=== PATIENT | female | born 1945 | race Caucasian/White ===

== ENCOUNTER 2017-05-26 09:17 | Observation (INO) | payer MEDICARE ==
[2017-05-26] MEDS ORDERED: Furosemide 40 MG/4 ML VIAL ONE (10:07)
[2017-05-26 10:31] LABS: #Eosinphils 0.5 thou/uL (0.0-0.7); #Lymphocytes 1.4 thou/uL (1.20-3.40); #Monocytes 0.7 thou/uL (0.11-0.59); #Neutrophils 5.6 thou/uL (1.40-6.50); %Basophils 0.5 % (0.0-1.0); %Eosinophils 5.6 % (0.0-10.0); %Monocytes 8.9 % (0.0-10.0); %Neutrophils 67.9 % (42.0-75.0); Hemoglobin 9.5 g/dL (12.0-16.0); Mean Corpuscular HGB CONC 33.2 g/dL (32.0-36.0); Mean Corpuscular Hemoglobin 31.3 pg (27.0-31.0); Mean Corpuscular Volume 94.4 fl (81.0-99.0); Mean Platelet Volume 7.6 fL (7.4-10.4); Platelet Count 259 thou/uL (130-400); RBC Distribution Width 14.4 % (11.5-14.5); Red Blood Cell (RBC) Count 3.02 mill/uL (4.20-5.40); White Blood Cell (WBC) Count 8.2 thou/uL (4.8-10.8)
[2017-05-26 10:52] LABS: ALT (SGPT) 17 U/L (8-55); AST (SGOT) 14 U/L (5-34); Albumin 3.8 g/dL (3.4-4.8); Alkaline Phosphatase 92 U/L (40-150); Anion Gap 13 mmol/L (10-20); BUN (Urea Nitrogen) 37 mg/dL (9.8-20.1); Bilirubin, Total 0.4 mg/dL (0.2-1.2); CK (CPK) 93 U/L (29-168); Calc. Creatinine Clearance 0 mL/min (70-130); Calcium 9.1 mg/dL (7.8-10.44); Carbon Dioxide 27 mmol/L (23-31); Chloride 105 mmol/L (98-107); Estimated GFR-MDRD 31; Globulin 3.3 g/dL (2.4-3.5); Glucose 62 mg/dL (80-115); Potassium 4.3 mmol/L (3.5-5.1); Protein, Total 7.1 g/dL (6.0-8.3); Sodium 141 mmol/L (136-145)
[2017-05-26 10:57] LABS: CKMB 1.3 ng/mL (0-6.6); Troponin I Less than 0.010 ng/mL (< 0.028)
--- NOTE | 2017-05-26 11:26 | RAD ---
ONE VIEW CHEST: HISTORY: A 30-pound weight loss. Dyspnea. FINDINGS: Sternotomy wires are identified. A left-side transvenous pacemaker is noted. Heart is enlarged. Th ere are pleural and parenchymal changes in the left hemithorax. There are diffuse interstitial opaci ties likely due to edema. No pneumothorax. IMPRESSION: Congestive heart failure. Continued surveillance. POS: TELMA
[2017-05-26 13:37] LABS: Troponin I 0.011 ng/mL (< 0.028)
[2017-05-26] MEDS ORDERED: Acetaminophen 325 MG TAB PO PRN (15:17)
[2017-05-26] MEDS ORDERED: Ondansetron HCl/PF 4 MG/2 ML Vial IVP PRN ×2 (15:17→19:28)
[2017-05-26] MEDS ORDERED: Ondansetron ODT 4 MG TAB SL PRN (15:17)
[2017-05-26] MEDS ORDERED: Furosemide 40 MG/4 ML VIAL SLOW IVP SCH ×2 (16:00→19:30)
[2017-05-26 16:08] LABS: Troponin I 0.011 ng/mL (< 0.028)
[2017-05-26] MEDS ORDERED: Dextrose 5% in Water 1,000 ML IV PRN (19:28)
[2017-05-26] MEDS ORDERED: cloNIDine 0.1 MG TAB PO PRN (19:28)
[2017-05-26] MEDS ORDERED: Acetaminophen 500 MG TAB PO PRN (19:28)
[2017-05-26] MEDS ORDERED: Dextrose 50% Abboject 50 ML SYRINGE SLOW IVP PRN (19:28)
[2017-05-26] MEDS ORDERED: hydrALAZINE 20 MG/ML VIAL SLOW IVP PRN (19:28)
[2017-05-26] MEDS ORDERED: HumaLOG 300 UNITS/3 ML VIAL SC PRN ×2 (19:28)
[2017-05-26] MEDS ORDERED: Ondansetron ODT 4 MG TAB PO PRN (19:28)
[2017-05-26 19:55] VITALS: BMI 43.0
[2017-05-26] MEDS: Atorvastatin Calcium 40 MG TAB PO SCH (21:49)
[2017-05-26] MEDS: Sotalol HCl 80 MG TAB PO SCH (21:50)
[2017-05-26] MEDS: Lisinopril 20 MG TAB PO SCH (21:50)
[2017-05-26] MEDS: Famotidine 20 MG TAB PO SCH (21:50)
[2017-05-26] MEDS: NPH, Human Insulin Isophane 300 UNIT/3 ML VIAL SC SCH (21:51)
--- NOTE | 2017-05-26 22:40 | HP ---
DATE OF ADMISSION: 05/26/2017 PRIMARY CARE PHYSICIAN: Dr. Mon, [facility]. CHIEF COMPLAINT: Weight gain and shortness of breath. HISTORY OF PRESENT ILLNESS: This is a 71-year-old female who presents to [facility] Emergency Department in transfer from [facility], where patient presented 05/26/2017 for a 20-30 pound weight gain over the last 3 weeks. Patient apparently suffer ed an upper respiratory infection within the last week and was seen by her primary care provider, at which point she was prescribed cefdinir and an inhaler. Patient states she accumulated fluid over ap proximately 3-week period of time, gaining of approximately a pound per day; however, continued to ta ke oral diuretics including torsemide 20-40 mg daily. Patient does admit to dietary indiscretion inc luding sodium and fluid intake up to 2 liters daily. Patient noted increasing swelling of her legs, above her knees as well as difficulty lying flat. Patient states she slept at seated position and soto d some increased shortness of breath with ambulation. The patient denies any home oxygen use, recent trauma injury, travel history, chest pain, or fever. Patient does admit to significant history of c oronary artery disease as well as valvular heart disease undergoing aortic valve replacement through transcutaneous approach as well as insertion of a pacemaker. Patient states she has been compliant w ith her chronic medication regimen and denied any other specific changes. In the emergency room, franco orona underwent chest imaging showing cephalization and pulmonary edema receiving IV Lasix 40 mg x1. Patient states she had increased urination after the dosing of Lasix with shortness of breath improvi ng. Patient was referred to the Hospitalist Service for further evaluation. PAST MEDICAL HISTORY: 1. Coronary artery disease, status post cardiac stent placement x4. 2. History of atrial fibrillation. 3. Dyslipidemia. 4. Morbid obesity. 5. Hypothyroidism. 6. Depression. 7. Gastroesophageal reflux disease. 8. Hypertension. 9. Diabetes mellitus type 2, insulin-requiring. 10. Chronic kidney disease, stage 3. 11. Moderate aortic stenosis. 12. Diastolic heart failure with preserved ejection fraction in the 60% range. PAST SURGICAL HISTORY: 1. Status post coronary artery bypass grafting in 2011. 2. Status post cardiac catheterization with stent placement x4. 3. Status post section x2. 4. Status post pacemaker placement. 5. Status post transcutaneous aortic valve replacement in 2016. CURRENT MEDICATIONS: 1. Amlodipine 10 mg 1 tab p.o. daily. 2. Vitamin C 500 mg p.o. daily. 3. Enteric-coated aspirin 81 mg p.o. daily. 4. Lipitor 80 mg p.o. at bedtime. 5. Cefzil 500 mg p.o. b.i.d. 6. Plavix 75 mg 1 tab p.o. daily. 7. Lasix 40 mg p.o. daily. 8. Novolin insulin 50 units subcutaneously q.a.m. and 30 units subcutaneously at bedtime. 9. Levothyroxine 125 mcg p.o. daily. 10. Lisinopril 40 mg p.o. at bedtime. 11. Metformin 500 mg p.o. b.i.d. 12. Multivitamin 1 tab p.o. daily. 13. Protonix 40 mg p.o. at bedtime. 14. Klor-Con 10, 20 mEq p.o. daily. 15. Ranexa 500 mg p.o. b.i.d. 16. Zoloft 50 mg p.o. daily. 17. Sotalol 80 mg p.o. b.i.d. 18. Torsemide 20 mg p.o. daily. 19. Coenzyme Q10 10 mg p.o. daily. ALLERGIES: No known drug allergies. FAMILY HISTORY: Positive for hypertension, diabetes, and coronary artery disease. SOCIAL HISTORY: Patient is , retired, and resides in [place], [place]. Patient has 2 daughters. No current alcohol, tobacco, or illicit drug use. REVIEW OF SYSTEMS: The following complete review of systems was otherwise negative, except as stated per HPI: Constitutional: Weight loss or gain, ability to conduct usual activities. Skin: Rash, i tching. Eyes: Double vision, pain. ENT/Mouth: Nose bleeding, neck stiffness, pain, tenderness. C ardiovascular: Palpitations, dyspnea on exertion, orthopnea. Respiratory: Shortness of breath, whe ezing, cough, hemoptysis, fever, or night sweats. Gastrointestinal: Poor appetite, abdominal pain, heartburn, nausea, vomiting, constipation, or diarrhea. Genitourinary: Urgency, frequency, dysuria, nocturia. Musculoskeletal: Pain, swelling. Neurologic/Psychiatric: Anxiety, depression. Allergy /Immunologic: Skin rash, bleeding tendency. PHYSICAL EXAMINATION: VITAL SIGNS: Currently blood pressure 144/65, pulse 91, respiratory rate 20, temperature 98.9 degree s Fahrenheit, O2 saturation 91% on room air. GENERAL APPEARANCE: This is a 71-year-old female, alert and oriented x3, pleasant, convers ant, in no acute distress. HEENT: Pupils are equal, round, and reactive to light and accommodation. Extraocular muscles are in tact. No scleral icterus, no conjunctival injection. Nares patent. OP is clear. Teeth in good rep air. NECK: Supple, no cervical adenopathy, no thyromegaly, no carotid bruits, no JVD appreciated. Cervic al spine with full active and passive range of motion. No meningeal signs appreciated. CHEST: Bibasilar crackles, mild. CARDIOVASCULAR: S1, S2 with soft 1-2/6 systolic ejection murmur in the left upper sternal border. H eart sounds distant. ABDOMEN: Obese, soft, nontender, nondistended. Bowel sounds are positive in all four quadrants. Th ere is no hepatosplenomegaly, no abdominal bruits. Landmarks are difficult to palpate due to patient 's body habitus. EXTREMITIES: Bilateral pitting edema to the mid-thigh. Pulses palpable distally at the dorsalis ped is, posterior tibial, and popliteal arteries bilaterally. Capillary refill less than 2 seconds. NEUROLOGIC: Cranial nerves II-XII are grossly intact. No focal or lateralizing signs appreciated. PERTINENT LABORATORY DATA AND X-RAY FINDINGS: Sodium 141, potassium 4.3, chloride 105, CO2 of 27, BU N 37, creatinine 1.66 with estimated GFR of 31, glucose 62, calcium 9.1. LFTs within normal limits. Troponin I negative x3. BNP 227 previously noted 178 on 09/19/2016, albumin 3.8. CBC showed a whit e blood cell count of 8.2, hemoglobin 9.5, hematocrit 28.5, platelet count 259 with normal differenti al. Portable chest x-ray dated 05/26/2017 showed cardiomegaly. Diffuse interstitial opacities likel y secondary to edema. EKG dated 05/26/2017 by my interpretation showed sinus mechanism with heart ra radha in the 60s. Attenuated R waves noted in the precordial leads. Right bundle branch block pattern noted. Left axis deviation. No acute ST-T wave changes appreciated. ASSESSMENT AND PLAN: 1. Acute on chronic diastolic heart failure exacerbation. Patient will be observed on the telemetry unit. We will continue Lasix 40 mg IV q.12 hours. Obtain most recent 2D-transthoracic echocardiogr am from outpatient Cardiology office. Last ejection fraction documented at approximately 60% by Catina scan, PET scan on 03/04/2017. Fluid restrict to 1.5 liters per 24 hours. Sodium restriction 2 grams daily. Daily weights and monitor I's and O's. 2. Chronic kidney disease, stage 3. Avoid nephrotoxic agents and limit contrast exposure. Serial c reatinine monitoring. 3. Coronary artery disease, chronic and stable. Resume aspirin 81 mg daily and Plavix 75 mg p.o. da shelbi. Continue Lipitor 80 mg p.o. at bedtime. 4. Diabetes mellitus type 2, insulin-requiring. Continue insulin sliding scale for reflexive covera ge. Resume home insulin regimen to include Novolin 50 units subcutaneously q.a.m. and 30 units subcu taneously at bedtime. Accu-Cheks a.c. and at bedtime. ADA diet. 5. Hypertension. Resume home antihypertensive regimen and monitor clinical response. 6. Chronic normocytic anemia, stable currently. No evidence to suggest acute blood loss. Repeat CB C in the a.m. and monitor hemoglobin trend. 7. Prophylaxis. Sequential compression devices while in bed. Pepcid 20 mg p.o. b.i.d. Heart failu re education. 8. Code status is FULL. Surrogate medical decision maker is patient's daughter.
[2017-05-27] MEDS: Levothyroxine Sodium 125 MCG TAB PO SCH (05:57)
[2017-05-27] MEDS: Furosemide 40 MG/4 ML VIAL SLOW IVP SCH ×2 (05:57→14:50)
[2017-05-27 06:14] LABS: Anion Gap 12 mmol/L (10-20); BUN (Urea Nitrogen) 33 mg/dL (9.8-20.1); Calc. Creatinine Clearance 67 mL/min (70-130); Calcium 9.4 mg/dL (7.8-10.44); Carbon Dioxide 27 mmol/L (23-31); Chloride 104 mmol/L (98-107); Estimated GFR-MDRD 34; Glucose 149 mg/dL (80-115); Potassium 4.2 mmol/L (3.5-5.1); Sodium 139 mmol/L (136-145)
[2017-05-27 06:36] LABS: Band 2 % (5-11); Eosinophils 6 % (0-10); Hemoglobin 9.2 g/dL (12.0-16.0); Lymphocytes 16 % (21-51); MDiff Complete? YES; Mean Corpuscular HGB CONC 33.4 g/dL (32.0-36.0); Mean Corpuscular Hemoglobin 31.2 pg (27.0-31.0); Mean Corpuscular Volume 93.5 fl (81.0-99.0); Mean Platelet Volume 7.9 fL (7.4-10.4); Metamyelocyte 1 % (0-0); Monocytes 8 % (0-10); Neutrophil 66 % (42-75); PLT Morphology Comment Appears Adequate; Platelet Count 258 thou/uL (130-400); RBC Distribution Width 14.6 % (11.5-14.5); Reactive Lymphocytes 1 % (0-10); Red Blood Cell (RBC) Count 2.93 mill/uL (4.20-5.40); White Blood Cell (WBC) Count 9.9 thou/uL (4.8-10.8)
[2017-05-27] MEDS: Amlodipine 10 MG TAB PO SCH (08:32)
[2017-05-27] MEDS: Aspirin 81 mg Enteric Coated Tablet PO SCH (08:33)
[2017-05-27] MEDS: Clopidogrel Bisulfate 75 MG TAB PO SCH (08:33)
[2017-05-27] MEDS: Potassium Chloride 10 MEQ TAB PO SCH (08:33)
[2017-05-27] MEDS: Famotidine 20 MG TAB PO SCH ×2 (08:33→21:21)
[2017-05-27] MEDS: Sotalol HCl 80 MG TAB PO SCH ×2 (08:34→21:21)
[2017-05-27] MEDS: NPH, Human Insulin Isophane 300 UNIT/3 ML VIAL SC SCH ×2 (08:35→21:22)
--- NOTE | 2017-05-27 16:32 | PDOC.PN ---
- Subjective Encounter Start Date: 05/27/17 Encounter Start Time: 09:30 -: old records requested/rev Pt seen and examined, chart reviewed in its entirety, this is my first visit with this patient. Pt seen at 0930, revisited when daughter present at 1530. Combined 45 minutes spent face to face with patient Pt admitted overnight from CHF clinic for failure of outpatient theapy. Up 10 more pounds over last month despite increasing torsemide doses. PT admits to eating lunch meats, Chex Mix, diet pepsi, all loaded with sodium. Since admit, has been on IV lasix with good diuresis, -2L overnight, and -3L by 1400 today. Echo ordered and pending, last was 04/2016. Awiaitng Dr bellamy visit as well. Pt looks good, not requiring O2, no PND, much improved orthopnea 10 point ROS performed and neg for all systems except as per HPI - Objective Resuscitation Status: Resuscitation Status FULL:Full Resuscitation MAR Reviewed: Yes Vital Signs & Weight: Vital Signs (12 hours) Temp Pulse Pulse Pulse Resp BP BP 05/27/17 15:32 97.7 F 61 16 05/27/17 15:20 61 65 124/61 128/60 05/27/17 11:11 98.7 F 60 20 05/27/17 08:34 66 05/27/17 08:32 66 05/27/17 08:00 98.8 F 66 18 05/27/17 07:56 98.8 F 66 20 BP Pulse Ox Pulse Ox Pulse Ox 05/27/17 15:32 141/63 H 92 L 05/27/17 15:20 93 L 92 L 05/27/17 11:11 114/53 L 95 05/27/17 08:34 05/27/17 08:32 05/27/17 08:00 05/27/17 07:56 129/64 92 L Weight Weight 262 lb 11.2 oz I&O: 05/26/17 05/27/17 05/28/17 06:59 06:59 06:59 Intake Total 480 480 Output Total 2450 1200 Balance -1970 -720 Result Diagrams: 05/27/17 05:21 05/27/17 05:21 Additional Labs: Accuchecks 05/27/17 05/27/17 05/26/17 11:15 05:58 21:54 POC Glucose 201 H 161 H 206 H Radiology Reviewed by me: Yes EKG Reviewed by me: Yes Phys Exam - Physical Examination Constitutional: NAD HEENT: PERRLA, moist MMs, sclera anicteric, oral pharynx no lesions Neck: no nodes, no JVD, supple, full ROM Respiratory: no wheezing, no rales, no rhonchi, clear to auscultation bilateral Cardiovascular: no significant murmur, no rub, irregular Gastrointestinal: soft, non-tender, no distention, positive bowel sounds Musculoskeletal: pulses present, edema present skin textures returning Neurological: non-focal, normal sensation, moves all 4 limbs Lymphatic: no nodes Psychiatric: normal affect, A&O x 3 Skin: no rash, normal turgor, cap refill <2 seconds Dx/Plan (1) DM2 (diabetes mellitus, type 2) Status: Chronic Qualifiers: Diabetes mellitus jail insulin use: without rat exterminator use Diabetes mellitus complication status: without complication Qualified Code(s): E11.9 - Type 2 diabetes mellitus without complications (2) CKD (chronic kidney disease) stage 3, GFR 30-59 ml/min Code(s): N18.3 - CHRONIC KIDNEY DISEASE, STAGE 3 (MODERATE) Status: Chronic Comment: Cr stable, watch (3) Current nonadherence to medical treatment Code(s): Z91.19 - PATIENT'S NONCOMPLIANCE W OTH MEDICAL TREATMENT AND REGIMEN Status: Acute Comment: pt counseled regarding adherence to low sodium diet (4) Dietary counseling Status: Acute (5) Acute on chronic diastolic congestive heart failure Code(s): I50.33 - ACUTE ON CHRONIC DIASTOLIC (CONGESTIVE) HEART FAILURE Status : Acute (6) Atrial fibrillation Code(s): I48.91 - UNSPECIFIED ATRIAL FIBRILLATION Status: Acute Qualifiers: Atrial fibrillation type: paroxysmal Qualified Code(s): I48.0 - Paroxysmal atrial fibrillation (7) Diabetes mellitus Code(s): E11.9 - TYPE 2 DIABETES MELLITUS WITHOUT COMPLICATIONS Status: Acute Qualifiers: Diabetes mellitus type: type 2 Diabetes mellitus jail insulin use: without rat exterminator use Diabetes mellitus complication status: without complication Qualified Code(s): E11.9 - Type 2 diabetes mellitus without complications (8) Sick sinus syndrome Code(s): I49.5 - SICK SINUS SYNDROME Status: Acute Comment: S/P Pacemaker placement - Plan cont current plan of care, plan discussed w/ family, out of bed/ambulate * .
[2017-05-27] MEDS: Atorvastatin Calcium 40 MG TAB PO SCH (21:20)
[2017-05-27] MEDS: Lisinopril 20 MG TAB PO SCH (21:21)
[2017-05-28] MEDS: Levothyroxine Sodium 125 MCG TAB PO SCH (05:50)
[2017-05-28] MEDS: Furosemide 40 MG/4 ML VIAL SLOW IVP SCH (05:50)
[2017-05-28 06:58] LABS: Anion Gap 14 mmol/L (10-20); BUN (Urea Nitrogen) 40 mg/dL (9.8-20.1); Calc. Creatinine Clearance 55 mL/min (70-130); Calcium 9.4 mg/dL (7.8-10.44); Carbon Dioxide 25 mmol/L (23-31); Chloride 104 mmol/L (98-107); Estimated GFR-MDRD 28; Glucose 104 mg/dL (80-115); Magnesium 2.3 mg/dL (1.6-2.6); Potassium 4.1 mmol/L (3.5-5.1); Sodium 139 mmol/L (136-145)
[2017-05-28] MEDS ORDERED: metFORMIN 500 MG TAB PO SCH (08:00)
[2017-05-28] MEDS: Aspirin 81 mg Enteric Coated Tablet PO SCH (08:31)
[2017-05-28] MEDS: Amlodipine 10 MG TAB PO SCH (08:33)
[2017-05-28] MEDS: Famotidine 20 MG TAB PO SCH (08:33)
[2017-05-28] MEDS: Clopidogrel Bisulfate 75 MG TAB PO SCH (08:33)
[2017-05-28] MEDS: Potassium Chloride 10 MEQ TAB PO SCH (08:35)
[2017-05-28] MEDS: Sotalol HCl 80 MG TAB PO SCH (08:36)
[2017-05-28] MEDS ORDERED: Non-Formulary Item 1 EACH (Metformin Hcl [Metformin Hcl] 500 MG) PO SCH (09:00)
[2017-05-28] MEDS ORDERED: Torsemide 20 MG TAB PO SCH (09:00)
[2017-05-28] MEDS: NPH, Human Insulin Isophane 300 UNIT/3 ML VIAL SC SCH (10:04)
[2017-05-28] MEDS ORDERED: Furosemide 40 MG/4 ML VIAL SLOW IVP SCH (12:00)
[2017-05-28] MEDS ORDERED: Metolazone 5 MG TAB PO SCH (12:00)
[2017-05-28 12:25] VITALS: BP 141/63; TEMP 98.2
--- NOTE | 2017-05-28 16:20 | CON ---
DATE OF CONSULTATION: 05/28/2017 DATE OF ADMISSION: 05/26/2017 INDICATION FOR CONSULTATION: A 71-year-old female with CHF exacerbation. HISTORY OF PRESENT ILLNESS: This is a very pleasant 71-year-old female I follow for several years. She has a history of coronary artery disease and she underwent bypass surgery in 2013. She then unde rwent an angioplasty and stent placement to a diagonal branch in 2014. She underwent a TAVR in 2015. She also had a pacemaker placed at that time. Her last interrogation was within normal limits. Evan worthy was seen in the office in 01/2017. Recently, she has been noted for the last 6 weeks or so th at she has had increasing shortness of breath. She has not been very compliant with her fluid intake and also probably with sodium. She has been followed by the Heart Failure Clinic. It was noted mike t she gained increased amounts of fluid over the last several weeks, 20-30 pounds, has significant lo wer extremity edema with shortness of breath, was unable to lie down and had dyspnea on exertion. Evan burns was then presented to the hospital. Her enzymes were negative for myocardial infarction. Her hemo globin was about 9.2. She is anemic. She does have chronic kidney disease also and her creatinine w as 1.82. She was given IV Lasix and she has diuresed a little over 3 liters. She is feeling somewha t better, but continues to have significant lower extremity edema. She did have an echocardiogram pe rformed today which shows a normal ejection fraction. She does have diastolic dysfunction also. She has probably moderate aortic valve stenosis associated with her TAVR, aortic valve area calculated 1 .2-1.7 cm2. She has left atrial dilatation. Ejection fraction was 60%-65%. She also has some mild mitral valve regurgitation as well as mild tricuspid valve regurgitation and the diastolic dysfunctio n. At this time, she denies any chest pain. She still does have some dyspnea on exertion or orthopn ea, but otherwise appears to be comfortable and stable. She denies any chest pain. Her cardiac enzy mes are unremarkable for myocardial infarction. Her BNP was 226, which is not significantly elevated . PAST MEDICAL HISTORY: Significant for the coronary disease as noted. The aortic valve replacement a s noted via percutaneous method. She has a history of pacemaker insertion due to sick sinus syndrome . She has a history of paroxysmal atrial fibrillation. She has a history of chronic anemia. She soto s a history of chronic kidney disease. She recently had a stress test in the office also on March of this year which was negative for ischemia. Ejection fraction at that time also showed ejection fr action of 60%. She has a history of hypertension, dyslipidemia, hypothyroidism, some history of depr ession. She has had a and appendectomy. She has had a left greater saphenous vein closure . She has diabetes. MEDICATIONS PRIOR TO ADMISSION: Included lisinopril 40 mg q.p.m., torsemide 20 mg 2 tablets a day, C oQ10, vitamins, Plavix 75 mg a day, calcium, atorvastatin 80 mg at bedtime. She was on insulin Novol in N 30 units in the evening and 50 units in the morning. She takes metformin 500 mg b.i.d., Ranexa 500 mg b.i.d., Protonix 40 mg a day, vitamin C, Zoloft 50 mg a day, Betapace 80 mg b.i.d., Synthroid 125 mcg daily, amlodipine 10 mg a day, aspirin 81 mg a day, potassium 20 mEq a day. FAMILY HISTORY: Noncontributory. REVIEW OF SYSTEMS: She mainly complains of the shortness of breath, lower extremity edema and weight gain. She denied any pulmonary complaints otherwise. She has no chest pain, no palpitations, no sy ncope. She had no GI or complaints. Neurologically, no history of dizziness or seizures. Dermat ology: She was negative for rash or skin sores. She has no joint pains or myalgias. ALLERGIES: She has no known drug allergies. PHYSICAL EXAMINATION: GENERAL: Reveals a middle-aged obese female. VITAL SIGNS: Her blood pressure is 140/61, heart rate is 64 and regular. She is afebrile, respirato ry rate 16. O2 saturations 93%. HEENT: Shows head to be normocephalic, atraumatic. I do hear carotid bruits which is probably radia tion from the aortic area, does not appear to be stenosis. No JVD was noted. The thyroid did not ap pear to be enlarged. CHEST: Has minimal left basilar rales which clear with coughing. Otherwise is clear to auscultation , palpation and percussion. CARDIOVASCULAR: Exam reveals a regular rate and rhythm. She has a normal S1, S2. I cannot hear an S3 nor an S4. There were no significant murmurs, heaves, thrills, bruits or rubs other than the syst olic murmur over the aortic area compatible with her previous aortic valve replacement. She does hav e by echocardiogram some mild to moderate aortic valve stenosis, but this is most likely associated w ith the size of the valve that does not appear to be limiting in any way. ABDOMEN: Soft, nontender, obese. EXTREMITIES: Show no clubbing or cyanosis. She does have 2-3+ lower extremity edema involving the f eet all the way up to the knees. NEUROLOGIC: She is fully awake and intact. She has normal strength and tone. SKIN: Warm and dry. IMAGING: Her EKG shows atrial pacing and ventricular sensing. LABORATORY DATA: Shows a BNP of 226, creatinine 1.82 with BUN of 40, potassium 4.1, WBC of 9.9, and hemoglobin 9.2. IMPRESSION: 1. Congestive heart failure exacerbation in a patient who has been somewhat noncompliant with her fl uid intake and sodium. She was again advised not to drink too much fluid, to try to keep it less mike n 2 liters a day of total fluids. Also to watch her salt very carefully and report to the Heart Fail ure Clinic for further IV diuretics if necessary. I would continue her diuretics at this time, but w ould add Zaroxolyn to be taken perhaps one hour prior to her dose of torsemide at least 2 days a week . We will need to monitor her BUN and creatinine very carefully and she already has renal insufficie ncy, would suggest that she follow up with Nephrology. 2. History of coronary disease. This appears to be stable at this time. Enzymes are negative. EKG does not show any evidence of ischemia. She has atrial pacing and ventricular sensing, but no ische noa changes were noted. 3. History of bypass surgery with stent placement and this appears to be stable. 4. History of aortic valve replacement. This also appears to be stable by echocardiogram. 5. Diastolic dysfunction. This is a grade I/III. We will continue her medications, but will be car eful not to over-diurese the patient. At this time, obviously she is fluid overloaded still. 7. Chronic kidney disease, which will need to be dealt with by the Nephrology. 8. Paroxysmal atrial fibrillation. She remains in sinus rhythm at this time. Otherwise, I would ag ree with present management and medications, but will add Zaroxolyn. She is to be seen in the Heart Failure Clinic again on Thursday and I will her back in the office in the next 2-4 weeks.
--- NOTE | 2017-05-29 07:34 | DIS ---
DATE OF ADMISSION: 05/26/2017 DATE OF DISCHARGE: 05/28/2017 PRIMARY CARE PHYSICIAN: Dr. Rasheed Mon. PRIMARY MEDIA PROFESSIONAL: Dr. Pino Pratt. DISCHARGE DIAGNOSES: 1. Acute on chronic diastolic congestive heart failure. 2. Medical non-adherence to heart failure diet. 3. Coronary artery disease without any acute exacerbation or angina. 4. History of coronary artery bypass surgery and stent placements in the past. 5. History of porcine aortic valve replacement. 6. Chronic kidney disease 3. 7. Paroxysmal atrial fibrillation. 8. Severe obesity. 9. Hypothyroidism. 10. Depression. 11. Gastroesophageal reflux disease. 12. Essential hypertension. 13. Insulin-dependent diabetes mellitus type 2. 14. Hyperlipidemia. CONSULTATIONS: Cardiology, Dr. Pino Pratt on 05/28/2017. PROCEDURES: Echocardiogram on 05/28/2017 that showed EF of 60%-65% with grade I/III diastolic dysfun ction, moderate aortic stenosis. HISTORY AND PHYSICAL: Ms. Saldana is a 71-year-old female followed by the CHF clinic for chronic diastolic congestive heart failure. She has had a several month history of increasing weight and is gained approximately 25 pounds during that time. During that time, she was transitioned from Lasix t o torsemide, given metolazone on a couple of occasions, and ultimately increased to torsemide 20 mg d aily. Despite that, she continued to have weight gain. There was 1 month prior to admission who gai adelina approximately 10 pounds of fluid. She was seen in the Heart Failure Clinic on the day of admission, and due to some dyspnea on exertion , PND, and orthopnea, her increasing weight gain, and lack of apparent response to torsemide, she was sent to the emergency department for evaluation. HOSPITAL COURSE: The patient was examined in the Emergency Department, we were called for admission. The patient was admitted by Dr. Jo and placed in observation. Echocardiogram was ordered, she was started on IV Lasix q.12 hours, and serial cardiac biomarkers wer e obtained. Overnight on 05/26/2017 to 05/27/2017, she had approximately 2 liters of negative fluid balance. She was down of less 4 pounds. She was breathing better. Orthopnea and PND had resolved, and she was responding well. Echocardiogram was not done during that day due to number of echos were ordered at that time and so s he was pushed down into the morning of 05/28/2017. She continued to get her IV Lasix, which she resp onded well to and by the morning of 05/28/2017, she was negative 3-1/2 liters of fluid. She was feel ing better, breathing was better. Echocardiogram was unchanged from prior and the patient was seen b liz Pratt, who cleared for discharge with outpatient followup. Through the course of the hospital [facility], the diet required for chronic congestive heart failure was discussed. The patient has been eatin g multiple foods including Chex Mix and lunch and meats that are high in sodium and dietary consult w as requested to go over the CHF appropriate diet. PHYSICAL EXAMINATION: The patient was seen and examined on the day of discharge. Discharge plan and disposition was discussed with the patient face to face at the bedside. DISCHARGE MEDICATIONS: 1. Torsemide 20 mg p.o. daily. 2. Amlodipine 10 mg daily. 3. Vitamin C 500 mg daily. 4. Aspirin 81 mg daily. 5. Atorvastatin 80 mg p.o. at bedtime. 6. Cefprozil 500 mg p.o. b.i.d., to end on 05/31/2017. 7. Plavix 75 mg p.o. q.a.m. 8. Novolin N NPH 50 units subcu q.a.m., 30 units subcu at bedtime. 9. Levothyroxine 125 mcg daily. 10. Lisinopril 40 mg p.o. at bedtime. 11. Metformin 500 mg p.o. b.i.d. 12. Multivitamin daily. 13. Protonix 40 mg p.o. at bedtime. 14. Potassium chloride 20 mEq daily. 15. Ranolazine 500 mg p.o. b.i.d. 16. Sertraline 50 mg p.o. daily. 17. Sotalol 80 mg p.o. b.i.d. 18. CoQ10 10 mg p.o. daily. NEW MEDICATIONS: Zaroxolyn recommended by Cardiology to be taken twice a week, about one hour before of her torsemide, so a prescription will be called in. FOLLOWUP APPOINTMENTS: 1. [facility] as scheduled. 2. Dr. Pratt in 2-3 weeks. 3. Primary care physician, Dr. Rasheed Mon in 1 week. DISCHARGE CONDITION: Stable. DISPOSITION: Being discharged home via private vehicle. DISCHARGE DIET: Heart healthy, 2 gram restriction, preferably 2 liter fluid restriction diet. DISCHARGE ACTIVITY: Per Cardiopulmonary limits.
== END 2017-05-28 13:35 | disposition home or self-care (01) ==
LOC: ERS 09:17 → 2SW 12:43
PROVIDERS: ADMIT Family Medicine; ATTEND Family Medicine
DX: E11.22 Type 2 diabetes mellitus with diabetic chronic kidney disease (principal); I13.0 Hypertensive heart and chronic kidney disease with heart failure and stage 1 through stage 4 chronic kidney disease, or unspecified chronic kidney disease; N18.3 Chronic kidney disease, stage 3 (moderate); I50.33 Acute on chronic diastolic (congestive) heart failure; I25.10 Atherosclerotic heart disease of native coronary artery without angina pectoris; I48.0 Paroxysmal atrial fibrillation; E03.9 Hypothyroidism, unspecified; F32.9 Major depressive disorder, single episode, unspecified; K21.9 Gastro-esophageal reflux disease without esophagitis; E78.5 Hyperlipidemia, unspecified; D63.1 Anemia in chronic kidney disease; I49.5 Sick sinus syndrome; E66.01 Morbid (severe) obesity due to excess calories; Z68.41 Body mass index [BMI] 40.0-44.9, adult; Z91.11 Patient's noncompliance with dietary regimen; Z79.01 Long term (current) use of anticoagulants; Z79.4 Long term (current) use of insulin; Z79.82 Long term (current) use of aspirin; Z79.899 Other long term (current) drug therapy; Z95.1 Presence of aortocoronary bypass graft; Z95.5 Presence of coronary angioplasty implant and graft; Z95.3 Presence of xenogenic heart valve; Z98.891 History of uterine scar from previous surgery; Z98.890 Other specified postprocedural states
CPT/HCPCS: 71045; 80048 ×2; 80053; 82550; 82553; 82962 ×3; 83735; 83880; 84484 ×2; 85007; 85025; 85027; 93005; 93306; 93798; 96374; 96376 ×3; 99285; G0378; 36415; 36416; A4216; J1815; J1940

== ENCOUNTER 2017-09-05 10:15 | Observation (INO) | payer MEDICARE ==
[2017-09-05] MEDS ORDERED: methylPREDNISolone Sod Succ/PF 125 MG/2 ML VIAL ONE (10:41)
[2017-09-05] MEDS ORDERED: diphenhydrAMINE 50 MG/ML VIAL ONE (10:41)
[2017-09-05 10:51] LABS: #Eosinphils 0.1 thou/uL (0.0-0.7); #Lymphocytes 1.1 thou/uL (1.20-3.40); #Monocytes 0.4 thou/uL (0.11-0.59); #Neutrophils 8.8 thou/uL (1.40-6.50); %Basophils 0.1 % (0.0-1.0); %Eosinophils 0.6 % (0.0-10.0); %Monocytes 3.7 % (0.0-10.0); %Neutrophils 84.7 % (42.0-75.0); Hemoglobin 11.4 g/dL (12.0-16.0); Mean Corpuscular HGB CONC 34.2 g/dL (32.0-36.0); Mean Corpuscular Hemoglobin 31.8 pg (27.0-31.0); Mean Platelet Volume 8.1 fL (7.4-10.4); Platelet Count 231 thou/uL (130-400); RBC Distribution Width 13.7 % (11.5-14.5); Red Blood Cell (RBC) Count 3.57 mill/uL (4.20-5.40); White Blood Cell (WBC) Count 10.4 thou/uL (4.8-10.8)
[2017-09-05] MEDS ORDERED: Famotidine/PF 20 mg/2ml Vial IVPB SCH (11:00)
[2017-09-05 11:08] LABS: ALT (SGPT) 18 U/L (8-55); AST (SGOT) 24 U/L (5-34); Albumin 4.1 g/dL (3.4-4.8); Alkaline Phosphatase 80 U/L (40-150); Anion Gap 18 mmol/L (10-20); BUN (Urea Nitrogen) 56 mg/dL (9.8-20.1); Bilirubin, Total 0.4 mg/dL (0.2-1.2); CK (CPK) 491 U/L (29-168); Calc. Creatinine Clearance 0 mL/min (70-130); Calcium 9.6 mg/dL (7.8-10.44); Carbon Dioxide 18 mmol/L (23-31); Chloride 107 mmol/L (98-107); Estimated GFR-MDRD 25; Globulin 3.2 g/dL (2.4-3.5); Glucose 157 mg/dL (80-115); Potassium 4.9 mmol/L (3.5-5.1); Protein, Total 7.3 g/dL (6.0-8.3); Sodium 138 mmol/L (136-145)
[2017-09-05 11:13] LABS: Troponin I Less than 0.010 ng/mL (< 0.028)
[2017-09-05 11:18] LABS: CKMB 15.7 ng/mL (0-6.6)
[2017-09-05] MEDS ORDERED: diphenhydrAMINE 50 MG/ML VIAL IVP PRN (12:55)
--- NOTE | 2017-09-05 13:24 | HP ---
PRIMARY CARE PROVIDER: Dr. Rasheed Mon. CHIEF COMPLAINT: Tongue swelling. HISTORY OF PRESENT ILLNESS: Ms. Saldana is a pleasant 72-year-old lady who was seen at [facility] on 09/05/2017. She reports that she had diarrhea for 1 day, couple of days a go. She saw her primary care provider yesterday and was started on diphenoxylate. She has been on l isinopril for several years. Last night, she reports that she had low blood sugars. She got up to the refrigerator to look for so me food. At that time, she noticed that her tongue was feeling different. However, she thought that maybe she had passed out from hypoglycemia and bit her tongue. This morning, she noticed that her t ongue continued to be swollen. She denies any itching of the tongue. She also reports that left arm and left lower extremity were both achy today. She denies any wheezing at home. She denies any fee ling of doom. She denies any throat swelling. She came to the emergency room because of ongoing ton toby swelling. REVIEW OF SYSTEMS: All other systems reviewed and found to be negative. PAST MEDICAL HISTORY: Coronary artery disease, status post PCI with stent, atrial fibrillation, dysl ipidemia, morbid obesity, hypothyroidism, depression, gastroesophageal reflux disease, hypertension, diabetes mellitus type 2, chronic kidney disease stage 3, moderate aortic stenosis and diastolic hear t failure. PAST SURGICAL HISTORY: Coronary artery bypass graft in 2012, PCI with stents x4, section x2 , pacemaker placement, transcutaneous aortic valve replacement in 2016. SOCIAL HISTORY: Patient denies tobacco use, alcohol use or recreational drug use. FAMILY HISTORY: Significant for hypertension, diabetes mellitus and coronary artery disease. ALLERGIES: No known drug allergies. CODE STATUS: I discussed her code status. She wishes to be FULL CODE. CURRENT MEDICATIONS: Diphenoxylate p.r.n., amlodipine 10 mg daily, torsemide 20-40 mg daily, potassi um chloride 20 mEq daily, aspirin 81 mg daily, Plavix 75 mg daily, lisinopril 40 mg daily, metformin 500 mg 2 times a day, Protonix 40 mg daily, Ranexa 500 mg 2 times a day, ascorbic acid 500 mg daily, sotalol 80 mg 2 times a day and Novolin N 50 units in the morning and 30 units at supper. PHYSICAL EXAMINATION: GENERAL: On examination, Ms. Saldana is awake and alert, not in acute distress. VITAL SIGNS: Blood pressure is 147/66, pulse 60, respiratory rate 20, and oxygen saturations 96% on room air. She is afebrile. She is obese. EYES: No scleral icterus. No conjunctival pallor. ENT: Moist mucosal membranes, no oropharyngeal erythema or exudates. Right half of the tongue is sw ollen, but there is no airway compromise. NECK: Supple, nontender, normal range of movement. Trachea is midline. RESPIRATORY: Accessory muscles of breathing are not active. Chest wall movements are symmetric bila terally. LUNGS: Clear to auscultation without any wheeze, rhonchi or crepitations. CARDIOVASCULAR: S1 and S2 are heard, regular. Peripheral pulses palpable. No carotid bruit, no per icardial rub. NEUROLOGIC: Cranial nerves II-XII intact. Deep tendon reflexes 2+. SKIN: Dry skin over the lower extremities, bilateral lower extremity edema. MUSCULOSKELETAL: Power is 5/5 in all 4 extremities. LYMPHATIC: No cervical lymphadenopathy. PSYCHIATRIC: Normal mood, normal affect, patient is oriented to person, place and time. IMAGING DATA AND LABORATORY DATA: She had an electrocardiogram, which shows atrial paced rhythm, no ST changes to suggest an acute coronary syndrome. She has a normal white count, normocytic anemia wi th hemoglobin 11.4, normal platelet count, normal sodium, normal potassium, elevated blood urea nitro gen of 56, elevated creatinine of 2, last known creatinine 1.59 on 06/09/2017, elevated creatinine ki nase of 491, unremarkable liver profile and normal troponin I. ASSESSMENT AND PLAN: Ms. Saldana is a pleasant 72-year-old lady who was seen at [facility] on 09/05/2017. Her problem list includes: 1. Tongue swelling: Most likely secondary to angioedema. She attributes it to diphenoxylate. It i s possible, although it is more likely secondary to lisinopril use. Lisinopril will be discontinued. She will be started on an ARB. 2. Angioedema: We will continue the patient on H1 and H2 blockers as well as steroids. we will mon itor her on telemetry. She is not hypoxic at this time. 3. Diabetes mellitus type 2: She is on insulin. We will continue home insulin and start her on Acc u-Cheks and insulin sliding scale. 4. Acute on chronic renal failure: We will hold nephrotoxic medications for now and recheck her cre atinine. 5. Coronary artery disease: Appears to be stable. 6. Gastroesophageal reflux disease: Continue PPI, appears to be stable. 7. Hypertension: Monitor vital signs, titrate antihypertensives as needed. 8. Dyslipidemia: Continue statin. Many thanks for allowing me to participate in your patient's care. Please feel free to contact me wi th any questions or concerns. LEVEL OF RISK: Moderate. LEVEL OF COMPLEXITY: Moderate.
[2017-09-05 13:36] VITALS: BMI 41.1
[2017-09-05 16:03] VITALS: BP 150/68; TEMP 98.3
[2017-09-05] MEDS ORDERED: Famotidine/PF 20 mg/2ml Vial SLOW IVP SCH (21:00)
--- NOTE | 2017-09-06 01:33 | DIS ---
DATE OF ADMISSION: 09/05/2017 DATE OF DISCHARGE: Patient left against medical advice on 09/05/2017. PRIMARY CARE PROVIDER: Rasheed Mon MD DISCHARGE DIAGNOSES: 1. Tongue swelling. 2. Angioedema. HOSPITAL COURSE: Ms. Saldana is a pleasant 72-year-old lady who was admitted to [facility] on 09/05/2017 on observation status for tongue swelling and angioedema. She was herb ated with steroids, H1 blockers and H2 blockers. Please refer to my history and physical note dated 09/05/2017 for further information. Shortly after admission, Ms. Saldana left the hospital against medical advice.
[2017-09-06] MEDS ORDERED: Famotidine/PF 20 mg/2ml Vial SLOW IVP SCH (09:00)
== END 2017-09-05 16:49 | disposition left against medical advice (07) ==
LOC: ERS 10:15 → 2SW 13:09
PROVIDERS: ADMIT Internal Medicine; ATTEND Internal Medicine
DX: R22.0 Localized swelling, mass and lump, head (principal); T78.3XXA Angioneurotic edema, initial encounter; I25.10 Atherosclerotic heart disease of native coronary artery without angina pectoris; I13.0 Hypertensive heart and chronic kidney disease with heart failure and stage 1 through stage 4 chronic kidney disease, or unspecified chronic kidney disease; E11.22 Type 2 diabetes mellitus with diabetic chronic kidney disease; E78.5 Hyperlipidemia, unspecified; E66.01 Morbid (severe) obesity due to excess calories; E03.9 Hypothyroidism, unspecified; K21.9 Gastro-esophageal reflux disease without esophagitis; I50.30 Unspecified diastolic (congestive) heart failure; N17.9 Acute kidney failure, unspecified; Z88.8 Allergy status to other drugs, medicaments and biological substances; Z79.82 Long term (current) use of aspirin; Z79.02 Long term (current) use of antithrombotics/antiplatelets; Z79.899 Other long term (current) drug therapy; Z79.4 Long term (current) use of insulin
CPT/HCPCS: 36415; 80053; 82553; 84484; 85025; 93005; 96374; 96375; J1200; J2930; S0028

== ENCOUNTER 2018-07-07 09:12 | Emergency (ER) | payer MEDICARE ==
[2018-07-07 10:15] LABS: #Eosinphils 0.4 thou/uL (0.0-0.7); #Monocytes 0.8 thou/uL (0.11-0.59); #Neutrophils 6.3 thou/uL (1.40-6.50); %Basophils 0.4 % (0.0-1.0); %Eosinophils 4.4 % (0.0-10.0); %Lymphocytes 11.6 % (21.0-51.0); %Monocytes 9.2 % (0.0-10.0); %Neutrophils 74.5 % (42.0-75.0); Hemoglobin 10.1 g/dL (12.0-16.0); Mean Corpuscular HGB CONC 33.1 g/dL (32.0-36.0); Mean Corpuscular Hemoglobin 30.6 pg (27.0-31.0); Mean Corpuscular Volume 92.3 fL (78.0-98.0); Mean Platelet Volume 8.6 fL (7.4-10.4); Platelet Count 236 thou/uL (130-400); RBC Distribution Width 15.2 % (11.5-14.5); Red Blood Cell (RBC) Count 3.32 mill/uL (4.20-5.40); White Blood Cell (WBC) Count 8.5 thou/uL (4.8-10.8)
[2018-07-07 10:37] LABS: ALT (SGPT) 12 U/L (8-55); AST (SGOT) 15 U/L (5-34); Albumin 3.9 g/dL (3.4-4.8); Alkaline Phosphatase 100 U/L (40-150); Anion Gap 15 mmol/L (10-20); BUN (Urea Nitrogen) 42 mg/dL (9.8-20.1); Bilirubin, Total 0.4 mg/dL (0.2-1.2); Calc. Creatinine Clearance 0 mL/min (70-130); Calcium 9.2 mg/dL (7.8-10.44); Carbon Dioxide 24 mmol/L (23-31); Chloride 106 mmol/L (98-107); Estimated GFR-MDRD 24; Globulin 3.1 g/dL (2.4-3.5); Glucose 84 mg/dL (83-110); Potassium 3.7 mmol/L (3.5-5.1); Sodium 141 mmol/L (136-145)
[2018-07-07 11:34] LABS: Bilirubin Negative (Negative); Blood, Urine Negative (Negative); Clarity CLOUDY (Clear); Glucose, Urine (Dipstick) Negative (Negative); Leukocyte Trace (Negative); Nitrite Negative (Negative); Protein, Urine (Dipstick) Negative (Neg-Trace); Urobilinogen 0.2 mg/dL (0.2-1.0); pH, Urine 5.5 (5.0-9.0)
[2018-07-07 11:38] LABS: Bacteria/HPF None Seen HPF (None Seen); RBC/HPF 0-3 HPF (0-3)
[2018-07-07 11:42] LABS: Pathc Cast-AUWi Flag 3.94 (0-2.49); Yeast-AUWi Flag 85.9 (0-25.0)
[2018-07-07 11:57] LABS: Hyaline Casts/LPF 0-3 HYALINE CAST LPF (0-3 Hyaline); Renal Epithelial None Seen HPF (0-3); Transitional Epithelial 0-3 HPF (0-3); Yeast-All Forms Rare HPF (None Seen)
== END 2018-07-07 12:22 | disposition home or self-care (01) ==
LOC: ERS 09:12
DX: E11.649 Type 2 diabetes mellitus with hypoglycemia without coma (principal); I13.0 Hypertensive heart and chronic kidney disease with heart failure and stage 1 through stage 4 chronic kidney disease, or unspecified chronic kidney disease; N18.9 Chronic kidney disease, unspecified; I50.9 Heart failure, unspecified; D64.9 Anemia, unspecified; E03.9 Hypothyroidism, unspecified; E78.5 Hyperlipidemia, unspecified; Z79.899 Other long term (current) drug therapy; Z79.82 Long term (current) use of aspirin; Z79.4 Long term (current) use of insulin
CPT/HCPCS: 36415; 36416; 80053; 81003; 81015; 85025; 99285

== ENCOUNTER 2018-12-08 07:45 | Outpatient (CLI) | payer MEDICARE ==
[2018-12-08] MEDS ORDERED: Sodium Chloride 0.9% 15 ML NEB ONE (16:05)
== END 2018-12-08 07:46 | disposition home or self-care (01) ==
LOC: WCC 07:45
PROVIDERS: ATTEND Family Medicine
DX: M79.89 Other specified soft tissue disorders (principal); L90.9 Atrophic disorder of skin, unspecified
CPT/HCPCS: 97139; G0463; 99211; A4218

== ENCOUNTER 2019-02-16 02:17 | Inpatient (IN) | payer MEDICARE ==
[2019-02-16] MEDS ORDERED: Aspirin Chewable 81 MG TAB ONE ×2 (02:27→07:24)
[2019-02-16] MEDS ORDERED: Furosemide 40 MG/4 ML VIAL ONE ×3 (03:23→14:46)
[2019-02-16 03:39] LABS: #Eosinphils 0.3 thou/uL (0.0-0.7); #Lymphocytes 0.8 thou/uL (1.20-3.40); #Monocytes 0.9 thou/uL (0.11-0.59); #Neutrophils 14.5 thou/uL (1.40-6.50); %Basophils 0.2 % (0.0-1.0); %Eosinophils 1.7 % (0.0-10.0); %Monocytes 5.2 % (0.0-10.0); %Neutrophils 87.9 % (42.0-75.0); Hemoglobin 9.1 g/dL (12.0-16.0); Mean Corpuscular HGB CONC 33.6 g/dL (32.0-36.0); Mean Corpuscular Hemoglobin 29.5 pg (27.0-31.0); Mean Corpuscular Volume 87.8 fL (78.0-98.0); Mean Platelet Volume 9.7 fL (7.4-10.4); Platelet Count 206 thou/uL (130-400); RBC Distribution Width 19.4 % (11.5-14.5); Red Blood Cell (RBC) Count 3.09 mill/uL (4.20-5.40); White Blood Cell (WBC) Count 16.5 thou/uL (4.8-10.8)
[2019-02-16 04:04] LABS: ALT (SGPT) 18 U/L (8-55); AST (SGOT) 20 U/L (5-34); Alkaline Phosphatase 110 U/L (40-110); Anion Gap 13 mmol/L (10-20); BUN (Urea Nitrogen) 37 mg/dL (9.8-20.1); Bilirubin, Total 0.6 mg/dL (0.2-1.2); Calc. Creatinine Clearance 0 mL/min (70-130); Calcium 9.3 mg/dL (7.8-10.44); Carbon Dioxide 27 mmol/L (23-31); Chloride 106 mmol/L (98-107); Estimated GFR-MDRD 24; Globulin 3.2 g/dL (2.4-3.5); Glucose 401 mg/dL (83-110); Potassium 4.7 mmol/L (3.5-5.1); Protein, Total 7.2 g/dL (6.0-8.3); Sodium 141 mmol/L (136-145)
[2019-02-16 04:27] LABS: CKMB 1.3 ng/mL (0-6.6)
[2019-02-16] MEDS ORDERED: Acetaminophen 325 MG TAB PO PRN (05:57)
[2019-02-16] MEDS ORDERED: Ondansetron PF 4 MG/2 ML Vial IVP PRN (05:57)
[2019-02-16] MEDS ORDERED: Dextrose 5% in Water 1,000 ML IV PRN (05:57)
[2019-02-16] MEDS ORDERED: Dextrose 50% Abboject 50 ML SYRINGE SLOW IVP PRN (05:57)
[2019-02-16 06:47] LABS: Iron 14 ug/dL (50-170); Iron Binding Capacity, Total 183 mcg/dL (265-497)
[2019-02-16] MEDS: Furosemide 40 MG/4 ML VIAL SLOW IVP SCH ×2 (06:49→18:08)
[2019-02-16] MEDS: Levothyroxine Sodium 125 MCG TAB PO SCH (06:49)
[2019-02-16] MEDS ORDERED: Amlodipine 5 MG TAB ONE (07:24)
[2019-02-16] MEDS ORDERED: Clopidogrel Bisulfate 75 MG TAB ONE (07:24)
[2019-02-16] MEDS ORDERED: Enoxaparin Sodium 30 MG/0.3 ML SYRINGE ONE (07:24)
[2019-02-16 07:50] LABS: Troponin I 0.071 ng/mL (< 0.028)
--- NOTE | 2019-02-16 07:51 | RAD ---
RADIOGRAPH CHEST 1 VIEW: DATE: 02/16/2019 TIME: 2:20 AM HISTORY: 73-year-old female with dyspnea COMPARISON: 03/07/2018 FINDINGS: Sternotomy wires and left subclavian permanent pacemaker again noted. Greater degree of interstitial changes throughout both lungs possibly representing pulmonary interstitial edema now compared to previous study. No pneumothorax. Left pleural thickening versus small loculated left pleural effusion again noted at left lateral base. IMPRESSION: Possible pulmonary interstitial edema.
--- NOTE | 2019-02-16 08:15 | HP ---
PRESENTING COMPLAINT: Worsening shortness of breath. HISTORY OF PRESENT ILLNESS: Ms. Les Whitmore, 73-year-old, female with past medical historyof hypertension, diabetes mellitus, diastolic CHF with last echo from 2018 showing grade 1/3 diastolic dysfunction, but normal EF of 65%. The patient on chronic diuretics with torsemide, presented today because of worsening shortness of breath since the last since the last 2 days. The patient also admits to worsening body swelling. She has noticed new redness of lower extremities. She denies any fever or chills. She denies any chest pain. She denies any sputum production, but admits to intermittent cough symptoms. In the ED, initially she was noted with wheezing and given DuoNeb's with minimal response, but she has been given Lasix, and she feels much better now. She denies any decreased urine volume. PAST MEDICAL HISTORY: Significant for, 1. Diastolic CHF. 2. Hypertension. 3. Diabetes mellitus. 4. Hyperlipidemia. 5. History of nonadherence to medication. 6. History of depression. 7. History of AICD placement. 8. History of chronic kidney disease with baseline creatinine of 2.0 to 2.3 range. ALLERGIES: ATROPINE, DIPHENOXYLATE, WELL LISINOPRIL. FAMILY HISTORY: No history of CAD or CVA. SOCIAL HISTORY: The patient denies any tobacco, alcohol, or illicit drug use. REVIEW OF SYSTEMS: All systems reviewed x14 negative, except as mentioned above. PHYSICAL EXAMINATION: CURRENT VITAL SIGNS: Blood pressure of 169/71, pulse of 73, respiratory rate of 18, temp afebrile, O2 saturation is 93% on 2 L nasal cannula. GENERAL: Obese elderly female, calm, on nasal cannula. HEENT: Head is atraumatic, normocephalic. Pupils equal and reactive to light. NECK: No JVD. No carotid bruit. RESPIRATORY: Coarse bibasilar crepitations. No wheeze. CARDIOVASCULAR: S1 and S2. Palpable pacemaker in-situ. GI: Abdomen is full, soft, nontender. Edematous wall noted. No suprapubic fullness. EXTREMITIES: 2 to 3+ pitting pedal edema, on baseline chronic lymph edema. skin changes with erythema over the lieberman extending to the ankle area. No overt ulceration. NEUROLOGIC: The patient is alert and oriented. Cranial nerves 2 through 12 are grossly intact. LABORATORY DATA: WBC 16.5, 87% neutrophils, hemoglobin 9.1. Potassium 4.7, creatinine 2.02, bicarb 27. AST and alkaline phosphatase normal. Troponin 0.033, BNP 303, iron sat of 8%. IMPRESSION: 1. Acute diastolic congestive heart failure exacerbation. 2. Hypertension. 3. Diabetes mellitus. 4. Bilateral lower extremity cellulitis due to chronic lymph edema. 5. Iron deficiency anemia. 6. Chronic kidney disease stage 4, stable. PLAN: We will admit the patient to inpatient status. We will start the patient on IV diuretics. We will monitor creatinine level as well as replace potassium as needed. Given anemia, we will obtain iron level with results showing low iron sat. We will follow ferritin level. If it is still low, the patient might benefit from IV iron. Given possible lower extremity cellulitis, we will obtain blood culture as well as start the patient on empirical Zosyn. We will do DVT prophylaxis with Lovenox. We will consult new Nephrology as well as Cardiology for further news assistant with management of volume status. Continue Lasix 40 mg IV b.i.d. for now. Follow daily weights and intake and output. Advance directive, the patient is full code. Total time spent in review of record, discussion with the patient, greater than 60 minutes. Job ID: [id number]
[2019-02-16 08:57] LABS: Troponin I 0.071 ng/mL (< 0.028)
[2019-02-16] MEDS: Amlodipine 10 MG TAB PO SCH (09:07)
[2019-02-16] MEDS: Enoxaparin Sodium 30 MG/0.3 ML SYRINGE SC SCH (09:08)
[2019-02-16] MEDS: Aspirin 81 mg Enteric Coated Tablet PO SCH (09:08)
[2019-02-16] MEDS: Clopidogrel Bisulfate 75 MG TAB PO SCH (09:08)
[2019-02-16] MEDS: Sotalol HCl 80 MG TAB PO SCH ×2 (09:08→20:47)
[2019-02-16] MEDS ORDERED: Piperacillin/Tazobactam 2.25 GM VIAL ONE (10:46)
[2019-02-16] MEDS: Piperacillin/Tazobactam 2.25 GM in Sodium Chloride 0.9% 100 ML IVPB SCH ×3 (10:55→23:41)
[2019-02-16] MEDS ORDERED: traMADol HCl 50 MG TAB PO SCH (15:15)
[2019-02-16 15:59] LABS: Actual Bicarbonate (HCO3a) 23.8 mEq/L (22-28); Analyzer IN Cardio ER; Base Excess (BEa) -0.6 mEq/L (-2.0 to +3.0); Calcium, Ionized 1.12 mmol/L (1.12-1.30); Carboxyhemoglobin (COHb) 0.7 gm% (0.0-3.0); Hemoglobin (Hb) 9.3 g/dL (12.0-16.0); O2 Tension (PaO2) 60.8 mmHg (> 70.0); Potassium - ABG Lab 5.14 mmol/L (3.70-5.30); pH, Arterial 7.42 (7.35-7.45)
[2019-02-16 16:00] LABS: Puncture Site LRA
[2019-02-16] MEDS ORDERED: Iron, Sodium Ferric Gluconate 250 MG in Sodium Chloride 0.9% 100 ML IVPB SCH (17:15)
[2019-02-16 17:58] VITALS: BMI 43.6
[2019-02-16] MEDS: HumaLOG 300 UNITS/3 ML VIAL SC PRN (18:16)
--- NOTE | 2019-02-16 18:19 | CON ---
DATE OF CONSULTATION: 02/16/2019 SERVICE: Nephrology. REASON FOR CONSULTATION: CKD 4 with possible reversible component. REQUESTING PHYSICIAN: Dr. Rogelio Dove. HISTORY OF PRESENT ILLNESS: A 73-year-old female with known history of chronic diastolic heart failure, diabetes mellitus, and CKD stage 4, who presents to the hospital with acute onset of worsening shortness of breath associated with wheezing and swelling. Symptoms reportedly started in the last 2 days. The patient has called EMS due to difficulty breathing. She reportedly was treated with DuoNeb for possible COPD exacerbation with no improvement; however, was treated with Lasix with improvement, and she was admitted for further evaluation and treatment. She was also found to have elevated creatinine of 2.02, hence Nephrology consult. Review of medical records showed that the patient had creatinine of 3.04 in June 2018 and 2.15 on January 06, 2019. However, review of medical records showed that the patient had creatinine of 1.29 in November 2017. The patient tells me that she knows she has chronic kidney disease and follows up with Dr. Escalante at [facility]. She denied nausea, vomiting, hematemesis, hematochezia, or change in bowel habit. She admitted to chronic leg swelling, which seemed to have worsened in the last few days. She denied fever or chest pain. She also denied dysuria, hematuria, or focal weakness. PAST MEDICAL HISTORY: 1. Chronic diastolic heart failure. 2. Hypertension. 3. Diabetes mellitus. 4. Hyperlipidemia. 5. Depression. 6. Chronic kidney disease, stage 4. 7. Valvular heart disease. 8. AICD. PAST SURGICAL HISTORY: 1. Coronary artery disease, status post CABG. 2. Transaortic valvular replacement. 3. . 4. Appendectomy. 5. Paroxysmal atrial fibrillation with sick-sinus syndrome, status post pacemaker placement. FAMILY HISTORY: Reviewed, but noncontributory. SOCIAL HISTORY: The patient lives with family. Denied alcohol, smoking, or illicit recreational drug use. ALLERGIES: 1. ATROPINE. 2. DIPHENOXYLATE. 3. LISINOPRIL. THE PATIENT HOWEVER IS CURRENTLY ON LISINOPRIL. MEDICATIONS: Home medications: Please see home medications. Presently, the patient is on amlodipine. Lisinopril, as well as levothyroxine, insulin, and torsemide. REVIEW OF SYSTEMS: A 12-point review of systems performed was negative other than pertinent positives and negatives included in the history of present illness. PHYSICAL EXAMINATION: VITAL SIGNS: Temperature , respiratory rate 18, SpO2 of 93% on 2 L nasal cannula, blood pressure is 153/56, heart rate of 73. GENERAL: Obese female, in mild respiratory distress. Afebrile. Anicteric. Acyanotic. HEENT: Normocephalic, atraumatic. Oral mucosa is moist. NECK: Supple with no JVD. CARDIOVASCULAR: Regular rhythm and rate. Systolic murmur noted. Pacemaker also noted. RESPIRATORY: Fair air entry bilateral with crackles bibasilarly posteriorly especially. No obvious rhonchi were appreciated. Work of breathing is mildly increased. GI: Obese, soft, nontender, nondistended with normal bowel sounds. EXTREMITIES: Uzjndwpt-tx-phcoud bilateral leg edema noted. Chronic venous stasis changing with few erythema and some tenderness noted. There is no overt ulceration appreciated. EQUINE PHARMACOLOGY TECHNICIAN: Conscious, alert, oriented x3 with appropriate mental status. Cranial nerves 2 through 12 are grossly intact. DIAGNOSTIC DATA: LABORATORY RESULTS: CBC showed WBC count of 16.5, hemoglobin of 9.1, MCV of 87.8, platelets of 206. CMP showed sodium 141, potassium 4.7, chloride 106, CO2 of 27, BUN 37, creatinine 2.02, glucose 401, calcium 9.3, total bilirubin 0.6, AST 20, ALT 18, alkaline phosphatase 110, total protein 7.2, albumin 4.0, globulin 3.2. Initial cardiac enzymes showed CK-MB of 1.3, troponin of 0.033, and BNP of 303. Subsequent troponin was elevated at 0.071. Chemistry showed serum iron of 14, TIBC 183, saturation of 8% with ferritin of 545. IMAGING STUDIES: Chest x-ray showed increased interstitial changes in both lungs consistent with pulmonary interstitial edema. ASSESSMENT: 1. Chronic kidney disease stage 4 with possible reversible component. 2. Anemia in chronic kidney disease. 3. Coexisting iron-deficiency anemia. 4. Uncontrolled diabetes mellitus. 5. Cgrcl-ou-xnogshu diastolic heart failure. 6. Volume overload. 7. Acute respiratory failure with hypoxia due to congestive heart failure exacerbation. PLAN: 1. Agree with diuretic therapy. 2. Start IV iron therapy. 3. We will consider adding erythrocyte stimulating agent. 4. We will monitor renal function. 5. Avoid nephrotoxic agents. 6. Monitor intake and output. 7. Further treatment to follow depending on hospital course. Many thanks for involving us in the care of this patient. We will follow along with you. The patient will need to follow up with regular teacher aide clerical on discharge from this hospital. Job ID: [id number]
[2019-02-16] MEDS: Atorvastatin Calcium 40 MG TAB PO SCH (20:47)
[2019-02-16] MEDS: Lisinopril 20 MG TAB PO SCH (20:47)
[2019-02-17 04:02] LABS: #Eosinphils 0.1 thou/uL (0.0-0.7); #Lymphocytes 0.9 thou/uL (1.20-3.40); #Monocytes 1.1 thou/uL (0.11-0.59); #Neutrophils 11.1 thou/uL (1.40-6.50); %Basophils 0.2 % (0.0-1.0); %Eosinophils 0.5 % (0.0-10.0); %Lymphocytes 6.7 % (21.0-51.0); %Monocytes 8.1 % (0.0-10.0); %Neutrophils 84.5 % (42.0-75.0); Hemoglobin 8.5 g/dL (12.0-16.0); Mean Corpuscular HGB CONC 32.2 g/dL (32.0-36.0); Mean Corpuscular Hemoglobin 28.6 pg (27.0-31.0); Mean Corpuscular Volume 88.6 fL (78.0-98.0); Mean Platelet Volume 9.9 fL (7.4-10.4); Platelet Count 176 thou/uL (130-400); RBC Distribution Width 19.5 % (11.5-14.5); Red Blood Cell (RBC) Count 2.98 mill/uL (4.20-5.40); White Blood Cell (WBC) Count 13.2 thou/uL (4.8-10.8)
[2019-02-17 04:26] LABS: ALT (SGPT) 13 U/L (8-55); AST (SGOT) 15 U/L (5-34); Albumin 3.8 g/dL (3.4-4.8); Alkaline Phosphatase 79 U/L (40-110); Anion Gap 15 mmol/L (10-20); BUN (Urea Nitrogen) 38 mg/dL (9.8-20.1); Bilirubin, Total 1.1 mg/dL (0.2-1.2); Calc. Creatinine Clearance 46 mL/min (70-130); Calcium 8.9 mg/dL (7.8-10.44); Carbon Dioxide 23 mmol/L (23-31); Chloride 100 mmol/L (98-107); Estimated GFR-MDRD 22; Globulin 2.9 g/dL (2.4-3.5); Glucose 309 mg/dL (83-110); Magnesium 1.9 mg/dL (1.6-2.6); Potassium 4.8 mmol/L (3.5-5.1); Protein, Total 6.7 g/dL (6.0-8.3); Sodium 133 mmol/L (136-145)
[2019-02-17] MEDS: Levothyroxine Sodium 125 MCG TAB PO SCH (06:05)
[2019-02-17] MEDS: Furosemide 40 MG/4 ML VIAL SLOW IVP SCH ×2 (06:05→15:53)
[2019-02-17] MEDS: Piperacillin/Tazobactam 2.25 GM in Sodium Chloride 0.9% 100 ML IVPB SCH ×2 (08:09→15:53)
[2019-02-17] MEDS: HumaLOG 300 UNITS/3 ML VIAL SC PRN ×3 (08:10→17:47)
--- NOTE | 2019-02-17 08:15 | PRG ---
DATE OF SERVICE: 02/17/2019 SERVICE: Nephrology. SUBJECTIVE: A 73-year-old female with known history of CKD stage 4; obstructive sleep apnea, on CPAP; paroxysmal atrial fibrillation; chronic diastolic heart failure; admitted due to worsening shortness of breath. Nephrology is following the patient for chronic kidney disease with possible reversible component. The patient reports feeling better. Shortness of breath has improved. Denied nausea, vomiting, abdominal pain, or dysuria. OBJECTIVE: VITAL SIGNS: Temperature 99.4, pulse 69, respiratory rate 16, SpO2 of 90 on room air, and blood pressure is 130/60. GENERAL: Obese female, in no obvious distress. Afebrile. Anicteric. Acyanotic. HEENT: Normocephalic, atraumatic. NECK: No JVD appreciated. CARDIOVASCULAR: Irregular rhythm and rate with normal heart sounds. Systolic murmur noted. RESPIRATORY: Fair air entry bilaterally with bibasilar crackles. No rhonchi were appreciated. Work of breathing is not increased. GI: Obese, soft, nontender, nondistended with normal bowel sounds. UROGENITAL: Goss catheter is in place draining clear urine. EXTREMITIES: Laaj-vw-imcteick bilateral leg edema with features of chronic venous stasis. PARTS ADVISOR: Conscious, alert, oriented x3 with appropriate mental status. Cranial nerves 2 through 12 are grossly intact. DIAGNOSTIC DATA: CBC showed WBC count of 13.2, hemoglobin of 8.5, MCV of 88.6, and platelets of 176. CMP today showed sodium 133, potassium 4.8, chloride 100, CO2 of 23, BUN 38, creatinine 2.18, glucose 309, calcium 8.9, magnesium 1.9, total bilirubin 1.1, AST 15, ALT 13, alkaline phosphatase 79, total protein 6.7, albumin 3.8, and globulin 2.9. ASSESSMENT: 1. Chronic kidney disease with possible reversible component. Most likely due to hemodynamic factors related to chronic congestive heart failure and diuretic therapy. Diabetic nephropathy is most likely the main issue. 2. Volume overload: Due to chronic kidney disease and diastolic heart failure. Improving with diuretic therapy. 3. Presumed diabetic nephropathy. 4. Hypertension: Control is better. 5. Anemia in chronic kidney disease. PLAN: 1. Continue current diuretic therapy with Lasix. 2. Continue IV iron therapy. 3. Get urinalysis as well as urine protein-creatinine ratio. We will repeat renal function in the morning. SULAIMAN is considered after IV iron therapy. Job ID: [id number]
[2019-02-17] MEDS: Enoxaparin Sodium 30 MG/0.3 ML SYRINGE SC SCH (09:59)
[2019-02-17] MEDS: Clopidogrel Bisulfate 75 MG TAB PO SCH (10:00)
[2019-02-17] MEDS: Aspirin 81 mg Enteric Coated Tablet PO SCH (10:00)
[2019-02-17] MEDS: Amlodipine 10 MG TAB PO SCH (10:01)
[2019-02-17] MEDS: Sotalol HCl 80 MG TAB PO SCH ×2 (10:01→21:19)
[2019-02-17] MEDS: Iron, Sodium Ferric Gluconate 250 MG in Sodium Chloride 0.9% 100 ML IVPB SCH (10:19)
[2019-02-17 12:23] LABS: Bacteria/HPF 3+ HPF (None Seen); Bilirubin Negative (Negative); Blood, Urine 3+ (Negative); Clarity Extra Turbid (Clear); Glucose, Urine (Dipstick) Normal (Negative); Leukocyte 250 Leu/uL (Negative); Nitrite Negative (Negative); Protein, Urine (Dipstick) 50 mg/dL (Neg-Trace); RBC/HPF Greater than 50 HPF (0-3); Squamous Epithelial 0-3 HPF (0-3); Urobilinogen Normal mg/dL (Less than 2); WBC/HPF Greater than 50 HPF (0-3)
[2019-02-17 12:28] LABS: Urine Culture Reflex Yes Yes
[2019-02-17 12:50] LABS: Creatinine, Urine 160.26 mg/dL (47-110)
--- NOTE | 2019-02-17 13:34 | PDOC.HOSPP ---
- Subjective Subjective: Pt reports that she is feeling better today. - Objective Vital Signs & Weight: Vital Signs (12 hours) Temp Pulse Resp BP Pulse Ox 02/17/19 11:47 99.6 F 62 18 121/71 94 L 02/17/19 10:01 81 02/17/19 08:05 98.8 F 66 18 134/63 98 02/17/19 04:00 99.4 F 69 16 130/60 90 L Weight Weight 270 lb 4.8 oz I&O: 02/16/19 02/17/19 02/18/19 06:59 06:59 06:59 Intake Total 1040 Output Total 3200 Balance -2160 Result Diagrams: 02/17/19 03:22 02/17/19 03:22 Additional Labs: Accuchecks 02/17/19 02/17/19 02/16/19 06:17 00:16 21:06 POC Glucose 326 H 337 H 397 H 02/16/19 18:09 POC Glucose 460 H Hospitalist ROS - Medication Medications: Active Medications Generic Name Dose Route Start Last Admin Trade Name Wesley PRN Reason Stop Dose Admin Amlodipine Besylate 10 mg 02/16/19 09:00 02/17/19 10:01 Norvasc PO 10 mg DAILY SAMMIE Administration Aspirin 81 mg 02/16/19 09:00 02/17/19 10:00 Ecotrin PO 81 mg DAILY SAMMIE Administration Atorvastatin Calcium 80 mg 02/16/19 21:00 02/16/19 20:47 Lipitor PO 80 mg HS SAMMIE Administration Clopidogrel Bisulfate 75 mg 02/16/19 09:00 02/17/19 10:00 Plavix PO 75 mg QAM SAMMIE Administration Enoxaparin Sodium 30 mg 02/16/19 09:00 02/17/19 09:59 Lovenox SC 30 mg 0900 SAMMIE Administration Furosemide 40 mg 02/16/19 06:00 02/17/19 06:05 Lasix SLOW IVP 40 mg 0600,1400 SAMMIE Administration Piperacillin Sod/Tazobactam 100 mls @ 200 mls/hr 02/16/19 08:00 02/17/19 08: 09 Sod 2.25 gm/ Sodium Chloride IVPB 100 mls 0800,1600,2359 SAMMIE Administration Ferric Sodium Gluconate 120 mls @ 60 mls/hr 02/17/19 09:00 02/17/19 10:19 Complex 250 mg/ Sodium IVPB 02/18/19 09:01 120 mls Chloride DAILY SAMMIE Administration Insulin Human Lispro 0 units 02/16/19 05:57 02/17/19 11:51 Humalog SC 6 unit .MODERATE SLIDING SC PRN Administration Moderate Correctional Scale Levothyroxine Sodium 125 mcg 02/16/19 06:00 02/17/19 06:05 Synthroid PO 125 mcg 0600 SAMMIE Administration Lisinopril 40 mg 02/16/19 21:00 02/16/19 20:47 Zestril PO 40 mg HS SAMMIE Administration Pantoprazole Sodium 40 mg 02/16/19 21:00 02/16/19 20:47 Protonix PO 40 mg HS SAMMIE Administration Ranolazine 500 mg 02/16/19 09:00 02/17/19 10:00 Ranexa PO 500 mg BID SAMMIE Administration Sertraline HCl 50 mg 02/16/19 09:00 02/17/19 10:01 Zoloft PO 50 mg DAILY SAMMIE Administration Sotalol HCl 80 mg 02/16/19 09:00 02/17/19 10:01 Betapace PO 80 mg BID SAMMIE Administration - Exam General Appearance: NAD, awake alert Heart: murmur present (II/ systolic murmur at left upper sternal border) Hosp A/P - Plan Acute on Chronic Diastolic CHF Grade 1/3: On Lasix PO 40 mg BID. Creatinine at patient's baseline. Acute Hypoxic Respiratory Failure: On 3L NC. CXR shows possible pulmonary edema, likely secondary to CHF exacerbation. Will continue diuresis. Attempt to wean patient off O2 as tolerated. Urinary Retention: Robbins catheter in place. Will keep robbins in place for a few more days. Lower Extremity Cellulitis: Heat/redness have improved. On empiric Zosyn. CKD Stage IV: Stable. Will continue to monitor with BMP on am run. HTN: Continue home amlodipine, hydralazine, and lisinopril. Diabetes Mellitus: Will continue home Novolin. DVT Prophylaxis: On Lovenox. PUD Prophylaxis: On protonix.
[2019-02-17] MEDS: Atorvastatin Calcium 40 MG TAB PO SCH (21:19)
[2019-02-17] MEDS: Lisinopril 20 MG TAB PO SCH (21:19)
[2019-02-17] MEDS: Senokot S 8.6-50 MG TAB PO SCH (21:20)
[2019-02-18] MEDS: Piperacillin/Tazobactam 2.25 GM in Sodium Chloride 0.9% 100 ML IVPB SCH ×3 (01:01→19:37)
[2019-02-18] MEDS: Furosemide 40 MG/4 ML VIAL SLOW IVP SCH ×2 (06:19→14:38)
[2019-02-18] MEDS: Levothyroxine Sodium 125 MCG TAB PO SCH (06:19)
[2019-02-18] MEDS: Sotalol HCl 80 MG TAB PO SCH ×2 (08:50→20:25)
[2019-02-18] MEDS: Clopidogrel Bisulfate 75 MG TAB PO SCH (08:50)
[2019-02-18] MEDS: Senokot S 8.6-50 MG TAB PO SCH ×2 (08:51→20:24)
[2019-02-18] MEDS: Aspirin 81 mg Enteric Coated Tablet PO SCH (08:51)
[2019-02-18] MEDS: Amlodipine 10 MG TAB PO SCH (08:51)
[2019-02-18] MEDS: Iron, Sodium Ferric Gluconate 250 MG in Sodium Chloride 0.9% 100 ML IVPB SCH (10:19)
[2019-02-18] MEDS: Enoxaparin Sodium 30 MG/0.3 ML SYRINGE SC SCH (10:19)
[2019-02-18 11:09] LABS: #Eosinphils 0.3 thou/uL (0.0-0.7); #Monocytes 0.8 thou/uL (0.11-0.59); #Neutrophils 6.4 thou/uL (1.40-6.50); %Basophils 0.4 % (0.0-1.0); %Eosinophils 3.1 % (0.0-10.0); %Lymphocytes 11.7 % (21.0-51.0); %Monocytes 9.4 % (0.0-10.0); %Neutrophils 75.5 % (42.0-75.0); Hemoglobin 7.5 g/dL (12.0-16.0); Mean Corpuscular HGB CONC 32.4 g/dL (32.0-36.0); Mean Corpuscular Hemoglobin 28.5 pg (27.0-31.0); Mean Corpuscular Volume 88.1 fL (78.0-98.0); Mean Platelet Volume 9.9 fL (7.4-10.4); Platelet Count 163 thou/uL (130-400); RBC Distribution Width 19.3 % (11.5-14.5); Red Blood Cell (RBC) Count 2.64 mill/uL (4.20-5.40); White Blood Cell (WBC) Count 8.4 thou/uL (4.8-10.8)
[2019-02-18 11:32] LABS: Albumin 3.3 g/dL (3.4-4.8); Anion Gap 14 mmol/L (10-20); BUN (Urea Nitrogen) 49 mg/dL (9.8-20.1); BUN/Creatinine Ratio 16.17; Calc. Creatinine Clearance 33 mL/min (70-130); Calcium 8.5 mg/dL (7.8-10.44); Carbon Dioxide 23 mmol/L (23-31); Chloride 98 mmol/L (98-107); Estimated GFR-MDRD 15; Glucose 313 mg/dL (83-110); Phosphorus 4.5 mg/dL (2.3-4.7); Potassium 4.5 mmol/L (3.5-5.1); Sodium 130 mmol/L (136-145)
[2019-02-18 11:34] LABS: Troponin I 0.046 ng/mL (< 0.028)
[2019-02-18] MEDS: HumaLOG 300 UNITS/3 ML VIAL SC PRN (12:52)
--- NOTE | 2019-02-18 16:20 | PDOC.HOSPP ---
- Subjective Subjective: Doing much better today. More awake and alert. Legs feel better. - Objective Vital Signs & Weight: Vital Signs (12 hours) Temp Pulse Resp BP Pulse Ox 02/18/19 11:10 98.7 F 60 20 127/60 93 L 02/18/19 08:45 97.9 F 60 18 135/57 L 95 Weight Weight 270 lb 1.6 oz I&O: 02/17/19 02/18/19 02/19/19 06:59 06:59 06:59 Intake Total 1040 1300 Output Total 3200 1120 Balance -2160 180 Result Diagrams: 02/18/19 11:02 02/18/19 11:02 Additional Labs: Accuchecks 02/18/19 02/18/19 02/17/19 10:24 06:05 20:49 POC Glucose 332 H 245 H 270 H 02/17/19 02/17/19 17:07 11:25 POC Glucose 348 H 290 H Hospitalist ROS - Medication Medications: Active Medications Generic Name Dose Route Start Last Admin Trade Name Freq PRN Reason Stop Dose Admin Amlodipine Besylate 10 mg 02/16/19 09:00 02/18/19 08:51 Norvasc PO 10 mg DAILY SAMMIE Administration Aspirin 81 mg 02/16/19 09:00 02/18/19 08:51 Ecotrin PO 81 mg DAILY SAMMIE Administration Atorvastatin Calcium 80 mg 02/16/19 21:00 02/17/19 21:19 Lipitor PO 80 mg HS SAMMIE Administration Clopidogrel Bisulfate 75 mg 02/16/19 09:00 02/18/19 08:50 Plavix PO 75 mg QAM SAMMIE Administration Enoxaparin Sodium 30 mg 02/16/19 09:00 02/18/19 10:19 Lovenox SC 30 mg 0900 SAMMIE Administration Piperacillin Sod/Tazobactam 100 mls @ 200 mls/hr 02/16/19 08:00 02/18/19 08: 50 Sod 2.25 gm/ Sodium Chloride IVPB 100 mls 0800,1600,2359 SAMMIE Administration Insulin Human Lispro 0 units 02/16/19 05:57 02/18/19 12:52 Humalog SC 8 unit .MODERATE SLIDING SC PRN Administration Moderate Correctional Scale Levothyroxine Sodium 125 mcg 02/16/19 06:00 02/18/19 06:19 Synthroid PO 125 mcg 0600 SAMMIE Administration Lisinopril 40 mg 02/16/19 21:00 02/17/19 21:19 Zestril PO 40 mg HS SAMMIE Administration Pantoprazole Sodium 40 mg 02/16/19 21:00 02/17/19 21:20 Protonix PO 40 mg HS SAMMIE Administration Ranolazine 500 mg 02/16/19 09:00 02/18/19 08:50 Ranexa PO 500 mg BID SAMMIE Administration Senna/Docusate Sodium 1 tab 02/17/19 21:00 02/18/19 08:51 Senokot S PO 1 tab BID SAMMIE Administration Sertraline HCl 50 mg 02/16/19 09:00 02/18/19 08:51 Zoloft PO 50 mg DAILY SAMIME Administration Sotalol HCl 80 mg 02/16/19 09:00 02/18/19 08:50 Betapace PO 80 mg BID SAMMIE Administration - Exam General Appearance: NAD, awake alert General - other findings: morbidly obese. Heart: RRR, no murmur, no gallops, no rubs, normal peripheral pulses Respiratory: CTAB, no wheezes, no rales, no ronchi, normal chest expansion, no tachypnea, normal percussion Gastrointestinal: soft, non-tender, non-distended, normal bowel sounds, no palpable masses, no hepatomegaly, no splenomegaly, no bruit Extremities: no edema (There are a couple of small superficial areas where serous fluid was weeping, but now resolved.) Extremities - other findings: Edema much improved. Erythema much improved Neurological: no focal deficits Musculoskeletal: generalized weakness Psychiatric: normal affect, normal behavior, A&O x 3 Hosp A/P (1) Acute on chronic kidney failure Code(s): N17.9 - ACUTE KIDNEY FAILURE, UNSPECIFIED; N18.9 - CHRONIC KIDNEY DISEASE, UNSPECIFIED Status: Acute (2) Morbid obesity with BMI of 40.0-44.9, adult Code(s): E66.01 - MORBID (SEVERE) OBESITY DUE TO EXCESS CALORIES; Z68.41 - BODY MASS INDEX (BMI) 40.0-44.9, ADULT Status: Acute (3) Stasis dermatitis of both legs Code(s): I87.2 - VENOUS INSUFFICIENCY (CHRONIC) (PERIPHERAL) Status: Acute (4) Bilateral lower leg cellulitis Code(s): L03.116 - CELLULITIS OF LEFT LOWER LIMB; L03.115 - CELLULITIS OF RIGHT LOWER LIMB Status: Acute (5) Acute metabolic encephalopathy Code(s): G93.41 - METABOLIC ENCEPHALOPATHY Status: Acute (6) Acute on chronic diastolic congestive heart failure Code(s): I50.33 - ACUTE ON CHRONIC DIASTOLIC (CONGESTIVE) HEART FAILURE Status : Acute (7) Atrial fibrillation Code(s): I48.91 - UNSPECIFIED ATRIAL FIBRILLATION Status: Acute Qualifiers: Atrial fibrillation type: paroxysmal Qualified Code(s): I48.0 - Paroxysmal atrial fibrillation (8) DM2 (diabetes mellitus, type 2) Status: Chronic Qualifiers: Diabetes mellitus senior living insulin use: without senior living use Diabetes mellitus complication status: without complication Qualified Code(s): E11.9 - Type 2 diabetes mellitus without complications (9) Urinary retention Code(s): R33.9 - RETENTION OF URINE, UNSPECIFIED Status: Acute (10) Anemia Code(s): D64.9 - ANEMIA, UNSPECIFIED Status: Acute (11) Hyponatremia Code(s): E87.1 - HYPO-OSMOLALITY AND HYPONATREMIA Status: Acute (12) Vitamin D deficiency Code(s): E55.9 - VITAMIN D DEFICIENCY, UNSPECIFIED Status: Acute (13) Myocardial infarction Code(s): I21.9 - ACUTE MYOCARDIAL INFARCTION, UNSPECIFIED Status: Acute Qualifiers: Myocardial infarction type: type 2 Qualified Code(s): I21.A1 - Myocardial infarction type 2 (14) Acute respiratory failure with hypoxia Code(s): J96.01 - ACUTE RESPIRATORY FAILURE WITH HYPOXIA Status: Acute - Plan Acute on Chronic Diastolic CHF Grade 1/3 diastolic dysfunction. On Lasix PO 40 mg BID. Will reduce to daily given the worsening renal function. Acute Hypoxic Respiratory Failure: CXR shows possible pulmonary edema, likely secondary to CHF exacerbation. Will continue gentle diuresis. Attempt to wean patient off O2 as tolerated. Urinary Retention: Robbins catheter in place. Had 1300 cc residual. Will keep robbins in place for a few more days. Lower Extremity Cellulitis: Heat/redness have improved dramatically. On empiric Zosyn. acute on CKD Stage IV: GFR declining. hold ACEI. Decrease Lasix. Nephrology following. HTN: Continue home amlodipine, hydralazine, and holding lisinopril. Diabetes Mellitus: Will resume home insulin. Numbers are running too high on SSI alone. Anemia: Has chronic anemia, but this is worse. Trending downward. Heme check stools. Reticulocyte count. Anemia work up. Recheck H/H this afternoon to ensure it is not rapidly declining. Vitamin D deficiency: Oral supplementation. Hyponatremia: Likely multifactoral - A/CKD, CHF, Diuresis. Decreasing the diuresis. Holding ACEI. NSTEMI type II: Demand ischemia for acute hypoxic resp failure and CHF exac. DVT Prophylaxis: On Lovenox. PUD Prophylaxis: On protonix.
--- NOTE | 2019-02-18 17:08 | ULT ---
LEFT UPPER EXTREMITY VENOUS DUPLEX ULTRASOUND INCLUDING COLOR AND SPECTRAL DOPPLER IMAGIN02/18/19 HISTORY: Left upper extremity edema, prior PICC line in place. The visualized internal jugular, subclavian, axillary, brachial, and radial and ulnar veins show phas ic flow with normal compressibility and normal augmentation. The cephalic vein appears patent. There is evidence for some focal intraluminal thrombus with essentially obstruction in the left basilic vei n. IMPRESSION: Some focal obstructing thrombus in the left basilic vein. The remainder of the left upper extremity d eep veins and cephalic vein appear intact. Findings were discussed with Charla, the patient's nurse on the second floor who indicates she woul d contact ordering physician in that regard. Code CR POS: TPC
[2019-02-18 17:10] LABS: Hemoglobin 8.2 g/dL (12.0-16.0)
[2019-02-18] MEDS: Atorvastatin Calcium 40 MG TAB PO SCH (20:24)
[2019-02-18] MEDS: NPH, Human Insulin Isophane 300 UNIT/3 ML VIAL SC SCH (21:25)
[2019-02-19] MEDS: Piperacillin/Tazobactam 2.25 GM in Sodium Chloride 0.9% 100 ML IVPB SCH ×3 (00:57→17:20)
[2019-02-19 04:35] LABS: #Eosinphils 0.6 thou/uL (0.0-0.7); #Lymphocytes 0.7 thou/uL (1.20-3.40); #Monocytes 0.8 thou/uL (0.11-0.59); #Neutrophils 6.6 thou/uL (1.40-6.50); %Basophils 0.3 % (0.0-1.0); %Eosinophils 6.6 % (0.0-10.0); %Lymphocytes 8.2 % (21.0-51.0); %Monocytes 9.2 % (0.0-10.0); %Neutrophils 75.7 % (42.0-75.0); Hemoglobin 7.6 g/dL (12.0-16.0); Mean Corpuscular HGB CONC 33.3 g/dL (32.0-36.0); Mean Corpuscular Hemoglobin 29.1 pg (27.0-31.0); Mean Corpuscular Volume 87.2 fL (78.0-98.0); Mean Platelet Volume 10.1 fL (7.4-10.4); Platelet Count 182 thou/uL (130-400); RBC Distribution Width 19.4 % (11.5-14.5); Red Blood Cell (RBC) Count 2.61 mill/uL (4.20-5.40); White Blood Cell (WBC) Count 8.7 thou/uL (4.8-10.8)
[2019-02-19 04:58] LABS: Iron 55 ug/dL (50-170); Iron Binding Capacity, Total 129 mcg/dL (265-497)
[2019-02-19 05:02] LABS: Anion Gap 15 mmol/L (10-20); BUN (Urea Nitrogen) 54 mg/dL (9.8-20.1); Calc. Creatinine Clearance 31 mL/min (70-130); Calcium 8.6 mg/dL (7.8-10.44); Carbon Dioxide 20 mmol/L (23-31); Chloride 99 mmol/L (98-107); Estimated GFR-MDRD 14; Glucose 264 mg/dL (83-110); Iron 55 ug/dL (50-170); Iron Binding Capacity, Total 129 mcg/dL (265-497); Potassium 4.5 mmol/L (3.5-5.1); Sodium 129 mmol/L (136-145)
[2019-02-19] MEDS: Levothyroxine Sodium 125 MCG TAB PO SCH (05:47)
[2019-02-19] MEDS: Enoxaparin Sodium 30 MG/0.3 ML SYRINGE SC SCH (08:34)
[2019-02-19] MEDS: Sotalol HCl 80 MG TAB PO SCH ×2 (08:34→21:48)
[2019-02-19] MEDS: Clopidogrel Bisulfate 75 MG TAB PO SCH (08:35)
[2019-02-19] MEDS: NIFEdipine XL 60 MG TAB PO SCH (08:35)
[2019-02-19] MEDS: Aspirin 81 mg Enteric Coated Tablet PO SCH (08:35)
[2019-02-19] MEDS: Senokot S 8.6-50 MG TAB PO SCH ×2 (08:35→21:47)
[2019-02-19] MEDS: NPH, Human Insulin Isophane 300 UNIT/3 ML VIAL SC SCH (08:37)
[2019-02-19] MEDS ORDERED: Furosemide 40 MG/4 ML VIAL SLOW IVP SCH (09:00)
--- NOTE | 2019-02-19 11:22 | RAD ---
Chest 2 views HISTORY: CHF. COMPARISON: 02/16/2019. FINDINGS: Cardiac silhouette is slightly enlarged. Pulmonary vasculature remains engorged with widesp read reticulonodular interstitial prominence. Focal area of consolidation at the left posterolateral lung base, obscuring the posterior diaphragm. Mediastinum is midline with postoperative changes, aortic calcification, and a dual lead left subclav ambrose cardiac electronic device. No lobar consolidation or evidence of pneumothorax. impregnator electrolytic capacitors leads overlie the chest. IMPRESSION: Dense left lung base infiltrate. Consider pneumonia. Radiographic findings of CHF atherosclerosis. Atherosclerosis.
[2019-02-19] MEDS: HumaLOG 300 UNITS/3 ML VIAL SC PRN (12:06)
--- NOTE | 2019-02-19 12:37 | ULT ---
VENOUS DUPLEX SONOGRAM BILATERAL LOWER EXTREMITIES: HISTORY: Bilateral leg pain and edema. FINDINGS: Exam somewhat limited due to patient size. The posterior tibial veins and the posterior portions of each femoral vein are not well visualized. Good color and spectral Doppler flow and compression involve the common femoral veins and the greater saphenous origin, most of the femoral vein and each popliteal vein. IMPRESSION: No sonographic evidence of deep venous thrombosis within either lower extremity. POS: BST
--- NOTE | 2019-02-19 17:41 | PRG ---
DATE OF SERVICE: 02/19/2019 SERVICE: Nephrology. SUBJECTIVE: A 73-year-old female with known history of CKD obstructive sleep apnea, paroxysmal atrial fibrillation, admitted due to worsening shortness of breath. Nephrology is following the patient for acute on chronic kidney injury. The patient reports improvement of shortness of breath. Denied nausea, vomiting, chest pain, or dysuria. Leg swelling has improved. OBJECTIVE: VITAL SIGNS: Temperature 98.1, pulse 60, respiratory rate 20, SpO2 of 94% on 3 L nasal cannula, blood pressure is 141/61. GENERAL: Comfortable, obese female, in no obvious distress. Afebrile. Anicteric. Acyanotic. HEENT: Normocephalic, atraumatic. Oral mucosa is moist. CARDIOVASCULAR: Irregular rhythm with soft systolic murmur. RESPIRATORY: Fair air entry bilaterally with few transmitted breath sounds. No obvious rhonchi were appreciated. Work of breathing is not increased. GI: Obese, soft, nontender, nondistended with normal bowel sounds. UROGENITAL: Goss catheter is in place draining urine. EXTREMITIES: Trace bilateral leg edema with chronic venous stasis changes noted. Mild to moderate left upper limb edema noted as well. FACER OPERATOR: Conscious, alert, oriented x3 with appropriate mental status. Cranial nerves 2 through 12 are grossly intact. DIAGNOSTIC DATA: CBC showed WBC count of 8.7, hemoglobin of 7.6, MCV of 87.2, platelets of 182. BMP showed sodium 129, potassium 4.5, chloride 99, CO2 of 20, BUN 54, creatinine 3.21, glucose 264, calcium 8.6. Iron chemistry showed serum iron of 55, TIBC 129 with 43% saturation and ferritin is 2009. Vitamin B12 is 919. Vitamin D is 25.3. ASSESSMENT: 1. Acute on chronic renal failure: Due to excessive diuresis. 2. Anemia in chronic kidney disease. 3. Acute on chronic diastolic heart failure. 4. Chronic leg swelling from chronic venous stasis dermatitis and venous insufficiency as well as diastolic heart failure. 5. Physical deconditioning. 6. Urinary retention, status post Goss catheter placement. 7. Hypertension: Control is better with substitution of amlodipine with nifedipine. PLAN: 1. Avoid nephrotoxic agents. The patient is currently off lisinopril and Lasix. [place] oral intake advised. 2. We will adjust antihypertensives to get adequate BP control. 3. We will start the patient on Flomax for acute urinary retention with a view to try voiding trial in the next day or two. 4. Increase activity. 5. Further treatment to follow depending on hospital course. 6. We will recheck renal function tomorrow. 7. We will also start the patient on Epogen. Many thanks for involving us in the care of this patient. We will follow along with you. Job ID: [id number]
[2019-02-19] MEDS ORDERED: EPOETIN ALFA-EPBX (ESRD) 10,000 UNIT/ML VIAL SC SCH (17:45)
--- NOTE | 2019-02-19 18:29 | PDOC.HOSPP ---
- Subjective Encounter Date: 02/19/19 Encounter Time: 18:27 Subjective: The patient states she continues to have shortness of breath and chest congestion and is unable to bring her phlegm. She has some pain while taking a deep breath. Her symptoms started after she swallowed a pill the wrong way per patient. The patient reports chronic edema in her extremities, per family members they are always red. She did have some drainage coming out of one of her wounds on the right previously She has been diuresed with lasix but with worsening hyponatremia and kidney function. The patient states that she is normally anemic, but hemoglobin baseline around 9 and gets EPO injections as an outpatient - Objective Vital Signs & Weight: Vital Signs (12 hours) Temp Pulse Pulse Pulse Resp BP BP 02/19/19 15:02 98.9 F 60 20 02/19/19 11:01 98.1 F 63 18 02/19/19 10:32 60 65 140/61 174/72 H 02/19/19 07:45 98.1 F 60 20 BP Pulse Ox Pulse Ox Pulse Ox 02/19/19 15:02 124/60 92 L 02/19/19 11:01 159/72 H 96 02/19/19 10:32 94 L 95 02/19/19 07:45 141/61 H 94 L Weight Weight 273 lb 4.8 oz I&O: 02/18/19 02/19/19 02/20/19 06:59 06:59 06:59 Intake Total 6506 970 4079 Output Total 1120 1025 400 Balance 180 -545 850 Result Diagrams: 02/19/19 03:41 02/19/19 03:41 Additional Labs: Accuchecks 02/19/19 02/19/19 02/19/19 17:43 10:53 05:22 POC Glucose 175 H 301 H 271 H 02/18/19 21:01 POC Glucose 385 H Hospitalist ROS - Review of Systems Constitutional: denies: fever, chills Respiratory: reports: cough Cardiovascular: reports: chest pain - Medication Medications: Active Medications Generic Name Dose Route Start Last Admin Trade Name Freq PRN Reason Stop Dose Admin Aspirin 81 mg 02/16/19 09:00 02/19/19 08:35 Ecotrin PO 81 mg DAILY SAMMIE Administration Atorvastatin Calcium 80 mg 02/16/19 21:00 02/18/19 20:24 Lipitor PO 80 mg HS SAMMIE Administration Cholecalciferol 1,000 units 02/19/19 09:00 02/19/19 08:35 Vitamin D3 PO 1,000 units DAILY SAMMIE Administration Clopidogrel Bisulfate 75 mg 02/16/19 09:00 02/19/19 08:35 Plavix PO 75 mg QAM SAMMIE Administration Epoetin Andrew-epbx 10,000 unit 02/19/19 17:45 02/19/19 18:14 Retacrit SC 02/19/19 19:45 10,000 unit NOW SAMMIE Administration Piperacillin Sod/Tazobactam 100 mls @ 200 mls/hr 02/16/19 08:00 02/19/19 17: 20 Sod 2.25 gm/ Sodium Chloride IVPB Not Given 0800,1600,2359 [facility] Insulin Human Lispro 0 units 02/16/19 05:57 02/19/19 12:06 Humalog SC 8 unit .MODERATE SLIDING SC PRN Administration Moderate Correctional Scale Insulin Human NPH 64 unit 02/19/19 09:00 02/19/19 08:37 Humulin N SC 64 units QAM SAMMIE Administration Insulin Human NPH 40 unit 02/18/19 21:00 02/18/19 21:25 Humulin N SC 40 unit QPM SAMMIE Administration Levothyroxine Sodium 125 mcg 02/16/19 06:00 02/19/19 05:47 Synthroid PO 125 mcg 0600 [facility] Administration Nifedipine 60 mg 02/19/19 09:00 02/19/19 08:35 Procardia Xl PO 60 mg DAILY SAMMIE Administration Pantoprazole Sodium 40 mg 02/16/19 21:00 02/18/19 20:24 Protonix PO 40 mg HS SAMMIE Administration Ranolazine 500 mg 02/16/19 09:00 02/19/19 08:35 Ranexa PO 500 mg BID SAMMIE Administration Senna/Docusate Sodium 1 tab 02/17/19 21:00 02/19/19 08:35 Senokot S PO 1 tab BID SAMMIE Administration Sertraline HCl 50 mg 02/16/19 09:00 02/19/19 08:35 Zoloft PO 50 mg DAILY SAMMIE Administration Sotalol HCl 80 mg 02/16/19 09:00 02/19/19 08:34 Betapace PO 80 mg BID SAMMIE Administration - Exam General Appearance: NAD, awake alert Eye: PERRL, anicteric sclera ENT: normocephalic atraumatic, no oropharyngeal lesions Neck: supple, symmetric, no JVD, no thyromegaly Heart: RRR, no murmur, no gallops Respiratory - other findings: bilateral wheezing Gastrointestinal: soft, non-tender, non-distended, normal bowel sounds Extremities: no cyanosis, no clubbing, 2+ LE edema Extremities - other findings: venous stasis dermatitis Skin: no rashes (stasis dermatitis) Neurological: cranial nerve grossly intact, normal sensation to touch, no focal deficits, no new deficit Hosp A/P - Plan Chest X ray 02/16: possible loculated left pleural effusion, possible pulmonary edema Venous ultrasound: no DVT Chest X ray 02/19: dense left lung infiltrate Vascular ultrasound left arm: left basilic vein thrombus This is a 73 year old female with past medical history of CKD, hypertension who presented with worsening shortness of breath and anasarca Acute hypoxic respiratory failure secondary to left sided pneumonia - chest X ray today shows dense left lung infiltrate. She has received IV lasix 80 mg daily on admission, held further lasix today - patient received 2.5 days of zosyn but lost IV access, therefore unable to obtain recently. Given that she has basilic vein thrombus, will try switching to po augmentin. If unable to wean off oxygen, may consider switching back to IV - check sputum culture, blood cultures negative x 2 - check V/Q scan to rule out PE - will consider prednisone if no improvement in congestion. Add mucinex. Pt denies history of COPD Left basilic vein thrombus - noted on vascular ultrasound. Apply warm compress #Hyponatremia #MELANY - sodium dropping to 129, creatinine increasing to 3 - will hold further lasix - urine protein to creatinine ratio is not consistent with nephrotic syndrome - reassess creatinine tomorrow - nephrology on board, holding nephrotoxic meds Acute anemia -HB drop from 9 to 7, denies rectal bleeding - plan for procrit injection per nephrology - B12 and folate normal Chronic peripheral edema from venous stasis - d/c lasix - dopplers negative for DVT today - could also be from nifedipin #CAD #Chronic diastolic heart failure #Moderate aortic stenosis - continue aspirin, plavix, statin, ranexa - EF in April 2017 showed EF 60-65%, moderate . Will repeat ECHO to re- evaluate #Hypertension - on nifedipine Dispo: attempt to wean off oxygen prior to discharge, re-evaluate kidney function DVT prophylaxis: switch from lovenox to heparin given kidney issue Code status: full code
[2019-02-19] MEDS ORDERED: Albuterol Sulfate 2.5 mg/3 ml Neb IPPB PRN (18:43)
[2019-02-19] MEDS ORDERED: Amoxicillin/Potassium Clav 875 MG TAB PO SCH (18:45)
[2019-02-19] MEDS ORDERED: guaiFENesin ER 600 MG TAB PO SCH (18:45)
[2019-02-19] MEDS: Atorvastatin Calcium 40 MG TAB PO SCH (21:47)
[2019-02-19] MEDS: Heparin 5,000 UNITS/ML VIAL SC SCH (21:48)
[2019-02-20] MEDS: NPH, Human Insulin Isophane 300 UNIT/3 ML VIAL SC SCH ×2 (01:25→09:32)
[2019-02-20 04:35] LABS: Hemoglobin 8.2 g/dL (12.0-16.0); Mean Corpuscular HGB CONC 32.2 g/dL (32.0-36.0); Mean Corpuscular Hemoglobin 27.9 pg (27.0-31.0); Mean Corpuscular Volume 86.4 fL (78.0-98.0); Mean Platelet Volume 10.1 fL (7.4-10.4); Platelet Count 244 thou/uL (130-400); RBC Distribution Width 19.4 % (11.5-14.5); Red Blood Cell (RBC) Count 2.95 mill/uL (4.20-5.40)
[2019-02-20 05:00] LABS: ALT (SGPT) 13 U/L (8-55); AST (SGOT) 15 U/L (5-34); Albumin 3.4 g/dL (3.4-4.8); Alkaline Phosphatase 80 U/L (40-110); Anion Gap 16 mmol/L (10-20); BUN (Urea Nitrogen) 59 mg/dL (9.8-20.1); Bilirubin, Total 0.7 mg/dL (0.2-1.2); Calc. Creatinine Clearance 30 mL/min (70-130); Calcium 8.7 mg/dL (7.8-10.44); Carbon Dioxide 21 mmol/L (23-31); Chloride 98 mmol/L (98-107); Estimated GFR-MDRD 13; Potassium 4.3 mmol/L (3.5-5.1); Protein, Total 6.4 g/dL (6.0-8.3); Sodium 131 mmol/L (136-145)
[2019-02-20 05:06] LABS: Glucose 56 mg/dL (83-110)
[2019-02-20] MEDS: Levothyroxine Sodium 125 MCG TAB PO SCH (05:19)
[2019-02-20] MEDS: Sodium Chloride 0.9% 1,000 ML IV SCH (08:57)
[2019-02-20] MEDS: Tamsulosin HCl 0.4 MG CAP PO SCH (08:58)
[2019-02-20] MEDS: Sotalol HCl 80 MG TAB PO SCH ×2 (08:59→21:13)
[2019-02-20] MEDS: Amoxicillin/Potassium Clav 875 MG TAB PO SCH ×2 (08:59→21:14)
[2019-02-20] MEDS: guaiFENesin ER 600 MG TAB PO SCH ×2 (09:00→21:14)
[2019-02-20] MEDS: Senokot S 8.6-50 MG TAB PO SCH ×2 (09:00→21:14)
[2019-02-20] MEDS: Aspirin 81 mg Enteric Coated Tablet PO SCH (09:00)
[2019-02-20] MEDS: NIFEdipine XL 60 MG TAB PO SCH (09:01)
[2019-02-20] MEDS: Heparin 5,000 UNITS/ML VIAL SC SCH ×3 (09:01→21:14)
[2019-02-20] MEDS: Clopidogrel Bisulfate 75 MG TAB PO SCH (09:01)
[2019-02-20 09:31] LABS: Bilirubin Negative (Negative); Blood, Urine 3+ (Negative); Clarity Clear (Clear); Glucose, Urine (Dipstick) Normal (Negative); Leukocyte Negative Leu/uL (Negative); Nitrite Negative (Negative); Protein, Urine (Dipstick) 10 mg/dL (Neg-Trace); RBC/HPF 21-50 HPF (0-3); Squamous Epithelial 0-3 HPF (0-3); Urobilinogen Normal mg/dL (Less than 2); WBC/HPF 0-3 HPF (0-3)
[2019-02-20 09:33] LABS: Bacteria/HPF 1+ HPF (None Seen)
[2019-02-20 10:26] LABS: Creatinine, Urine 62.71 mg/dL (47-110); Protein, Urine Random Quant 18 mg/dL (1-14); Sodium, Urine Less than 20 mmol/L (Not Available); Urea Nitrogen, Random Urine 415 mg/dl
--- NOTE | 2019-02-20 12:35 | NM ---
RADIONUCLIDE VENTILATION PERFUSION LUNG SCAN: HISTORY: Dyspnea. FINDINGS: Ventilation images show heterogeneous uptake of radiotracer. No significant air trapping. Perfusion images show good perfusion gradient and homogeneous uptake. No segmental or subsegmental pe rfusion abnormalities. IMPRESSION: Normal examination. POS: BST
--- NOTE | 2019-02-20 16:48 | PDOC.HOSPP ---
- Subjective Encounter Date: 02/20/19 Encounter Time: 15:00 Subjective: The patient is doing better. This morning she was coughing the whole time, but then in the afternoon her friend got her up to sit in a chair and she was much better. Her cough is less productive, chest feels less congested. She states she doesn't think she was weaned off oxygen yet today. - Objective Vital Signs & Weight: Vital Signs (12 hours) Temp Pulse Resp BP Pulse Ox 02/20/19 15:10 98.5 F 60 18 140/64 94 L 02/20/19 12:09 98 F 64 18 144/63 H 96 02/20/19 07:01 97.5 F L 66 18 145/63 H 92 L Weight Weight 267 lb I&O: 02/19/19 02/20/19 02/21/19 06:59 06:59 06:59 Intake Total 480 1490 Output Total 1025 850 Balance -545 640 Result Diagrams: 02/20/19 03:33 02/20/19 03:33 Additional Labs: Accuchecks 02/20/19 02/20/19 02/20/19 12:06 10:43 05:14 POC Glucose 127 H 128 H 76 02/19/19 02/19/19 20:42 17:43 POC Glucose 119 H 175 H Hospitalist ROS - Review of Systems Constitutional: denies: fever, chills Gastrointestinal: denies: nausea, vomiting - Medication Medications: Active Medications Generic Name Dose Route Start Last Admin Trade Name Freq PRN Reason Stop Dose Admin Amoxicillin/Clavulanate Potassium 875 mg 02/20/19 09:00 02/20/19 08:59 Augmentin PO 875 mg Q12HR SAMMIE Administration Aspirin 81 mg 02/16/19 09:00 02/20/19 09:00 Ecotrin PO 81 mg DAILY SAMMIE Administration Atorvastatin Calcium 80 mg 02/16/19 21:00 02/19/19 21:47 Lipitor PO 80 mg HS SAMMIE Administration Cholecalciferol 1,000 units 02/19/19 09:00 02/20/19 09:01 Vitamin D3 PO 1,000 units DAILY SAMMIE Administration Clopidogrel Bisulfate 75 mg 02/16/19 09:00 02/20/19 09:01 Plavix PO 75 mg QAM SAMMIE Administration Guaifenesin 600 mg 02/20/19 09:00 02/20/19 09:00 Mucinex PO 600 mg Q12HR SAMMIE Administration Heparin Sodium (Porcine) 5,000 units 02/19/19 21:00 02/20/19 14:31 Heparin SC 5,000 units TID SAMMIE Administration Sodium Chloride 1,000 mls @ 50 mls/hr 02/20/19 08:00 02/20/19 08:57 Normal Saline 0.9% IV 1,000 mls .Q20H SAMMIE Administration Insulin Human Lispro 0 units 02/16/19 05:57 02/19/19 12:06 Humalog SC 8 unit .MODERATE SLIDING SC PRN Administration Moderate Correctional Scale Levothyroxine Sodium 125 mcg 02/16/19 06:00 02/20/19 05:19 Synthroid PO 125 mcg 0600 SAMMIE Administration Nifedipine 60 mg 02/19/19 09:00 02/20/19 09:01 Procardia Xl PO 60 mg DAILY SAMMIE Administration Pantoprazole Sodium 40 mg 02/16/19 21:00 02/19/19 21:48 Protonix PO 40 mg HS SAMMIE Administration Ranolazine 500 mg 02/16/19 09:00 02/20/19 09:01 Ranexa PO 500 mg BID SAMMIE Administration Senna/Docusate Sodium 1 tab 02/17/19 21:00 02/20/19 09:00 Senokot S PO 1 tab BID SAMMIE Administration Sertraline HCl 50 mg 02/16/19 09:00 02/20/19 08:59 Zoloft PO 50 mg DAILY SAMMIE Administration Sotalol HCl 80 mg 02/16/19 09:00 02/20/19 08:59 Betapace PO 80 mg BID SAMMIE Administration Tamsulosin HCl 0.4 mg 02/20/19 09:00 02/20/19 08:58 Flomax PO 0.4 mg DAILY SAMMIE Administration - Exam General Appearance: NAD, awake alert Eye: PERRL, anicteric sclera ENT: normocephalic atraumatic, no oropharyngeal lesions Neck: supple, symmetric, no JVD, no thyromegaly Heart: RRR, no murmur, no gallops, no rubs Respiratory: no wheezes, no rales, no ronchi Respiratory - other findings: mild crackles at the bases Gastrointestinal: soft, non-tender, non-distended Extremities: no cyanosis, no clubbing Extremities - other findings: stasis dermatitis Neurological: cranial nerve grossly intact, normal sensation to touch, no focal deficits, no new deficit Hosp A/P - Plan Chest X ray 02/16: possible loculated left pleural effusion, possible pulmonary edema Venous ultrasound: no DVT Chest X ray 02/19: dense left lung infiltrate Vascular ultrasound left arm: left basilic vein thrombus V/Q scan: no pulmonary embolism This is a 73 year old female with past medical history of CKD, hypertension who presented with worsening shortness of breath and anasarca Acute hypoxic respiratory failure secondary to left sided pneumonia - chest X ray today shows dense left lung infiltrate. She has received IV lasix 80 mg daily on admission, held further lasix - chest Xray 02/19 shows dense left lung infiltrate. REceived Iv zosyn for 2 days, lost IV access, resumed augmentin 02/19. Continue for six days - blood culture negative, sputum culture pending - V/Q scan normal - continue augmentin and mucinex - does have a history of aortic stenosis, repeat ECHO pending Left basilic vein thrombus - noted on vascular ultrasound. Apply warm compress #Hyponatremia - improving - up to 131, hold lasix #MELANY - creatinine increasing to 3.3 - held lasix, will monitor - urine protein to creatinine ratio is not consistent with nephrotic syndrome Anemia of Chronic disease from CKD -HB 8.2, - getting procrit by nephrology - B12 and folate normal Chronic peripheral edema from venous stasis - dopplers negative for DVT today - possibly from nifedipine as well #CAD #Chronic diastolic heart failure #Moderate aortic stenosis - continue aspirin, plavix, statin, ranexa - EF in April 2017 showed EF 60-65%, moderate . ECHO is pednign #Hypertension - on nifedipine Dispo: pending improvement in creatinine, attempt to wean off oxygen prior to discharge DVT prophylaxis: switch from lovenox to heparin given kidney issue Code status: full code
--- NOTE | 2019-02-20 18:55 | PRG ---
DATE OF SERVICE: 02/20/2019 SERVICE: Nephrology. SUBJECTIVE: A 73-year-old female, being followed up for acute on chronic renal failure. The patient with bilateral leg edema and diastolic heart failure, has been on diuretics, and this was associated with acute elevation in creatinine beyond baseline. Leg swelling has improved. OBJECTIVE: VITAL SIGNS: Temperature 97.5, pulse 66, respiratory rate 18, SpO2 of 92% on 4 L nasal cannula, blood pressure is 145/63. GENERAL: Obese, comfortable female, in no distress. Afebrile. Anicteric. Acyanotic. HEENT: Normocephalic, atraumatic. Oral mucosa is moist. CARDIOVASCULAR: Irregular rhythm and rate with soft systolic murmur. RESPIRATORY: Fair air entry bilaterally with few transmitted breath sounds. No obvious crackle or rhonchi was appreciated. GI: Obese, soft, nontender, nondistended with normal bowel sounds. UROGENITAL: Goss catheter is in place draining urine. EXTREMITIES: Bilateral chronic venous stasis changes noted, but no obvious edema appreciated. BINDING CUTTER SYNTHETIC CLOTH: Conscious, alert, oriented x3 with appropriate mental status. Cranial nerves 2 through 12 are grossly intact. DIAGNOSTIC DATA: CBC showed WBC count of 11, hemoglobin of 8.2, MCV of 86.4, platelets of 244. CMP showed sodium 131, potassium 4.3, chloride 98, CO2 of 21, BUN 59, creatinine 3.38, glucose 56, calcium 8.7, total bilirubin 0.7, AST 15, ALT 13, alkaline phosphatase 80, total protein 6.4, albumin 3.4, globulin 3.0. ASSESSMENT: 1. Acute kidney injury: Due to volume depletion related to excessive diuresis. 2. Hyponatremia: Due to volume contraction with appropriate ADH secretion. 3. Chronic kidney disease stage 3/4. 4. Chronic diastolic heart failure with acute exacerbation. 5. Chronic venous stasis dermatitis with chronic bilateral leg edema. 6. Acute urinary retention requiring Goss catheter placement. 7. Anemia in chronic kidney disease. PLAN: 1. We will start the patient on gentle IV fluid therapy with normal saline at 50 mL/h given worsening renal function. 2. We will also get repeat urine electrolytes. 3. We will continue to avoid nephrotoxic agent including lisinopril and diuretics. 4. Repeat renal function test in the morning. 5. We will continue Procrit 3 times a week. 6. Continue current antihypertensives and monitor blood pressure. 7. Further treatment to follow depending on hospital course. Other treatment as per primary attending and other specialties. Job ID: [id number]
[2019-02-20] MEDS: Atorvastatin Calcium 40 MG TAB PO SCH (21:13)
[2019-02-21 04:52] LABS: Hemoglobin 7.6 g/dL (12.0-16.0); Mean Corpuscular HGB CONC 33.6 g/dL (32.0-36.0); Mean Corpuscular Hemoglobin 29.1 pg (27.0-31.0); Mean Corpuscular Volume 86.6 fL (78.0-98.0); Mean Platelet Volume 9.8 fL (7.4-10.4); Platelet Count 227 thou/uL (130-400); RBC Distribution Width 19.5 % (11.5-14.5); Red Blood Cell (RBC) Count 2.63 mill/uL (4.20-5.40); White Blood Cell (WBC) Count 8.9 thou/uL (4.8-10.8)
[2019-02-21 05:21] LABS: ALT (SGPT) 9 U/L (8-55); AST (SGOT) 11 U/L (5-34); Albumin 3.3 g/dL (3.4-4.8); Alkaline Phosphatase 77 U/L (40-110); Anion Gap 14 mmol/L (10-20); BUN (Urea Nitrogen) 61 mg/dL (9.8-20.1); Bilirubin, Total 0.6 mg/dL (0.2-1.2); Calc. Creatinine Clearance 34 mL/min (70-130); Calcium 8.7 mg/dL (7.8-10.44); Carbon Dioxide 23 mmol/L (23-31); Chloride 100 mmol/L (98-107); Estimated GFR-MDRD 16; Glucose 221 mg/dL (83-110); Potassium 4.7 mmol/L (3.5-5.1); Protein, Total 6.3 g/dL (6.0-8.3); Sodium 132 mmol/L (136-145)
[2019-02-21] MEDS: Levothyroxine Sodium 125 MCG TAB PO SCH (05:51)
[2019-02-21] MEDS: Sodium Chloride 0.9% 1,000 ML IV SCH (07:17)
--- NOTE | 2019-02-21 08:11 | PRG ---
DATE OF SERVICE: 02/18/2019 SERVICE: Nephrology. SUBJECTIVE: A 73-year-old female being followed up for acute on chronic kidney disease. The patient with chronic diastolic heart failure, was admitted due to worsening shortness of breath. Has been getting diuretics with adequate diuresis since admission. Reports feeling better with improvement in shortness of breath. OBJECTIVE: VITAL SIGNS: Temperature 97.9, pulse 60, respiratory rate 18, SpO2 95% on 3.5 L nasal cannula, blood pressure is 135/57. GENERAL: Obese female, in no obvious distress. Afebrile. Anicteric. Acyanotic. HEENT: Normocephalic and atraumatic. CARDIOVASCULAR: Irregular rhythm with soft systolic murmur. RESPIRATORY: Fair air entry bilaterally with some transmitted breath sounds. Few basal crackles posteriorly noted. GI: Obese, soft, nontender, nondistended with normal bowel sounds. UROGENITAL: Goss catheter is in place draining urine. EXTREMITIES: Trace leg edema noted. RESERVOIR ENGINEER: Conscious, alert, and oriented x3 with appropriate mental status. DIAGNOSTIC DATA: CBC and renal function panel are pending at this time. ASSESSMENT: 1. Acute on chronic renal failure: Most likely due to prerenal related to diuretic therapy. The patient also is on lisinopril. 2. Acute respiratory failure with hypoxia due to congestive heart failure exacerbation, improved. 3. Acute on chronic diastolic heart failure. 4. Morbid obesity. 5. Physical deconditioning. PLAN: 1. We will get repeat BMP. We likely will deescalate diuretic therapy as the patient is close to euvolemia. 2. Further treatment to follow depending on review of other diagnostic test. 3. We will hold diuretic therapy at this time. 4. We will recheck renal function in the morning. ADDENDUM: Renal function panel came back showing acute increase in creatinine from 2.18 yesterday to 3.0. Job ID: [id number]
[2019-02-21] MEDS: Aspirin 81 mg Enteric Coated Tablet PO SCH (09:04)
[2019-02-21] MEDS: Amoxicillin/Potassium Clav 875 MG TAB PO SCH (09:04)
[2019-02-21] MEDS: Clopidogrel Bisulfate 75 MG TAB PO SCH (09:05)
[2019-02-21] MEDS: Senokot S 8.6-50 MG TAB PO SCH ×2 (09:05→21:13)
[2019-02-21] MEDS: guaiFENesin ER 600 MG TAB PO SCH ×2 (09:05→21:13)
[2019-02-21] MEDS: NIFEdipine XL 60 MG TAB PO SCH (09:05)
[2019-02-21] MEDS: Tamsulosin HCl 0.4 MG CAP PO SCH (09:06)
[2019-02-21] MEDS: Sotalol HCl 80 MG TAB PO SCH ×2 (09:06→21:12)
[2019-02-21] MEDS: Heparin 5,000 UNITS/ML VIAL SC SCH ×3 (09:08→21:13)
--- NOTE | 2019-02-21 10:49 | PRG ---
DATE OF SERVICE: 02/21/2019 SERVICE: Nephrology. SUBJECTIVE: A 73-year-old female with chronic diastolic heart failure and CKD admitted due to worsening shortness of breath. Nephrology is following patient for [id number] renal failure. The patient reports feeling better. She was able to have a shower and is sitting out in a chair. Denied nausea, vomiting, abdominal pain, or shortness of breath. Admitted to exertional dyspnea. OBJECTIVE: VITAL SIGNS: Temperature 98.7, pulse 61, respiratory rate 18, SpO2 of 95% on 3 L nasal cannula, blood pressure 164/70. GENERAL: Obese female, in no distress. HEENT: Normocephalic, atraumatic. Oral mucosa is moist. NECK: Supple with no JVD. CARDIOVASCULAR: Regular rhythm and rate with systolic murmur. RESPIRATORY: Fair air entry bilaterally with transmitted breath sounds. No obvious rhonchi were appreciated. GASTROINTESTINAL: Obese, soft, nontender, nondistended with normal bowel sounds. UROGENITAL: Goss catheter is in place. EXTREMITIES: Bilateral chronic venous stasis changes with no obvious edema appreciated. CENTRAL NERVOUS SYSTEM: Conscious, alert, oriented x3 with appropriate mental status. Cranial nerves 2 through 12 are grossly intact. Patient moves all extremities.DDENDUM DIAGNOSTIC DATA: CBC showed WBC count of 8.9, hemoglobin of 7.6, MCV of 86.6, and platelet of 227. CMP showed sodium 132, potassium 4.7, chloride 100, , creatinine 2.88, BUN 61, glucose 221, calcium 8.7, total bilirubin 0.6, AST 11, ALT 9, alkaline phosphatase 77, total protein 6.3, albumin 3.3, and globulin 3.0. ASSESSMENT: 1. Acute kidney injury: Due to volume depletion related to diuretics. 2. Hyponatremia: Due to volume contraction with appropriate antidiuretic hormone secretion. Improving with IV fluid therapy. 3. Chronic kidney disease, stage 3 to 4: Due to excessive diuretics, diabetes and hypertension. 4. Chronic diastolic heart failure with acute exacerbation, improved. 5. Acute respiratory failure requiring oxygen due to congestive heart failure exacerbation. Pulmonary embolism has been ruled out with V/Q scan. 6. Anemia in chronic kidney disease. 7. Chronic venous stasis dermatitis. She has chronic bilateral leg edema. PLAN: 1. Discontinue IV fluid therapy to avoid fluid overload. Continue to avoid nephrotoxic agent including SABI inhibitors and diuretics in this patient. 2. Continue erythrocyte stimulating agent given anemia in chronic kidney disease. 3. If discharge home is contemplated, the patient can be discharged from Nephrology point of view with no diuretics. However, the patient needs close followup with repeat renal function panel in 5 to 7 days to determine if diuretics would then be commenced. Need to be compliant with dietary discretions and low-salt diet to avoid fluid overload extensively discussed with the patient and sister at the bedside. Job ID: [id number]
[2019-02-21] MEDS: HumaLOG 300 UNITS/3 ML VIAL SC PRN ×3 (10:58→21:14)
[2019-02-21] MEDS: EPOETIN ALFA-EPBX (ESRD) 10,000 UNIT/ML VIAL SC SCH (12:59)
--- NOTE | 2019-02-21 17:30 | PDOC.HOSPP ---
- Subjective Encounter Date: 02/21/19 Encounter Time: 11:00 Subjective: The patient is feeling better, cough is less productive. She feels less short of breath. Patient thinks this is the best that she is going to get. She denies chest pain. She says when they took her off oxygen she felt very short of breath and whoozy and is hoping she can go home with it. SHe states the chest PT helped her. Patient's blood count noted to be 7.6, she states it usually ranges around 9. FOBT positive. She says she was getting pro-crit injections once a month previously. She had colonoscopy two months ago that was normal, but has had polyps previously. Kidney number improved to 2.88 today. Patient is hoping she will be home before [place] but she wants to be better before discharge. - Objective Vital Signs & Weight: Vital Signs (12 hours) Temp Pulse Pulse Pulse Resp BP BP 02/21/19 15:35 98.2 F 61 18 02/21/19 11:45 97.9 F 69 20 02/21/19 11:06 60 60 157/67 H 155/69 H 02/21/19 09:06 61 02/21/19 09:05 61 02/21/19 07:30 98.7 F 61 18 02/21/19 07:28 BP Pulse Ox Pulse Ox Pulse Ox 02/21/19 15:35 141/63 H 96 02/21/19 11:45 157/67 H 96 02/21/19 11:06 95 97 02/21/19 09:06 02/21/19 09:05 02/21/19 07:30 164/70 H 95 02/21/19 07:28 89 L Weight Weight 272 lb I&O: 02/20/19 02/21/19 02/22/19 06:59 06:59 06:59 Intake Total 1490 1310 480 Output Total 850 1650 750 Balance 640 340 270 Result Diagrams: 02/21/19 04:18 02/21/19 04:18 Additional Labs: Accuchecks 02/21/19 02/21/19 02/21/19 16:34 10:26 05:35 POC Glucose 294 H 286 H 239 H 02/20/19 20:59 POC Glucose 257 H Hospitalist ROS - Review of Systems Constitutional: denies: chills Respiratory: denies: dry Cardiovascular: denies: chest pain - Medication Medications: Active Medications Generic Name Dose Route Start Last Admin Trade Name Freq PRN Reason Stop Dose Admin Acetaminophen 650 mg 02/16/19 05:57 02/20/19 18:44 Tylenol PO 650 mg Q4H PRN Administration Headache/Fever/Mild Pain (1-3) Aspirin 81 mg 02/16/19 09:00 02/21/19 09:04 Ecotrin PO 81 mg DAILY SAMMIE Administration Atorvastatin Calcium 80 mg 02/16/19 21:00 02/20/19 21:13 Lipitor PO 80 mg HS SAMMIE Administration Cholecalciferol 1,000 units 02/19/19 09:00 02/21/19 09:04 Vitamin D3 PO 1,000 units DAILY SAMMIE Administration Clopidogrel Bisulfate 75 mg 02/16/19 09:00 02/21/19 09:05 Plavix PO 75 mg QAM SAMMIE Administration Epoetin Andrew-epbx 10,000 unit 02/21/19 09:15 02/21/19 12:59 Retacrit SC 10,000 unit MOWEFR SAMMIE Administration Guaifenesin 600 mg 02/20/19 09:00 02/21/19 09:05 Mucinex PO 600 mg Q12HR SAMMIE Administration Heparin Sodium (Porcine) 5,000 units 02/19/19 21:00 02/21/19 14:52 Heparin SC 5,000 units TID SAMMIE Administration Insulin Human Lispro 0 units 02/16/19 05:57 02/21/19 10:58 Humalog SC 6 unit .MODERATE SLIDING SC PRN Administration Moderate Correctional Scale Levothyroxine Sodium 125 mcg 02/16/19 06:00 02/21/19 05:51 Synthroid PO 125 mcg 0600 SAMMIE Administration Nifedipine 60 mg 02/19/19 09:00 02/21/19 09:05 Procardia Xl PO 60 mg DAILY SAMMIE Administration Pantoprazole Sodium 40 mg 02/16/19 21:00 02/20/19 21:13 Protonix PO 40 mg HS SAMMIE Administration Ranolazine 500 mg 02/16/19 09:00 02/21/19 09:05 Ranexa PO 500 mg BID SAMMIE Administration Senna/Docusate Sodium 1 tab 02/17/19 21:00 02/21/19 09:05 Senokot S PO 1 tab BID SAMMIE Administration Sertraline HCl 50 mg 02/16/19 09:00 02/21/19 09:06 Zoloft PO 50 mg DAILY SAMMIE Administration Sotalol HCl 80 mg 02/16/19 09:00 02/21/19 09:06 Betapace PO 80 mg BID SAMMIE Administration Tamsulosin HCl 0.4 mg 02/20/19 09:00 02/21/19 09:06 Flomax PO 0.4 mg DAILY SAMMIE Administration - Exam General Appearance: NAD, awake alert Eye: PERRL, anicteric sclera ENT: normocephalic atraumatic, no oropharyngeal lesions Neck: supple, symmetric, no JVD, no thyromegaly Heart: RRR, no murmur, no gallops, no rubs Respiratory: no wheezes Respiratory - other findings: mild rales at bases Gastrointestinal: soft, non-tender, non-distended, normal bowel sounds Extremities: no cyanosis, no clubbing Extremities - other findings: 3+ lymphedema with venous stasis changes, mildly erythematous Skin: normal turgor Skin - other findings: venous stasis dermatitis Neurological: cranial nerve grossly intact, normal sensation to touch, no focal deficits, no new deficit Hosp A/P - Plan Chest X ray 02/16: possible loculated left pleural effusion, possible pulmonary edema Venous ultrasound: no DVT Chest X ray 02/19: dense left lung infiltrate Vascular ultrasound left arm: left basilic vein thrombus V/Q scan: no pulmonary embolism ECHO 02/20: EF 55-60%, LVH, moderate aortic stenosis, mild MR, mild TR, mild [place] This is a 73 year old female with past medical history of CKD, hypertension who presented with worsening shortness of breath and anasarca Acute hypoxic respiratory failure secondary to left sided pneumonia - currently still on 2L, may need home oxygen evaluation - chest Xray 02/19 shows dense left lung infiltrate. REceived Iv zosyn for 2 days, lost IV access, resumed augmentin 02/19. Continue for six days - blood culture negative, sputum culture pending - V/Q scan normal - continue augmentin and mucinex - does have a history of aortic stenosis, repeat ECHO showed moderate aortic stenosis, EF 55-60%, LVh Left basilic vein thrombus - noted on vascular ultrasound. Continue warm compresses #Hyponatremia - improving - up to 132, continue IV fluids #MELANY - creatinine improving to 2.88, continue gentle IV fluids - urine protein to creatinine ratio is not consistent with nephrotic syndrome Anemia of Chronic disease from CKD -HB 7.6. May need transfusion tomorrow if it drops below 7 - getting procrit by nephrology - B12 and folate normal - s/p colonoscopy 2 months ago Chronic peripheral edema from venous stasis - dopplers negative for DVT - possibly from nifedipine as well #CAD #Chronic diastolic heart failure #Moderate aortic stenosis - continue aspirin, plavix, statin, ranexa - EF in April 2017 showed EF 60-65%, moderate . ECHO is pednign #Hypertension - on nifedipine Dispo: pending improvement in creatinine, wean off o2. May need transfusion tomorrow if blood count drops DVT prophylaxis: switch from lovenox to heparin given kidney issue Code status: full code
[2019-02-21] MEDS: Amoxicillin/Potassium Clav 500 MG TAB PO SCH (21:12)
[2019-02-21] MEDS: Atorvastatin Calcium 40 MG TAB PO SCH (21:13)
[2019-02-22 04:17] LABS: Hemoglobin 7.7 g/dL (12.0-16.0); Mean Corpuscular HGB CONC 33.8 g/dL (32.0-36.0); Mean Corpuscular Hemoglobin 29.5 pg (27.0-31.0); Mean Corpuscular Volume 87.2 fL (78.0-98.0); Mean Platelet Volume 10.1 fL (7.4-10.4); Platelet Count 250 thou/uL (130-400); RBC Distribution Width 19.8 % (11.5-14.5); Red Blood Cell (RBC) Count 2.62 mill/uL (4.20-5.40); White Blood Cell (WBC) Count 10.5 thou/uL (4.8-10.8)
[2019-02-22 04:37] LABS: Anion Gap 12 mmol/L (10-20); BUN (Urea Nitrogen) 53 mg/dL (9.8-20.1); Calc. Creatinine Clearance 44 mL/min (70-130); Calcium 8.9 mg/dL (7.8-10.44); Carbon Dioxide 24 mmol/L (23-31); Chloride 102 mmol/L (98-107); Estimated GFR-MDRD 21; Glucose 215 mg/dL (83-110); Potassium 4.5 mmol/L (3.5-5.1); Sodium 133 mmol/L (136-145)
[2019-02-22] MEDS: Levothyroxine Sodium 125 MCG TAB PO SCH (05:39)
[2019-02-22] MEDS: Aspirin 81 mg Enteric Coated Tablet PO SCH (08:47)
[2019-02-22] MEDS: Tamsulosin HCl 0.4 MG CAP PO SCH (08:47)
[2019-02-22] MEDS: Senokot S 8.6-50 MG TAB PO SCH ×2 (08:48→21:55)
[2019-02-22] MEDS: Sotalol HCl 80 MG TAB PO SCH ×2 (08:48→21:34)
[2019-02-22] MEDS: NIFEdipine XL 60 MG TAB PO SCH (08:48)
[2019-02-22] MEDS: Clopidogrel Bisulfate 75 MG TAB PO SCH (08:48)
[2019-02-22] MEDS: Amoxicillin/Potassium Clav 500 MG TAB PO SCH ×2 (08:49→21:34)
[2019-02-22] MEDS: guaiFENesin ER 600 MG TAB PO SCH ×2 (08:49→21:34)
[2019-02-22] MEDS: Heparin 5,000 UNITS/ML VIAL SC SCH ×3 (08:50→21:36)
[2019-02-22] MEDS: HumaLOG 300 UNITS/3 ML VIAL SC PRN ×4 (08:51→21:36)
--- NOTE | 2019-02-22 11:07 | PRG ---
DATE OF SERVICE: 02/22/2019 SERVICE: Nephrology. SUBJECTIVE: A 73-year-old female being followed up for acute on chronic renal failure. The patient was admitted due to worsening shortness of breath felt to be due to acute on chronic diastolic heart failure. Was treated with diuretics with worsening renal function, hence treated with IV fluid with improvement. Creatinine is trending downwards as tolerated. The patient denied fever, nausea, vomiting, worsening leg swelling. Still has Goss catheter in place. OBJECTIVE: VITAL SIGNS: Temperature 97.9, pulse 84, respiratory rate 15, SpO2 of 92 on 1 L nasal cannula, and blood pressure is 144/63. GENERAL: Obese female, in no obvious distress. Afebrile. Anicteric. Acyanotic. HEENT: Normocephalic, atraumatic. Oral mucosa is moist. NECK: Supple with no JVD. CARDIOVASCULAR: Irregular rhythm. Soft systolic murmur noted. RESPIRATORY: Fair air entry bilaterally with some transmitted breath sounds. No rhonchi or use of accessory muscles appreciated. GI: Obese, soft, nontender, nondistended with normal bowel sounds. UROGENITAL: Goss catheter is in place draining some urine. EXTREMITIES: Chronic bilateral venous stasis changes noted, but no obvious edema appreciated. SANITATION LEAD: Conscious, alert, oriented x3 with appropriate mental status. Cranial nerves 2 through 12 are grossly intact. The patient moves all extremities. DIAGNOSTIC DATA: CBC showed WBC count of 10.5, hemoglobin of 7.7, platelet of 250. BMP showed sodium 133, potassium 4.5, chloride 102, CO2 of 24, BUN 63, creatinine 2.27, glucose 215, calcium 8.9. Note that creatinine is down from 2.88 yesterday and 3.38 two days ago to 2.27 today. BUN also is down from 61 yesterday. Serum sodium is up from 129 three days ago to 133 today. ASSESSMENT: 1. Acute kidney injury: Due to cardiorenal and excessive diuretics, improving. Following IV fluid therapy. Currently off IV fluids. 2. Hyponatremia: Due to volume contraction with ADH secretion improving with discontinuation of diuresis and after IV fluids. 3. Anemia in chronic kidney disease. 4. Chronic kidney disease, stage 3/4. 5. Chronic venous stasis dermatitis. 6. Acute on chronic diastolic heart failure, improved. Currently off diuretics. PLAN: 1. Continue to monitor the patient off diuretics. Also avoid nephrotoxic agent including RAAS tamela. 2. The patient can be discharged from Nephrology point of view with close followup in 1 week with repeat renal function tests and CBC. The patient can lead to be discharged without diuretics. She, however, has to continue with reduced salt diet, reduced salt intake as well as fluid restriction. The patient was advised to monitor weight daily especially during this festive. Job ID: [id number]
--- NOTE | 2019-02-22 18:26 | PDOC.HOSPP ---
- Subjective Encounter Date: 02/22/19 Encounter Time: 09:00 Subjective: The patient is doing much better. She has mild productive cough, some shortness of breath on exertion. She was evaluated for home oxygen and noted to need 1.5 on exertion. Unable to get it approved yet however. She denies dizziness or lightheadedness. Otherwise stable for d/c - Objective Vital Signs & Weight: Vital Signs (12 hours) Temp Pulse Pulse Pulse Resp BP BP 02/22/19 16:36 97.8 F 64 16 02/22/19 12:01 64 63 148/67 H 128/60 02/22/19 11:35 98.2 F 60 16 02/22/19 08:48 0 L 02/22/19 08:36 97.9 F 84 15 BP BP Pulse Ox Pulse Ox Pulse Ox 02/22/19 16:36 118/76 95 02/22/19 12:01 91 L 94 L 02/22/19 11:35 128/60 89 L 02/22/19 08:48 02/22/19 08:36 144/63 H 92 L Weight Weight 269 lb 11.2 oz I&O: 02/21/19 02/22/19 02/23/19 06:59 06:59 06:59 Intake Total 1310 1200 Output Total 1650 1750 500 Balance -340 -550 -500 Result Diagrams: 02/22/19 03:38 02/22/19 03:38 Additional Labs: Accuchecks 02/22/19 02/22/19 02/22/19 17:33 11:15 05:39 POC Glucose 281 H 313 H 231 H 02/21/19 20:15 POC Glucose 324 H Hospitalist ROS - Review of Systems Constitutional: denies: fever, chills Respiratory: denies: cough, dry - Medication Medications: Active Medications Generic Name Dose Route Start Last Admin Trade Name Freq PRN Reason Stop Dose Admin Acetaminophen 650 mg 02/16/19 05:57 02/20/19 18:44 Tylenol PO 650 mg Q4H PRN Administration Headache/Fever/Mild Pain (1-3) Amoxicillin/Clavulanate Potassium 500 mg 02/21/19 21:00 02/22/19 08:49 Augmentin PO 500 mg Q12HR SAMMIE Administration Aspirin 81 mg 02/16/19 09:00 02/22/19 08:47 Ecotrin PO 81 mg DAILY SAMMIE Administration Atorvastatin Calcium 80 mg 02/16/19 21:00 02/21/19 21:13 Lipitor PO 80 mg HS SAMMIE Administration Cholecalciferol 1,000 units 02/19/19 09:00 02/22/19 08:47 Vitamin D3 PO 1,000 units DAILY SAMMIE Administration Clopidogrel Bisulfate 75 mg 02/16/19 09:00 02/22/19 08:48 Plavix PO 75 mg QAM SAMMIE Administration Epoetin Andrew-epbx 10,000 unit 02/21/19 09:15 02/21/19 12:59 Retacrit SC 10,000 unit MOWEFR SAMMIE Administration Guaifenesin 600 mg 02/20/19 09:00 02/22/19 08:49 Mucinex PO 600 mg Q12HR SAMMIE Administration Heparin Sodium (Porcine) 5,000 units 02/19/19 21:00 02/22/19 16:05 Heparin SC 5,000 units TID SAMMIE Administration Insulin Human Lispro 0 units 02/16/19 05:57 02/22/19 18:04 Humalog SC 6 unit .MODERATE SLIDING SC PRN Administration Moderate Correctional Scale Insulin Human Lispro 0 units 02/21/19 20:54 02/21/19 21:14 Humalog SC 4 unit .BEDTIME SLIDING SC PRN Administration Bedtime Correctional Scale Levothyroxine Sodium 125 mcg 02/16/19 06:00 02/22/19 05:39 Synthroid PO 125 mcg 0600 SAMMIE Administration Nifedipine 60 mg 02/19/19 09:00 02/22/19 08:48 Procardia Xl PO 60 mg DAILY SAMMIE Administration Pantoprazole Sodium 40 mg 02/16/19 21:00 02/21/19 21:13 Protonix PO 40 mg HS SAMMIE Administration Ranolazine 500 mg 02/16/19 09:00 02/22/19 08:47 Ranexa PO 500 mg BID SAMMIE Administration Senna/Docusate Sodium 1 tab 02/17/19 21:00 02/22/19 08:48 Senokot S PO Not Given BID ON LICENSE OF [facility] Sertraline HCl 50 mg 02/16/19 09:00 02/22/19 08:47 Zoloft PO 50 mg DAILY SAMMIE Administration Sotalol HCl 80 mg 02/16/19 09:00 02/22/19 08:48 Betapace PO 80 mg BID SAMMIE Administration Tamsulosin HCl 0.4 mg 02/20/19 09:00 02/22/19 08:47 Flomax PO 0.4 mg DAILY SAMMIE Administration - Exam General Appearance: NAD, awake alert Eye: PERRL, anicteric sclera ENT: normocephalic atraumatic, no oropharyngeal lesions Neck: supple, symmetric, no JVD, no thyromegaly Heart: RRR, no murmur, no gallops, no rubs Respiratory - other findings: mild rales at the bases Gastrointestinal: soft, non-tender, non-distended Extremities: no cyanosis, no clubbing, no edema Skin: normal turgor, no lesions, no rashes Neurological: cranial nerve grossly intact, normal sensation to touch, no focal deficits, no new deficit Hosp A/P - Plan Chest X ray 02/16: possible loculated left pleural effusion, possible pulmonary edema Venous ultrasound: no DVT Chest X ray 02/19: dense left lung infiltrate Vascular ultrasound left arm: left basilic vein thrombus V/Q scan: no pulmonary embolism ECHO 02/20: EF 55-60%, LVH, moderate aortic stenosis, mild MR, mild TR, mild [place] This is a 73 year old female with past medical history of CKD, hypertension who presented with worsening shortness of breath and anasarca Acute hypoxic respiratory failure secondary to left sided pneumonia - still on oxygen, home oxygen evaluation done and patient needs 1.5L on exertion - chest Xray 02/19 shows dense left lung infiltrate. REceived Iv zosyn for 2 days, lost IV access, resumed augmentin 02/19. Continue for six days - blood culture negative, sputum culture pending - V/Q scan normal - does have a history of aortic stenosis, repeat ECHO showed moderate aortic stenosis, EF 55-60%, LVh Left basilic vein thrombus - noted on vascular ultrasound. Continue warm compresses #Hyponatremia - improving - up to 133, IV fluids stopped #MELANY - creatinine improving to 2.27, stopped IV fluids, recheck tomorrow - urine protein to creatinine ratio is not consistent with nephrotic syndrome Anemia of Chronic disease from CKD -HB 7.6. Stable - getting procrit by nephrology, will recheck as an outpatient to see if patient needs it - B12 and folate normal - s/p colonoscopy 2 months ago Chronic peripheral edema from venous stasis - dopplers negative for DVT - possibly from nifedipine as well #CAD #Chronic diastolic heart failure #Moderate aortic stenosis - continue aspirin, plavix, statin, ranexa - EF in April 2017 showed EF 60-65%, moderate . ECHO is pednign #Hypertension - on nifedipine Dispo: stable for discharge, needs insurance approval for home oxygen DVT prophylaxis: heparin Code status: full code
[2019-02-22] MEDS: Atorvastatin Calcium 40 MG TAB PO SCH (21:35)
[2019-02-23 04:53] LABS: Hemoglobin 8.2 g/dL (12.0-16.0); Mean Corpuscular HGB CONC 33.3 g/dL (32.0-36.0); Mean Corpuscular Hemoglobin 29.2 pg (27.0-31.0); Mean Corpuscular Volume 87.7 fL (78.0-98.0); Platelet Count 295 thou/uL (130-400); RBC Distribution Width 19.5 % (11.5-14.5); Red Blood Cell (RBC) Count 2.82 mill/uL (4.20-5.40); White Blood Cell (WBC) Count 10.2 thou/uL (4.8-10.8)
[2019-02-23 05:09] LABS: Anion Gap 16 mmol/L (10-20); BUN (Urea Nitrogen) 48 mg/dL (9.8-20.1); Calc. Creatinine Clearance 50 mL/min (70-130); Calcium 9.1 mg/dL (7.8-10.44); Carbon Dioxide 21 mmol/L (23-31); Chloride 102 mmol/L (98-107); Estimated GFR-MDRD 24; Glucose 181 mg/dL (83-110); Potassium 4.6 mmol/L (3.5-5.1); Sodium 134 mmol/L (136-145)
[2019-02-23] MEDS: Levothyroxine Sodium 125 MCG TAB PO SCH (05:49)
--- NOTE | 2019-02-23 07:43 | PRG ---
DATE OF SERVICE: 02/23/2019 SERVICE: Nephrology. SUBJECTIVE: A 73-year-old female, being followed up for acute on chronic renal failure. The patient was admitted due to worsening shortness of breath due to acute on chronic diastolic heart failure. Also found to have pneumonia. Clinically improved. Currently off oxygen. Denied nausea, vomiting, abdominal pain, and leg swelling has subsided. OBJECTIVE: VITAL SIGNS: Temperature 98.9, pulse 61, respiratory rate 18, SpO2 of 92% on room air, and blood pressure is 153/57. GENERAL: Obese female, in no distress. Afebrile. Anicteric. Acyanotic. HEENT: Normocephalic, atraumatic. Oral mucosa is moist. NECK: Supple. No JVD. CARDIOVASCULAR: Regular rhythm and rate with normal heart sounds 1 and 2. Systolic murmur noted. RESPIRATORY: Fair air entry bilaterally with some crackles noticed posteriorly at both bases. No use of accessory muscles or rhonchi appreciated. GASTROINTESTINAL: Obese, soft, nontender, and nondistended with normal bowel sounds. EXTREMITIES: Chronic venous stasis changes noted with no overt edema. CENTRAL NERVOUS SYSTEM: Conscious, alert, and oriented x3 with appropriate mental status. DIAGNOSTIC DATA: CBC showed WBC count of 10.2, hemoglobin of 8.2, MCV of 87.7, and platelet of 295. BMP showed sodium 134, potassium 4.6, chloride 102, CO2 of 21, BUN 48, creatinine 2.01, glucose 181, and calcium 9.1. ASSESSMENT: 1. Acute kidney injury: Due to prerenal etiology related to excessive diuresis, poor oral intake, volume depletion as well as use of kotir-aytaotkbsty-amjhcvptzoq system tamela. Improving following IV fluid therapy as well as discontinuation of diuretics. The patient is also off sdgpp-ccqauknmiho-xahijwqwjwd system tamela. Creatinine is down to 2.01 from 3.38. 2. Chronic kidney disease, stage 4: Due to hypertension and diabetes as well as cardiorenal component. 3. Anemia in chronic kidney disease: Status post iron therapy. Currently getting Procrit. Hemoglobin is beginning to trend upwards. 4. Hyponatremia, mild: Due to volume contraction with appropriate antidiuretic hormone secretion with possible component from congestive heart failure. 5. Morbid obesity with possible obstructive sleep apnea. 6. Diabetes mellitus with hyperglycemia. 7. Hypertension: Control is fair with systolic blood pressure ranging from 120 to 150. 8. Acute on chronic diastolic heart failure. 9. Aortic stenosis. 10. Pneumonia, on antibiotics. PLAN: 1. Continue to avoid nephrotoxic agent and diuretics. 2. Continue Procrit and monitor hemoglobin. 3. Recheck renal function. The patient can be discharged on current medications without diuretics and RAAS tamela with close followup in 1 week. Job ID: [id number]
[2019-02-23] MEDS: Clopidogrel Bisulfate 75 MG TAB PO SCH (08:29)
[2019-02-23] MEDS: Sotalol HCl 80 MG TAB PO SCH ×2 (08:29→20:13)
[2019-02-23] MEDS: NIFEdipine XL 60 MG TAB PO SCH (08:29)
[2019-02-23] MEDS: guaiFENesin ER 600 MG TAB PO SCH ×2 (08:29→20:13)
[2019-02-23] MEDS: Amoxicillin/Potassium Clav 500 MG TAB PO SCH ×2 (08:29→20:13)
[2019-02-23] MEDS: Aspirin 81 mg Enteric Coated Tablet PO SCH (08:29)
[2019-02-23] MEDS: Tamsulosin HCl 0.4 MG CAP PO SCH (08:29)
[2019-02-23] MEDS: Senokot S 8.6-50 MG TAB PO SCH ×2 (08:30→20:14)
[2019-02-23] MEDS: Heparin 5,000 UNITS/ML VIAL SC SCH ×3 (08:31→20:14)
[2019-02-23] MEDS: EPOETIN ALFA-EPBX (ESRD) 10,000 UNIT/ML VIAL SC SCH (09:37)
[2019-02-23] MEDS: HumaLOG 300 UNITS/3 ML VIAL SC PRN ×2 (12:09→17:19)
--- NOTE | 2019-02-23 17:20 | PDOC.HOSPP ---
- Subjective Encounter Date: 02/23/19 Encounter Time: 10:00 Subjective: The patient is doing well, shortness of breath has significantly improved, cough is better. She was unable to get her oxygen set up, however she states when she ambulated and came back, her oxygen was 89% and then slowly increased to 92%, so unsure whether she still needs it. Per cardiac rehab, yesterday when she ambulated she dropped to 87% on 1L. - Objective Vital Signs & Weight: Vital Signs (12 hours) Temp Pulse Pulse Pulse Resp BP BP 02/23/19 16:00 96.8 F L 65 18 02/23/19 12:02 98.3 F 60 16 02/23/19 10:13 77 61 142/87 H 155/70 H 02/23/19 07:31 97.7 F 63 20 BP BP Pulse Ox Pulse Ox Pulse Ox 02/23/19 16:00 156/68 H 96 02/23/19 12:02 125/85 96 02/23/19 10:13 91 L 93 L 02/23/19 07:31 151/70 H 93 L Weight Weight 270 lb I&O: 02/22/19 02/23/19 02/24/19 06:59 06:59 06:59 Intake Total 1200 2620 Output Total 1750 1400 Balance -550 1220 Result Diagrams: 02/23/19 04:32 02/23/19 04:33 Additional Labs: Accuchecks 02/23/19 02/23/19 02/22/19 11:08 05:30 20:41 POC Glucose 306 H 206 H 291 H 02/22/19 17:33 POC Glucose 281 H Hospitalist ROS - Review of Systems Constitutional: denies: fever, chills - Medication Medications: Active Medications Generic Name Dose Route Start Last Admin Trade Name Freq PRN Reason Stop Dose Admin Acetaminophen 650 mg 02/16/19 05:57 02/20/19 18:44 Tylenol PO 650 mg Q4H PRN Administration Headache/Fever/Mild Pain (1-3) Amoxicillin/Clavulanate Potassium 500 mg 02/21/19 21:00 02/23/19 08:29 Augmentin PO 500 mg Q12HR SAMMIE Administration Aspirin 81 mg 02/16/19 09:00 02/23/19 08:29 Ecotrin PO 81 mg DAILY SAMMIE Administration Atorvastatin Calcium 80 mg 02/16/19 21:00 02/22/19 21:35 Lipitor PO 80 mg HS SAMMIE Administration Cholecalciferol 1,000 units 02/19/19 09:00 02/23/19 08:29 Vitamin D3 PO 1,000 units DAILY SAMMIE Administration Clopidogrel Bisulfate 75 mg 02/16/19 09:00 02/23/19 08:29 Plavix PO 75 mg QAM SAMMIE Administration Epoetin Andrew-epbx 10,000 unit 02/21/19 09:15 02/23/19 09:37 Retacrit SC 10,000 unit MOWEFR SAMMIE Administration Guaifenesin 600 mg 02/20/19 09:00 02/23/19 08:29 Mucinex PO 600 mg Q12HR SAMMIE Administration Heparin Sodium (Porcine) 5,000 units 02/19/19 21:00 02/23/19 14:58 Heparin SC 5,000 units TID SAMMIE Administration Insulin Human Lispro 0 units 02/16/19 05:57 02/23/19 12:09 Humalog SC 8 unit .MODERATE SLIDING SC PRN Administration Moderate Correctional Scale Insulin Human Lispro 0 units 02/21/19 20:54 02/22/19 21:36 Humalog SC 3 unit .BEDTIME SLIDING SC PRN Administration Bedtime Correctional Scale Levothyroxine Sodium 125 mcg 02/16/19 06:00 02/23/19 05:49 Synthroid PO 125 mcg 0600 SAMMIE Administration Nifedipine 60 mg 02/19/19 09:00 02/23/19 08:29 Procardia Xl PO 60 mg DAILY SAMMIE Administration Pantoprazole Sodium 40 mg 02/16/19 21:00 02/22/19 21:35 Protonix PO 40 mg HS SAMMIE Administration Ranolazine 500 mg 02/16/19 09:00 02/23/19 08:29 Ranexa PO 500 mg BID [facility] Administration Senna/Docusate Sodium 1 tab 02/17/19 21:00 02/23/19 08:30 Senokot S PO Not Given BID [facility] Sertraline HCl 50 mg 02/16/19 09:00 02/23/19 08:29 Zoloft PO 50 mg DAILY SAMMIE Administration Sotalol HCl 80 mg 02/16/19 09:00 02/23/19 08:29 Betapace PO 80 mg BID [facility] Administration Tamsulosin HCl 0.4 mg 02/20/19 09:00 02/23/19 08:29 Flomax PO 0.4 mg DAILY SAMMIE Administration - Exam General Appearance: NAD, awake alert Eye: PERRL, anicteric sclera ENT: normocephalic atraumatic, no oropharyngeal lesions Neck: supple, symmetric, no JVD, no thyromegaly Heart: RRR, no murmur, no gallops, no rubs Respiratory: CTAB Respiratory - other findings: minimal rales at bases Gastrointestinal: soft, non-tender, non-distended Extremities: no cyanosis, no clubbing, no edema, 2+ LE edema Extremities - other findings: Erythematous legs with venous stasis changes Skin: normal turgor, no lesions, no rashes Hosp A/P - Plan Chest X ray 02/16: possible loculated left pleural effusion, possible pulmonary edema Venous ultrasound: no DVT Chest X ray 02/19: dense left lung infiltrate Vascular ultrasound left arm: left basilic vein thrombus V/Q scan: no pulmonary embolism ECHO 02/20: EF 55-60%, LVH, moderate aortic stenosis, mild MR, mild TR, mild HI This is a 73 year old female with past medical history of CKD, hypertension who presented with worsening shortness of breath and anasarca Acute hypoxic respiratory failure secondary to left sided pneumonia - not rqeuiring oxygen at rest, possibly still needs it on exertion. Thought to need 1.5L on exertion on 02/22. - chest Xray 02/19 shows dense left lung infiltrate. REceived Iv zosyn for 2 days, lost IV access, resumed augmentin 02/19. Continue until 02/25 - blood culture negative, sputum culture pending - V/Q scan normal - does have a history of aortic stenosis, repeat ECHO showed moderate aortic stenosis, EF 55-60%, LVh Left basilic vein thrombus - noted on vascular ultrasound. Continue warm compresses #Hyponatremia - improving - up to 134, IV fluids and lasix stopped #MELANY- resolved - creatinine down to 2.0 which is patient's baseline, will recheck tomorrow - urine protein to creatinine ratio is not consistent with nephrotic syndrome Anemia of Chronic disease from CKD -HB 8.2 Stable - getting procrit by nephrology, will recheck as an outpatient to see if patient needs it - B12 and folate normal - s/p colonoscopy 2 months ago Chronic peripheral edema from venous stasis - dopplers negative for DVT - possibly from nifedipine as well #CAD #Chronic diastolic heart failure #Moderate aortic stenosis - continue aspirin, plavix, statin, ranexa - EF in April 2017 showed EF 60-65%, moderate . ECHO is pednign #Hypertension - on nifedipine Dispo: stable for discharge, needs insurance approval for home oxygen DVT prophylaxis: heparin Code status: full code
[2019-02-23] MEDS: Atorvastatin Calcium 40 MG TAB PO SCH (20:13)
[2019-02-24 04:26] LABS: Hemoglobin 7.7 g/dL (12.0-16.0); Mean Corpuscular HGB CONC 32.8 g/dL (32.0-36.0); Mean Corpuscular Hemoglobin 29.1 pg (27.0-31.0); Mean Corpuscular Volume 88.5 fL (78.0-98.0); Mean Platelet Volume 9.1 fL (7.4-10.4); Platelet Count 310 thou/uL (130-400); RBC Distribution Width 19.7 % (11.5-14.5); Red Blood Cell (RBC) Count 2.66 mill/uL (4.20-5.40)
[2019-02-24 04:54] LABS: ALT (SGPT) 10 U/L (8-55); AST (SGOT) 12 U/L (5-34); Albumin 3.2 g/dL (3.4-4.8); Alkaline Phosphatase 78 U/L (40-110); Anion Gap 14 mmol/L (10-20); BUN (Urea Nitrogen) 45 mg/dL (9.8-20.1); Bilirubin, Total 0.5 mg/dL (0.2-1.2); Calc. Creatinine Clearance 51 mL/min (70-130); Calcium 8.7 mg/dL (7.8-10.44); Carbon Dioxide 22 mmol/L (23-31); Chloride 103 mmol/L (98-107); Estimated GFR-MDRD 25; Glucose 224 mg/dL (83-110); Potassium 4.9 mmol/L (3.5-5.1); Protein, Total 6.2 g/dL (6.0-8.3); Sodium 134 mmol/L (136-145)
[2019-02-24] MEDS: Levothyroxine Sodium 125 MCG TAB PO SCH (05:36)
[2019-02-24] MEDS: Tamsulosin HCl 0.4 MG CAP PO SCH (09:33)
[2019-02-24] MEDS: Aspirin 81 mg Enteric Coated Tablet PO SCH (09:33)
[2019-02-24] MEDS: Amoxicillin/Potassium Clav 500 MG TAB PO SCH (09:33)
[2019-02-24] MEDS: Clopidogrel Bisulfate 75 MG TAB PO SCH (09:33)
[2019-02-24] MEDS: guaiFENesin ER 600 MG TAB PO SCH (09:33)
[2019-02-24] MEDS: Sotalol HCl 80 MG TAB PO SCH (09:33)
[2019-02-24] MEDS: Heparin 5,000 UNITS/ML VIAL SC SCH ×2 (09:33→14:55)
[2019-02-24] MEDS: NIFEdipine XL 60 MG TAB PO SCH (09:33)
[2019-02-24] MEDS: Senokot S 8.6-50 MG TAB PO SCH (09:34)
--- NOTE | 2019-02-24 11:23 | PDOC.HOSPP ---
- Subjective Encounter Date: 02/24/19 Encounter Time: 12:30 Subjective: Patient feeling better, eager to go home. No complaints this AM. - Objective Vital Signs & Weight: Vital Signs (12 hours) Temp Pulse Resp BP BP Pulse Ox 02/24/19 07:40 98.2 F 64 18 153/67 H 94 L 02/24/19 04:00 98.7 F 60 18 148/64 H 95 Weight Weight 272 lb 11.2 oz I&O: 02/23/19 02/24/19 02/25/19 06:59 06:59 06:59 Intake Total 2620 1210 Output Total 1400 1830 Balance 1220 -620 Result Diagrams: 02/24/19 04:03 02/24/19 04:03 Additional Labs: Accuchecks 02/24/19 02/23/19 02/23/19 05:33 20:56 17:12 POC Glucose 256 H 279 H 277 H 02/23/19 11:08 POC Glucose 306 H Hospitalist ROS - Review of Systems Constitutional: denies: fever, chills Respiratory: reports: cough. denies: shortness of breath Cardiovascular: denies: chest pain, palpitations Gastrointestinal: denies: nausea, vomiting, abdominal pain - Medication Medications: Active Medications Generic Name Dose Route Start Last Admin Trade Name Freq PRN Reason Stop Dose Admin Acetaminophen 650 mg 02/16/19 05:57 02/20/19 18:44 Tylenol PO 650 mg Q4H PRN Administration Headache/Fever/Mild Pain (1-3) Amoxicillin/Clavulanate Potassium 500 mg 02/21/19 21:00 02/24/19 09:33 Augmentin PO 500 mg Q12HR SAMMIE Administration Aspirin 81 mg 02/16/19 09:00 02/24/19 09:33 Ecotrin PO 81 mg DAILY SAMMIE Administration Atorvastatin Calcium 80 mg 02/16/19 21:00 02/23/19 20:13 Lipitor PO 80 mg HS SAMMIE Administration Cholecalciferol 1,000 units 02/19/19 09:00 02/24/19 09:33 Vitamin D3 PO 1,000 units DAILY SAMMIE Administration Clopidogrel Bisulfate 75 mg 02/16/19 09:00 02/24/19 09:33 Plavix PO 75 mg QAM SAMMIE Administration Epoetin Andrew-epbx 10,000 unit 02/21/19 09:15 02/23/19 09:37 Retacrit SC 10,000 unit MOWEFR SAMMIE Administration Guaifenesin 600 mg 02/20/19 09:00 02/24/19 09:33 Mucinex PO 600 mg Q12HR SAMMIE Administration Heparin Sodium (Porcine) 5,000 units 02/19/19 21:00 02/24/19 09:33 Heparin SC 5,000 units TID SAMMIE Administration Insulin Human Lispro 0 units 02/16/19 05:57 02/23/19 17:19 Humalog SC 6 unit .MODERATE SLIDING SC PRN Administration Moderate Correctional Scale Insulin Human Lispro 0 units 02/21/19 20:54 02/22/19 21:36 Humalog SC 3 unit .BEDTIME SLIDING SC PRN Administration Bedtime Correctional Scale Levothyroxine Sodium 125 mcg 02/16/19 06:00 02/24/19 05:36 Synthroid PO 125 mcg 0600 SAMMIE Administration Nifedipine 60 mg 02/19/19 09:00 02/24/19 09:33 Procardia Xl PO 60 mg DAILY SAMMIE Administration Pantoprazole Sodium 40 mg 02/16/19 21:00 02/23/19 20:13 Protonix PO 40 mg HS SAMMIE Administration Ranolazine 500 mg 02/16/19 09:00 02/24/19 09:33 Ranexa PO 500 mg BID SAMMIE Administration Senna/Docusate Sodium 1 tab 02/17/19 21:00 02/24/19 09:34 Senokot S PO Not Given BID SAMMIE Sertraline HCl 50 mg 02/16/19 09:00 02/24/19 09:33 Zoloft PO 50 mg DAILY SAMMIE Administration Sotalol HCl 80 mg 02/16/19 09:00 02/24/19 09:33 Betapace PO 80 mg BID SAMMIE Administration Tamsulosin HCl 0.4 mg 02/20/19 09:00 02/24/19 09:33 Flomax PO 0.4 mg DAILY SAMMIE Administration - Exam General Appearance: NAD Eye: anicteric sclera ENT: moist mucosa Heart: RRR, no murmur, no gallops, no rubs Respiratory: CTAB, no wheezes, no rales, no ronchi Gastrointestinal: soft, non-tender, non-distended, normal bowel sounds Psychiatric: normal affect, normal behavior, A&O x 3 Hosp A/P - Plan Chest X ray 02/16: possible loculated left pleural effusion, possible pulmonary edema Venous ultrasound: no DVT Chest X ray 02/19: dense left lung infiltrate Vascular ultrasound left arm: left basilic vein thrombus V/Q scan: no pulmonary embolism ECHO 02/20: EF 55-60%, LVH, moderate aortic stenosis, mild MR, mild TR, mild NM This is a 73 year old female with past medical history of CKD, hypertension who presented with worsening shortness of breath and anasarca Acute hypoxic respiratory failure secondary to left sided pneumonia - oxygen just prn, especially with ambulation - chest Xray 02/19 shows dense left lung infiltrate. REceived IV zosyn for 2 days, lost IV access, resumed augmentin 02/19. Continue until 02/25 - blood culture negative - V/Q scan normal - does have a history of aortic stenosis, repeat ECHO showed moderate aortic stenosis, EF 55-60%, LVh Left basilic vein thrombus - noted on vascular ultrasound. Continue warm compresses #Hyponatremia - improving - up to 134, IV fluids and lasix stopped #MELANY- resolved - creatinine down to 2.0 which is patient's baseline, stable today - urine protein to creatinine ratio is not consistent with nephrotic syndrome Anemia of Chronic disease from CKD -HB 8.2 Stable - getting procrit by nephrology, will recheck as an outpatient to see if patient needs it - B12 and folate normal - s/p colonoscopy 2 months ago Chronic peripheral edema from venous stasis - dopplers negative for DVT - possibly from nifedipine as well #CAD #Chronic diastolic heart failure #Moderate aortic stenosis - continue aspirin, plavix, statin, ranexa - EF in April 2017 showed EF 60-65%, moderate . Repeat ECHO stable #Hypertension - on nifedipine Dispo: stable for discharge with home O2 DVT prophylaxis: heparin Code status: full code
[2019-02-24] MEDS: HumaLOG 300 UNITS/3 ML VIAL SC PRN (12:08)
[2019-02-24 16:20] VITALS: BP 146/65; TEMP 97.2
--- NOTE | 2019-02-24 18:31 | PDOC.EVN ---
Event Note - Event Note Event Note: Dictated Discharge Summary #[id number]
--- NOTE | 2019-02-24 18:58 | DIS ---
DATE OF ADMISSION: 02/16/2019 DATE OF DISCHARGE: 02/24/2019 PRIMARY CARE PHYSICIAN: Dr. Rasheed Mon. REASON FOR ADMISSION: Acute diastolic congestive heart failure. DIAGNOSES AT DISCHARGE: 1. Acute hypoxic respiratory failure secondary to left-sided pneumonia. 2. Left basilic vein thrombus. 3. Hyponatremia, improving. 4. Acute kidney failure, resolved. 5. Anemia of chronic disease from chronic kidney disease. 6. Chronic peripheral edema from venous stasis. 7. Coronary artery disease. 8. Chronic diastolic congestive heart failure without exacerbation. 9. Moderate aortic stenosis. 10. Hypertension. PROCEDURES: 1. Left upper extremity venous duplex ultrasound showing some focal obstructing thrombus in the left basilic vein. The rest of the upper extremity deep veins and cephalic vein without clot. 2. Venous duplex ultrasonography of bilateral lower extremities showing no evidence for DVT. 3. Ventilation-perfusion scan showing no evidence of pulmonary emboli. 4. Echocardiogram showing ejection fraction of 55% to 60%, moderate concentric left ventricular hypertrophy, moderate aortic stenosis. CONSULTATIONS: Nephrology, Dr. Ledbetter. SUMMARY OF HOSPITAL COURSE: This is a 73-year-old white female with a history of hypertension, diabetes, chronic kidney disease, and diastolic congestive heart failure with aortic stenosis, who presented with worsening shortness of breath, also noted some body swelling and some redness of her lower extremities. She was noted with wheezing and given DuoNebs with minimal response, was given Lasix in the ER and felt that like she had improved. The patient was admitted to the hospital for presumptive diastolic congestive heart failure exacerbation. She was given Lasix, however, this caused her creatinine and sodium to worsen. Nephrology was consulted, so she was given IV fluids and her creatinine eventually turned back to normal. Her initial chest x-ray showed possible pulmonary edema; however, on repeat chest x-ray, she had a dense left lung base infiltrate. The patient's white blood cell count did go up to 11,000 as well. She was started on IV antibiotics with improvement in her shortness of breath and symptoms, and eventually this was transitioned over to oral antibiotics and she was doing much better by the time of discharge. During the hospitalization, she did have room-air hypoxia, especially with ambulation and so, home O2 was arranged for her. DISCHARGE MANAGEMENT: Discharged home with outpatient cardiac rehab. ACTIVITY: As tolerated. DIET: Healthy heart diet. EQUIPMENT AND SUPPLIES: Home oxygen. FOLLOWUP: Follow up with cardiac rehab in [place]. Continue to follow with her [facility] for her oxygen. Follow up with Dr. Pratt in 2 to 3 weeks, with Dr. Ledbetter on 03/08 at [address] Mon on 03/10, at 2:10 pm. DISCHARGE MEDICATIONS: 1. Albuterol inhaler 2 puffs every 6 hours as needed, one inhaler dispensed. 2. Augmentin 875/125 mg one tablet twice a day for another day and a half, three tablets dispensed. 3. Vitamin D3 of 1000 units p.o. daily, 30 tablets dispensed. 4. Mucinex ER 600 mg q.12 hours as needed for cough, 14 tablets dispensed. 5. Novolin N 6 units subcu q.a.m., 10 vials dispensed. 6. Nifedipine XL 60 mg daily, 30 tablets dispensed. 7. Tamsulosin 0.4 mg daily, 30 capsules dispensed. 8. The patient is to stop her amlodipine. 9. Vitamin C 500 mg daily. 10. Aspirin 81 mg daily. 11. Atorvastatin 80 mg daily. 12. Clopidogrel 75 mg daily. 13. Centrum Silver 1 tablet daily. 14. Synthroid 125 mcg daily. 15. Protonix 40 mg daily. 16. Ranexa 500 mg twice a day. 17. Sertraline 50 mg daily. 18. Sotalol 80 mg twice a day. 19. CoQ10 of 100 mg daily. TIME SPENT: Arranging the details of this discharge took 33 minutes. Job ID: [id number]
== END 2019-02-24 17:00 | disposition home or self-care (01) | DRG 193 ==
LOC: ERS 02:17 → ERHOLD 05:49 → OBSVTOIN 16:49 → 2NO 17:47
PROVIDERS: ADMIT Internal Medicine; ATTEND Internal Medicine
DX: J18.9 Pneumonia, unspecified organism (principal); J96.01 Acute respiratory failure with hypoxia; I21.A1 Myocardial infarction type 2; G93.41 Metabolic encephalopathy; I13.0 Hypertensive heart and chronic kidney disease with heart failure and stage 1 through stage 4 chronic kidney disease, or unspecified chronic kidney disease; I82.612 Acute embolism and thrombosis of superficial veins of left upper extremity; N17.9 Acute kidney failure, unspecified; I50.32 Chronic diastolic (congestive) heart failure; L03.115 Cellulitis of right lower limb; L03.116 Cellulitis of left lower limb; N18.4 Chronic kidney disease, stage 4 (severe); E87.1 Hypo-osmolality and hyponatremia; Z68.41 Body mass index [BMI] 40.0-44.9, adult; D63.1 Anemia in chronic kidney disease; I87.8 Other specified disorders of veins; E11.22 Type 2 diabetes mellitus with diabetic chronic kidney disease; Z95.810 Presence of automatic (implantable) cardiac defibrillator; F32.9 Major depressive disorder, single episode, unspecified; Z88.8 Allergy status to other drugs, medicaments and biological substances; D50.8 Other iron deficiency anemias; E11.21 Type 2 diabetes mellitus with diabetic nephropathy; E66.01 Morbid (severe) obesity due to excess calories; I35.0 Nonrheumatic aortic (valve) stenosis
CPT/HCPCS: 36415; 36416; 71045; 71046; 78582; 80048; 80053; 80069; 81001; 82274; 82306; 82553; 82570; 82607; 82728; 82746; 82805; 83540; 83550; 83735; 83880; 84156; 84300; 84484; 84540; 85025; 85027; 85046; 87040; 87086; 93005; 93010; 93306; 93798; 93970; 94640; 94667; 94668; 96374; A9540; A9558; J1644; J1650; J1815; J1940; J2543; J2916; J3490; Q5105

== ENCOUNTER 2019-10-03 07:24 | Outpatient (CLI) | payer MEDICARE, OTHER ==
[2019-10-03 14:08] LABS: #Eosinphils 0.4 thou/uL (0.0-0.7); #Lymphocytes 1.2 thou/uL (1.20-3.40); #Monocytes 0.5 thou/uL (0.11-0.59); #Neutrophils 4.9 thou/uL (1.40-6.50); %Basophils 0.6 % (0.0-1.0); %Eosinophils 6.1 % (0.0-10.0); %Lymphocytes 16.7 % (21.0-51.0); %Monocytes 6.5 % (0.0-10.0); %Neutrophils 70.1 % (42.0-75.0); Hemoglobin 10.4 g/dL (12.0-16.0); Mean Corpuscular HGB CONC 32.6 g/dL (32.0-36.0); Mean Corpuscular Hemoglobin 29.2 pg (27.0-31.0); Mean Corpuscular Volume 89.7 fL (78.0-98.0); Mean Platelet Volume 10.4 fL (7.4-10.4); Platelet Count 193 thou/uL (130-400); RBC Distribution Width 18.5 % (11.5-14.5); Red Blood Cell (RBC) Count 3.56 mill/uL (4.20-5.40)
[2019-10-03 14:26] LABS: Anion Gap 15 mmol/L (10-20); BUN (Urea Nitrogen) 29 mg/dL (9.8-20.1); Calc. Creatinine Clearance 0 mL/min (70-130); Calcium 9.1 mg/dL (7.8-10.44); Carbon Dioxide 26 mmol/L (23-31); Chloride 105 mmol/L (98-107); Estimated GFR-MDRD 29; Glucose 204 mg/dL (83-110); Potassium 4.1 mmol/L (3.5-5.1); Sodium 142 mmol/L (136-145)
[2019-10-04 14:15] LABS: SARS-CoV-2 MS2 Positive; SARS-CoV-2 N Gene Negative; SARS-CoV-2 S Gene Negative; SARS-CoV-2 by NAA Not Detected (NotDetected); SARS-CoV-2 orf1ab Negative
--- NOTE | 2019-10-04 15:39 | EKG ---
Test Reason : Blood Pressure : / mmHG Vent. Rate : 063 BPM Atrial Rate : 063 BPM P-R Int : 132 ms QRS Dur : 144 ms QT Int : 486 ms P-R-T Axes : 000 -64 083 degrees QTc Int : 497 ms Electronic atrial pacemaker Right bundle branch block Left anterior fascicular block Bifascicular block Moderate voltage criteria for LVH, may be normal variant Possible Lateral infarct , age undetermined Abnormal ECG Confirmed by CASSIA BURNETTE ([id number]) on 10/04/2019 3:38:48 PM Referred By: JANELLE Confirmed By:CASSIA BURNETTE
== END 2019-10-03 07:25 | disposition home or self-care (01) ==
LOC: LABBT 07:24
PROVIDERS: ATTEND Internal Medicine Cardiovascular Disease
DX: Z01.818 Encounter for other preprocedural examination (principal); Z11.59 Encounter for screening for other viral diseases; I34.2 Nonrheumatic mitral (valve) stenosis
CPT/HCPCS: 80048; 85025; 93005; U0003; 87635; 93010

== ENCOUNTER 2020-02-09 00:30 | Emergency (ER) | payer MEDICARE ==
[2020-02-09 01:13] LABS: #Eosinphils 0.1 thou/uL (0.0-0.7); #Lymphocytes 1.6 thou/uL (1.20-3.40); #Monocytes 0.5 thou/uL (0.11-0.59); #Neutrophils 10.1 thou/uL (1.40-6.50); %Basophils 0.2 % (0.0-1.0); %Eosinophils 1.2 % (0.0-10.0); %Lymphocytes 13.1 % (21.0-51.0); %Monocytes 4.2 % (0.0-10.0); %Neutrophils 81.3 % (42.0-75.0); Mean Corpuscular HGB CONC 33.1 g/dL (32.0-36.0); Mean Corpuscular Volume 93.7 fL (78.0-98.0); Mean Platelet Volume 8.5 fL (7.4-10.4); Platelet Count 255 thou/uL (130-400); RBC Distribution Width 15.8 % (11.5-14.5); Red Blood Cell (RBC) Count 3.87 mill/uL (4.20-5.40); White Blood Cell (WBC) Count 12.4 thou/uL (4.8-10.8)
[2020-02-09 01:22] LABS: Bacteria/HPF None Seen HPF (None Seen); Bilirubin Negative (Negative); Blood, Urine Negative (Negative); Clarity Clear (Clear); Glucose, Urine (Dipstick) Normal (Negative); Ketone, Urine Negative (Negative); Leukocyte Negative Leu/uL (Negative); Nitrite Negative (Negative); Protein, Urine (Dipstick) 30 mg/dL (Neg-Trace); RBC/HPF 0-3 HPF (0-3); Specific Gravity, Urine 1.012 (1.002-1.036); Squamous Epithelial 0-3 HPF (0-3); Urobilinogen Normal mg/dL (Less than 2); WBC/HPF 0-3 HPF (0-3); pH, Urine 6.5 (5.0-9.0)
[2020-02-09 01:30] LABS: ALT (SGPT) 16 U/L (8-55); AST (SGOT) 26 U/L (5-34); Albumin 4.3 g/dL (3.4-4.8); Alkaline Phosphatase 97 U/L (40-110); Anion Gap 20 mmol/L (10-20); BUN (Urea Nitrogen) 33 mg/dL (9.8-20.1); Bilirubin, Total 0.5 mg/dL (0.2-1.2); CK (CPK) 64 U/L (29-168); Calc. Creatinine Clearance 0 mL/min (70-130); Calcium 9.6 mg/dL (7.8-10.44); Carbon Dioxide 22 mmol/L (23-31); Chloride 101 mmol/L (98-107); Globulin 3.8 g/dL (2.4-3.5); Glucose 159 mg/dL (83-110); Lipase 25 U/L (8-78); Magnesium 2.2 mg/dL (1.6-2.6); Potassium 4.7 mmol/L (3.5-5.1); Protein, Total 8.1 g/dL (6.0-8.3); Sodium 138 mmol/L (136-145)
--- NOTE | 2020-02-09 07:55 | RAD ---
EXAM: CHEST ONE VIEW HISTORY: Hypoglycemia, weakness COMPARISON: 02/16/2019 FINDINGS: Dual lead left subclavian cardiac pacemaking device remains in place. Median sternotomy wires and car diac valve replacement are again seen. Cardiac silhouette is magnified by projection but does appear mildly enlarged. Pulmonary vasculature is at the upper limits of normal. Again noted is increa sed density lateral left lung base which may represent pleural and parenchymal scarring versus residual pleural effusion. There is suboptimal evaluation left lung base due to technique of the exam , overlying soft tissue density as well as enlarged cardiac silhouette. There is mild increased interstitial densities in a perihilar location. No other interval change. IMPRESSION: 1. Mild cardiomegaly and mild increase in perihilar interstitial densities which could be related to an element of mild pulmonary edema. Infectious process would be difficult to exclude. 2. Small left pleural effusion versus pleural and parenchymal scarring.
--- NOTE | 2020-02-09 08:09 | CT ---
PRELIMINARY REPORT/[facility]/EMERGENCY AFTER HOURS PROCEDURE: EXAM: CT Head Without Intravenous Contrast. CLINICAL HISTORY: 74 yof with LOC at unknown time presenting by EMS with initial glc of 59 treated en route and currently >100. Patient reports feeling normal today and taking all of her medications to i nclude insulin. Does not remember if she ate dinner. TECHNIQUE: Axial computed tomography images of the head/brain without intravenous contrast. COMPARISON: None provided. FINDINGS: BRAIN: No acute intraparenchymal hemorrhage. No mass lesion. No CT evidence for acute territorial infarct. N o midline shift or extra-axial collection. Arteriosclerosis. VENTRICLES: No hydrocephalus. ORBITS: The orbits are unremarkable. SINUSES AND MASTOIDS: The paranasal sinuses and mastoid air cells are clear. SOFT TISSUES: No significant facial or scalp soft tissue swelling evident. No radiopaque foreign body is seen. BONES: No acute skull fracture. IMPRESSION: No acute intracranial abnormality. ELECTRONICALLY SIGNED BY: Karan Carrington MD Feb 09, 2020 1:50:49 AM ACCOUNTING OFFICE MANAGER This report is intended for review by the ordering physician only, in accordance of law. If you recei ve this report in error, please call [facility] at [phone]. FINAL REPORT EMERGENT AFTER HOURS CT OF BRAIN PERFORMED WITHOUT CONTRAST ENHANCEMENT: HISTORY: Altered mental status. COMPARISON: 09/19/2016 study. FINDINGS: There is mild generalized ventricular and sulcal prominence which his fairly age-appropriate. No sig ns of intracerebral hemorrhage or extraaxial fluid collections. Mastoid air cells are clear of minim al mucosal change in the left maxillary sinus. IMPRESSION: 1. No acute intracranial abnormalities. 2. This report is in agreement with the temporary report issued by [facility]. POS: [facility] [place]
--- NOTE | 2020-02-09 08:51 | RAD ---
THREE VIEWS OF THE RIGHT SHOULDER: COMPARISON: None. HISTORY: Right shoulder pain. FINDINGS: Three views of the right shoulder show no evidence of acute fracture or dislocation. Moderate degene rative changes are seen in the right shoulder. Increased interstitial lung markings are seen in the visualized right thorax. No rib fractures are seen. IMPRESSION: Moderate degenerative changes of the right shoulder without acute osseous abnormality. POS: [facility]
== END 2020-02-09 06:50 | disposition home or self-care (01) ==
LOC: ERS 00:30
DX: E11.649 Type 2 diabetes mellitus with hypoglycemia without coma (principal); I95.9 Hypotension, unspecified; M25.511 Pain in right shoulder; I25.2 Old myocardial infarction; I11.0 Hypertensive heart disease with heart failure; I50.9 Heart failure, unspecified; E78.5 Hyperlipidemia, unspecified; E78.00 Pure hypercholesterolemia, unspecified; D64.9 Anemia, unspecified
CPT/HCPCS: 36415; 36416; 51701; 70450; 71045; 80053; 81003; 81015; 82550; 83605; 83690; 83735; 83880; 84484; 85025; 93005; 94760

== ENCOUNTER 2020-03-23 11:37 | Emergency (ER) | payer MEDICARE ==
[2020-03-23] MEDS ORDERED: Furosemide 40 MG/4 ML VIAL ONE (12:08)
--- NOTE | 2020-03-23 12:52 | RAD ---
Portable frontal chest radiograph: 03/23/2020 COMPARISON: 02/09/2020 HISTORY: Dyspnea, heart failure FINDINGS: There is stable enlargement of the cardiac silhouette, stable dual lead transvenous pacing device, midline sternotomy wires and stent material overlying the cardiac silhouette. There is pulmonary vascular congestion, worsened. Increased linear interstitial density noted in the perihilar regions and both lung bases. Increased density in the left base noted which is similar when compared to prior imaging and may signify nonspecific volume loss, infiltrate, and/or small left pleu ral effusion. IMPRESSION: Findings suggesting interstitial edema. Superimposed infection cannot be excluded. Recomm end follow-up imaging following treatment to document resolution.
[2020-03-23 13:43] LABS: #Eosinphils 0.4 thou/uL (0.0-0.7); #Lymphocytes 1.5 thou/uL (1.20-3.40); #Monocytes 0.6 thou/uL (0.11-0.59); %Basophils 0.3 % (0.0-1.0); %Eosinophils 5.2 % (0.0-10.0); %Lymphocytes 17.1 % (21.0-51.0); %Monocytes 7.5 % (0.0-10.0); %Neutrophils 69.9 % (42.0-75.0); Hemoglobin 9.5 g/dL (12.0-16.0); Mean Corpuscular HGB CONC 32.6 g/dL (32.0-36.0); Mean Corpuscular Hemoglobin 29.5 pg (27.0-31.0); Mean Corpuscular Volume 90.5 fL (78.0-98.0); Mean Platelet Volume 8.9 fL (7.4-10.4); Platelet Count 260 thou/uL (130-400); RBC Distribution Width 15.8 % (11.5-14.5); Red Blood Cell (RBC) Count 3.22 mill/uL (4.20-5.40); White Blood Cell (WBC) Count 8.5 thou/uL (4.8-10.8)
[2020-03-23 14:05] LABS: ALT (SGPT) 13 U/L (8-55); AST (SGOT) 19 U/L (5-34); Albumin 4.1 g/dL (3.4-4.8); Alkaline Phosphatase 111 U/L (40-110); Anion Gap 16 mmol/L (10-20); BUN (Urea Nitrogen) 42 mg/dL (9.8-20.1); Bilirubin, Total 0.4 mg/dL (0.2-1.2); Calc. Creatinine Clearance 0 mL/min (70-130); Calcium 9.4 mg/dL (7.8-10.44); Carbon Dioxide 26 mmol/L (23-31); Chloride 103 mmol/L (98-107); Globulin 3.5 g/dL (2.4-3.5); Glucose 156 mg/dL (83-110); Potassium 3.8 mmol/L (3.5-5.1); Protein, Total 7.6 g/dL (5.8-8.1); Sodium 141 mmol/L (136-145)
--- NOTE | 2020-04-07 22:17 | EKG ---
Test Reason : Blood Pressure : / mmHG Vent. Rate : 060 BPM Atrial Rate : 060 BPM P-R Int : 260 ms QRS Dur : 154 ms QT Int : 518 ms P-R-T Axes : 011 -62 105 degrees QTc Int : 518 ms Atrial-paced rhythm with prolonged AV conduction Right bundle branch block Left anterior fascicular block Bifascicular block Left ventricular hypertrophy with repolarization abnormality Possible Lateral infarct , age undetermined Abnormal ECG Confirmed by STEFANO MEDINA DO ([id number]), development editor GERARD NEWELL ([id number]) on 04/07/2020 10:17:12 PM Referred By: Confirmed By:STEFANO MEDINA DO
== END 2020-03-23 15:16 | disposition home or self-care (01) ==
LOC: ERS 11:37
DX: I11.0 Hypertensive heart disease with heart failure (principal); I50.9 Heart failure, unspecified; Z79.899 Other long term (current) drug therapy; Z79.82 Long term (current) use of aspirin; D64.9 Anemia, unspecified; I25.2 Old myocardial infarction; E11.9 Type 2 diabetes mellitus without complications; E03.9 Hypothyroidism, unspecified; E78.5 Hyperlipidemia, unspecified; E78.00 Pure hypercholesterolemia, unspecified
CPT/HCPCS: 71045; 80053; 83880; 84484; 85025; 93005; 96374; J1940

== ENCOUNTER 2020-03-28 10:27 | Outpatient (CLI) | payer MEDICARE ==
--- NOTE | 2020-03-28 10:50 | ULT ---
Bilateral renal ultrasound CLINICAL INDICATION: Stage III chronic kidney disease. COMPARISON: None. FINDINGS: Right kidney: A few echogenic foci are seen which do not demonstrate posterior shadowing and may repr esent prominent vessels as opposed to nonobstructing calculi. No renal cortical thinning is present. There is no evidence of a renal mass hydronephrosis seen. The right kidney measures 13 cm x 5.9 cm. Left kidney: A few echogenic foci are seen which do not demonstrate posterior shadowing and may repre sent prominent vessels as opposed to nonobstructing calculi. No renal cortical thinning is present. There is no evidence of a renal mass or hydronephrosis. The left kidney measures 11.3 cm x 6.4 cm. Urinary bladder: Within normal limits for degree of distention. Urinary bladder volume is 276.6 mL. P atient was unable to void. IMPRESSION: No evidence of hydronephrosis.
== END 2020-03-28 10:28 | disposition home or self-care (01) ==
LOC: BICULT 10:27
PROVIDERS: ATTEND Internal Medicine Nephrology
DX: N18.30 Chronic kidney disease, stage 3 unspecified (principal)
CPT/HCPCS: 76770

== ENCOUNTER 2020-03-31 19:07 | Inpatient (IN) | payer MEDICARE ==
--- NOTE | 2020-03-31 19:54 | RAD ---
EXAM: Single view of the chest HISTORY: Unresponsive COMPARISON: 03/23/2020 FINDINGS: Single view of the chest shows an enlarged cardiomediastinal silhouette. The patient is st atus post sternotomy and cardiac valve repair. The pacemaker is unchanged in position. There is scattered multifocal stable mixed opacities in the lungs which could represent pulmonary edema or inf iltrates. A small left pleural effusion also be present. No acute osseous abnormality. IMPRESSION: Stable cardiomegaly and multifocal opacities that could represent interstitial edema or i nfiltrates.
[2020-03-31] MEDS ORDERED: Ondansetron PF 4 MG/2 ML Vial ONE (20:04)
[2020-03-31 20:05] LABS: #Eosinphils 0.3 thou/uL (0.0-0.7); #Lymphocytes 1.1 thou/uL (1.20-3.40); #Monocytes 0.5 thou/uL (0.11-0.59); #Neutrophils 9.2 thou/uL (1.40-6.50); %Basophils 0.1 % (0.0-1.0); %Eosinophils 2.3 % (0.0-10.0); %Lymphocytes 9.5 % (21.0-51.0); %Monocytes 4.6 % (0.0-10.0); %Neutrophils 83.6 % (42.0-75.0); Mean Corpuscular HGB CONC 32.9 g/dL (32.0-36.0); Mean Corpuscular Hemoglobin 29.9 pg (27.0-31.0); Mean Platelet Volume 8.1 fL (7.4-10.4); Platelet Count 263 thou/uL (130-400); RBC Distribution Width 15.8 % (11.5-14.5); Red Blood Cell (RBC) Count 3.36 mill/uL (4.20-5.40)
[2020-03-31 20:23] LABS: ALT (SGPT) 16 U/L (8-55); AST (SGOT) 19 U/L (5-34); Albumin 4.1 g/dL (3.4-4.8); Alkaline Phosphatase 81 U/L (40-110); Anion Gap 14 mmol/L (10-20); BUN (Urea Nitrogen) 40 mg/dL (9.8-20.1); Bilirubin, Total 0.4 mg/dL (0.2-1.2); Calc. Creatinine Clearance 0 mL/min (70-130); Carbon Dioxide 24 mmol/L (23-31); Chloride 106 mmol/L (98-107); Globulin 3.3 g/dL (2.4-3.5); Potassium 3.4 mmol/L (3.5-5.1); Protein, Total 7.4 g/dL (5.8-8.1); Sodium 141 mmol/L (136-145)
[2020-03-31 20:31] LABS: Glucose 31 mg/dL (83-110)
[2020-03-31] MEDS ORDERED: Dextrose 50% Abboject 50 ML SYRINGE ONE (20:34)
[2020-03-31 20:45] LABS: CKMB 1.9 ng/mL (0-6.6)
--- NOTE | 2020-03-31 21:49 | CT ---
EXAM: CT brain without contrast HISTORY: Diabetic emergency with lethargy COMPARISON: 02/09/2020 TECHNIQUE: Multiple contiguous axial images were obtained and a CT of the brain without contrast. FINDINGS: The brain is normal in morphology and attenuation without focal lesions or confluent areas of infarction. There is no evidence of hydrocephalus, intracranial hemorrhage, or extra-axial fluid collection. The calvarium and overlying soft tissues are unremarkable. There is stable opacification of the right sphenoid sinus. The other visualized paranasal sinuses and mastoid air cells are well aerated. IMPRESSION: No evidence of acute intracranial abnormality
[2020-03-31] MEDS ORDERED: Dextrose 5% in Water 1,000 ML IV PRN (22:25)
[2020-03-31] MEDS ORDERED: Dextrose 50% Abboject 50 ML SYRINGE SLOW IVP PRN (22:25)
--- NOTE | 2020-03-31 22:25 | PDOC.HHP ---
Hospitalist NIDA AMS History of Present Illness: This is a 74-year-old female patient with history of diabetes mellitus, hypothyroidism, hypercholesterolemia, hypertension, [place] CHF and recent TAVR on account of aortic stenosis was brought in by EMS on account of altered mental status secondary to severe hypokalemia. Patient lives by herself and is known to have had hypoglycemia with falls on several occasions. She was at home by herself when after the injection and not eating slammed over and eventually fell from a chair. This was recorded on a video monitor in her house. Her daughter who realized, called EMS. Her blood glucose at the site was found to be 38 and increased to 145 after given D10. She was noted to be unresponsive and lethargic. At presentation here her initial needle stick glucose check was 80 however formal BMP noted 31. She was given an amp of D50. Repeat glucose went up to 124. Initial labs showed saturation 98% on room air, BP 130/64, pulse 71, respiratory 20, rectal temperature was 92.6. Labs showed leukocytosis of 11.0, hemoglobin 10.0 up from 9.5 a month ago. Platelet was 263. Sodium was 141, potassium 3.4 creatinine 1.71 around her baseline. Chest x-ray showed stable cardiomegaly with multifocal opacitiespossible interstitial edema or infiltrates. Head CT showed no evidence of acute intracranial events. Patient was given vancomycin and cefepime prior to hospitalist team being consulted for admission. At the time of my evaluation patient was still drowsy however wakes up shaking and loud name calling. She would open her eyes very slowly. Her sister was in the room with her. According to her nurse however she had worsened slightly after her initial improvement. Previous labs showed that TSH 12/27/2019 was 6.3 and B12 919 on 02/19/2019 Allergies/Adverse Reactions: Allergy/AdvReac Type Severity Reaction Status Date / Time tramadol Allergy Verified 10/03/19 12:55 Home Medications: Medication Instructions Recorded Confirmed Type Clopidogrel Bisulfate [Plavix] 75 mg PO QAM #30 tab 12/22/12 10/07/19 Rx Atorvastatin Calcium 80 mg PO DAILY 01/02/14 10/07/19 History Ranolazine [Ranexa] 500 mg PO BID 05/19/14 10/07/19 History Ascorbic Acid [Vitamin C Chewable 1 tab PO DAILY 02/26/15 10/07/19 History Tablet] Pantoprazole [Protonix] 1 tab PO HS 02/26/15 10/07/19 History Sertraline HCl [Zoloft] 50 mg PO DAILY 05/29/15 10/07/19 History Sotalol HCl [Betapace] 80 mg PO BID #60 tab 06/01/15 10/07/19 Rx Aspirin [Aspirin EC] 81 mg PO DAILY 05/26/17 10/07/19 History Levothyroxine Sodium [Synthroid] 125 mcg PO DAILY 05/26/17 10/07/19 History Folic Acid/Multivit-Min/Lutein 1 tablet PO DAILY 02/17/19 10/07/19 History [Centrum Silver Chewable] Ubidecarenone [Co Q-10] 100 mg PO DAILY 02/17/19 10/07/19 History Albuterol Sulfate [Proair HFA] 2 puff INH Q6HR PRN #1 inh 02/22/19 10/07/19 Rx Cholecalciferol [Vitamin D3] 1,000 units PO DAILY #30 tab 02/22/19 10/07/19 Rx Amlodipine [Norvasc] 5 mg PO DAILY 10/03/19 10/07/19 History Cyanocobalamin (Vitamin B-12) 1,000 mcg PO DAILY 10/03/19 10/07/19 History [Vitamin B-12] Fish Oil/DHA/EPA [Fish Oil 1,200 1 cap PO DAILY 10/03/19 10/07/19 History mg Fish Oil] Insulin Aspart Prot/Insuln Asp 70 units SQ DAILY 10/03/19 10/07/19 History [Novolog Mix 70-30 Flexpen Syrn] Isosorbide Mononitrate [Imdur] 60 mg PO BID 10/03/19 10/07/19 History Torsemide [Demadex] 20 mg PO BID 10/03/19 10/07/19 History hydrALAZINE HCl [Hydralazine HCl] 50 mg PO TID 10/03/19 10/07/19 History Past History: PMHx: Diabetes mellitus type 2, hypertension, coronary disease, hypothyroidism PSHx: TAVR FHx: No other significant Social: No history of smoking or alcohol use. Lives alone Hospitalist HPI ROS ROS unobtainable: due to mental status Hospitalist Exam General - other findings: Awake however drowsy. Eye: PERRL, anicteric sclera ENT: normocephalic atraumatic Heart: RRR, no murmur, no gallops Respiratory: CTAB, no wheezes, no rales, no ronchi Gastrointestinal: soft, non-tender, non-distended, normal bowel sounds Extremities: no cyanosis, no clubbing, no edema Extremities - other findings: Superficial bruises on toes bilaterally. Psychiatric: oriented to person, oriented to place, oriented to time, somnolent, lethargic Hospitalist Results Result Diagrams: 03/31/20 19:54 03/31/20 19:54 Lab results: Laboratory Last Values WBC 11.0 thou/uL (4.8-10.8) H 03/31/20 19:54 RBC 3.36 mill/uL (4.20-5.40) L 03/31/20 19:54 Hgb 10.0 g/dL (12.0-16.0) L 03/31/20 19:54 Hct 30.6 % (36.0-47.0) L 03/31/20 19:54 MCV 91.0 fL (78.0-98.0) 03/31/20 19:54 MCH 29.9 pg (27.0-31.0) 03/31/20 19:54 MCHC 32.9 g/dL (32.0-36.0) 03/31/20 19:54 RDW 15.8 % (11.5-14.5) H 03/31/20 19:54 Plt Count 263 thou/uL (130-400) 03/31/20 19:54 MPV 8.1 fL (7.4-10.4) 03/31/20 19:54 Neutrophils % 83.6 % (42.0-75.0) H 03/31/20 19:54 Lymphocytes % 9.5 % (21.0-51.0) L 03/31/20 19:54 Monocytes % 4.6 % (0.0-10.0) 03/31/20 19:54 Eosinophils % 2.3 % (0.0-10.0) 03/31/20 19:54 Basophils % 0.1 % (0.0-1.0) 03/31/20 19:54 Neutrophils # 9.2 thou/uL (1.40-6.50) H 03/31/20 19:54 Lymphocytes # 1.1 thou/uL (1.20-3.40) L 03/31/20 19:54 Monocytes # 0.5 thou/uL (0.11-0.59) 03/31/20 19:54 Eosinophils # 0.3 thou/uL (0.0-0.7) 03/31/20 19:54 Basophils # 0.0 thou/uL (0.0-0.2) 03/31/20 19:54 Sodium 141 mmol/L (136-145) 03/31/20 19:54 Potassium 3.4 mmol/L (3.5-5.1) L 03/31/20 19:54 Chloride 106 mmol/L (98-107) 03/31/20 19:54 Carbon Dioxide 24 mmol/L (23-31) 03/31/20 19:54 Anion Gap 14 mmol/L (10-20) 03/31/20 19:54 BUN 40 mg/dL (9.8-20.1) H 03/31/20 19:54 Creatinine 1.71 mg/dL (0.6-1.1) H 03/31/20 19:54 Estimated GFR (MDRD) 29 03/31/20 19:54 Glucose 31 mg/dL (83-110) L* 03/31/20 19:54 POC Glucose 124 mg/dL (70-100) H 03/31/20 22:11 Calcium 9.0 mg/dL (7.8-10.44) 03/31/20 19:54 Total Bilirubin 0.4 mg/dL (0.2-1.2) 03/31/20 19:54 AST 19 U/L (5-34) 03/31/20 19:54 ALT 16 U/L (8-55) 03/31/20 19:54 Alkaline Phosphatase 81 U/L (40-110) 03/31/20 19:54 CK-MB (CK-2) 1.9 ng/mL (0-6.6) 03/31/20 19:54 Troponin I 0.046 ng/mL (< 0.028) H 03/31/20 19:54 Serum Total Protein 7.4 g/dL (5.8-8.1) 03/31/20 19:54 Albumin 4.1 g/dL (3.4-4.8) 03/31/20 19:54 Globulin 3.3 g/dL (2.4-3.5) 03/31/20 19:54 Albumin/Globulin Ratio 1.2 g/dL (1.2-2.2) 03/31/20 19:54 Hospitalist H&P A/P Plan: 74-year-old female patient history of CAD, aortic stenosis Postop from and diabetes mellitus presents with altered mental status with sever e hypoglycemia and pneumonia concerning for possible sepsis. Sepsis Patient has hypothermia, leukocytosis altered mental status and lung infiltrates. Source probably lung Received Vanco and cefepimewe will continue on cefepime and azithromycin for now. Order lactate and trend if indicated. BP appears stablewe will give a liter bolus for now and monitor. Repeat if indicated. Order blood culture Acute encephalopathy Possible sepsis/hypoglycemia We will check B12, TSH ammonia CT scan of the head negative Continue close monitoring. Consider neuro consult if no improvement Severe hypoglycemia Blood glucose 38 at initial EMS evaluation. Patient still drowsy and well disparities between fingerstick and BMP results. We will monitor BMP/fingerstick glucose every 2 We will D10 at 50 for now and discontinue once glucose stabilizes. Pneumonia Infiltrates noted on chest x-ray Antibiotics as above. Elevated troponin Troponin elevated 0.046 We will trend and monitor Telemetry floor. Cardiac consult if indicated in a.m. Fall This likely due to acute encephalopathy from hypoglycemia Given however her cardiac history we will check echocardiogram in a.m. Telemetry monitoring Fall precautions Echo in a.m. PT consult in a.m. Hypokalemia Potassium 3.4 Replete IV given her altered mental status. BMP Check magnesium Monitor Coronary disease Resume home medications once verified. CKD Creatinine 1.71 Monitor BMP Nephrology consult if indicated. Anemia Hemoglobin 10.0 Likely from CKD Monitor History of TAVR VT prophylaxisLovenox
[2020-03-31] MEDS ORDERED: Dextrose 10% in Water 1,000 ML IV SCH (22:45)
[2020-03-31] MEDS ORDERED: Cefepime 2 GM VIAL ONE (23:03)
[2020-03-31] MEDS ORDERED: Vancomycin 1 GM/200 ML BAG ONE (23:04)
[2020-03-31] MEDS ORDERED: Sodium Chloride 0.9% 1,000 ML IV SCH (23:15)
[2020-03-31] MEDS ORDERED: Azithromycin 500 MG in Sodium Chloride 0.9% 250 ML 250 ML IVPB SCH (23:15)
[2020-03-31] MEDS ORDERED: Potassium Chloride 20 MEQ in Premix Bag 1 BAG IVPB SCH (23:30)
[2020-03-31 23:41] LABS: Anion Gap 11 mmol/L (10-20); BUN (Urea Nitrogen) 42 mg/dL (9.8-20.1); Calc. Creatinine Clearance 0 mL/min (70-130); Calcium 8.5 mg/dL (7.8-10.44); Carbon Dioxide 26 mmol/L (23-31); Chloride 106 mmol/L (98-107); Glucose 150 mg/dL (83-110); Magnesium 2.1 mg/dL (1.6-2.6); Potassium 3.8 mmol/L (3.5-5.1); Sodium 139 mmol/L (136-145)
[2020-03-31 23:46] LABS: Troponin I 0.038 ng/mL (< 0.028)
[2020-04-01 00:58] VITALS: BMI 40.0
[2020-04-01 01:11] LABS: Actual Bicarbonate (HCO3a) 23.7 mEq/L (22-28); Base Excess (BEa) -0.9 mEq/L (-2.0 to +3.0); CO2 Tension 38.9 mmHg (35.0-45.0); O2 Tension (PaO2), arterial 86.3 mmHg (> 70.0)
[2020-04-01 01:12] LABS: Analyzer IN Cardio OR; Calcium, Ionized (arterial) 1.09 mmol/L (1.12-1.30); Carboxyhemoglobin (COHb) 0.9 gm% (0.0-3.0); Hemoglobin (Hb) 8.9 g/dL (12.0-16.0)
[2020-04-01 01:13] LABS: ALV-art Gradient 64.715 mmHg (0-20); Puncture Site LRA
[2020-04-01 03:01] LABS: #Monocytes 0.6 thou/uL (0.11-0.59); %Basophils 0.1 % (0.0-1.0); %Eosinophils 0.4 % (0.0-10.0); %Lymphocytes 10.4 % (21.0-51.0); %Monocytes 6.2 % (0.0-10.0); %Neutrophils 82.9 % (42.0-75.0); Hemoglobin 8.5 g/dL (12.0-16.0); Mean Corpuscular HGB CONC 32.6 g/dL (32.0-36.0); Mean Corpuscular Hemoglobin 29.6 pg (27.0-31.0); Mean Corpuscular Volume 90.8 fL (78.0-98.0); Mean Platelet Volume 8.2 fL (7.4-10.4); Platelet Count 217 thou/uL (130-400); RBC Distribution Width 15.6 % (11.5-14.5); Red Blood Cell (RBC) Count 2.86 mill/uL (4.20-5.40); White Blood Cell (WBC) Count 9.7 thou/uL (4.8-10.8)
[2020-04-01 03:22] LABS: Troponin I 0.026 ng/mL (< 0.028)
[2020-04-01 03:26] LABS: Anion Gap 14 mmol/L (10-20); BUN (Urea Nitrogen) 43 mg/dL (9.8-20.1); Calc. Creatinine Clearance 51 mL/min (70-130); Calcium 8.6 mg/dL (7.8-10.44); Carbon Dioxide 25 mmol/L (23-31); Chloride 107 mmol/L (98-107); Glucose 127 mg/dL (83-110); Potassium 4.2 mmol/L (3.5-5.1); Sodium 142 mmol/L (136-145)
[2020-04-01 05:51] LABS: SARS-CoV-2 PCR by NAA Not Detected (NotDetected)
[2020-04-01] MEDS ORDERED: Albuterol 200 PUFF (6.7GM INHALER) INH PRN (07:18)
[2020-04-01 08:20] LABS: Bilirubin Negative (Negative); Blood, Urine Negative (Negative); Clarity Clear (Clear); Glucose, Urine (Dipstick) Normal (Negative); Ketone, Urine Negative (Negative); Leukocyte 25 Leu/uL (Negative); Nitrite Negative (Negative); Protein, Urine (Dipstick) Negative (Neg-Trace); RBC/HPF 0-3 HPF (0-3); Specific Gravity, Urine 1.015 (1.002-1.036); Squamous Epithelial 0-3 HPF (0-3); Urobilinogen Normal mg/dL (Less than 2); WBC/HPF 0-3 HPF (0-3)
[2020-04-01 08:21] LABS: Bacteria/HPF 1+ HPF (None Seen)
[2020-04-01 08:22] LABS: Urine Culture Reflex Yes Yes
[2020-04-01 08:39] LABS: Amphetamine Not Detected (NotDetected); Barbiturates Screen Not Detected (NotDetected); Benzodiazepine Screen Not Detected (NotDetected); Cocaine Metabolite Screen Not Detected (NotDetected); Medtox Control Line Valid? VALID (VALID); Medtox Reader # READER 4; Methadone Not Detected (NotDetected); Methamphetamine Not Detected (NotDetected); Opiate Screen Not Detected (NotDetected); Oxycodone Screen Not Detected (NotDetected); Phencyclidine (PCP) Not Detected (NotDetected); THC/Cannabinoid Screen Not Detected (NotDetected); Tricyclic Screen Not Detected (NotDetected)
[2020-04-01] MEDS: Amlodipine 5 MG TAB PO SCH (08:50)
[2020-04-01] MEDS: Aspirin 81 mg Enteric Coated Tablet PO SCH (08:50)
[2020-04-01] MEDS: Atorvastatin Calcium 40 MG TAB PO SCH (08:51)
[2020-04-01] MEDS: Clopidogrel Bisulfate 75 MG TAB PO SCH (08:52)
[2020-04-01] MEDS: Fish Oil 1,000 MG CAP PO SCH (08:53)
[2020-04-01] MEDS: Cyanocobalamin (Vitamin B-12) 1,000 MCG TAB PO SCH (08:53)
[2020-04-01] MEDS ORDERED: Enoxaparin Sodium 40 MG/0.4 ML SYRINGE SC SCH (09:00)
[2020-04-01] MEDS ORDERED: FLU VACC QS2020-21(65YR UP)/PF 240 MCG/0.7 ML SYRINGE IM ONE (09:00)
[2020-04-01] MEDS: Heparin 5,000 UNITS/ML VIAL SC SCH ×3 (09:01→20:24)
[2020-04-01] MEDS ORDERED: Cefepime 2 GM in Sodium Chloride 0.9% 100 ML IVPB SCH (11:00)
--- NOTE | 2020-04-01 13:53 | PDOC.HOSPP ---
- Subjective Encounter Date: 04/01/20 Encounter Time: 09:00 Subjective: awake, responds well, is moving all extremities says she didn't eat after taking her insulin yesterday which led to hypoglycemic episode and fall her legs are chronically discolored and are not new per patient no fever, cough, chest pain, urinary freq or urgency or any new sore/wound - Objective Vital Signs & Weight: Vital Signs (12 hours) Temp Pulse Pulse Pulse Resp BP BP 04/01/20 12:07 98.4 F 62 16 04/01/20 10:20 60 66 147/62 H 04/01/20 08:50 60 134/59 L 04/01/20 07:35 98.8 F 60 18 04/01/20 03:22 98.7 F 60 16 BP BP Pulse Ox 04/01/20 12:07 166/72 H 99 04/01/20 10:20 165/67 H 04/01/20 08:50 04/01/20 07:35 134/59 L 93 L 04/01/20 03:22 130/60 Weight Weight 248 lb 3.848 oz Result Diagrams: 04/01/20 02:50 04/01/20 02:50 Additional Labs: Accuchecks 04/01/20 04/01/20 04/01/20 12:21 10:03 07:56 POC Glucose 122 H 106 H 78 04/01/20 04/01/20 04/01/20 06:04 04:07 02:04 POC Glucose 97 92 127 H 03/31/20 03/31/20 03/31/20 23:53 22:11 19:17 POC Glucose 161 H 124 H 80 Hospitalist ROS - Medication Medications: Active Medications Generic Name Dose Route Start Last Admin Trade Name Wesley PRN Reason Stop Dose Admin Amlodipine Besylate 5 mg 04/01/20 09:00 04/01/20 08:50 Amlodipine 5 Mg Tab PO 5 mg DAILY SAMMIE Administration Aspirin 81 mg 04/01/20 09:00 04/01/20 08:50 Aspirin 81 Mg Enteric Coated Tablet PO 81 mg DAILY SAMMIE Administration Atorvastatin Calcium 80 mg 04/01/20 09:00 04/01/20 08:51 Atorvastatin Calcium 40 Mg Tab PO 80 mg DAILY SAMMIE Administration Clopidogrel Bisulfate 75 mg 04/01/20 09:00 04/01/20 08:52 Clopidogrel Bisulfate 75 Mg Tab PO 75 mg QAM SAMMIE Administration Cyanocobalamin 1,000 mcg 04/01/20 09:00 04/01/20 08:53 Cyanocobalamin (Vitamin B-12) 1,000 Mcg Tab PO 1,000 mcg DAILY SAMMIE Administration Fish Oil 1,000 mg 04/01/20 09:00 04/01/20 08:53 Fish Oil 1,000 Mg Cap PO 1,000 mg DAILY SAMMIE Administration Heparin Sodium (Porcine) 5,000 units 04/01/20 09:00 04/01/20 09:01 Heparin 5,000 Units/Ml Vial SC 5,000 units TID SAMMIE Administration Doxycycline Hyclate 100 mg/ 100 mls @ 0 mls/hr 03/31/20 23:59 04/01/20 12:23 Sodium Chloride IVPB 100 mls 1200,2359 SAMMIE Administration Sertraline HCl 50 mg 04/01/20 09:00 04/01/20 08:53 Sertraline Hcl 25 Mg Tab PO 50 mg DAILY SAMMIE Administration Hospitalist Exam Vitals: Vital Signs (12 hours) Temp Pulse Pulse Pulse Resp BP BP 04/01/20 12:07 98.4 F 62 16 04/01/20 10:20 60 66 147/62 H 04/01/20 08:50 60 134/59 L 04/01/20 07:35 98.8 F 60 18 04/01/20 03:22 98.7 F 60 16 BP BP Pulse Ox 04/01/20 12:07 166/72 H 99 04/01/20 10:20 165/67 H 04/01/20 08:50 04/01/20 07:35 134/59 L 93 L 04/01/20 03:22 130/60 Weight Weight 248 lb 3.848 oz General Appearance: NAD, awake alert Eye: anicteric sclera ENT: no oropharyngeal lesions, moist mucosa Neck: supple, no JVD Heart: RRR, no murmur Respiratory: no wheezes, no rales Gastrointestinal: soft, non-tender, non-distended, normal bowel sounds Extremities: no cyanosis, no edema Neurological: cranial nerve grossly intact, no focal deficits Psychiatric: normal affect, A&O x 3 Hosp A/P (1) Hypoglycemia due to insulin Code(s): E16.0 - DRUG-INDUCED HYPOGLYCEMIA WITHOUT COMA; T38.3X5A - ADVERSE EFFECT OF INSULIN AND ORAL HYPOGLYCEMIC DRUGS, INIT Status: Resolved (2) Syncope and collapse Code(s): R55 - SYNCOPE AND COLLAPSE Status: Resolved Plan: secondary to hypoglycemia (3) CAD (coronary artery disease) Code(s): I25.10 - ATHSCL HEART DISEASE OF [place] CORONARY ARTERY W/O ANG PCTRS Status: Chronic Qualifiers: Coronary Disease-Associated Artery/Lesion type: bypass graft [place] vs. transplanted heart: [place] heart Associated angina: without angina Qualified Code(s): I25.810 - Atherosclerosis of coronary artery bypass graft(s) without angina pectoris (4) Hypothyroidism Code(s): E03.9 - HYPOTHYROIDISM, UNSPECIFIED Status: Chronic Qualifiers: Hypothyroidism type: acquired Qualified Code(s): E03.9 - Hypothyroidism, unspecified (5) h/o tavr Status: Chronic (6) Anemia Code(s): D64.9 - ANEMIA, UNSPECIFIED Status: Chronic Qualifiers: Anemia type: unspecified type Qualified Code(s): D64.9 - Anemia, uns pecified (7) Morbid obesity with BMI of 40.0-44.9, adult Code(s): E66.01 - MORBID (SEVERE) OBESITY DUE TO EXCESS CALORIES; Z68.41 - BODY MASS INDEX [BMI]40.0-44.9, ADULT Status: Chronic (8) Stasis dermatitis of both legs Code(s): I87.2 - VENOUS INSUFFICIENCY (CHRONIC) (PERIPHERAL) Status: Chronic (9) CKD (chronic kidney disease) stage 3, GFR 30-59 ml/min Code(s): N18.3 - CHRONIC KIDNEY DISEASE, STAGE 3 (MODERATE) * DO NOT USE * Status: Chronic (10) DM2 (diabetes mellitus, type 2) Status: Chronic Qualifiers: Diabetes mellitus fdc insulin use: with termite treater helper use Diabetes mellitus complication status: with kidney complications Diabetes mellitus complication detail: with chronic kidney disease Chronic kidney disease stage: stage 3 (moderate) (11) Hypothermia Code(s): T68.XXXA - HYPOTHERMIA, INITIAL ENCOUNTER Status: Resolved Qualifiers: Encounter type: subsequent encounter Qualified Code(s): T68.XXXD - Hypothermia, subsequent encounter Plan: secondary to hypoglycemia - Plan hypoglycemic episode has resolved without any major complications, she is oriented well and moves all extremities hold inuslins until 2 fingerstick glucose levels are >200. is off d5w drip encourage po intake, PT to mobilize as tolerated h/o tavr 4 yrs back by in [place], h/o cabg by >10 yrs back per patient hypothermia has resolved, but likes to be inside the bear hugger await full culture results, may dc antibiotics in am if they are -ve has h/o chf and f/u at heart failure clinic, likely cxr findings reflect chronic changes? dc plan in am if stable
[2020-04-01] MEDS: Cefepime 2 GM in Sodium Chloride 0.9% 100 ML IVPB SCH (22:44)
[2020-04-02] MEDS: Levothyroxine Sodium 125 MCG TAB PO SCH (06:10)
[2020-04-02] MEDS: Aspirin 81 mg Enteric Coated Tablet PO SCH (08:51)
[2020-04-02] MEDS: Amlodipine 5 MG TAB PO SCH (08:51)
[2020-04-02] MEDS: Fish Oil 1,000 MG CAP PO SCH (08:53)
[2020-04-02] MEDS: Atorvastatin Calcium 40 MG TAB PO SCH (08:53)
[2020-04-02] MEDS: Heparin 5,000 UNITS/ML VIAL SC SCH ×3 (08:53→21:31)
[2020-04-02] MEDS: Cyanocobalamin (Vitamin B-12) 1,000 MCG TAB PO SCH (08:53)
[2020-04-02] MEDS: Clopidogrel Bisulfate 75 MG TAB PO SCH (08:53)
[2020-04-02] MEDS ORDERED: hydrALAZINE 25 MG TAB PO SCH (13:30)
[2020-04-02] MEDS ORDERED: Bumetanide 1 MG/4 ML VIAL IVP SCH (13:30)
--- NOTE | 2020-04-02 18:27 | CON ---
DATE OF CONSULTATION: 04/02/2020 REASON FOR CONSULTATION: Chest pain. HISTORY OF PRESENT ILLNESS: Ms. Saldana is a 74-year-old female who presented to the emergency room because she was found to be unresponsive and had fallen out of a chair at her home, so her family called 911. She was found to be extremely hypoglycemic. Her blood sugar was 38 and she was given some D10 in the field. She was also noted to be unresponsive and lethargic as well as had a rectal temperature of 92.6 per report. It was also found that her chest x-ray had multifocal opacities, so she was given IV antibiotics and admitted for further workup. When I was speaking to the patient, the patient states that she has been having some increasing shortness of breath and dyspnea on exertion within the last 6 weeks. She states she has been experiencing this and it just continues to progressively get worse. It interferes with her daily activities and she has to rest for long periods of time. She has not been exercising or walking or doing many activities due to the shortness of breath that has continued to get worse. PAST MEDICAL HISTORY: Includes atrial fibrillation; anemia; aortic stenosis with a history of a TAVR in 2016; coronary artery disease; depression; GERD; hypothyroidism; type 2 diabetes; hyperlipidemia; hypertension; chronic kidney disease, which is managed by Dr. Escalante in [facility]. SOCIAL HISTORY: She does live alone. She denies any tobacco, alcohol, or illicit drug use. FAMILY HISTORY: No significant history noted. ALLERGIES: SHE DOES REPORT AN ALLERGY TO TRAMADOL. HOME MEDICATIONS: At time of admission include, 1. Clopidogrel 75 mg daily. 2. Atorvastatin 80 mg at night. 3. Ranexa 500 mg p.o. b.i.d. 4. Protonix 40 mg p.o. at bedtime. 5. Vitamin C chewable tablet 500 mg 1 tablet daily. 6. Sertraline 50 mg daily. 7. Sotalol 80 mg b.i.d. 8. Levothyroxine 125 mcg daily. 9. Aspirin 81 mg daily. 10. Centrum Silver chewable tablet 1 tablet daily. 11. CoQ10, 100 mg daily. 12. Vitamin D3, 1000 units daily. 13. ProAir inhaler 2 puffs every 6 hours as needed. 14. Vitamin B12, 1000 mg daily. 15. Torsemide 20 mg daily. 16. Hydralazine 50 mg t.i.d. 17. Imdur 60 mg b.i.d. 18. She does take a fish oil 1200 mg tablet at night. 19. Amlodipine 5 mg daily. REVIEW OF SYSTEMS: Negative except for shortness of breath and dyspnea on exertion. PHYSICAL EXAMINATION: CURRENT VITAL SIGNS: Blood pressure 189/67, her temperature is 98.1, her pulse is 61, respirations 18, and she was 97% on room air. HEENT: Normocephalic and atraumatic. Her carotids are 2+. There are no carotid bruits auscultated. CHEST: Clear to auscultation, but she does have some diminished breath sounds at the bases of bilateral lungs posteriorly. No rales, rhonchi, or wheezing auscultated. CARDIOVASCULAR: Regular rate and rhythm. Normal S1 and S2. No gross murmurs, S3, or S4 auscultated. ABDOMEN: Obese, soft, and tender. Bowel sounds active x4 quadrants. EXTREMITIES: Her bilateral lower extremities are chronically edematous and reddened. She does have dry scaly skin to her left lower extremity and says this has been ongoing chronic issue for over 10 years that remains unchanged. MUSCULOSKELETAL: She does have a normal gait. She did just walk the halls with physical therapy and did well. She does have normal muscle strength and tone. No cyanosis or clubbing. NEUROLOGIC: Unremarkable. LABORATORY DATA: Most recent labs include white blood cells 9.7, red blood cells 2.86, hemoglobin 8.5, hematocrit 26.0, and platelets are 217. Most recent sodium 142, potassium 4.2, BUN is 43, creatinine is elevated at 1.77, and glucose is 122. Her EKG, she is in an A-paced, V-sensed rhythm in the 60s, which has maintained throughout her hospital stay. IMPRESSION AND PLAN: 1. Shortness of breath and dyspnea on exertion that has increased in duration, severity, and frequency within the last 6 weeks per the patient's report. Her last catheterization in 2014 showed severe 3-vessel coronary artery disease with complete occlusion of the [place] vessel of the left anterior descending, severe stenosis of the diagonal branch as well as the right coronary artery with a patent stent to the left circumflex, patent saphenous vein graft to the right coronary with no stenosis, and patent left internal mammary artery to the left anterior descending. It does look like she had an occluded saphenous vein graft from the obtuse marginal branch to the diagonal branch and it also shows that there is retrograde filling of the saphenous vein graft to the obtuse marginal branch and to the saphenous vein graft. There is also 90% stenosis in the vein graft prior to the anastomosis site following the vein graft. Her last echocardiogram in October 2019 was a transesophageal echocardiogram, which showed an ejection fraction of 55% to 60%, pacemaker leads in the right chamber, and [id number] left atrial enlargement. She did have smoke in the left atrium, had small fibrin strands attached to her pacemaker leads, [id number] mitral regurgitation, mild mitral annular calcification and [id number] mitral stenosis. Her bilateral lower extremity edema and redness have remained unchanged and have not worsened. At this time, we will consider to order an echocardiogram and a stress test due to her increasing symptoms. She does not recall the last time she had a stress test. At this time, we will wait until the results of the stress test before we decide on a cardiac catheterization due to her elevated creatinine at this time. 2. Pneumonia. Her chest x-ray does reveal multifocal opacities. She is receiving antibiotics. This will be treated by the primary care services. 3. Fall. 4. Elevated troponins. This is more than likely due to demand ischemia from her fall and being found unresponsive for several hours. 5. Coronary artery disease. At this time, she is on sotalol, aspirin, atorvastatin, and her lisinopril is on hold at this time due to her elevated creatinine levels at 1.77 today. 6. Hypertension. Currently, she is on isosorbide mononitrate 60 mg twice daily and hydralazine 50 mg 3 times daily. These medications were just started back by the primary care services. At this time, we will continue to monitor her blood pressure. I do not want to drop her blood pressure too low, but we will definite consider clonidine if her blood pressure remains elevated. 7. Anemia. Her hemoglobin has dropped from 10.0 yesterday to 8.5 today. Workup should be considered for this. 8. History of a transcatheter aortic valve replacement in 2016. At this time, we will continue to follow the patient and we will decide what to do after we see the results of the echocardiogram and stress test. Thank you for the consultation. Job ID: [id number]
--- NOTE | 2020-04-02 20:55 | CON ---
DATE OF CONSULTATION: 04/02/2020 INDICATION FOR CONSULTATION: 74-year-old female with history of known coronary artery disease and also status post TAVR with a history of bypass surgery with diabetes and hypertension, who presented to the hospital after she has had 3 syncopal episodes which have been spanning since that time before and she had another syncopal episode and she also has diabetes and had severe hypoglycemia. We were asked to see her as the patient had complained of some shortness of breath or chest tightness or chest discomfort. HISTORY OF PRESENT ILLNESS: A 74-year-old female with the above problems. When I spoke to her, she did say that she had been having some shortness of breath, but denied any chest pain or chest pressure. She said when she walks from one room to the other, she becomes very short of breath and when she goes out to go to the store, she can go to the car, she is short of breath and by the time, she gets to the store, it is resolved, but then again by the time she goes from the car to the store, she has again had shortness of breath. She did have a long history of coronary artery disease, has undergone bypass surgery as well as stent placement post bypass. She had a history of TAVR placement. She had an echo in the past. We will repeat echocardiogram to ensure the left ventricular systolic function remains stable. Her last cardiac catheterization was in 2014, which did show that she had one graft occlusion. She did also undergo stent placement that time. She did have a BERG to the left anterior descending artery, which was patent as well as a saphenous vein graft to the right coronary artery was patent, and she had a stent I believe placed in the left circumflex. The full cath report can be found in the previous records. At this time, she is relatively stable. She has had no symptoms. She is at the bedside, sitting on the side of the bed. She mainly tells that she just takes her insulin, but forgets to eat and then she has episodes of syncope and comes in with severe hypoglycemia. For the remainder of this dictation, I have seen and discussed this patient with the nurse practitioner. Please refer to the notes dictated by the nurse practitioner. We have agreed upon a plan. We will repeat the echocardiogram. We will also plan for stress testing. If there is no large area of myocardium at risk, we will continue medical management. If she has any evidence that there is a large area of anterior ischemia, then she may need to undergo repeat cardiac catheterization, but will need to undergo some renal evaluations. Before that, her creatinine has continued to increase and she does have a history of chronic kidney disease, and she will need to be certainly given volume prior to undergoing any significant cardiac catheterization that would jeopardize her renal function further. I would agree also with the physical examination by the nurse practitioner. I have reviewed her notes. I would agree with this. Further recommendations will depend on the results of the echocardiogram as well as the stress test. At this time, we will continue medical management. Her blood pressure was elevated. We will try to adjust her medicines in order to lower the blood pressure to prevent further renal damage. For the assessment and plan, please refer to the notes already dictated by my nurse practitioner. Job ID: [id number]
[2020-04-02] MEDS: Doxycycline 100 MG CAP PO SCH (21:32)
[2020-04-02] MEDS: Sotalol HCl 80 MG TAB PO SCH (21:32)
[2020-04-02] MEDS: hydrALAZINE 25 MG TAB PO SCH (21:33)
[2020-04-02] MEDS: Cefepime 2 GM in Sodium Chloride 0.9% 100 ML IVPB SCH (21:34)
[2020-04-03] MEDS: Levothyroxine Sodium 125 MCG TAB PO SCH (05:40)
[2020-04-03 12:09] LABS: #Basophils 0.1 thou/uL (0.0-0.2); #Eosinphils 0.5 thou/uL (0.0-0.7); #Lymphocytes 1.1 thou/uL (1.20-3.40); #Monocytes 0.7 thou/uL (0.11-0.59); #Neutrophils 5.4 thou/uL (1.40-6.50); %Basophils 1.1 % (0.0-1.0); %Lymphocytes 14.5 % (21.0-51.0); %Monocytes 9.4 % (0.0-10.0); Hemoglobin 9.2 g/dL (12.0-16.0); Mean Corpuscular HGB CONC 32.4 g/dL (32.0-36.0); Mean Corpuscular Hemoglobin 29.5 pg (27.0-31.0); Mean Corpuscular Volume 91.1 fL (78.0-98.0); Mean Platelet Volume 9.2 fL (7.4-10.4); Platelet Count 208 thou/uL (130-400); RBC Distribution Width 16.3 % (11.5-14.5); Red Blood Cell (RBC) Count 3.11 mill/uL (4.20-5.40); White Blood Cell (WBC) Count 7.8 thou/uL (4.8-10.8)
--- NOTE | 2020-04-03 12:10 | NM ---
EXAM: CARDIAC SPECT HISTORY: Chest pain, shortness of breath, coronary artery disease, [place], stent, CABG, CHF, hypertension , diabetes, dyslipidemia TECHNIQUE: A myocardial perfusion scan was performed using the single isotope 2 day protocol with leo hnetium 99m sestamibi. [28 mCi] was injected intravenously for the rest exam and 32 mCifor the stress study. Pharmacologic stress with adenosine was monitored and interpreted by the nurse practitioner FINDINGS: There is mildly decreased tracer localization in the lateral wall on the stress images with near complete reversibility at rest. Gated SPECT LVEF: 70% Wall motion exam: Normal IMPRESSION: Findings are suspicious for reversible mild ischemia in the lateral wall
[2020-04-03] MEDS: Atorvastatin Calcium 40 MG TAB PO SCH (12:12)
[2020-04-03] MEDS: Aspirin 81 mg Enteric Coated Tablet PO SCH (12:12)
[2020-04-03] MEDS: hydrALAZINE 25 MG TAB PO SCH ×3 (12:13→21:34)
[2020-04-03] MEDS: Clopidogrel Bisulfate 75 MG TAB PO SCH (12:13)
[2020-04-03] MEDS: Sotalol HCl 80 MG TAB PO SCH ×2 (12:13→21:33)
[2020-04-03] MEDS: Doxycycline 100 MG CAP PO SCH ×2 (12:14→21:33)
[2020-04-03] MEDS: Heparin 5,000 UNITS/ML VIAL SC SCH ×3 (12:14→21:34)
[2020-04-03] MEDS: Fish Oil 1,000 MG CAP PO SCH (12:14)
[2020-04-03] MEDS: Cyanocobalamin (Vitamin B-12) 1,000 MCG TAB PO SCH (12:14)
[2020-04-03] MEDS: Amlodipine 5 MG TAB PO SCH (12:14)
[2020-04-03 12:22] LABS: Hemoglobin A1c 7.3 % (4.0-6.0)
[2020-04-03 12:27] LABS: Anion Gap 15 mmol/L (10-20); BUN (Urea Nitrogen) 37 mg/dL (9.8-20.1); Calc. Creatinine Clearance 58 mL/min (70-130); Calcium 8.8 mg/dL (7.8-10.44); Carbon Dioxide 21 mmol/L (23-31); Chloride 107 mmol/L (98-107); Glucose 252 mg/dL (83-110); Potassium 4.5 mmol/L (3.5-5.1); Sodium 138 mmol/L (136-145)
[2020-04-03] MEDS ORDERED: cloNIDine 0.1 MG TAB PO PRN (13:09)
--- NOTE | 2020-04-03 14:15 | PDOC.CPN ---
- Subjective Date: 04/03/20 Time: 12:30 Interval history: No overnight events, she had her stress test & ECHO today, she is asking to go home. She denies any chest pain, shortness of breath or any more hypoglycemic episodes. - Review of Systems General: denies: fever/chills, weight/appetite/sleep changes, night sweats, fatigue Respiratory: denies: cough, congestion, shortness of breath, exercise intolerance Cardiovascular: denies: chest pain, palpitation, edema, paroxysmal nocturnal dyspnea, orthopnea Gastrointestinal: denies: nausea, vomiting, diarrhea, constipation, abd pain, GI bleeding Musculoskeletal: denies: pain, tenderness, stiffness, swelling, arthritis/arthralgias Neurological: denies: numbness, syncope, seizure, weakness - Objective Allergies/Adverse Reactions: Allergies Allergy/AdvReac Type Severity Reaction Status Date / Time tramadol Allergy Verified 10/03/19 12:55 Visit Medications: Current Medications Albuterol Sulfate (Albuterol 200 Puff (6.7gm Inhaler)) 2 puff INH Q4H PRN PRN Reason: SOB &/or Wheezing Amlodipine Besylate (Amlodipine 5 Mg Tab) 5 mg PO DAILY [facility] Last Admin: 04/03/20 12:14 Dose: 5 mg Documented by: Aspirin (Aspirin 81 Mg Enteric Coated Tablet) 81 mg PO DAILY [facility] Last Admin: 04/03/20 12:12 Dose: 81 mg Documented by: Atorvastatin Calcium (Atorvastatin Calcium 40 Mg Tab) 80 mg PO DAILY [facility] Last Admin: 04/03/20 12:12 Dose: 80 mg Documented by: Carvedilol (Carvedilol 6.25 Mg Tab) 6.25 mg PO BID-[facility] Clonidine (Clonidine 0.1 Mg Tab) 0.1 mg PO Q4H PRN PRN Reason: Hypertension, SBP>160 Clopidogrel Bisulfate (Clopidogrel Bisulfate 75 Mg Tab) 75 mg PO QAM [facility] Last Admin: 04/03/20 12:13 Dose: 75 mg Documented by: Cyanocobalamin (Cyanocobalamin (Vitamin B-12) 1,000 Mcg Tab) 1,000 mcg PO DAILY [facility] Last Admin: 04/03/20 12:14 Dose: 1,000 mcg Documented by: Dextrose/Water (Dextrose 50% Abboject 50 Ml Syringe) 25 gm SLOW IVP PRN PRN PRN Reason: Hypoglycemia Doxycycline Hyclate (Doxycycline 100 Mg Cap) 100 mg PO BID [facility] Last Admin: 04/03/20 12:14 Dose: 100 mg Documented by: Fish Oil (Fish Oil 1,000 Mg Cap) 1,000 mg PO DAILY [facility] Last Admin: 04/03/20 12:14 Dose: 1,000 mg Documented by: Glucagon (Glucagon 1 Mg/Ml Vial) 1 mg IM PRN PRN PRN Reason: Hypoglycemia Heparin Sodium (Porcine) (Heparin 5,000 Units/Ml Vial) 5,000 units SC TID [facility] Last Admin: 04/03/20 12:14 Dose: 5,000 units Documented by: Hydralazine HCl (Hydralazine 25 Mg Tab) 50 mg PO TID [facility] Last Admin: 04/03/20 12:13 Dose: 50 mg Documented by: Cefepime HCl 2 gm/ Sodium (Chloride) 100 mls @ 200 mls/hr IVPB 2300 [facility] Last Admin: 04/02/20 21:34 Dose: 100 mls Documented by: Isosorbide Mononitrate (Isosorbide Mononitrate Er 60 Mg Tab) 60 mg PO BID [facility] Last Admin: 04/03/20 12:13 Dose: 60 mg Documented by: Levothyroxine Sodium (Levothyroxine Sodium 125 Mcg Tab) 125 mcg PO 0600 [facility] Last Admin: 04/03/20 05:40 Dose: 125 mcg Documented by: Pantoprazole Sodium (Pantoprazole 40 Mg Tab) 40 mg PO HS [facility] Last Admin: 04/02/20 21:33 Dose: 40 mg Documented by: Ranolazine (Ranolazine 500 Mg Tab) 500 mg PO BID [facility] Last Admin: 04/03/20 12:12 Dose: 500 mg Documented by: Sertraline HCl (Sertraline Hcl 25 Mg Tab) 50 mg PO DAILY [facility] Last Admin: 04/03/20 12:13 Dose: 50 mg Documented by: Sodium Chloride (Flush - Normal Saline 10 Ml Syringe) 10 ml IVF Q12HR [facility] Last Admin: 04/03/20 12:14 Dose: 10 ml Documented by: Sodium Chloride (Flush - Normal Saline 10 Ml Syringe) 10 ml IVF PRN PRN PRN Reason: Saline Flush Sotalol HCl (Sotalol Hcl 80 Mg Tab) 80 mg PO BID [facility] Last Admin: 04/03/20 12:13 Dose: 80 mg Documented by: Vital Signs & Weight: Vital Signs Temp Pulse Resp BP Pulse Ox 04/03/20 12:14 65 04/03/20 12:13 65 04/03/20 12:00 97.5 F L 61 19 186/76 H 96 04/03/20 08:00 96.8 F L 65 17 158/63 H 95 Weight 248 lb 3.848 oz - Quality Measures Condition: Coronary Artery Disease CV meds: Beta Simon: Yes, SABI/ARB: No (Elevated Creatinine ), Statin: Yes, ASA: Yes, Plavix/Effient/Brilinta: Yes, Anticoagulant: No - Medication Contraindications No SABI/ARB reason: Medical contraindication No Anticoagulant reason: Treatment not indicated - Physical Exam General: alert & oriented x3, appears well, no apparent distress HEENT: mucus membranes moist Neck: supple neck, midline trachea, no JVD/HJR, no masses, no bruit Cardiac: regular rate and rhythm, no murmur, S1/S2 Lungs: no wheeze, rales, rhonchi, other (diminished breath sounds to bilateral bases) Neuro: grossly intact, motor function intact Abdomen: active bowel sounds, soft, non-tender Extremities: no cyanosis, 1+ LE edema, 2+ Posterior Tibial, 2+ Dorsalis Pedus, other: (chronic edema, erythema, & discoloration of BLE, has remained unchaged) Skin: clear, other (large fluid filled blister to right wrist) Musculoskeletal: no pain - Labs Result Diagrams: 04/03/20 11:46 04/03/20 11:46 Troponin/CKMB CK-MB (CK-2) 1.9 ng/mL (0-6.6) 03/31/20 19:54 Troponin I 0.026 ng/mL (< 0.028) 04/01/20 02:50 - EKG Interpretation EKG Method: Telemetry EKG: other (A paced V sensed, Hr 60's) - Assessment/Plan Assessment/Plan: 1. Shortness of breath: she has not had any episodes of shortness of breath or dyspnea on exertion during her hospital stay. Her stress test today showed a possible small area of reversible ischemia in the later wall. At this time, we will continue to monitor, could consider left heart catheterization as an outpatient if symptoms continue to worsen. Her echocardiogram today revealed an EF of 60-65%, diastolic dysfunctions, severely dilated left atrium, moderately-severely dilated right atrium, mild mitral and pulmonic regurgitation, mitral annular calcification, mild-moderate tricuspid regurgitation. 2. Pnuemonia: treated by primary care services, denies any shortness of breath today 3. Slightly elevated cardiac enzymes: this was more than likely due to demand ischemia from her fall 4. Fall 5. Coronary artery disease: she is currently on a beta simon, aspirin, plavix, Atorvastatin, and Imdur, her Lisinopril is on hold at this time d/t elevated creatinine levels 6. Hypertension: Her home medications were re-started yesterday, her BP continue to be elevated, will add Coreg 6.25 PO BID and PRN Clonidine 7. Anemia 8. History of transcatheter aortic valve replacement in 2016 At this time, we will continue to monitor the patient, her BP does need to decrease before discharging home. Pt. seen and eval. by me. I agree with the A/P by the GAS ENGINEER. I reveiwed the results of the stress test and the area of possible ischemia is in the area of a previously failed bypass to the diagonal branch and a subsequent stent to that vessel which was small. I would not anticipate further intervention to this area. Continue medical treatment. She should be able to go home once the BP is under reasonable control and is stable. natalio
[2020-04-03] MEDS: Carvedilol 6.25 MG TAB PO SCH (16:29)
--- NOTE | 2020-04-03 17:28 | PDOC.HOSPP ---
- Subjective Encounter Date: 04/02/20 Encounter Time: 11:20 Subjective: pt up in bed states that she has been having chest tightness on and off for the past 2-4 weeks. - Objective Vital Signs & Weight: Vital Signs (12 hours) Temp Pulse Pulse Pulse Resp BP BP 04/03/20 16:29 65 04/03/20 13:08 86 61 200/81 H 149/68 H 04/03/20 12:14 65 04/03/20 12:13 65 04/03/20 12:00 97.5 F L 61 19 04/03/20 08:00 96.8 F L 65 17 BP Pulse Ox 04/03/20 16:29 04/03/20 13:08 04/03/20 12:14 04/03/20 12:13 04/03/20 12:00 186/76 H 96 04/03/20 08:00 158/63 H 95 Weight Weight 248 lb 3.848 oz I&O: 04/02/20 04/03/20 04/04/20 06:59 06:59 06:59 Intake Total 920 1160 Balance 920 1160 Result Diagrams: 04/03/20 11:46 04/03/20 11:46 Additional Labs: Accuchecks 04/03/20 04/03/20 04/03/20 11:52 06:01 04:36 POC Glucose 268 H 203 H 193 H 04/03/20 04/02/20 04/02/20 02:14 23:35 20:50 POC Glucose 224 H 268 H 302 H 04/02/20 18:49 POC Glucose 283 H Hospitalist ROS - Review of Systems Cardiovascular: reports: chest pain Gastrointestinal: denies: nausea, vomiting, abdominal pain, diarrhea, constipation, melena, hematochezia, other Genitourinary: denies: dysuria, frequency, incontinence, hematuria, retention, other Musculoskeletal: denies: neck pain, shoulder pain, arm pain, back pain, hand pain, leg pain, foot pain, other - Medication Medications: Active Medications Generic Name Dose Route Start Last Admin Trade Name Freq PRN Reason Stop Dose Admin Amlodipine Besylate 5 mg 04/01/20 09:00 04/03/20 12:14 Amlodipine 5 Mg Tab PO 5 mg DAILY [facility] Administration Aspirin 81 mg 04/01/20 09:00 04/03/20 12:12 Aspirin 81 Mg Enteric Coated Tablet PO 81 mg DAILY [facility] Administration Atorvastatin Calcium 80 mg 04/01/20 09:00 04/03/20 12:12 Atorvastatin Calcium 40 Mg Tab PO 80 mg DAILY [facility] Administration Carvedilol 6.25 mg 04/03/20 17:00 04/03/20 16:29 Carvedilol 6.25 Mg Tab PO 6.25 mg BID-WM [facility]E Administration Clopidogrel Bisulfate 75 mg 04/01/20 09:00 04/03/20 12:13 Clopidogrel Bisulfate 75 Mg Tab PO 75 mg QAM [facility]E Administration Cyanocobalamin 1,000 mcg 04/01/20 09:00 04/03/20 12:14 Cyanocobalamin (Vitamin B-12) 1,000 Mcg Tab PO 1,000 mcg DAILY [facility] Administration Doxycycline Hyclate 100 mg 04/02/20 21:00 04/03/20 12:14 Doxycycline 100 Mg Cap PO 100 mg BID [facility] Administration Fish Oil 1,000 mg 04/01/20 09:00 04/03/20 12:14 Fish Oil 1,000 Mg Cap PO 1,000 mg DAILY [facility] Administration Heparin Sodium (Porcine) 5,000 units 04/01/20 09:00 04/03/20 16:30 Heparin 5,000 Units/Ml Vial SC 5,000 units TID [facility]E Administration Hydralazine HCl 50 mg 04/02/20 21:00 04/03/20 16:29 Hydralazine 25 Mg Tab PO 50 mg TID [facility]E Administration Cefepime HCl 2 gm/ Sodium 100 mls @ 200 mls/hr 04/01/20 23:00 04/02/20 21:34 Chloride IVPB 100 mls 2300 [facility] Administration Isosorbide Mononitrate 60 mg 04/02/20 21:00 04/03/20 12:13 Isosorbide Mononitrate Er 60 Mg Tab PO 60 mg BID [facility] Administration Levothyroxine Sodium 125 mcg 04/02/20 06:00 04/03/20 05:40 Levothyroxine Sodium 125 Mcg Tab PO 125 mcg 0600 [facility] Administration Pantoprazole Sodium 40 mg 04/01/20 21:00 04/02/20 21:33 Pantoprazole 40 Mg Tab PO 40 mg HS [facility]E Administration Ranolazine 500 mg 04/02/20 21:00 04/03/20 12:12 Ranolazine 500 Mg Tab PO 500 mg BID [facility] Administration Sertraline HCl 50 mg 04/01/20 09:00 04/03/20 12:13 Sertraline Hcl 25 Mg Tab PO 50 mg DAILY [facility] Administration Sodium Chloride 10 ml 04/02/20 21:00 04/03/20 12:14 Flush - Normal Saline 10 Ml Syringe IVF 10 ml Q12HR [facility]E Administration Sotalol HCl 80 mg 04/02/20 21:00 04/03/20 12:13 Sotalol Hcl 80 Mg Tab PO 80 mg BID [facility]E Administration Hospitalist Exam Vitals: Vital Signs (12 hours) Temp Pulse Pulse Pulse Resp BP BP 04/03/20 16:29 65 04/03/20 13:08 86 61 200/81 H 149/68 H 04/03/20 12:14 65 04/03/20 12:13 65 04/03/20 12:00 97.5 F L 61 19 04/03/20 08:00 96.8 F L 65 17 BP Pulse Ox 04/03/20 16:29 04/03/20 13:08 04/03/20 12:14 04/03/20 12:13 04/03/20 12:00 186/76 H 96 04/03/20 08:00 158/63 H 95 Weight Weight 248 lb 3.848 oz Neck: supple Heart: no murmur, no gallops, no rubs Respiratory: no wheezes, no rales Gastrointestinal: soft, non-distended, normal bowel sounds Extremities: 2+ LE edema Hosp A/P (1) Hypoglycemia Code(s): E16.2 - HYPOGLYCEMIA, UNSPECIFIED Status: Acute (2) Hypothyroidism Code(s): E03.9 - HYPOTHYROIDISM, UNSPECIFIED Status: Chronic Qualifiers: Hypothyroidism type: acquired Qualified Code(s): E03.9 - Hypothyroidism, unspecified (3) h/o tavr Status: Chronic (4) Acute metabolic encephalopathy Code(s): G93.41 - METABOLIC ENCEPHALOPATHY Status: Acute (5) Diabetes mellitus Code(s): E11.9 - TYPE 2 DIABETES MELLITUS WITHOUT COMPLICATIONS Status: Acute Qualifiers: Diabetes mellitus type: type 2 Diabetes mellitus manager intermediate insulin use: without manager intermediate use Diabetes mellitus complication status: without complication Qualified Code(s): E11.9 - Type 2 diabetes mellitus without complications (6) Morbid obesity with BMI of 40.0-44.9, adult Code(s): E66.01 - MORBID (SEVERE) OBESITY DUE TO EXCESS CALORIES; Z68.41 - BODY MASS INDEX [BMI]40.0-44.9, ADULT Status: Chronic - Plan pt had hypglycemia since she took insulin and did not eat. However she has been complaining of chest tightness going on for the past 2-4 weeks. will get cardiology to see pt. will continue oral abx and will give one dose of bumex.
--- NOTE | 2020-04-03 17:32 | PDOC.HOSPP ---
- Subjective Encounter Date: 04/03/20 Encounter Time: 10:55 Subjective: pt up in bed no complains - Objective Vital Signs & Weight: Vital Signs (12 hours) Temp Pulse Pulse Pulse Resp BP BP 04/03/20 16:29 65 04/03/20 13:08 86 61 200/81 H 149/68 H 04/03/20 12:14 65 04/03/20 12:13 65 04/03/20 12:00 97.5 F L 61 19 04/03/20 08:00 96.8 F L 65 17 BP Pulse Ox 04/03/20 16:29 04/03/20 13:08 04/03/20 12:14 04/03/20 12:13 04/03/20 12:00 186/76 H 96 04/03/20 08:00 158/63 H 95 Weight Weight 248 lb 3.848 oz I&O: 04/02/20 04/03/20 04/04/20 06:59 06:59 06:59 Intake Total 920 1160 Balance 920 1160 Result Diagrams: 04/03/20 11:46 04/03/20 11:46 Additional Labs: Accuchecks 04/03/20 04/03/20 04/03/20 11:52 06:01 04:36 POC Glucose 268 H 203 H 193 H 04/03/20 04/02/20 04/02/20 02:14 23:35 20:50 POC Glucose 224 H 268 H 302 H 04/02/20 18:49 POC Glucose 283 H Hospitalist ROS - Review of Systems Cardiovascular: denies: chest pain, palpitations, orthopnea, paroxysmal noc. dyspnea, edema, light headedness, other Gastrointestinal: denies: nausea, vomiting, abdominal pain, diarrhea, constipation, melena, hematochezia, other Genitourinary: denies: dysuria, frequency, incontinence, hematuria, retention, other - Medication Medications: Active Medications Generic Name Dose Route Start Last Admin Trade Name Freq PRN Reason Stop Dose Admin Amlodipine Besylate 5 mg 04/01/20 09:00 04/03/20 12:14 Amlodipine 5 Mg Tab PO 5 mg DAILY [facility]E Administration Aspirin 81 mg 04/01/20 09:00 04/03/20 12:12 Aspirin 81 Mg Enteric Coated Tablet PO 81 mg DAILY [facility] Administration Atorvastatin Calcium 80 mg 04/01/20 09:00 04/03/20 12:12 Atorvastatin Calcium 40 Mg Tab PO 80 mg DAILY [facility] Administration Carvedilol 6.25 mg 04/03/20 17:00 04/03/20 16:29 Carvedilol 6.25 Mg Tab PO 6.25 mg BID-WM [facility]E Administration Clopidogrel Bisulfate 75 mg 04/01/20 09:00 04/03/20 12:13 Clopidogrel Bisulfate 75 Mg Tab PO 75 mg QAM [facility]E Administration Cyanocobalamin 1,000 mcg 04/01/20 09:00 04/03/20 12:14 Cyanocobalamin (Vitamin B-12) 1,000 Mcg Tab PO 1,000 mcg DAILY [facility] Administration Doxycycline Hyclate 100 mg 04/02/20 21:00 04/03/20 12:14 Doxycycline 100 Mg Cap PO 100 mg BID [facility]E Administration Fish Oil 1,000 mg 04/01/20 09:00 04/03/20 12:14 Fish Oil 1,000 Mg Cap PO 1,000 mg DAILY [facility]E Administration Heparin Sodium (Porcine) 5,000 units 04/01/20 09:00 04/03/20 16:30 Heparin 5,000 Units/Ml Vial SC 5,000 units TID [facility]E Administration Hydralazine HCl 50 mg 04/02/20 21:00 04/03/20 16:29 Hydralazine 25 Mg Tab PO 50 mg TID [facility]E Administration Cefepime HCl 2 gm/ Sodium 100 mls @ 200 mls/hr 04/01/20 23:00 04/02/20 21:34 Chloride IVPB 100 mls 2300 [facility]E Administration Isosorbide Mononitrate 60 mg 04/02/20 21:00 04/03/20 12:13 Isosorbide Mononitrate Er 60 Mg Tab PO 60 mg BID [facility]E Administration Levothyroxine Sodium 125 mcg 04/02/20 06:00 04/03/20 05:40 Levothyroxine Sodium 125 Mcg Tab PO 125 mcg 0600 [facility]E Administration Pantoprazole Sodium 40 mg 04/01/20 21:00 04/02/20 21:33 Pantoprazole 40 Mg Tab PO 40 mg HS [facility]E Administration Ranolazine 500 mg 04/02/20 21:00 04/03/20 12:12 Ranolazine 500 Mg Tab PO 500 mg BID [facility]E Administration Sertraline HCl 50 mg 04/01/20 09:00 04/03/20 12:13 Sertraline Hcl 25 Mg Tab PO 50 mg DAILY [facility] Administration Sodium Chloride 10 ml 04/02/20 21:00 04/03/20 12:14 Flush - Normal Saline 10 Ml Syringe IVF 10 ml Q12HR [facility] Administration Sotalol HCl 80 mg 04/02/20 21:00 04/03/20 12:13 Sotalol Hcl 80 Mg Tab PO 80 mg BID [facility]E Administration Hospitalist Exam Vitals: Vital Signs (12 hours) Temp Pulse Pulse Pulse Resp BP BP 04/03/20 16:29 65 04/03/20 13:08 86 61 200/81 H 149/68 H 04/03/20 12:14 65 04/03/20 12:13 65 04/03/20 12:00 97.5 F L 61 19 04/03/20 08:00 96.8 F L 65 17 BP Pulse Ox 04/03/20 16:29 04/03/20 13:08 04/03/20 12:14 04/03/20 12:13 04/03/20 12:00 186/76 H 96 04/03/20 08:00 158/63 H 95 Weight Weight 248 lb 3.848 oz Neck: supple Heart: no murmur, no gallops Respiratory: no wheezes, no rales Gastrointestinal: soft, normal bowel sounds Extremities: 2+ LE edema Hosp A/P (1) Hypoglycemia Code(s): E16.2 - HYPOGLYCEMIA, UNSPECIFIED Status: Acute (2) Hypothyroidism Code(s): E03.9 - HYPOTHYROIDISM, UNSPECIFIED Status: Chronic Qualifiers: Hypothyroidism type: acquired Qualified Code(s): E03.9 - Hypothyroidism, unspecified (3) h/o tavr Status: Chronic (4) Acute metabolic encephalopathy Code(s): G93.41 - METABOLIC ENCEPHALOPATHY Status: Acute (5) Diabetes mellitus Code(s): E11.9 - TYPE 2 DIABETES MELLITUS WITHOUT COMPLICATIONS Status: Acute Qualifiers: Diabetes mellitus type: type 2 Diabetes mellitus care home insulin use: without longwall headgate operator use Diabetes mellitus complication status: without complication Qualified Code(s): E11.9 - Type 2 diabetes mellitus without complications (6) Morbid obesity with BMI of 40.0-44.9, adult Code(s): E66.01 - MORBID (SEVERE) OBESITY DUE TO EXCESS CALORIES; Z68.41 - BODY MASS INDEX [BMI]40.0-44.9, ADULT Status: Chronic - Plan pt had hypglycemia since she took insulin and did not eat. However she has been complaining of chest tightness going on for the past 2-4 weeks. will get cardiology to see pt. will continue oral abx and will give one dose of bumex. 2/2 pt undergoing stress test and echo. she feels well overall. she has been ambulating with PT. will stop iv abx and continue oral. Not sure if this is pneumonia or edema. she is afebrile.
[2020-04-03] MEDS ORDERED: hydrALAZINE 20 MG/ML VIAL SLOW IVP PRN (17:36)
[2020-04-03] MEDS ORDERED: Dextrose 5% in Water 1,000 ML IV PRN (18:08)
[2020-04-03] MEDS ORDERED: Dextrose 50% Abboject 50 ML SYRINGE SLOW IVP PRN (18:08)
[2020-04-03] MEDS ORDERED: HumaLOG 300 UNITS/3 ML VIAL SC PRN ×2 (18:08→21:30)
[2020-04-04] MEDS: Levothyroxine Sodium 125 MCG TAB PO SCH (05:16)
[2020-04-04] MEDS: Carvedilol 6.25 MG TAB PO SCH (08:39)
[2020-04-04] MEDS: Clopidogrel Bisulfate 75 MG TAB PO SCH (08:40)
[2020-04-04] MEDS: hydrALAZINE 25 MG TAB PO SCH (08:40)
[2020-04-04] MEDS: Fish Oil 1,000 MG CAP PO SCH (08:40)
[2020-04-04] MEDS: Aspirin 81 mg Enteric Coated Tablet PO SCH (08:41)
[2020-04-04] MEDS: Atorvastatin Calcium 40 MG TAB PO SCH (08:41)
[2020-04-04] MEDS: Doxycycline 100 MG CAP PO SCH (08:41)
[2020-04-04] MEDS: Cyanocobalamin (Vitamin B-12) 1,000 MCG TAB PO SCH (08:41)
[2020-04-04] MEDS: Amlodipine 5 MG TAB PO SCH (08:41)
[2020-04-04] MEDS: Sotalol HCl 80 MG TAB PO SCH (08:41)
[2020-04-04] MEDS: Heparin 5,000 UNITS/ML VIAL SC SCH (08:41)
--- NOTE | 2020-04-04 11:40 | PDOC.CPN ---
- Subjective Date: 04/04/20 Time: 11:37 Interval history: Patient sitting up in bed, getting ready to shower. Probable DC today. She does use a CPAP machine at night at home, states that she had a small episode of SOB overnight. Her BP was better controlled throughout the night and this morning. Denies any chest pain or SOB during exam. - Review of Systems General: denies: fever/chills, weight/appetite/sleep changes, night sweats, fatigue Respiratory: denies: cough, congestion, shortness of breath, exercise intolerance Cardiovascular: denies: chest pain, palpitation, edema, paroxysmal nocturnal dyspnea, orthopnea Gastrointestinal: denies: nausea, vomiting, diarrhea, constipation, abd pain, GI bleeding Musculoskeletal: denies: pain, tenderness, stiffness, swelling, arthritis/arthralgias Neurological: denies: numbness, syncope, seizure, weakness - Objective Allergies/Adverse Reactions: Allergies Allergy/AdvReac Type Severity Reaction Status Date / Time tramadol Allergy Verified 10/03/19 12:55 Visit Medications: Current Medications Albuterol Sulfate (Albuterol 200 Puff (6.7gm Inhaler)) 2 puff INH Q4H PRN PRN Reason: SOB &/or Wheezing Amlodipine Besylate (Amlodipine 5 Mg Tab) 5 mg PO DAILY [facility] Last Admin: 04/04/20 08:41 Dose: 5 mg Documented by: Aspirin (Aspirin 81 Mg Enteric Coated Tablet) 81 mg PO DAILY [facility] Last Admin: 04/04/20 08:41 Dose: 81 mg Documented by: Atorvastatin Calcium (Atorvastatin Calcium 40 Mg Tab) 80 mg PO DAILY [facility] Last Admin: 04/04/20 08:41 Dose: 80 mg Documented by: Carvedilol (Carvedilol 6.25 Mg Tab) 6.25 mg PO BID-[facility] Last Admin: 04/04/20 08:39 Dose: 6.25 mg Documented by: Clonidine (Clonidine 0.1 Mg Tab) 0.1 mg PO Q4H PRN PRN Reason: Hypertension, SBP>160 Clopidogrel Bisulfate (Clopidogrel Bisulfate 75 Mg Tab) 75 mg PO QAM [facility] Last Admin: 04/04/20 08:40 Dose: 75 mg Documented by: Cyanocobalamin (Cyanocobalamin (Vitamin B-12) 1,000 Mcg Tab) 1,000 mcg PO DAILY [facility] Last Admin: 04/04/20 08:41 Dose: 1,000 mcg Documented by: Dextrose/Water (Dextrose 50% Abboject 50 Ml Syringe) 25 gm SLOW IVP PRN PRN PRN Reason: Hypoglycemia Dextrose/Water (Dextrose 50% Abboject 50 Ml Syringe) 25 gm SLOW IVP PRN PRN PRN Reason: Hypoglycemia Doxycycline Hyclate (Doxycycline 100 Mg Cap) 100 mg PO BID [facility] Last Admin: 04/04/20 08:41 Dose: 100 mg Documented by: Fish Oil (Fish Oil 1,000 Mg Cap) 1,000 mg PO DAILY [facility] Last Admin: 04/04/20 08:40 Dose: 1,000 mg Documented by: Glucagon (Glucagon 1 Mg/Ml Vial) 1 mg IM PRN PRN PRN Reason: Hypoglycemia Glucagon (Glucagon 1 Mg/Ml Vial) 1 mg IM PRN PRN PRN Reason: Hypoglycemia Heparin Sodium (Porcine) (Heparin 5,000 Units/Ml Vial) 5,000 units SC TID [facility] Last Admin: 04/04/20 08:41 Dose: 5,000 units Documented by: Hydralazine HCl (Hydralazine 25 Mg Tab) 50 mg PO TID [facility] Last Admin: 04/04/20 08:40 Dose: 50 mg Documented by: Hydralazine HCl (Hydralazine 20 Mg/Ml Vial) 5 mg SLOW IVP Q6H PRN PRN Reason: Blood Pressure Dextrose/Water (D5w) 1,000 mls @ 0 mls/hr IV .Q0M PRN PRN Reason: Hypoglycemia Insulin Human Lispro (Humalog 300 Units/3 Ml Vial) 0 units SC .MODERATE SLIDING SC PRN PRN Reason: Moderate Correctional Scale Last Admin: 04/03/20 18:34 Dose: 8 unit Documented by: Insulin Human Lispro (Humalog 300 Units/3 Ml Vial) 0 units SC .BEDTIME SLIDING SC PRN; Protocol PRN Reason: BEDTIME SLIDING SCALE Last Admin: 04/03/20 21:35 Dose: 4 unit Documented by: Isosorbide Mononitrate (Isosorbide Mononitrate Er 60 Mg Tab) 60 mg PO BID [facility] Last Admin: 04/04/20 08:40 Dose: 60 mg Documented by: Levothyroxine Sodium (Levothyroxine Sodium 125 Mcg Tab) 125 mcg PO 0600 [facility] Last Admin: 04/04/20 05:16 Dose: 125 mcg Documented by: Pantoprazole Sodium (Pantoprazole 40 Mg Tab) 40 mg PO HS [facility] Last Admin: 04/03/20 21:56 Dose: 40 mg Documented by: Ranolazine (Ranolazine 500 Mg Tab) 500 mg PO BID [facility] Last Admin: 04/04/20 08:40 Dose: 500 mg Documented by: Sertraline HCl (Sertraline Hcl 25 Mg Tab) 50 mg PO DAILY [facility] Last Admin: 04/04/20 08:39 Dose: 50 mg Documented by: Sodium Chloride (Flush - Normal Saline 10 Ml Syringe) 10 ml IVF Q12HR [facility] Last Admin: 04/04/20 08:42 Dose: 10 ml Documented by: Sodium Chloride (Flush - Normal Saline 10 Ml Syringe) 10 ml IVF PRN PRN PRN Reason: Saline Flush Sotalol HCl (Sotalol Hcl 80 Mg Tab) 80 mg PO BID [facility] Last Admin: 04/04/20 08:41 Dose: 80 mg Documented by: Vital Signs & Weight: Vital Signs Temp Pulse Resp BP BP Pulse Ox 04/04/20 08:41 68 04/04/20 08:40 68 04/04/20 07:45 92 L 04/04/20 07:37 98.4 F 68 18 155/69 H 92 L 04/04/20 04:00 97.8 F 59 L 18 150/64 H 92 L 04/04/20 00:00 60 151/64 H Weight 248 lb 3.848 oz - Quality Measures Condition: Coronary Artery Disease CV meds: Beta Simon: Yes, SABI/ARB: No (Elevated Creatinine ), Statin: Yes, ASA: Yes, Plavix/Effient/Brilinta: Yes, Anticoagulant: No - Medication Contraindications No SABI/ARB reason: Medical contraindication No Anticoagulant reason: Treatment not indicated - Physical Exam General: alert & oriented x3, appears well, no apparent distress HEENT: mucus membranes moist Neck: supple neck, midline trachea, no JVD/HJR, no masses, no bruit Cardiac: regular rate and rhythm, no murmur Lungs: normal breath sounds, no wheeze, rales, rhonchi Neuro: grossly intact Abdomen: active bowel sounds, soft Extremities: 2+ LE edema, other: (chronic BLE edema, remains unchanged) - Labs Result Diagrams: 04/03/20 11:46 04/03/20 11:46 Troponin/CKMB CK-MB (CK-2) 1.9 ng/mL (0-6.6) 03/31/20 19:54 Troponin I 0.026 ng/mL (< 0.028) 04/01/20 02:50 - EKG Interpretation EKG Method: Telemetry (A paced, V sensed, HR 60's) - Assessment/Plan Assessment/Plan: 1. Shortness of breath: she has not had any episodes of shortness of breath or dyspnea on exertion during her hospital stay. Her stress test 04/03/2020 showed a possible small area of reversible ischemia in the later wall. At this time, we will continue to monitor, could consider left heart catheterization as an outpatient if symptoms continue to worsen. Her echocardiogram 04/03/2020 revealed an EF of 60-65%, diastolic dysfunctions, severely dilated left atrium, moderately-severely dilated right atrium, mild mitral and pulmonic regurgitation, mitral annular calcification, mild-moderate tricuspid regurgitation. Reveiwed the results of the stress test and the area of possible ischemia is in the area of a previously failed bypass to the diagonal branch and a subsequent stent to that vessel which was small. 2. Pnuemonia: treated by primary care services, denies any shortness of breath today 3. Slightly elevated cardiac enzymes: this was more than likely due to demand ischemia from her fall 4. Fall 5. Coronary artery disease: she is currently on a beta simon, aspirin, plavix, Atorvastatin, and Imdur, her Lisinopril is on hold at this time d/t elevated creatinine levels 6. Hypertension: Her BP was more controlled after starting Coreg yesterday. I would suggest prescribing PRN Clonidine 0.1 mg PO BID PRN for SBP >160, discussed with patient and family at bedside. Also discussed incorporating lifestyle modifications. 7. Anemia 8. History of transcatheter aortic valve replacement in 2016 From a cardiology standpoint, she is stable for discharge. I would recommend sending home with PRN Clonidine for elevated BP, can control BP in the outpatient setting, f/u in 4 weeks.
[2020-04-04 12:30] VITALS: BP 134/63; TEMP 98.6
--- NOTE | 2020-04-04 13:20 | PDOC.DS.DS ---
Provider Date of Admission: 03/31/20 21:55 Date of Discharge: 04/04/20 Admitting Provider: Ulises Ojeda MD Consultations: Cardiology Primary Care Physician: Mel Donald MD Course Hospital Course: Patient 74-year-old female with a history of diabetes and hypothyroidism comes into the hospital with change in mental status. Patient was noted to be hypoglycemic since she took her insulin but did not eat any food. Patient's chest x-ray indicated multifocal opacities possible interstitial edema versus infiltrates. She did not have a fever just mildly elevated WBCs. At this time she was put on prophylactic doxycycline. However while she was in the hospital she stated that she has been having chest tightness ongoing for the past 2 or 3 weeks. Given her extensive cardiac history she was seen by cardiology underwent an echocardiogram and a stress test. Her stress test was abnormal. She was asked by cardiology to follow-up as an outpatient for cardiac catheterization. At this time was discharged home. Echo indicating EF of 60-65%. Lab Results: 04/03/20 11:46 04/03/20 11:46 Abnormal Lab Results - Last 48 hrs 04/03/20 11:46: Carbon Dioxide 21 L, BUN 37 H, Creatinine 1.56 H 04/03/20 11:46: RBC 3.11 L, Hgb 9.2 L, Hct 28.3 L, RDW 16.3 H, Lymphocytes % 14.5 L, Basophils % 1.1 H, Lymphocytes # 1.1 L, Monocytes # 0.7 H 04/03/20 11:46: Hemoglobin A1c 7.3 H Microbiology - Entire Visit 03/31/20 23:07 Venous blood - Right Hand Blood Culture - Preliminary NO GROWTH AT 48 HOURS 03/31/20 23:06 Venous blood - Left Arm Blood Culture - Preliminary NO GROWTH AT 48 HOURS 04/01/20 08:22 Urine voided Urine Culture - Final Vitals: Vital Signs (12 hours) Temp Pulse Resp BP BP Pulse Ox 04/04/20 12:00 98.6 F 61 19 134/63 92 L 04/04/20 08:41 68 04/04/20 08:40 68 04/04/20 07:45 92 L 04/04/20 07:37 98.4 F 68 18 155/69 H 92 L 04/04/20 04:00 97.8 F 59 L 18 150/64 H 92 L Weight Weight 248 lb 3.848 oz Physical Exam: The patient was seen and examined on the day of discharge. Problem (1) Hypoglycemia Code(s): E16.2 - HYPOGLYCEMIA, UNSPECIFIED Status: Acute (2) Hypothyroidism Code(s): E03.9 - HYPOTHYROIDISM, UNSPECIFIED Status: Chronic Qualifiers: Hypothyroidism type: acquired Qualified Code(s): E03.9 - Hypothyroidism, unspecified (3) h/o tavr Status: Chronic (4) Acute metabolic encephalopathy Code(s): G93.41 - METABOLIC ENCEPHALOPATHY Status: Acute (5) Diabetes mellitus Code(s): E11.9 - TYPE 2 DIABETES MELLITUS WITHOUT COMPLICATIONS Status: Acute Qualifiers: Diabetes mellitus type: type 2 Diabetes mellitus longterm insulin use: without email marketing specialist use Diabetes mellitus complication status: without complication Qualified Code(s): E11.9 - Type 2 diabetes mellitus without complications (6) Morbid obesity with BMI of 40.0-44.9, adult Code(s): E66.01 - MORBID (SEVERE) OBESITY DUE TO EXCESS CALORIES; Z68.41 - BODY MASS INDEX [BMI]40.0-44.9, ADULT Status: Chronic Plan Prescriptions: Carvedilol [Coreg] 6.25 mg PO BID-WM #60 tab Doxycycline [Vibramycin] 100 mg PO BID #10 cap Home Medications: Medication Instructions Recorded Confirmed Type Clopidogrel Bisulfate [Plavix] 75 mg PO QAM #30 tab 12/22/12 04/01/20 Rx Atorvastatin Calcium 80 mg PO HS 01/02/14 04/01/20 History Ranolazine [Ranexa] 500 mg PO BID 05/19/14 04/01/20 History Ascorbic Acid [Vitamin C Chewable 1 tab PO DAILY 02/26/15 04/01/20 History Tablet] Pantoprazole [Protonix] 1 tab PO HS 02/26/15 04/01/20 History Sertraline HCl [Zoloft] 50 mg PO DAILY 05/29/15 04/01/20 History Sotalol HCl [Betapace] 80 mg PO BID #60 tab 06/01/15 04/01/20 Rx Aspirin [Aspirin EC] 81 mg PO DAILY 05/26/17 04/01/20 History Levothyroxine Sodium [Synthroid] 125 mcg PO DAILY 05/26/17 04/01/20 History Folic Acid/Multivit-Min/Lutein 1 tablet PO DAILY 02/17/19 04/01/20 History [Centrum Silver Chewable] Ubidecarenone [Co Q-10] 100 mg PO DAILY 02/17/19 04/01/20 History Albuterol Sulfate [Proair HFA] 2 puff INH Q6HR PRN #1 inh 02/22/19 04/01/20 Rx Cholecalciferol [Vitamin D3] 1,000 units PO DAILY #30 tab 02/22/19 04/01/20 Rx Amlodipine [Norvasc] 5 mg PO DAILY 10/03/19 04/01/20 History Cyanocobalamin (Vitamin B-12) 1,000 mcg PO DAILY 10/03/19 04/01/20 History [Vitamin B-12] Fish Oil/DHA/EPA [Fish Oil 1,200 1 cap PO HS 10/03/19 04/01/20 History mg Fish Oil] Isosorbide Mononitrate [Imdur] 60 mg PO BID 10/03/19 04/01/20 History Torsemide [Demadex] 20 mg PO DAILY 10/03/19 04/01/20 History hydrALAZINE HCl [Hydralazine HCl] 50 mg PO TID 10/03/19 04/01/20 History Carvedilol [Coreg] 6.25 mg PO BID-WM #60 tab 04/04/20 Rx Doxycycline [Vibramycin] 100 mg PO BID #10 cap 04/04/20 Rx Allergies: tramadol Allergy (Verified 10/03/19 12:55) Activity:: Activity as Tolerated Nourishment:: Fluid Restriction Diet, Heart Healthy Diet Referrals: [facility] [Outside] (Current home health client.) Jennifer Pratt MD [Active] - 3-4 Weeks (Please call to schedule a follow up appointment with Dr. Pratt and to disscuss a possible Cardiac Cath in the future as an outpatient.) Mel Donald MD [Primary Care Provider] - 3 Days (Please call to schedule a follow up appointment.) Disposition: HOME Quality CORE MEASURES:: N/A
--- NOTE | 2020-04-06 06:02 | PQF ---
CLINICAL DOCUMENTATION CLARIFICATION FORM: Dear : Ary Martinez Date / Time: 04/06/2020 0602 Please exercise your independent, professional judgment in responding to the clarification form. Clinical indicators are provided on the bottom of this form for your review Please check appropriate box(es): [ x] Empirically treating Gram Negative Pneumonia [ ] Empirically treating Anaerobic Pneumonia [ ] Simple Pneumonia [ ] Pneumonia of unknown etiology [ ] Other diagnosis, please specify [ ] Unable to determine Physician Signature: Date/Time: For continuity of documentation, please document condition throughout progress notes and discharge summary. Thank You. To be completed by CDI/Coding staff for physician review: Present Clinical Indicators - Signs / Symptoms / Labs Results and Location in Medical Record [x] WBC 11.0, Plt counr 263, Neutrophils 83.6, Lactic acid 1.2 Laboratory 03/31 [x] Chest X-ray: Stable cardiomegaly and multifocal opacities that could represent interstitial edema or infiltrates Imaging Dr Alexander 03/31 [x] BP 130/64, Pulse 71, Resp 20, Temp 94.1 Vital signs 03/31 [x] Labs showed leukocytosis H&P p1 03/31 Dr Ojeda [x] Pneumonia H&P p1 03/31 Dr Ojeda [x] Sepsis, pt has hypothermia, leukocytosis, altered mental status anf lung infiltrates H&P p4 03/31 Dr Ojeda Present Risk Factors Results and Location in Medical Record [x] 74 year-old Female H&P p1 03/31 Dr Ojeda [x] DM H&P p1 03/31 Dr Ojeda [x] Morbid Obesity PN 04/01 [x] CHF HP 03/31 [x] GERD Consult 04/02 Present Treatments Results and Location in Medical Record [x] IV Azithromycin 500 mg APR 30 [x] IV Cefepime 2 gm APR 30 [x] IV Doxucycline 100 mg APR 30 [x] IV Vancomycin 1 gm APR 30 [x] IVF NS 1L APR 30 CDS/Refrigerating Engineer Head Signature: Bhavya Cervantes Phone #: ext [phone] Date/Time: 04/06/20 0602 This is a permanent part of the Medical Record [facility]
--- NOTE | 2020-04-06 06:03 | PQF ---
CLINICAL DOCUMENTATION CLARIFICATION FORM: Dear : Ary Martinez Date / Time: 04/06/2020 0603 Please exercise your independent, professional judgment in responding to the clarification form. Clinical indicators are provided on the bottom of this form for your review Please check appropriate box(es): [ ] Sepsis due to Pneumonia [ ] Severe sepsis due to Pneumonia with Encephalopathy [ ] Localized infection without sepsis [x ] Other diagnosis, please specify ___no sepsis, altered mental status due to hypoglycemia [ ] Unable to determine Physician Signature: Date/Time: For continuity of documentation, please document condition throughout progress notes and discharge summary. Thank You To be completed by CDI/Coding staff for physician review: Present Clinical Indicators - Signs / Symptoms / Labs Results and Location in Medical Record [x] WBC 11.0, Plt counr 263, Neutrophils 83.6, Lactic acid 1.2 Laboratory 03/31 [x] Blood culture : No growth Microbiology 03/31 [x] Chest X-ray: Stable cardiomegaly and multifocal opacities that could represent interstitial edema or infiltrates Imaging Dr Alexander 03/31 [x] BP 130/64, Pulse 71, Resp 20, Temp 94.1 Vital signs 03/31 [x] Labs showed leukocytosis H&P p1 03/31 Dr Ojeda [x] Altered mental status H&P p1 03/31 Dr Ojeda [x] Pneumonia H&P p1 03/31 Dr Ojeda [x] Sepsis, pt has hypothermia, leukocytosis, altered mental status anf lung infiltrates H&P p4 03/31 Dr Ojeda [x] Acute encephalopathy H&P p5 03/31 Dr Ojeda Present Risk Factors Results and Location in Medical Record [x] 74 year-old Female H&P p1 03/31 Dr Ojeda [x] DM H&P p1 03/31 Dr Ojeda [x] Pneumonia H&P p1 03/31 Dr Ojeda [x] Morbid Obesity PN 04/01 Present Treatments Results and Location in Medical Record [x] IV Azithromycin 500 mg APR 30 [x] IV Cefepime 2 gm APR 30 [x] IV Doxucycline 100 mg APR 30 [x] IV Vancomycin 1 gm APR 30 [x] IVF NS 1L APR 30 CDS/Director Of Development Signature: Bhavya Cervantes Phone #: ext [phone] Date/Time: 04/06/20 0603 This is a permanent part of the Medical Record [facility]
== END 2020-04-04 15:00 | disposition home health service (06) | DRG 177 ==
LOC: ERS 19:07 → 2NO 21:55
PROVIDERS: ADMIT Student in an Organized Health Care Education/Training Program; ATTEND Internal Medicine
DX: J15.6 Pneumonia due to other Gram-negative bacteria (principal); G93.41 Metabolic encephalopathy; I13.0 Hypertensive heart and chronic kidney disease with heart failure and stage 1 through stage 4 chronic kidney disease, or unspecified chronic kidney disease; Z68.41 Body mass index [BMI] 40.0-44.9, adult; I24.8 Other forms of acute ischemic heart disease; E11.649 Type 2 diabetes mellitus with hypoglycemia without coma; Z20.822 Contact with and (suspected) exposure to COVID-19; E03.9 Hypothyroidism, unspecified; E78.5 Hyperlipidemia, unspecified; E78.00 Pure hypercholesterolemia, unspecified; I50.9 Heart failure, unspecified; E87.6 Hypokalemia; I25.10 Atherosclerotic heart disease of native coronary artery without angina pectoris; N18.9 Chronic kidney disease, unspecified; D63.1 Anemia in chronic kidney disease; E66.01 Morbid (severe) obesity due to excess calories; I87.2 Venous insufficiency (chronic) (peripheral); N18.30 Chronic kidney disease, stage 3 unspecified; E11.22 Type 2 diabetes mellitus with diabetic chronic kidney disease; R68.0 Hypothermia, not associated with low environmental temperature; I48.91 Unspecified atrial fibrillation; K21.9 Gastro-esophageal reflux disease without esophagitis; I08.3 Combined rheumatic disorders of mitral, aortic and tricuspid valves; Z88.8 Allergy status to other drugs, medicaments and biological substances; Z95.5 Presence of coronary angioplasty implant and graft; I25.2 Old myocardial infarction; Z90.49 Acquired absence of other specified parts of digestive tract; Z95.0 Presence of cardiac pacemaker; Z95.2 Presence of prosthetic heart valve; Z95.1 Presence of aortocoronary bypass graft; Z79.899 Other long term (current) drug therapy; Z79.02 Long term (current) use of antithrombotics/antiplatelets; Z79.82 Long term (current) use of aspirin; Z79.890 Hormone replacement therapy; Z79.4 Long term (current) use of insulin; Z28.21 Immunization not carried out because of patient refusal
CPT/HCPCS: 36415; 36416; 36600; 70450; 71045; 76770; 78452; 80048; 80053; 80306; 81001; 82140; 82553; 82805; 83036; 83605; 83735; 84100; 84484; 85025; 87040; 87086; 87635; 93017; 93306; 96365; 96375; A9500; J0153; J0692; J1644; J1815; J2405; J3370; J3480; J3490; U0003; U0005

== ENCOUNTER 2020-06-04 12:53 | Inpatient (IN) | payer MEDICARE ==
[2020-06-04 13:39] LABS: #Eosinphils 0.4 thou/uL (0.0-0.7); #Monocytes 0.9 thou/uL (0.11-0.59); #Neutrophils 8.9 thou/uL (1.40-6.50); %Basophils 0.2 % (0.0-1.0); %Eosinophils 3.6 % (0.0-10.0); %Lymphocytes 8.8 % (21.0-51.0); %Monocytes 8.2 % (0.0-10.0); %Neutrophils 79.3 % (42.0-75.0); Hemoglobin 9.4 g/dL (12.0-16.0); Mean Corpuscular HGB CONC 33.5 g/dL (32.0-36.0); Mean Corpuscular Hemoglobin 28.1 pg (27.0-31.0); Mean Corpuscular Volume 84.1 fL (78.0-98.0); Mean Platelet Volume 10.2 fL (7.4-10.4); Platelet Count 239 thou/uL (130-400); RBC Distribution Width 19.9 % (11.5-14.5); Red Blood Cell (RBC) Count 3.34 mill/uL (4.20-5.40); White Blood Cell (WBC) Count 11.2 thou/uL (4.8-10.8)
[2020-06-04 14:01] LABS: ALT (SGPT) 11 U/L (8-55); AST (SGOT) 16 U/L (5-34); Albumin 3.7 g/dL (3.4-4.8); Alkaline Phosphatase 104 U/L (40-110); Anion Gap 17 mmol/L (10-20); BUN (Urea Nitrogen) 51 mg/dL (9.8-20.1); Bilirubin, Total 0.5 mg/dL (0.2-1.2); Calc. Creatinine Clearance 0 mL/min (70-130); Calcium 8.7 mg/dL (7.8-10.44); Carbon Dioxide 22 mmol/L (23-31); Chloride 99 mmol/L (98-107); Globulin 2.8 g/dL (2.4-3.5); Glucose 380 mg/dL (83-110); Potassium 3.8 mmol/L (3.5-5.1); Protein, Total 6.5 g/dL (5.8-8.1); Sodium 134 mmol/L (136-145)
[2020-06-04] MEDS ORDERED: Cefepime 2 GM in Sodium Chloride 0.9% 100 ML IVPB SCH ×2 (15:00→22:15)
[2020-06-04 15:08] LABS: Acetaminophen Less than 6.0 mcg/mL (10.0-30.0); Alcohol Less than 10 mg/dL (Less than 10); Salicylate Less than 8.0 mg/dL (15.0-30.0)
[2020-06-04] MEDS ORDERED: Cefepime 2 GM VIAL ONE (15:26)
[2020-06-04] MEDS ORDERED: Sodium Chloride 0.9% 1,000 ML IV SCH ×2 (16:00→20:00)
[2020-06-04] MEDS ORDERED: VANCOMYCIN 2 GRAM/400 ML BAG 2 GM in Premix Bag 1 BAG IVPB SCH (16:00)
[2020-06-04 17:00] LABS: Bilirubin Negative (Negative); Blood, Urine Negative (Negative); Glucose, Urine (Dipstick) 500 mg/dL (Negative); Ketone, Urine Negative (Negative); Leukocyte Small (Negative); Nitrite Negative (Negative); Protein, Urine (Dipstick) Negative (Neg-Trace); Specific Gravity, Urine 1.025 (1.005-1.030); Urobilinogen 0.2 mg/dL (Less than 2); pH, Urine 5.5 (5.0-9.0)
[2020-06-04 17:01] LABS: Clarity Hazy (Clear)
[2020-06-04 17:06] LABS: Bacteria/HPF 2+ HPF (None Seen); RBC/HPF 0-3 HPF (0-3); Squamous Epithelial 21-50 HPF (0-3)
[2020-06-04 17:10] LABS: Amphetamine Not Detected (NotDetected); Barbiturates Screen Not Detected (NotDetected); Benzodiazepine Screen Not Detected (NotDetected); Cocaine Metabolite Screen Not Detected (NotDetected); Medtox Control Line Valid? VALID (VALID); Medtox Reader # READER 4; Methadone Not Detected (NotDetected); Methamphetamine Not Detected (NotDetected); Opiate Screen Not Detected (NotDetected); Oxycodone Screen Not Detected (NotDetected); Phencyclidine (PCP) Not Detected (NotDetected); THC/Cannabinoid Screen Not Detected (NotDetected); Tricyclic Screen Not Detected (NotDetected)
[2020-06-04] MEDS ORDERED: Senokot S 8.6-50 MG TAB PO PRN (18:17)
[2020-06-04] MEDS ORDERED: Ondansetron PF 4 MG/2 ML Vial IVP PRN (18:17)
[2020-06-04] MEDS ORDERED: Dextrose 5% in Water 1,000 ML IV PRN (18:21)
[2020-06-04] MEDS ORDERED: Dextrose 50% Abboject 50 ML SYRINGE SLOW IVP PRN (18:21)
[2020-06-04] MEDS ORDERED: Atorvastatin Calcium 40 MG TAB PO SCH (21:00)
[2020-06-04 21:39] VITALS: BMI 39.9
[2020-06-05] MEDS: Acetaminophen 325 MG TAB PO PRN (00:06)
[2020-06-05] MEDS: Sotalol HCl 80 MG TAB PO SCH ×3 (00:07→21:33)
[2020-06-05 06:21] LABS: #Eosinphils 0.4 thou/uL (0.0-0.7); #Lymphocytes 1.2 thou/uL (1.20-3.40); #Monocytes 1.1 thou/uL (0.11-0.59); %Basophils 0.3 % (0.0-1.0); %Lymphocytes 8.4 % (21.0-51.0); %Neutrophils 80.3 % (42.0-75.0); Hemoglobin 8.7 g/dL (12.0-16.0); Mean Corpuscular HGB CONC 32.1 g/dL (32.0-36.0); Mean Corpuscular Hemoglobin 27.3 pg (27.0-31.0); Mean Platelet Volume 9.6 fL (7.4-10.4); Platelet Count 272 thou/uL (130-400); RBC Distribution Width 19.3 % (11.5-14.5); Red Blood Cell (RBC) Count 3.17 mill/uL (4.20-5.40); White Blood Cell (WBC) Count 13.7 thou/uL (4.8-10.8)
[2020-06-05 06:31] LABS: Hemoglobin A1c 7.8 % (4.0-6.0)
[2020-06-05 06:44] LABS: ALT (SGPT) 9 U/L (8-55); AST (SGOT) 12 U/L (5-34); Albumin 3.6 g/dL (3.4-4.8); Alkaline Phosphatase 74 U/L (40-110); Anion Gap 15 mmol/L (10-20); BUN (Urea Nitrogen) 47 mg/dL (9.8-20.1); Bilirubin, Total 0.5 mg/dL (0.2-1.2); Calc. Creatinine Clearance 46 mL/min (70-130); Calcium 8.9 mg/dL (7.8-10.44); Carbon Dioxide 24 mmol/L (23-31); Chloride 102 mmol/L (98-107); Globulin 3.2 g/dL (2.4-3.5); Glucose 113 mg/dL (83-110); Potassium 3.4 mmol/L (3.5-5.1); Protein, Total 6.8 g/dL (5.8-8.1); Sodium 138 mmol/L (136-145)
[2020-06-05] MEDS ORDERED: cloNIDine 0.1 MG TAB PO PRN (08:10)
[2020-06-05] MEDS ORDERED: Aspirin 81 mg Enteric Coated Tablet PO SCH (09:00)
[2020-06-05] MEDS ORDERED: Clopidogrel Bisulfate 75 MG TAB PO SCH (09:00)
[2020-06-05] MEDS: HumuLIN 70/30 (300 UNITS/3 ML VIAL) SC SCH (09:00)
[2020-06-05 09:18] LABS: SARS-CoV-2 PCR by NAA Not Detected (NotDetected)
[2020-06-05] MEDS: Clopidogrel Bisulfate 75 MG TAB PO SCH (10:08)
[2020-06-05] MEDS: Torsemide 20 MG TAB PO SCH (10:08)
[2020-06-05] MEDS: Fish Oil 1,000 MG CAP PO SCH (10:10)
[2020-06-05] MEDS: Amlodipine 5 MG TAB PO SCH (10:10)
[2020-06-05] MEDS: Carvedilol 6.25 MG TAB PO SCH ×2 (10:10→20:50)
[2020-06-05] MEDS: Aspirin 81 mg Enteric Coated Tablet PO SCH (10:14)
[2020-06-05] MEDS: Enoxaparin Sodium 30 MG/0.3 ML SYRINGE SC SCH (12:25)
[2020-06-05] MEDS: Pantoprazole 40 MG GRANULES PACKET PO SCH (12:25)
[2020-06-05] MEDS ORDERED: Cefepime 2 GM in Sodium Chloride 0.9% 100 ML IVPB SCH (15:00)
[2020-06-05] MEDS ORDERED: Vancomycin 1 GM in Premix Bag 1 BAG IVPB SCH (17:00)
[2020-06-05] MEDS: CEFAZOLIN 2 GM in Premix Bag 1 BAG IVPB SCH (19:10)
[2020-06-05] MEDS: Atorvastatin Calcium 40 MG TAB PO SCH (20:50)
[2020-06-05] MEDS ORDERED: Melatonin 3 MG TAB PO PRN (23:20)
[2020-06-06] MEDS: Levothyroxine Sodium 125 MCG TAB PO SCH (03:42)
[2020-06-06] MEDS: Carvedilol 6.25 MG TAB PO SCH ×2 (05:39→20:46)
[2020-06-06] MEDS: CEFAZOLIN 2 GM in Premix Bag 1 BAG IVPB SCH ×2 (05:39→17:43)
[2020-06-06 06:06] LABS: #Basophils 0.1 thou/uL (0.0-0.2); #Eosinphils 0.4 thou/uL (0.0-0.7); #Lymphocytes 1.1 thou/uL (1.20-3.40); #Monocytes 1.1 thou/uL (0.11-0.59); #Neutrophils 11.6 thou/uL (1.40-6.50); %Basophils 0.4 % (0.0-1.0); %Eosinophils 2.6 % (0.0-10.0); %Monocytes 7.6 % (0.0-10.0); %Neutrophils 81.4 % (42.0-75.0); Hemoglobin 7.8 g/dL (12.0-16.0); Mean Corpuscular HGB CONC 32.8 g/dL (32.0-36.0); Mean Corpuscular Hemoglobin 27.7 pg (27.0-31.0); Mean Corpuscular Volume 84.5 fL (78.0-98.0); Mean Platelet Volume 9.5 fL (7.4-10.4); Platelet Count 275 thou/uL (130-400); Red Blood Cell (RBC) Count 2.81 mill/uL (4.20-5.40); White Blood Cell (WBC) Count 14.3 thou/uL (4.8-10.8)
[2020-06-06 06:26] LABS: Anion Gap 16 mmol/L (10-20); BUN (Urea Nitrogen) 47 mg/dL (9.8-20.1); Calc. Creatinine Clearance 45 mL/min (70-130); Calcium 8.4 mg/dL (7.8-10.44); Carbon Dioxide 20 mmol/L (23-31); Chloride 102 mmol/L (98-107); Glucose 155 mg/dL (83-110); Potassium 3.4 mmol/L (3.5-5.1); Sodium 135 mmol/L (136-145)
[2020-06-06] MEDS: Sotalol HCl 80 MG TAB PO SCH ×2 (09:25→20:46)
[2020-06-06] MEDS: Aspirin 81 mg Enteric Coated Tablet PO SCH (09:29)
[2020-06-06] MEDS: Clopidogrel Bisulfate 75 MG TAB PO SCH (09:29)
[2020-06-06] MEDS: Amlodipine 5 MG TAB PO SCH (09:29)
[2020-06-06] MEDS: Enoxaparin Sodium 30 MG/0.3 ML SYRINGE SC SCH (09:31)
[2020-06-06] MEDS: Fish Oil 1,000 MG CAP PO SCH (09:31)
[2020-06-06] MEDS: HumuLIN 70/30 (300 UNITS/3 ML VIAL) SC SCH (09:32)
[2020-06-06] MEDS: Torsemide 20 MG TAB PO SCH (09:33)
[2020-06-06] MEDS: Pantoprazole 40 MG GRANULES PACKET PO SCH (09:33)
[2020-06-06] MEDS ORDERED: Bupivacaine PF 0.5% 30 ML VIAL ONE (11:17)
[2020-06-06] MEDS ORDERED: Neomycin-Polymyxin 1 ML AMP ONE (11:17)
[2020-06-06] MEDS ORDERED: Fentanyl 100 MCG/2 ML VIAL ONE (11:42)
[2020-06-06] MEDS ORDERED: Lidocaine 2% Jelly 5 ML TUBE ONE (11:43)
[2020-06-06] MEDS ORDERED: Propofol 500 MG/50 ML VIAL ONE (11:43)
[2020-06-06] MEDS ORDERED: Ketamine 50 MG/ML (10ML VIAL) ONE (12:17)
[2020-06-06] MEDS ORDERED: PROPOFOL 200 MG/20 ML VIAL ONE (12:22)
[2020-06-06] MEDS ORDERED: cloNIDine 0.1 MG TAB PO PRN (13:05)
[2020-06-06] MEDS ORDERED: Promethazine HCl 25 MG/ML VIAL IM PRN (13:17)
[2020-06-06] MEDS ORDERED: Ondansetron HCl/PF 4 MG/2 ML Vial IVP PRN (13:17)
[2020-06-06] MEDS ORDERED: Promethazine HCl 25 MG/ML VIAL SLOW IVP PRN (13:17)
[2020-06-06] MEDS: Atorvastatin Calcium 40 MG TAB PO SCH (20:45)
[2020-06-06] MEDS: Acetaminophen 325 MG TAB PO PRN (20:46)
[2020-06-06] MEDS: HumaLOG 300 UNITS/3 ML VIAL SC PRN (20:48)
[2020-06-07] MEDS: Levothyroxine Sodium 125 MCG TAB PO SCH (05:27)
[2020-06-07] MEDS: CEFAZOLIN 2 GM in Premix Bag 1 BAG IVPB SCH ×2 (05:27→17:32)
[2020-06-07 06:42] LABS: #Eosinphils 0.5 thou/uL (0.0-0.7); #Monocytes 0.9 thou/uL (0.11-0.59); #Neutrophils 9.4 thou/uL (1.40-6.50); %Basophils 0.1 % (0.0-1.0); %Eosinophils 4.4 % (0.0-10.0); %Lymphocytes 8.3 % (21.0-51.0); %Neutrophils 79.2 % (42.0-75.0); Hemoglobin 7.7 g/dL (12.0-16.0); Mean Corpuscular HGB CONC 31.9 g/dL (32.0-36.0); Mean Corpuscular Volume 84.6 fL (78.0-98.0); Mean Platelet Volume 9.5 fL (7.4-10.4); Platelet Count 277 thou/uL (130-400); RBC Distribution Width 19.7 % (11.5-14.5); Red Blood Cell (RBC) Count 2.84 mill/uL (4.20-5.40); White Blood Cell (WBC) Count 11.8 thou/uL (4.8-10.8)
[2020-06-07 07:01] LABS: Anion Gap 15 mmol/L (10-20); BUN (Urea Nitrogen) 48 mg/dL (9.8-20.1); Calc. Creatinine Clearance 46 mL/min (70-130); Calcium 8.5 mg/dL (7.8-10.44); Carbon Dioxide 22 mmol/L (23-31); Chloride 101 mmol/L (98-107); Glucose 154 mg/dL (83-110); Potassium 3.5 mmol/L (3.5-5.1); Sodium 134 mmol/L (136-145)
[2020-06-07] MEDS ORDERED: hydrALAZINE 25 MG TAB PO PRN (08:23)
[2020-06-07] MEDS: Amlodipine 5 MG TAB PO SCH (08:57)
[2020-06-07] MEDS: Aspirin 81 mg Enteric Coated Tablet PO SCH (08:58)
[2020-06-07] MEDS: Carvedilol 6.25 MG TAB PO SCH ×2 (08:58→22:09)
[2020-06-07] MEDS: Clopidogrel Bisulfate 75 MG TAB PO SCH (08:58)
[2020-06-07] MEDS: Fish Oil 1,000 MG CAP PO SCH (08:59)
[2020-06-07] MEDS: Sotalol HCl 80 MG TAB PO SCH ×2 (09:02→22:10)
[2020-06-07] MEDS: Pantoprazole 40 MG GRANULES PACKET PO SCH (09:04)
[2020-06-07] MEDS: Torsemide 20 MG TAB PO SCH (09:04)
[2020-06-07] MEDS: Enoxaparin Sodium 30 MG/0.3 ML SYRINGE SC SCH (09:05)
[2020-06-07] MEDS: HumuLIN 70/30 (300 UNITS/3 ML VIAL) SC SCH (09:06)
[2020-06-07] MEDS: HumaLOG 300 UNITS/3 ML VIAL SC PRN ×3 (12:13→22:12)
[2020-06-07] MEDS: Atorvastatin Calcium 40 MG TAB PO SCH (22:09)
[2020-06-08] MEDS: CEFAZOLIN 2 GM in Premix Bag 1 BAG IVPB SCH ×2 (06:25→17:54)
[2020-06-08] MEDS: Levothyroxine Sodium 125 MCG TAB PO SCH (06:26)
[2020-06-08 06:41] LABS: #Eosinphils 0.5 thou/uL (0.0-0.7); #Lymphocytes 1.1 thou/uL (1.20-3.40); #Monocytes 0.9 thou/uL (0.11-0.59); %Basophils 0.2 % (0.0-1.0); %Eosinophils 4.7 % (0.0-10.0); %Lymphocytes 10.7 % (21.0-51.0); %Monocytes 8.9 % (0.0-10.0); %Neutrophils 75.6 % (42.0-75.0); Hemoglobin 7.7 g/dL (12.0-16.0); Mean Corpuscular HGB CONC 32.4 g/dL (32.0-36.0); Mean Corpuscular Hemoglobin 27.2 pg (27.0-31.0); Mean Corpuscular Volume 83.8 fL (78.0-98.0); Mean Platelet Volume 9.5 fL (7.4-10.4); Platelet Count 312 thou/uL (130-400); RBC Distribution Width 19.7 % (11.5-14.5); Red Blood Cell (RBC) Count 2.82 mill/uL (4.20-5.40); White Blood Cell (WBC) Count 10.6 thou/uL (4.8-10.8)
[2020-06-08] MEDS: HumaLOG 300 UNITS/3 ML VIAL SC PRN (06:47)
[2020-06-08 06:59] LABS: Anion Gap 14 mmol/L (10-20); BUN (Urea Nitrogen) 49 mg/dL (9.8-20.1); Calc. Creatinine Clearance 47 mL/min (70-130); Calcium 8.4 mg/dL (7.8-10.44); Carbon Dioxide 24 mmol/L (23-31); Chloride 100 mmol/L (98-107); Glucose 217 mg/dL (83-110); Potassium 3.5 mmol/L (3.5-5.1); Sodium 134 mmol/L (136-145)
[2020-06-08] MEDS: Sotalol HCl 80 MG TAB PO SCH ×2 (08:49→21:10)
[2020-06-08] MEDS: Torsemide 20 MG TAB PO SCH (08:49)
[2020-06-08] MEDS: Aspirin 81 mg Enteric Coated Tablet PO SCH (08:50)
[2020-06-08] MEDS: Clopidogrel Bisulfate 75 MG TAB PO SCH (08:51)
[2020-06-08] MEDS: Amlodipine 5 MG TAB PO SCH (08:51)
[2020-06-08] MEDS: Fish Oil 1,000 MG CAP PO SCH (08:51)
[2020-06-08] MEDS: Carvedilol 6.25 MG TAB PO SCH ×2 (08:51→21:09)
[2020-06-08] MEDS: Pantoprazole 40 MG GRANULES PACKET PO SCH (08:51)
[2020-06-08] MEDS: Enoxaparin Sodium 30 MG/0.3 ML SYRINGE SC SCH (08:53)
[2020-06-08] MEDS: HumuLIN 70/30 (300 UNITS/3 ML VIAL) SC SCH (08:53)
[2020-06-08] MEDS: Atorvastatin Calcium 40 MG TAB PO SCH (21:09)
[2020-06-09 05:49] LABS: #Eosinphils 0.5 thou/uL (0.0-0.7); #Monocytes 0.9 thou/uL (0.11-0.59); #Neutrophils 6.9 thou/uL (1.40-6.50); %Basophils 0.3 % (0.0-1.0); %Eosinophils 5.1 % (0.0-10.0); %Monocytes 9.4 % (0.0-10.0); %Neutrophils 74.3 % (42.0-75.0); Hemoglobin 7.7 g/dL (12.0-16.0); Mean Corpuscular Hemoglobin 26.9 pg (27.0-31.0); Mean Corpuscular Volume 84.1 fL (78.0-98.0); Mean Platelet Volume 8.9 fL (7.4-10.4); Platelet Count 341 thou/uL (130-400); RBC Distribution Width 19.5 % (11.5-14.5); Red Blood Cell (RBC) Count 2.85 mill/uL (4.20-5.40); White Blood Cell (WBC) Count 9.3 thou/uL (4.8-10.8)
[2020-06-09 05:59] LABS: Anion Gap 13 mmol/L (10-20); BUN (Urea Nitrogen) 46 mg/dL (9.8-20.1); Calc. Creatinine Clearance 50 mL/min (70-130); Calcium 8.4 mg/dL (7.8-10.44); Carbon Dioxide 24 mmol/L (23-31); Chloride 102 mmol/L (98-107); Glucose 147 mg/dL (83-110); Potassium 3.4 mmol/L (3.5-5.1); Sodium 136 mmol/L (136-145)
[2020-06-09] MEDS: Levothyroxine Sodium 125 MCG TAB PO SCH (06:06)
[2020-06-09] MEDS: CEFAZOLIN 2 GM in Premix Bag 1 BAG IVPB SCH ×2 (06:06→17:43)
[2020-06-09] MEDS: Fish Oil 1,000 MG CAP PO SCH (10:21)
[2020-06-09] MEDS: Sotalol HCl 80 MG TAB PO SCH ×2 (10:21→21:14)
[2020-06-09] MEDS: Aspirin 81 mg Enteric Coated Tablet PO SCH (10:21)
[2020-06-09] MEDS: Carvedilol 6.25 MG TAB PO SCH ×2 (10:21→21:14)
[2020-06-09] MEDS: HumuLIN 70/30 (300 UNITS/3 ML VIAL) SC SCH (10:22)
[2020-06-09] MEDS: Enoxaparin Sodium 30 MG/0.3 ML SYRINGE SC SCH (10:22)
[2020-06-09] MEDS: Amlodipine 5 MG TAB PO SCH (10:22)
[2020-06-09] MEDS: Pantoprazole 40 MG GRANULES PACKET PO SCH (10:22)
[2020-06-09] MEDS: Clopidogrel Bisulfate 75 MG TAB PO SCH (10:22)
[2020-06-09] MEDS: Torsemide 20 MG TAB PO SCH (11:06)
[2020-06-09] MEDS: HumaLOG 300 UNITS/3 ML VIAL SC PRN ×2 (13:25→16:14)
[2020-06-09] MEDS: Atorvastatin Calcium 40 MG TAB PO SCH (21:14)
[2020-06-10 05:57] LABS: #Eosinphils 0.3 thou/uL (0.0-0.7); #Lymphocytes 1.1 thou/uL (1.20-3.40); #Monocytes 0.8 thou/uL (0.11-0.59); #Neutrophils 7.2 thou/uL (1.40-6.50); %Basophils 0.4 % (0.0-1.0); %Eosinophils 3.4 % (0.0-10.0); %Neutrophils 76.2 % (42.0-75.0); Hemoglobin 7.7 g/dL (12.0-16.0); Mean Corpuscular HGB CONC 32.6 g/dL (32.0-36.0); Mean Corpuscular Hemoglobin 27.4 pg (27.0-31.0); Mean Corpuscular Volume 84.1 fL (78.0-98.0); Mean Platelet Volume 8.9 fL (7.4-10.4); Platelet Count 326 thou/uL (130-400); RBC Distribution Width 20.2 % (11.5-14.5); Red Blood Cell (RBC) Count 2.82 mill/uL (4.20-5.40); White Blood Cell (WBC) Count 9.5 thou/uL (4.8-10.8)
[2020-06-10] MEDS: Levothyroxine Sodium 125 MCG TAB PO SCH (06:07)
[2020-06-10] MEDS: HumaLOG 300 UNITS/3 ML VIAL SC PRN ×2 (06:07→12:09)
[2020-06-10] MEDS: CEFAZOLIN 2 GM in Premix Bag 1 BAG IVPB SCH ×2 (06:08→17:46)
[2020-06-10 06:19] LABS: Anion Gap 13 mmol/L (10-20); BUN (Urea Nitrogen) 48 mg/dL (9.8-20.1); Calc. Creatinine Clearance 50 mL/min (70-130); Calcium 8.3 mg/dL (7.8-10.44); Carbon Dioxide 25 mmol/L (23-31); Chloride 101 mmol/L (98-107); Glucose 220 mg/dL (83-110); Potassium 3.5 mmol/L (3.5-5.1); Sodium 135 mmol/L (136-145)
[2020-06-10] MEDS: Aspirin 81 mg Enteric Coated Tablet PO SCH (08:24)
[2020-06-10] MEDS: Pantoprazole 40 MG GRANULES PACKET PO SCH (08:25)
[2020-06-10] MEDS: Amlodipine 5 MG TAB PO SCH (08:25)
[2020-06-10] MEDS: Sotalol HCl 80 MG TAB PO SCH ×2 (08:25→20:34)
[2020-06-10] MEDS: Fish Oil 1,000 MG CAP PO SCH (08:25)
[2020-06-10] MEDS: HumuLIN 70/30 (300 UNITS/3 ML VIAL) SC SCH (08:26)
[2020-06-10] MEDS: Enoxaparin Sodium 30 MG/0.3 ML SYRINGE SC SCH (08:26)
[2020-06-10] MEDS: Clopidogrel Bisulfate 75 MG TAB PO SCH (08:26)
[2020-06-10] MEDS: Carvedilol 6.25 MG TAB PO SCH ×2 (08:26→20:34)
[2020-06-10] MEDS: Torsemide 20 MG TAB PO SCH (08:28)
[2020-06-10] MEDS: Atorvastatin Calcium 40 MG TAB PO SCH (20:34)
[2020-06-10 21:02] VITALS: TEMP 98.4
[2020-06-11] MEDS: CEFAZOLIN 2 GM in Premix Bag 1 BAG IVPB SCH (06:07)
[2020-06-11] MEDS: Levothyroxine Sodium 125 MCG TAB PO SCH (06:08)
[2020-06-11] MEDS: Carvedilol 6.25 MG TAB PO SCH (06:41)
[2020-06-11] MEDS ORDERED: Fentanyl 100 MCG/2 ML VIAL ONE (06:46)
[2020-06-11] MEDS ORDERED: Midazolam HCl 2 mg/2 ml Vial ONE (06:46)
[2020-06-11] MEDS ORDERED: Lidocaine 2% w/Epinephrine 1:200K 20 ML VIAL ONE (06:47)
[2020-06-11] MEDS ORDERED: Bupivacaine 0.25% HCL 30 ML VIAL ONE (06:47)
[2020-06-11] MEDS ORDERED: Sodium Chloride 0.9% 0 ML ONE (06:47)
[2020-06-11] MEDS ORDERED: Heparin 10,000 UNITS/ 10 ML VIAL ONE (06:47)
[2020-06-11] MEDS ORDERED: Meperidine HCl/PF 25 MG/ML VIAL ONE (07:20)
[2020-06-11] MEDS ORDERED: PROPOFOL 200 MG/20 ML VIAL ONE (07:59)
[2020-06-11] MEDS ORDERED: HYDROcodone/Acetaminophen 7.5/325 mg Tablet PO PRN (08:24)
[2020-06-11] MEDS: Enoxaparin Sodium 30 MG/0.3 ML SYRINGE SC SCH (09:56)
[2020-06-11] MEDS: Fish Oil 1,000 MG CAP PO SCH (09:56)
[2020-06-11] MEDS: Amlodipine 5 MG TAB PO SCH (09:56)
[2020-06-11] MEDS: Pantoprazole 40 MG GRANULES PACKET PO SCH (09:56)
[2020-06-11] MEDS: Aspirin 81 mg Enteric Coated Tablet PO SCH (09:56)
[2020-06-11] MEDS: Clopidogrel Bisulfate 75 MG TAB PO SCH (09:56)
[2020-06-11] MEDS: HumuLIN 70/30 (300 UNITS/3 ML VIAL) SC SCH (09:58)
[2020-06-11] MEDS: Sotalol HCl 80 MG TAB PO SCH (10:06)
[2020-06-11] MEDS: Torsemide 20 MG TAB PO SCH (10:06)
[2020-06-11 11:59] VITALS: BP 162/74
== END 2020-06-11 14:53 | disposition home or self-care (01) | DRG 853 ==
LOC: ERS 12:53 → T4-A 16:16
PROVIDERS: ADMIT Internal Medicine; ATTEND Hospitalist
PROC: 0Y6S0Z1 Detachment at Left 2nd Toe, High, Open Approach (ICD-10-PCS; principal; 2020-06-06)
PROC: 0JH60WZ Insertion of Totally Implantable Vascular Access Device into Chest Subcutaneous Tissue and Fascia, Open Approach (ICD-10-PCS; 2020-06-11)
PROC: 02HV33Z Insertion of Infusion Device into Superior Vena Cava, Percutaneous Approach (ICD-10-PCS; 2020-06-11)
PROC: B518ZZA Fluoroscopy of Superior Vena Cava, Guidance (ICD-10-PCS; 2020-06-11)
DX: A41.02 Sepsis due to Methicillin resistant Staphylococcus aureus (principal); G93.41 Metabolic encephalopathy; M86.8X7 Other osteomyelitis, ankle and foot; I13.0 Hypertensive heart and chronic kidney disease with heart failure and stage 1 through stage 4 chronic kidney disease, or unspecified chronic kidney disease; Z68.41 Body mass index [BMI] 40.0-44.9, adult; L03.115 Cellulitis of right lower limb; T82.7XXA Infection and inflammatory reaction due to other cardiac and vascular devices, implants and grafts, initial encounter; L03.032 Cellulitis of left toe; Z20.822 Contact with and (suspected) exposure to COVID-19; I25.10 Atherosclerotic heart disease of native coronary artery without angina pectoris; N18.30 Chronic kidney disease, stage 3 unspecified; E11.22 Type 2 diabetes mellitus with diabetic chronic kidney disease; I87.2 Venous insufficiency (chronic) (peripheral); E11.621 Type 2 diabetes mellitus with foot ulcer; L97.529 Non-pressure chronic ulcer of other part of left foot with unspecified severity; E11.69 Type 2 diabetes mellitus with other specified complication; E03.9 Hypothyroidism, unspecified; E78.5 Hyperlipidemia, unspecified; E78.00 Pure hypercholesterolemia, unspecified; I50.9 Heart failure, unspecified; E66.9 Obesity, unspecified; I25.5 Ischemic cardiomyopathy; E11.40 Type 2 diabetes mellitus with diabetic neuropathy, unspecified; R82.71 Bacteriuria; E11.51 Type 2 diabetes mellitus with diabetic peripheral angiopathy without gangrene; Y83.1 Surgical operation with implant of artificial internal device as the cause of abnormal reaction of the patient, or of later complication, without mention of misadventure at the time of the procedure; Z28.21 Immunization not carried out because of patient refusal; Z95.1 Presence of aortocoronary bypass graft; I25.2 Old myocardial infarction; Z95.5 Presence of coronary angioplasty implant and graft; Z90.49 Acquired absence of other specified parts of digestive tract; Z90.710 Acquired absence of both cervix and uterus; Z95.2 Presence of prosthetic heart valve; Z79.899 Other long term (current) drug therapy; Z79.82 Long term (current) use of aspirin; Z79.890 Hormone replacement therapy; Z95.0 Presence of cardiac pacemaker
CPT/HCPCS: 36415; 36416; 71045; 80048; 80053; 80306; 80307; 81003; 81015; 82010; 82728; 83036; 83605; 84443; 84484; 85025; 85652; 86140; 87040; 87070; 87077; 87086; 87149; 87186; 87205; 87635; 88305; 88311; 93005; 93312; 96365; 96375; C1751; C1788; J0690; J0692; J1642; J1644; J1650; J1815; J2175; J2250; J2704; J3010; J3370; J3490; S0020; U0003; U0005

== ENCOUNTER 2020-06-14 11:45 | Inpatient (IN) | payer MEDICARE ==
[2020-06-14] MEDS ORDERED: Cefepime 2 GM in Sodium Chloride 0.9% 100 ML IVPB SCH (14:00)
[2020-06-14] MEDS ORDERED: VANCOMYCIN 2 GRAM/400 ML BAG 2 GM in Premix Bag 1 BAG IVPB SCH (14:00)
[2020-06-14] MEDS ORDERED: Cefepime 2 GM VIAL ONE (14:01)
[2020-06-14 14:39] LABS: #Basophils 0.1 thou/uL (0.0-0.2); #Eosinphils 0.5 thou/uL (0.0-0.7); #Lymphocytes 0.9 thou/uL (1.20-3.40); #Monocytes 0.6 thou/uL (0.11-0.59); #Neutrophils 7.5 thou/uL (1.40-6.50); %Basophils 0.6 % (0.0-1.0); %Lymphocytes 9.4 % (21.0-51.0); %Monocytes 6.3 % (0.0-10.0); %Neutrophils 78.7 % (42.0-75.0); Hemoglobin 8.3 g/dL (12.0-16.0); Mean Corpuscular HGB CONC 31.8 g/dL (32.0-36.0); Mean Corpuscular Hemoglobin 26.9 pg (27.0-31.0); Mean Corpuscular Volume 84.7 fL (78.0-98.0); Mean Platelet Volume 9.2 fL (7.4-10.4); Platelet Count 354 thou/uL (130-400); RBC Distribution Width 20.4 % (11.5-14.5); Red Blood Cell (RBC) Count 3.09 mill/uL (4.20-5.40); White Blood Cell (WBC) Count 9.5 thou/uL (4.8-10.8)
[2020-06-14 15:00] LABS: ALT (SGPT) Less than 7 U/L (8-55); AST (SGOT) 20 U/L (5-34); Albumin 3.4 g/dL (3.4-4.8); Alkaline Phosphatase 93 U/L (40-110); Anion Gap 18 mmol/L (10-20); BUN (Urea Nitrogen) 38 mg/dL (9.8-20.1); Bilirubin, Total 0.3 mg/dL (0.2-1.2); Calc. Creatinine Clearance 52 mL/min (70-130); Calcium 8.8 mg/dL (7.8-10.44); Carbon Dioxide 24 mmol/L (23-31); Chloride 103 mmol/L (98-107); Globulin 3.9 g/dL (2.4-3.5); Glucose 221 mg/dL (83-110); Potassium 4.5 mmol/L (3.5-5.1); Protein, Total 7.3 g/dL (5.8-8.1); Sodium 140 mmol/L (136-145)
[2020-06-14 15:17] LABS: Bilirubin Negative (Negative); Blood, Urine Negative (Negative); Clarity Clear (Clear); Glucose, Urine (Dipstick) Normal (Negative); Ketone, Urine Negative (Negative); Leukocyte Negative Leu/uL (Negative); Nitrite Negative (Negative); Protein, Urine (Dipstick) 20 mg/dL (Neg-Trace); Specific Gravity, Urine 1.012 (1.002-1.036); Urobilinogen Normal mg/dL (Less than 2)
[2020-06-14 17:29] VITALS: BMI 39.0
[2020-06-14] MEDS ORDERED: Ondansetron ODT 4 MG TAB SL PRN (18:00)
[2020-06-14] MEDS ORDERED: Ondansetron PF 4 MG/2 ML Vial IVP PRN (18:00)
[2020-06-14] MEDS ORDERED: cloNIDine 0.1 MG TAB PO PRN (18:33)
[2020-06-14] MEDS ORDERED: Senokot S 8.6-50 MG TAB PO PRN (18:47)
[2020-06-14] MEDS ORDERED: Dextrose 50% Abboject 50 ML SYRINGE SLOW IVP PRN (18:53)
[2020-06-14] MEDS ORDERED: Dextrose 5% in Water 1,000 ML IV PRN (18:53)
[2020-06-14] MEDS: Atorvastatin Calcium 40 MG TAB PO SCH (20:49)
[2020-06-14] MEDS: Acetaminophen 325 MG TAB PO PRN (20:49)
[2020-06-14] MEDS: Carvedilol 6.25 MG TAB PO SCH (20:49)
[2020-06-15] MEDS: Acetaminophen 325 MG TAB PO PRN ×4 (03:11→21:00)
[2020-06-15] MEDS: Levothyroxine Sodium 125 MCG TAB PO SCH (05:39)
[2020-06-15 06:27] LABS: Band 1 % (5-11); Eosinophils 2 % (0-10); Hemoglobin 7.8 g/dL (12.0-16.0); Hypochromia SLIGHT = 6-15 cells (100X) (0-5/hpf); Lymphocytes 16 % (21-51); MDiff Complete? YES; Mean Corpuscular HGB CONC 30.4 g/dL (32.0-36.0); Mean Corpuscular Hemoglobin 25.6 pg (27.0-31.0); Mean Corpuscular Volume 84.2 fL (78.0-98.0); Mean Platelet Volume 9.4 fL (7.4-10.4); Monocytes 2 % (0-10); Neutrophil 79 % (42-75); Platelet Count 355 thou/uL (130-400); Platelet Morphology Comment Appears Adequate; RBC Distribution Width 20.8 % (11.5-14.5); Red Blood Cell (RBC) Count 3.05 mill/uL (4.20-5.40)
[2020-06-15 06:41] LABS: ALT (SGPT) Less than 7 U/L (8-55); AST (SGOT) 18 U/L (5-34); Albumin 3.2 g/dL (3.4-4.8); Alkaline Phosphatase 79 U/L (40-110); Anion Gap 17 mmol/L (10-20); BUN (Urea Nitrogen) 34 mg/dL (9.8-20.1); Bilirubin, Total 0.4 mg/dL (0.2-1.2); CRP (Inflammatory) 8.83 mg/dL (= or < 0.5); Calc. Creatinine Clearance 58 mL/min (70-130); Carbon Dioxide 22 mmol/L (23-31); Chloride 105 mmol/L (98-107); Globulin 3.7 g/dL (2.4-3.5); Glucose 150 mg/dL (83-110); Protein, Total 6.9 g/dL (5.8-8.1); Sodium 140 mmol/L (136-145)
[2020-06-15] MEDS: Fish Oil 1,000 MG CAP PO SCH (09:45)
[2020-06-15] MEDS: Amlodipine 5 MG TAB PO SCH (09:46)
[2020-06-15] MEDS: Aspirin 81 mg Enteric Coated Tablet PO SCH (09:46)
[2020-06-15] MEDS: Carvedilol 6.25 MG TAB PO SCH ×2 (09:49→20:31)
[2020-06-15] MEDS: hydrALAZINE 25 MG TAB PO SCH (09:49)
[2020-06-15] MEDS: Multivitamin W/ Minerals 1 TAB PO SCH (09:50)
[2020-06-15] MEDS: Pantoprazole 40 MG GRANULES PACKET PO SCH ×2 (09:50→09:56)
[2020-06-15] MEDS: Torsemide 20 MG TAB PO SCH (09:50)
[2020-06-15] MEDS: HumuLIN 70/30 (300 UNITS/3 ML VIAL) SC SCH (09:53)
[2020-06-15] MEDS: Clopidogrel Bisulfate 75 MG TAB PO SCH (09:53)
[2020-06-15] MEDS ORDERED: Sodium Chloride 0.9% 1,000 ML IV SCH (10:00)
[2020-06-15] MEDS ORDERED: Cefepime 2 GM in Sodium Chloride 0.9% 100 ML IVPB SCH (15:00)
[2020-06-15] MEDS: HumaLOG 300 UNITS/3 ML VIAL SC PRN (16:00)
[2020-06-15] MEDS ORDERED: Vancomycin HCl 1.25 GM in Sodium Chloride 0.9% 250 ML 250 ML IVPB SCH (16:00)
[2020-06-15] MEDS: Atorvastatin Calcium 40 MG TAB PO SCH (20:30)
[2020-06-15] MEDS: CEFAZOLIN 2 GM in Premix Bag 1 BAG IVPB SCH (20:31)
[2020-06-15] MEDS ORDERED: CEFAZOLIN 2 GM in Premix Bag 1 BAG IVPB SCH (22:00)
[2020-06-16] MEDS: Acetaminophen 325 MG TAB PO PRN (06:29)
[2020-06-16] MEDS: Carvedilol 6.25 MG TAB PO SCH ×2 (06:29→20:46)
[2020-06-16] MEDS: Levothyroxine Sodium 125 MCG TAB PO SCH (06:29)
[2020-06-16] MEDS ORDERED: Bupivacaine PF 0.5% 30 ML VIAL ONE (07:27)
[2020-06-16] MEDS ORDERED: Neomycin-Polymyxin 1 ML AMP ONE (07:27)
[2020-06-16] MEDS ORDERED: Insulin Regular 300 UNITS/3 ML VIAL ONE (08:02)
[2020-06-16] MEDS ORDERED: Metoclopramide HCl 10 MG/2 ML VIAL ONE (08:05)
[2020-06-16] MEDS ORDERED: Lidocaine 1% PF 5 ML VIAL ONE (08:05)
[2020-06-16] MEDS ORDERED: PROPOFOL 200 MG/20 ML VIAL ONE (08:05)
[2020-06-16] MEDS ORDERED: Ondansetron PF 4 MG/2 ML Vial ONE (08:05)
[2020-06-16] MEDS ORDERED: Fentanyl 100 MCG/2 ML VIAL ONE (08:21)
[2020-06-16] MEDS ORDERED: Promethazine HCl 25 MG/ML VIAL IM PRN (08:46)
[2020-06-16] MEDS ORDERED: Promethazine HCl 25 MG/ML VIAL SLOW IVP PRN (08:46)
[2020-06-16] MEDS ORDERED: Morphine Sulfate 2 MG/ML SYRINGE SLOW IVP PRN (08:46)
[2020-06-16] MEDS ORDERED: PACU-Morphine 4MG/ML VIAL SLOW IVP PRN (08:46)
[2020-06-16] MEDS ORDERED: HYDROmorphone 2 MG/ML VIAL SLOW IVP PRN (08:46)
[2020-06-16] MEDS ORDERED: Ondansetron HCl/PF 4 MG/2 ML Vial IVP PRN (08:46)
[2020-06-16 09:12] LABS: SARS-CoV-2 PCR by NAA Not Detected (NotDetected)
[2020-06-16] MEDS: Clopidogrel Bisulfate 75 MG TAB PO SCH (10:47)
[2020-06-16] MEDS: Aspirin 81 mg Enteric Coated Tablet PO SCH (10:49)
[2020-06-16] MEDS: hydrALAZINE 25 MG TAB PO SCH (10:50)
[2020-06-16] MEDS: Fish Oil 1,000 MG CAP PO SCH (10:50)
[2020-06-16] MEDS: Multivitamin W/ Minerals 1 TAB PO SCH (10:54)
[2020-06-16] MEDS: Torsemide 20 MG TAB PO SCH (10:55)
[2020-06-16] MEDS: Amlodipine 5 MG TAB PO SCH (10:55)
[2020-06-16] MEDS: HumuLIN 70/30 (300 UNITS/3 ML VIAL) SC SCH (10:56)
[2020-06-16] MEDS: CEFAZOLIN 2 GM in Premix Bag 1 BAG IVPB SCH ×2 (10:57→20:47)
[2020-06-16] MEDS: HumaLOG 300 UNITS/3 ML VIAL SC PRN ×3 (12:59→20:53)
[2020-06-16] MEDS: HYDROcodone/Acetaminophen 5/325 mg Tablet PO PRN ×2 (16:25→20:47)
[2020-06-16] MEDS: Atorvastatin Calcium 40 MG TAB PO SCH (20:46)
[2020-06-17] MEDS: Levothyroxine Sodium 125 MCG TAB PO SCH (05:32)
[2020-06-17] MEDS: Multivitamin W/ Minerals 1 TAB PO SCH (08:20)
[2020-06-17] MEDS: Amlodipine 5 MG TAB PO SCH (08:20)
[2020-06-17] MEDS: Torsemide 20 MG TAB PO SCH (08:20)
[2020-06-17] MEDS: Aspirin 81 mg Enteric Coated Tablet PO SCH (08:20)
[2020-06-17] MEDS: Fish Oil 1,000 MG CAP PO SCH (08:20)
[2020-06-17] MEDS: Carvedilol 6.25 MG TAB PO SCH ×2 (08:21→20:08)
[2020-06-17] MEDS: hydrALAZINE 25 MG TAB PO SCH (08:21)
[2020-06-17] MEDS: Clopidogrel Bisulfate 75 MG TAB PO SCH (08:21)
[2020-06-17] MEDS: CEFAZOLIN 2 GM in Premix Bag 1 BAG IVPB SCH ×2 (08:22→20:08)
[2020-06-17] MEDS: HYDROcodone/Acetaminophen 5/325 mg Tablet PO PRN (08:24)
[2020-06-17] MEDS: HumuLIN 70/30 (300 UNITS/3 ML VIAL) SC SCH ×2 (08:25→10:06)
[2020-06-17] MEDS ORDERED: HumuLIN 70/30 (300 UNITS/3 ML VIAL) SC SCH (10:00)
[2020-06-17] MEDS: HumaLOG 300 UNITS/3 ML VIAL SC PRN ×2 (13:15→17:30)
[2020-06-17] MEDS: Atorvastatin Calcium 40 MG TAB PO SCH (20:07)
[2020-06-18] MEDS: Levothyroxine Sodium 125 MCG TAB PO SCH (06:30)
[2020-06-18] MEDS: Torsemide 20 MG TAB PO SCH (08:54)
[2020-06-18] MEDS: hydrALAZINE 25 MG TAB PO SCH (08:54)
[2020-06-18] MEDS: Fish Oil 1,000 MG CAP PO SCH (08:55)
[2020-06-18] MEDS: Multivitamin W/ Minerals 1 TAB PO SCH (08:55)
[2020-06-18] MEDS: Aspirin 81 mg Enteric Coated Tablet PO SCH (08:55)
[2020-06-18] MEDS: Carvedilol 6.25 MG TAB PO SCH (08:55)
[2020-06-18] MEDS: Clopidogrel Bisulfate 75 MG TAB PO SCH (08:55)
[2020-06-18] MEDS: Amlodipine 5 MG TAB PO SCH (08:56)
[2020-06-18] MEDS: CEFAZOLIN 2 GM in Premix Bag 1 BAG IVPB SCH (08:57)
[2020-06-18] MEDS ORDERED: HumuLIN 70/30 (300 UNITS/3 ML VIAL) SC SCH (09:00)
[2020-06-18 12:09] VITALS: BP 148/64; TEMP 98.2
[2020-06-21] MEDS ORDERED: Metolazone 5 MG TAB PO SCH (09:00)
== END 2020-06-18 13:19 | disposition home health service (06) | DRG 638 ==
LOC: ERS 11:45 → T4-B 16:09
PROVIDERS: ADMIT Internal Medicine; ATTEND Internal Medicine
PROC: 0HBNXZZ Excision of Left Foot Skin, External Approach (ICD-10-PCS; principal; 2020-06-16)
DX: E11.628 Type 2 diabetes mellitus with other skin complications (principal); L02.612 Cutaneous abscess of left foot; M86.671 Other chronic osteomyelitis, right ankle and foot; Z20.822 Contact with and (suspected) exposure to COVID-19; E11.22 Type 2 diabetes mellitus with diabetic chronic kidney disease; E88.09 Other disorders of plasma-protein metabolism, not elsewhere classified; N18.30 Chronic kidney disease, stage 3 unspecified; I25.10 Atherosclerotic heart disease of native coronary artery without angina pectoris; E78.5 Hyperlipidemia, unspecified; D63.1 Anemia in chronic kidney disease; E66.9 Obesity, unspecified; E55.9 Vitamin D deficiency, unspecified; E03.9 Hypothyroidism, unspecified; I87.2 Venous insufficiency (chronic) (peripheral); E66.01 Morbid (severe) obesity due to excess calories; E11.69 Type 2 diabetes mellitus with other specified complication; Z88.8 Allergy status to other drugs, medicaments and biological substances; Z79.899 Other long term (current) drug therapy; Z79.82 Long term (current) use of aspirin; Z79.02 Long term (current) use of antithrombotics/antiplatelets; Z79.4 Long term (current) use of insulin; Z89.422 Acquired absence of other left toe(s); Z68.39 Body mass index [BMI] 39.0-39.9, adult; Z95.0 Presence of cardiac pacemaker; Z95.2 Presence of prosthetic heart valve
CPT/HCPCS: 36415; 36416; 78315; 80053; 81003; 83605; 85007; 85025; 85027; 85652; 86140; 87040; 87070; 87205; 87635; 96365; 96367; A9503; J0690; J0692; J1642; J1815; J2405; J2704; J2765; J3010; J3370; J3490; S0020; U0003; U0005

== ENCOUNTER 2020-06-25 12:17 | Day surgery (SDC) | payer MEDICARE ==
[2020-06-25] MEDS ORDERED: diphenhydrAMINE 25 MG CAP PO SCH (13:15)
[2020-06-25] MEDS ORDERED: Acetaminophen 500 MG TAB PO SCH (13:15)
[2020-06-25] MEDS ORDERED: Sodium Chloride 0.9% 20 ML ONE (13:31)
[2020-06-25 18:59] VITALS: BP 190/84; TEMP 97.7
== END 2020-06-25 19:13 | disposition home or self-care (01) ==
LOC: ONC/OP 12:17
PROVIDERS: ATTEND Internal Medicine Hematology & Oncology
PROC: 30233N1 Transfusion of Nonautologous Red Blood Cells into Peripheral Vein, Percutaneous Approach (ICD-10-PCS; principal; 2020-06-25)
PROC: 30233R1 Transfusion of Nonautologous Platelets into Peripheral Vein, Percutaneous Approach (ICD-10-PCS; 2020-06-25)
DX: D64.9 Anemia, unspecified (principal); D69.6 Thrombocytopenia, unspecified; Z88.5 Allergy status to narcotic agent
CPT/HCPCS: 36430; 86850; 86900; 86901; P9016; Q0163

== ENCOUNTER 2021-06-30 19:30 | Outpatient (CLI) | payer MEDICARE | END 2021-06-30 19:31 | disposition home or self-care (01) | LOC: SLEEPLAB 19:30 | PROVIDERS: ATTEND Internal Medicine Critical Care Medicine | DX: G47.33 Obstructive sleep apnea (adult) (pediatric) (principal); R53.83 Other fatigue; G47.10 Hypersomnia, unspecified; E66.9 Obesity, unspecified; G47.52 REM sleep behavior disorder; Z68.38 Body mass index [BMI] 38.0-38.9, adult | CPT/HCPCS: 95811 ==

== ENCOUNTER 2021-11-04 05:38 | Inpatient (IN) | payer MEDICARE ==
[2021-11-04 06:39] LABS: #Basophils 0.1 thou/uL (0.0-0.2); #Eosinphils 0.4 thou/uL (0.0-0.7); #Lymphocytes 1.1 thou/uL (1.20-3.40); #Monocytes 0.7 thou/uL (0.11-0.59); #Neutrophils 6.3 thou/uL (1.40-6.50); %Basophils 0.6 % (0.0-1.0); %Eosinophils 4.2 % (0.0-10.0); %Lymphocytes 12.6 % (21.0-51.0); %Monocytes 8.5 % (0.0-10.0); %Neutrophils 74.1 % (42.0-75.0); Hemoglobin 10.8 g/dL (12.0-16.0); Mean Corpuscular HGB CONC 33.3 g/dL (32.0-36.0); Mean Corpuscular Hemoglobin 30.6 pg (27.0-31.0); Mean Platelet Volume 9.4 fL (7.4-10.4); Platelet Count 210 thou/uL (130-400); RBC Distribution Width 18.3 % (11.5-14.5); Red Blood Cell (RBC) Count 3.51 mill/uL (4.20-5.40); White Blood Cell (WBC) Count 8.5 thou/uL (4.8-10.8)
[2021-11-04 07:03] LABS: ALT (SGPT) 13 U/L (8-55); AST (SGOT) 15 U/L (5-34); Albumin 3.8 g/dL (3.4-4.8); Alkaline Phosphatase 94 U/L (40-110); Anion Gap 17 mmol/L (10-20); BUN (Urea Nitrogen) 38 mg/dL (9.8-20.1); Bilirubin, Total 0.6 mg/dL (0.2-1.2); Calc. Creatinine Clearance 0 mL/min (70-130); Calcium 8.6 mg/dL (7.8-10.44); Carbon Dioxide 24 mmol/L (23-31); Chloride 103 mmol/L (98-107); Estimated GFR 25; Globulin 2.3 g/dL (2.4-3.5); Glucose 235 mg/dL (83-110); Lipase 10 U/L (8-78); Protein, Total 6.1 g/dL (5.8-8.1); Sodium 140 mmol/L (136-145)
[2021-11-04 07:23] LABS: CKMB 2.4 ng/mL (0-6.6)
[2021-11-04] MEDS ORDERED: Nitroglycerin 2% Ointment 1 INCH/1 GM Packet ONE (07:36)
[2021-11-04] MEDS ORDERED: Dextrose 50% Abboject 50 ML SYRINGE SLOW IVP PRN ×2 (08:33→14:52)
[2021-11-04] MEDS ORDERED: Dextrose 5% in Water 1,000 ML IV PRN ×2 (08:33→14:52)
[2021-11-04] MEDS ORDERED: Aspirin 325 MG TAB PO SCH (08:45)
[2021-11-04 09:40] LABS: Troponin I 0.888 ng/mL (< 0.028)
[2021-11-04] MEDS ORDERED: Morphine 4 MG/ML VIAL ONE (09:41)
[2021-11-04] MEDS ORDERED: Morphine 4 MG/ML VIAL SLOW IVP SCH (11:00)
[2021-11-04 13:18] LABS: Troponin I 8.232 ng/mL (< 0.028)
[2021-11-04] MEDS ORDERED: Heparin 25,000 units/D5W 500 ML IVPB SCH (15:00)
[2021-11-04 16:05] LABS: Hemoglobin 10.5 g/dL (12.0-16.0); Platelet Count 211 thou/uL (130-400)
[2021-11-04] MEDS: Heparin 10,000 UNITS/ 10 ML VIAL SLOW IVP SCH ×2 (17:08→21:49)
[2021-11-04] MEDS: Carvedilol 6.25 MG TAB PO SCH (17:17)
[2021-11-04 18:14] LABS: Troponin I 36.236 ng/mL (< 0.028)
[2021-11-04] MEDS: Atorvastatin Calcium 40 MG TAB PO SCH (21:41)
[2021-11-04] MEDS: Isosorbide Dinitrate 20 MG TAB PO SCH (21:41)
[2021-11-04] MEDS: HumaLOG 300 UNITS/3 ML VIAL SC PRN (22:06)
[2021-11-04] MEDS ORDERED: Benzonatate 100 MG CAP PO PRN (23:57)
[2021-11-05] MEDS: HumaLOG 300 UNITS/3 ML VIAL SC PRN ×3 (06:31→20:31)
[2021-11-05] MEDS: Carvedilol 6.25 MG TAB PO SCH ×2 (08:40→17:41)
[2021-11-05] MEDS: Isosorbide Dinitrate 20 MG TAB PO SCH ×2 (08:40→20:12)
[2021-11-05] MEDS: Aspirin Chewable 81 MG TAB PO SCH (08:40)
[2021-11-05] MEDS: Clopidogrel Bisulfate 75 MG TAB PO SCH (08:40)
[2021-11-05 09:12] LABS: Critical Call Chem Troponin I RESULT DECREASING; Troponin I 29.384 ng/mL (< 0.028)
[2021-11-05 10:58] VITALS: BMI 33.3
[2021-11-05] MEDS ORDERED: Electrolyte Replacement Protocol FS PRN (14:30)
[2021-11-05 15:10] LABS: #Basophils 0.1 thou/uL (0.0-0.2); #Eosinphils 0.3 thou/uL (0.0-0.7); #Lymphocytes 1.3 thou/uL (1.20-3.40); #Monocytes 0.7 thou/uL (0.11-0.59); #Neutrophils 5.3 thou/uL (1.40-6.50); %Basophils 0.7 % (0.0-1.0); %Eosinophils 4.4 % (0.0-10.0); %Lymphocytes 16.3 % (21.0-51.0); %Monocytes 8.8 % (0.0-10.0); %Neutrophils 69.8 % (42.0-75.0); Mean Corpuscular HGB CONC 32.4 g/dL (32.0-36.0); Mean Corpuscular Hemoglobin 30.3 pg (27.0-31.0); Mean Corpuscular Volume 93.6 fL (78.0-98.0); Mean Platelet Volume 9.6 fL (7.4-10.4); Platelet Count 201 thou/uL (130-400); RBC Distribution Width 18.3 % (11.5-14.5); Red Blood Cell (RBC) Count 3.62 mill/uL (4.20-5.40); White Blood Cell (WBC) Count 7.7 thou/uL (4.8-10.8)
[2021-11-05] MEDS ORDERED: HumaLOG 300 UNITS/3 ML VIAL SC PRN (16:51)
[2021-11-05] MEDS ORDERED: Insulin Glargine 30 UNITS/0.3 ML VIAL SC SCH (17:00)
[2021-11-05 17:21] LABS: Critical Call Chem Troponin I RESULT DECREASING
[2021-11-05 18:08] LABS: Anion Gap 17 mmol/L (10-20); BUN (Urea Nitrogen) 37 mg/dL (9.8-20.1); Calc. Creatinine Clearance 34 mL/min (70-130); Calcium 9.1 mg/dL (7.8-10.44); Carbon Dioxide 22 mmol/L (23-31); Chloride 100 mmol/L (98-107); Estimated GFR 25; Glucose 243 mg/dL (83-110); Magnesium 1.8 mg/dL (1.6-2.6); Potassium 4.4 mmol/L (3.5-5.1); Sodium 135 mmol/L (136-145)
[2021-11-05 18:41] LABS: CKMB 37.9 ng/mL (0-6.6)
[2021-11-05] MEDS: Atorvastatin Calcium 40 MG TAB PO SCH (20:12)
[2021-11-05] MEDS: Heparin 5,000 UNITS/ML VIAL SC SCH (20:12)
[2021-11-05] MEDS ORDERED: Magnesium 2 GM/50 ML(in water) 2 GM in Premix Bag 1 BAG IVPB SCH (22:00)
[2021-11-06] MEDS ORDERED: Levothyroxine Sodium 125 MCG TAB PO SCH (06:00)
[2021-11-06] MEDS: Carvedilol 6.25 MG TAB PO SCH (08:14)
[2021-11-06] MEDS: Clopidogrel Bisulfate 75 MG TAB PO SCH (08:14)
[2021-11-06] MEDS: Aspirin Chewable 81 MG TAB PO SCH (08:14)
[2021-11-06] MEDS: Isosorbide Dinitrate 20 MG TAB PO SCH (08:14)
[2021-11-06] MEDS: Heparin 5,000 UNITS/ML VIAL SC SCH (08:15)
[2021-11-06 08:38] VITALS: TEMP 99
[2021-11-06] MEDS ORDERED: INTRINSIC FACT PO SCH (09:00)
[2021-11-06] MEDS ORDERED: VIT B12 PO SCH (09:00)
[2021-11-06] MEDS ORDERED: Insulin Glargine 30 UNITS/0.3 ML VIAL SC SCH (09:00)
[2021-11-06] MEDS ORDERED: FOLATE PO SCH (09:00)
[2021-11-06 10:59] VITALS: BP 143/64
== END 2021-11-06 11:50 | disposition home health service (06) | DRG 281 ==
LOC: ERS 05:38 → ERHOLD 07:57 → 2SW 15:55 → OBSVTOIN 11-05 14:12
PROVIDERS: ADMIT Internal Medicine; ATTEND Internal Medicine
DX: I21.4 Non-ST elevation (NSTEMI) myocardial infarction (principal); I13.0 Hypertensive heart and chronic kidney disease with heart failure and stage 1 through stage 4 chronic kidney disease, or unspecified chronic kidney disease; N18.4 Chronic kidney disease, stage 4 (severe); N17.9 Acute kidney failure, unspecified; R07.9 Chest pain, unspecified; Z20.822 Contact with and (suspected) exposure to COVID-19; I25.10 Atherosclerotic heart disease of native coronary artery without angina pectoris; E78.5 Hyperlipidemia, unspecified; E66.9 Obesity, unspecified; E11.22 Type 2 diabetes mellitus with diabetic chronic kidney disease; D63.1 Anemia in chronic kidney disease; E83.42 Hypomagnesemia; E03.9 Hypothyroidism, unspecified; Z90.49 Acquired absence of other specified parts of digestive tract; Z89.422 Acquired absence of other left toe(s); I25.2 Old myocardial infarction; Z95.1 Presence of aortocoronary bypass graft; Z95.2 Presence of prosthetic heart valve; Z95.0 Presence of cardiac pacemaker; Z79.82 Long term (current) use of aspirin; Z88.8 Allergy status to other drugs, medicaments and biological substances; Z79.02 Long term (current) use of antithrombotics/antiplatelets; Z79.899 Other long term (current) drug therapy; Z79.4 Long term (current) use of insulin; Z79.890 Hormone replacement therapy; Z68.33 Body mass index [BMI] 33.0-33.9, adult; Z90.710 Acquired absence of both cervix and uterus
CPT/HCPCS: 36415; 36416; 71045; 80048; 80053; 82553; 83690; 83735; 83880; 84484; 85025; 85730; 93005; 93798; 94760; 96374; 96375; 96376; G0378; J1644; J1815; J2270; J3475; U0003; U0005

== ENCOUNTER 2022-02-23 14:52 | Emergency (ER) | payer OTHER, MEDICARE ==
[2022-02-23] MEDS ORDERED: Boostrix 0.5 ML (Tdap) VIAL (>/=7 yrs of age) ONE (15:25)
[2022-02-23] MEDS ORDERED: Lidocaine 1% w/Epinephrine 1:100K 20 ML VIAL ONE (16:15)
== END 2022-02-23 17:34 | disposition home or self-care (01) ==
LOC: ERS 14:52
DX: S01.81XA Laceration without foreign body of other part of head, initial encounter (principal); S80.02XA Contusion of left knee, initial encounter; I11.0 Hypertensive heart disease with heart failure; I50.9 Heart failure, unspecified; E11.9 Type 2 diabetes mellitus without complications; Z79.4 Long term (current) use of insulin; E78.00 Pure hypercholesterolemia, unspecified; Z79.899 Other long term (current) drug therapy; Z79.82 Long term (current) use of aspirin; W01.10XA Fall on same level from slipping, tripping and stumbling with subsequent striking against unspecified object, initial encounter
CPT/HCPCS: 12001; 70450; 72125; 72220; 90471; 90715

== ENCOUNTER 2022-03-02 13:42 | Emergency (ER) | payer MEDICARE | END 2022-03-02 14:08 | disposition home or self-care (01) | LOC: ERS 13:42 | DX: S01.81XD Laceration without foreign body of other part of head, subsequent encounter (principal); I11.0 Hypertensive heart disease with heart failure; I50.9 Heart failure, unspecified; E03.9 Hypothyroidism, unspecified; E78.00 Pure hypercholesterolemia, unspecified; E11.9 Type 2 diabetes mellitus without complications; W19.XXXD Unspecified fall, subsequent encounter; Z79.82 Long term (current) use of aspirin; Z79.899 Other long term (current) drug therapy; Z79.4 Long term (current) use of insulin ==

== ENCOUNTER 2022-04-18 09:36 | Emergency (ER) | payer OTHER, MEDICARE ==
[2022-04-18 10:52] LABS: #Eosinphils 0.1 thou/uL (0.0-0.7); #Lymphocytes 1.1 thou/uL (1.20-3.40); #Monocytes 0.6 thou/uL (0.11-0.59); #Neutrophils 8.4 thou/uL (1.40-6.50); %Basophils 0.3 % (0.0-1.0); %Eosinophils 1.3 % (0.0-10.0); %Lymphocytes 10.4 % (21.0-51.0); %Monocytes 5.8 % (0.0-10.0); %Neutrophils 82.3 % (42.0-75.0); Hemoglobin 13.7 g/dL (12.0-16.0); Mean Corpuscular HGB CONC 31.5 g/dL (32.0-36.0); Mean Corpuscular Hemoglobin 28.4 pg (27.0-31.0); Mean Corpuscular Volume 90.2 fl (78.0-98.0); Platelet Count 227 10x3/uL (130-400); RBC Distribution Width 20.6 % (11.5-14.5); Red Blood Cell (RBC) Count 4.83 mill/uL (4.20-5.40); White Blood Cell (WBC) Count 10.2 10x3/uL (4.8-10.8)
[2022-04-18 11:13] LABS: ALT (SGPT) 15 U/L (8-55); AST (SGOT) 22 U/L (5-34); Alkaline Phosphatase 96 U/L (40-110); Anion Gap 20 mmol/L (10-20); BUN (Urea Nitrogen) 30 mg/dL (9.8-20.1); CK (CPK) 113 U/L (29-168); Calc. Creatinine Clearance 0 mL/min (70-130); Calcium 9.9 mg/dL (7.8-10.44); Carbon Dioxide 19 mmol/L (23-31); Chloride 96 mmol/L (98-107); Estimated GFR 26; Globulin 3.2 g/dL (2.4-3.5); Potassium 4.6 mmol/L (3.5-5.1); Protein, Total 7.2 g/dL (5.8-8.1); Sodium 130 mmol/L (136-145)
[2022-04-18 11:22] LABS: Glucose 437 mg/dL (83-110)
== END 2022-04-18 15:05 | disposition home or self-care (01) ==
LOC: ERS 09:36
DX: S00.83XA Contusion of other part of head, initial encounter (principal); S30.0XXA Contusion of lower back and pelvis, initial encounter; I13.2 Hypertensive heart and chronic kidney disease with heart failure and with stage 5 chronic kidney disease, or end stage renal disease; N18.9 Chronic kidney disease, unspecified; I50.9 Heart failure, unspecified; D63.1 Anemia in chronic kidney disease; E03.9 Hypothyroidism, unspecified; E78.5 Hyperlipidemia, unspecified; I25.2 Old myocardial infarction; Z79.01 Long term (current) use of anticoagulants; Z79.02 Long term (current) use of antithrombotics/antiplatelets; Z79.899 Other long term (current) drug therapy; Z79.4 Long term (current) use of insulin; W01.0XXA Fall on same level from slipping, tripping and stumbling without subsequent striking against object, initial encounter
CPT/HCPCS: 36415; 70450; 70486; 72100; 72125; 80053; 82550; 85025

== ENCOUNTER 2022-05-17 21:14 | Emergency (ER) | payer MEDICARE ==
[2022-05-17 21:51] LABS: #Eosinphils 0.3 thou/uL (0.0-0.7); #Lymphocytes 0.7 thou/uL (1.20-3.40); #Monocytes 0.6 thou/uL (0.11-0.59); %Basophils 0.2 % (0.0-1.0); %Eosinophils 2.9 % (0.0-10.0); %Lymphocytes 7.4 % (21.0-51.0); %Monocytes 6.4 % (0.0-10.0); Hemoglobin 10.2 g/dL (12.0-16.0); Mean Corpuscular Hemoglobin 28.1 pg (27.0-31.0); Mean Corpuscular Volume 87.8 fl (78.0-98.0); Mean Platelet Volume 10.5 fL (7.4-10.4); Platelet Count 221 10x3/uL (130-400); RBC Distribution Width 19.9 % (11.5-14.5); Red Blood Cell (RBC) Count 3.62 mill/uL (4.20-5.40); White Blood Cell (WBC) Count 9.7 10x3/uL (4.8-10.8)
[2022-05-17 22:11] LABS: ALT (SGPT) 18 U/L (8-55); AST (SGOT) 21 U/L (5-34); Albumin 3.8 g/dL (3.4-4.8); Alkaline Phosphatase 76 U/L (40-110); Anion Gap 20 mmol/L (10-20); BUN (Urea Nitrogen) 28 mg/dL (9.8-20.1); Bilirubin, Total 0.6 mg/dL (0.2-1.2); Calc. Creatinine Clearance 0 mL/min (70-130); Calcium 8.9 mg/dL (7.8-10.44); Carbon Dioxide 17 mmol/L (23-31); Chloride 102 mmol/L (98-107); Estimated GFR 33; Globulin 2.9 g/dL (2.4-3.5); Glucose 146 mg/dL (83-110); Potassium 5.1 mmol/L (3.5-5.1); Protein, Total 6.7 g/dL (5.8-8.1); Sodium 134 mmol/L (136-145)
[2022-05-17] MEDS ORDERED: Acetaminophen 500 MG TAB ONE (22:52)
[2022-05-17 23:49] LABS: SARS-CoV-2 NAA Rapid Test Not Detected (NotDetected)
[2022-05-17 23:57] LABS: Bacteria/HPF None Seen HPF (None Seen); Bilirubin Negative (Negative); Blood, Urine Negative (Negative); Clarity Clear (Clear); Glucose, Urine (Dipstick) Normal (Negative); Ketone, Urine Negative (Negative); Leukocyte 75 Leu/uL (Negative); Nitrite Negative (Negative); Protein, Urine (Dipstick) 10 mg/dL (Neg-Trace); RBC/HPF 0-3 HPF (0-3); Specific Gravity, Urine 1.012 (1.002-1.036); Squamous Epithelial 0-3 HPF (0-3); Urobilinogen Normal mg/dL (Less than 2)
== END 2022-05-18 00:46 | disposition home or self-care (01) ==
LOC: ERS 21:14
DX: Z71.1 Person with feared health complaint in whom no diagnosis is made (principal); Z20.822 Contact with and (suspected) exposure to COVID-19
CPT/HCPCS: 0240U; 70450; 71045; 80053; 83605; 85025; 87040; 87086; 93005; 36415; 81003; 81015

== ENCOUNTER 2022-05-20 10:14 | Inpatient (IN) | payer MEDICARE ==
[2022-05-20 11:25] LABS: #Eosinphils 0.2 thou/uL (0.0-0.7); #Lymphocytes 0.8 thou/uL (1.20-3.40); #Monocytes 0.5 thou/uL (0.11-0.59); #Neutrophils 3.7 thou/uL (1.40-6.50); %Basophils 0.7 % (0.0-1.0); %Eosinophils 4.2 % (0.0-10.0); %Lymphocytes 15.7 % (21.0-51.0); %Monocytes 9.9 % (0.0-10.0); %Neutrophils 69.5 % (42.0-75.0); Hemoglobin 9.4 g/dL (12.0-16.0); Mean Corpuscular Volume 87.4 fl (78.0-98.0); Mean Platelet Volume 10.2 fL (7.4-10.4); Platelet Count 235 10x3/uL (130-400); RBC Distribution Width 19.9 % (11.5-14.5); Red Blood Cell (RBC) Count 3.36 mill/uL (4.20-5.40); White Blood Cell (WBC) Count 5.4 10x3/uL (4.8-10.8)
[2022-05-20 11:45] LABS: ALT (SGPT) 18 U/L (8-55); AST (SGOT) 25 U/L (5-34); Albumin 3.7 g/dL (3.4-4.8); Alkaline Phosphatase 86 U/L (40-110); Anion Gap 14 mmol/L (10-20); BUN (Urea Nitrogen) 36 mg/dL (9.8-20.1); Bilirubin, Total 0.4 mg/dL (0.2-1.2); Calc. Creatinine Clearance 0 mL/min (70-130); Calcium 8.6 mg/dL (7.8-10.44); Carbon Dioxide 22 mmol/L (23-31); Chloride 104 mmol/L (98-107); Estimated GFR 26; Globulin 2.8 g/dL (2.4-3.5); Glucose 172 mg/dL (83-110); Magnesium 1.7 mg/dL (1.6-2.6); Potassium 4.1 mmol/L (3.5-5.1); Protein, Total 6.5 g/dL (5.8-8.1); Sodium 136 mmol/L (136-145)
[2022-05-20 12:08] LABS: CKMB 1.9 ng/mL (0-6.6)
[2022-05-20] MEDS ORDERED: Furosemide 40 MG/4 ML VIAL ONE (12:26)
[2022-05-20] MEDS ORDERED: cefTRIAXone (ROCEPHIN) 1 GM VIAL ONE (12:59)
[2022-05-20] MEDS ORDERED: Azithromycin 500 MG VIAL ONE (12:59)
[2022-05-20 13:55] LABS: Troponin I 0.035 ng/mL (< 0.028)
[2022-05-20] MEDS ORDERED: Senokot S 8.6-50 MG TAB PO PRN (13:57)
[2022-05-20] MEDS ORDERED: HumaLOG 300 UNITS/3 ML VIAL SC PRN (14:19)
[2022-05-20] MEDS ORDERED: Dextrose 5% in Water 1,000 ML IV PRN (14:19)
[2022-05-20] MEDS ORDERED: Dextrose 50% Abboject 50 ML SYRINGE SLOW IVP PRN (14:19)
[2022-05-20] MEDS ORDERED: Ondansetron PF 4 MG/2 ML Vial IVP PRN (14:40)
[2022-05-20 15:11] LABS: Lactic Acid 1.3 mmol/L (0.5-2.2)
[2022-05-20 18:15] LABS: Troponin I 0.037 ng/mL (< 0.028)
[2022-05-20] MEDS: Carvedilol 25 MG TAB PO SCH (20:52)
[2022-05-20] MEDS: Atorvastatin Calcium 40 MG TAB PO SCH (20:53)
[2022-05-20] MEDS: Heparin 5,000 UNITS/ML VIAL SC SCH (20:54)
[2022-05-20] MEDS: Insulin Glargine 30 UNITS/0.3 ML VIAL SC SCH (22:06)
[2022-05-20] MEDS ORDERED: GUAIFENESIN SF SOLN 200 MG/10 ML UDCUP PO PRN (23:35)
[2022-05-20] MEDS: Benzonatate 100 MG CAP PO PRN (23:41)
[2022-05-21 05:25] LABS: #Eosinphils 0.2 thou/uL (0.0-0.7); #Lymphocytes 1.2 thou/uL (1.20-3.40); #Monocytes 0.5 thou/uL (0.11-0.59); %Basophils 0.3 % (0.0-1.0); %Eosinophils 4.3 % (0.0-10.0); %Lymphocytes 24.4 % (21.0-51.0); %Monocytes 9.3 % (0.0-10.0); %Neutrophils 61.7 % (42.0-75.0); Hemoglobin 9.2 g/dL (12.0-16.0); Mean Corpuscular HGB CONC 31.9 g/dL (32.0-36.0); Mean Corpuscular Hemoglobin 28.3 pg (27.0-31.0); Mean Corpuscular Volume 88.5 fl (78.0-98.0); Mean Platelet Volume 10.1 fL (7.4-10.4); Platelet Count 221 10x3/uL (130-400); RBC Distribution Width 20.1 % (11.5-14.5); Red Blood Cell (RBC) Count 3.26 mill/uL (4.20-5.40); White Blood Cell (WBC) Count 4.8 10x3/uL (4.8-10.8)
[2022-05-21 05:29] LABS: Anion Gap 12 mmol/L (10-20); BUN (Urea Nitrogen) 33 mg/dL (9.8-20.1); Calc. Creatinine Clearance 35 mL/min (70-130); Calcium 8.5 mg/dL (7.8-10.44); Carbon Dioxide 24 mmol/L (23-31); Chloride 106 mmol/L (98-107); Estimated GFR 28; Glucose 107 mg/dL (83-110); Potassium 4.2 mmol/L (3.5-5.1); Sodium 138 mmol/L (136-145)
[2022-05-21] MEDS: Levothyroxine Sodium 125 MCG TAB PO SCH (06:06)
[2022-05-21] MEDS: Levothyroxine Sodium 25 MCG TAB PO SCH (06:06)
[2022-05-21] MEDS: Sertraline 25 MG TAB PO SCH (10:02)
[2022-05-21] MEDS: Carvedilol 25 MG TAB PO SCH ×2 (10:02→20:17)
[2022-05-21] MEDS: Furosemide 40 MG/4 ML VIAL SLOW IVP SCH (10:03)
[2022-05-21] MEDS: Aspirin 81 mg Enteric Coated Tablet PO SCH (10:03)
[2022-05-21] MEDS: Heparin 5,000 UNITS/ML VIAL SC SCH ×2 (10:03→20:18)
[2022-05-21] MEDS: Spironolactone 25 MG TAB PO SCH (10:03)
[2022-05-21] MEDS: Clopidogrel Bisulfate 75 MG TAB PO SCH (10:03)
[2022-05-21] MEDS ORDERED: cefTRIAXone\\ROCEPHIN 1 GM in Sodium Chloride 0.9% 100 ML IVPB SCH (13:00)
[2022-05-21] MEDS ORDERED: Azithromycin 500 MG in Sodium Chloride 0.9% 250 ML 250 ML IVPB SCH (14:00)
[2022-05-21] MEDS: Cefdinir 300 MG CAP PO SCH (20:16)
[2022-05-21] MEDS: Doxycycline 100 MG CAP PO SCH (20:16)
[2022-05-21] MEDS: Atorvastatin Calcium 40 MG TAB PO SCH (20:18)
[2022-05-21] MEDS: Insulin Glargine 30 UNITS/0.3 ML VIAL SC SCH (21:54)
[2022-05-21] MEDS: Acetaminophen 325 MG TAB PO PRN (23:23)
[2022-05-22] MEDS: Benzonatate 100 MG CAP PO PRN ×2 (01:55→20:50)
[2022-05-22 04:51] LABS: #Eosinphils 0.1 thou/uL (0.0-0.7); #Monocytes 0.4 thou/uL (0.11-0.59); #Neutrophils 3.6 thou/uL (1.40-6.50); %Basophils 0.2 % (0.0-1.0); %Eosinophils 2.3 % (0.0-10.0); %Lymphocytes 19.6 % (21.0-51.0); %Monocytes 7.1 % (0.0-10.0); %Neutrophils 70.7 % (42.0-75.0); Hemoglobin 9.4 g/dL (12.0-16.0); Mean Corpuscular HGB CONC 30.6 g/dL (32.0-36.0); Mean Corpuscular Hemoglobin 26.8 pg (27.0-31.0); Mean Corpuscular Volume 87.4 fl (78.0-98.0); Mean Platelet Volume 10.8 fL (7.4-10.4); Platelet Count 226 10x3/uL (130-400); RBC Distribution Width 20.3 % (11.5-14.5); Red Blood Cell (RBC) Count 3.51 mill/uL (4.20-5.40); White Blood Cell (WBC) Count 5.1 10x3/uL (4.8-10.8)
[2022-05-22 05:12] LABS: Anion Gap 11 mmol/L (10-20); BUN (Urea Nitrogen) 36 mg/dL (9.8-20.1); Calc. Creatinine Clearance 33 mL/min (70-130); Calcium 8.5 mg/dL (7.8-10.44); Carbon Dioxide 25 mmol/L (23-31); Chloride 104 mmol/L (98-107); Estimated GFR 27; Glucose 204 mg/dL (83-110); Potassium 4.4 mmol/L (3.5-5.1); Sodium 136 mmol/L (136-145)
[2022-05-22] MEDS: Levothyroxine Sodium 125 MCG TAB PO SCH (05:30)
[2022-05-22] MEDS: Levothyroxine Sodium 25 MCG TAB PO SCH (05:30)
[2022-05-22] MEDS: Carvedilol 25 MG TAB PO SCH ×2 (09:58→20:48)
[2022-05-22] MEDS: Spironolactone 25 MG TAB PO SCH (09:59)
[2022-05-22] MEDS: Heparin 5,000 UNITS/ML VIAL SC SCH ×2 (09:59→20:49)
[2022-05-22] MEDS: Sertraline 25 MG TAB PO SCH (09:59)
[2022-05-22] MEDS: Clopidogrel Bisulfate 75 MG TAB PO SCH (09:59)
[2022-05-22] MEDS: Aspirin 81 mg Enteric Coated Tablet PO SCH (09:59)
[2022-05-22] MEDS: Furosemide 40 MG/4 ML VIAL SLOW IVP SCH (09:59)
[2022-05-22] MEDS: Doxycycline 100 MG CAP PO SCH ×2 (10:00→20:49)
[2022-05-22] MEDS: Cefdinir 300 MG CAP PO SCH ×2 (12:49→20:49)
[2022-05-22] MEDS: Atorvastatin Calcium 40 MG TAB PO SCH (20:48)
[2022-05-22] MEDS: Insulin Glargine 30 UNITS/0.3 ML VIAL SC SCH (21:42)
[2022-05-23] MEDS: Acetaminophen 325 MG TAB PO PRN (03:29)
[2022-05-23] MEDS: Benzonatate 100 MG CAP PO PRN (03:29)
[2022-05-23] MEDS: Levothyroxine Sodium 25 MCG TAB PO SCH (05:54)
[2022-05-23] MEDS: Levothyroxine Sodium 125 MCG TAB PO SCH (05:54)
[2022-05-23 05:57] LABS: #Eosinphils 0.3 thou/uL (0.0-0.7); #Lymphocytes 1.2 thou/uL (1.20-3.40); #Monocytes 0.5 thou/uL (0.11-0.59); #Neutrophils 3.5 thou/uL (1.40-6.50); %Basophils 0.3 % (0.0-1.0); %Eosinophils 5.8 % (0.0-10.0); %Lymphocytes 21.1 % (21.0-51.0); %Monocytes 9.2 % (0.0-10.0); %Neutrophils 63.6 % (42.0-75.0); Hemoglobin 9.5 g/dL (12.0-16.0); Mean Corpuscular HGB CONC 32.4 g/dL (32.0-36.0); Mean Corpuscular Hemoglobin 28.5 pg (27.0-31.0); Mean Corpuscular Volume 87.8 fl (78.0-98.0); Mean Platelet Volume 10.4 fL (7.4-10.4); Platelet Count 223 10x3/uL (130-400); Red Blood Cell (RBC) Count 3.35 mill/uL (4.20-5.40); White Blood Cell (WBC) Count 5.5 10x3/uL (4.8-10.8)
[2022-05-23 06:20] LABS: Anion Gap 13 mmol/L (10-20); BUN (Urea Nitrogen) 34 mg/dL (9.8-20.1); Calc. Creatinine Clearance 37 mL/min (70-130); Calcium 8.4 mg/dL (7.8-10.44); Carbon Dioxide 22 mmol/L (23-31); Chloride 106 mmol/L (98-107); Estimated GFR 30; Glucose 159 mg/dL (83-110); Magnesium 1.7 mg/dL (1.6-2.6); Potassium 4.2 mmol/L (3.5-5.1); Sodium 137 mmol/L (136-145)
[2022-05-23] MEDS: Cefdinir 300 MG CAP PO SCH ×2 (08:51→20:03)
[2022-05-23] MEDS: Sertraline 25 MG TAB PO SCH (08:51)
[2022-05-23] MEDS: Clopidogrel Bisulfate 75 MG TAB PO SCH (08:51)
[2022-05-23] MEDS: Aspirin 81 mg Enteric Coated Tablet PO SCH (08:52)
[2022-05-23] MEDS: Doxycycline 100 MG CAP PO SCH ×2 (08:52→20:03)
[2022-05-23] MEDS: Heparin 5,000 UNITS/ML VIAL SC SCH ×2 (08:52→20:03)
[2022-05-23] MEDS: Furosemide 40 MG/4 ML VIAL SLOW IVP SCH (08:52)
[2022-05-23] MEDS: Carvedilol 25 MG TAB PO SCH ×2 (08:52→20:03)
[2022-05-23] MEDS: Spironolactone 25 MG TAB PO SCH (08:52)
[2022-05-23] MEDS: Atorvastatin Calcium 40 MG TAB PO SCH (20:03)
[2022-05-23] MEDS: Insulin Glargine 30 UNITS/0.3 ML VIAL SC SCH (20:08)
[2022-05-24 05:27] LABS: #Eosinphils 0.3 thou/uL (0.0-0.7); #Lymphocytes 1.3 thou/uL (1.20-3.40); #Monocytes 0.5 thou/uL (0.11-0.59); #Neutrophils 3.3 thou/uL (1.40-6.50); %Basophils 0.8 % (0.0-1.0); %Eosinophils 5.5 % (0.0-10.0); %Lymphocytes 24.3 % (21.0-51.0); %Monocytes 8.4 % (0.0-10.0); Hemoglobin 9.9 g/dL (12.0-16.0); Mean Corpuscular HGB CONC 32.7 g/dL (32.0-36.0); Mean Corpuscular Hemoglobin 28.5 pg (27.0-31.0); Mean Corpuscular Volume 87.2 fl (78.0-98.0); Mean Platelet Volume 10.2 fL (7.4-10.4); Platelet Count 248 10x3/uL (130-400); RBC Distribution Width 20.1 % (11.5-14.5); Red Blood Cell (RBC) Count 3.48 mill/uL (4.20-5.40); White Blood Cell (WBC) Count 5.5 10x3/uL (4.8-10.8)
[2022-05-24 05:47] LABS: Anion Gap 14 mmol/L (10-20); BUN (Urea Nitrogen) 34 mg/dL (9.8-20.1); Calc. Creatinine Clearance 41 mL/min (70-130); Calcium 8.9 mg/dL (7.8-10.44); Carbon Dioxide 23 mmol/L (23-31); Chloride 107 mmol/L (98-107); Estimated GFR 36; Glucose 93 mg/dL (83-110); Potassium 4.1 mmol/L (3.5-5.1); Sodium 140 mmol/L (136-145)
[2022-05-24] MEDS: Levothyroxine Sodium 25 MCG TAB PO SCH (06:08)
[2022-05-24] MEDS: Levothyroxine Sodium 125 MCG TAB PO SCH (06:09)
[2022-05-24 08:26] VITALS: BP 172/72; TEMP 97.3
[2022-05-24] MEDS: Cefdinir 300 MG CAP PO SCH (09:37)
[2022-05-24] MEDS: Doxycycline 100 MG CAP PO SCH (09:37)
[2022-05-24] MEDS: Sertraline 25 MG TAB PO SCH (09:37)
[2022-05-24] MEDS: Aspirin 81 mg Enteric Coated Tablet PO SCH (09:37)
[2022-05-24] MEDS: Spironolactone 25 MG TAB PO SCH (09:38)
[2022-05-24] MEDS: Carvedilol 25 MG TAB PO SCH (09:38)
[2022-05-24] MEDS: Clopidogrel Bisulfate 75 MG TAB PO SCH (09:38)
[2022-05-24] MEDS: Heparin 5,000 UNITS/ML VIAL SC SCH (09:39)
[2022-05-24] MEDS: Furosemide 40 MG/4 ML VIAL SLOW IVP SCH (09:39)
== END 2022-05-24 11:00 | disposition home or self-care (01) | DRG 280 ==
LOC: ERS 10:14 → 2SW 14:17 → OBSVTOIN 05-21 16:33
PROVIDERS: ADMIT Internal Medicine; ATTEND Internal Medicine
DX: I13.0 Hypertensive heart and chronic kidney disease with heart failure and stage 1 through stage 4 chronic kidney disease, or unspecified chronic kidney disease (principal); I50.33 Acute on chronic diastolic (congestive) heart failure; I21.A1 Myocardial infarction type 2; J18.9 Pneumonia, unspecified organism; J96.01 Acute respiratory failure with hypoxia; N17.9 Acute kidney failure, unspecified; I25.810 Atherosclerosis of coronary artery bypass graft(s) without angina pectoris; Z68.1 Body mass index [BMI] 19.9 or less, adult; I48.92 Unspecified atrial flutter; Z20.822 Contact with and (suspected) exposure to COVID-19; E11.22 Type 2 diabetes mellitus with diabetic chronic kidney disease; N18.30 Chronic kidney disease, stage 3 unspecified; D63.1 Anemia in chronic kidney disease; E78.00 Pure hypercholesterolemia, unspecified; E03.9 Hypothyroidism, unspecified; E66.01 Morbid (severe) obesity due to excess calories; G47.33 Obstructive sleep apnea (adult) (pediatric); I48.0 Paroxysmal atrial fibrillation; I87.2 Venous insufficiency (chronic) (peripheral); Z95.2 Presence of prosthetic heart valve; Z88.8 Allergy status to other drugs, medicaments and biological substances; Z79.82 Long term (current) use of aspirin; Z79.02 Long term (current) use of antithrombotics/antiplatelets; Z79.4 Long term (current) use of insulin; Z79.890 Hormone replacement therapy; Z79.899 Other long term (current) drug therapy; I25.2 Old myocardial infarction; Z95.5 Presence of coronary angioplasty implant and graft; Z90.49 Acquired absence of other specified parts of digestive tract; Z95.1 Presence of aortocoronary bypass graft; Z90.710 Acquired absence of both cervix and uterus; Z95.0 Presence of cardiac pacemaker; Z89.422 Acquired absence of other left toe(s)
CPT/HCPCS: 36415; 36416; 70450; 71045; 80048; 80053; 81003; 81015; 82553; 83605; 83735; 83880; 84484; 85025; 87040; 87086; 87804; 93005; 93306; 96365; 96375; 96376; G0378; J0456; J0696; J1644; J1815; J1940; J2405

== ENCOUNTER 2022-06-28 19:04 | Emergency (ER) | payer OTHER, MEDICARE ==
[2022-06-28 19:45] LABS: #Eosinphils 0.3 thou/uL (0.0-0.7); #Lymphocytes 1.1 thou/uL (1.20-3.40); #Monocytes 0.6 thou/uL (0.11-0.59); #Neutrophils 4.1 thou/uL (1.40-6.50); %Basophils 0.7 % (0.0-1.0); %Eosinophils 5.3 % (0.0-10.0); %Lymphocytes 17.7 % (21.0-51.0); %Monocytes 9.3 % (0.0-10.0); Mean Corpuscular HGB CONC 32.2 g/dL (32.0-36.0); Mean Corpuscular Hemoglobin 28.9 pg (27.0-31.0); Mean Corpuscular Volume 89.7 fl (78.0-98.0); Mean Platelet Volume 10.1 fL (7.4-10.4); Platelet Count 243 10x3/uL (130-400); RBC Distribution Width 20.9 % (11.5-14.5); Red Blood Cell (RBC) Count 4.16 mill/uL (4.20-5.40); White Blood Cell (WBC) Count 6.1 10x3/uL (4.8-10.8)
[2022-06-28] MEDS ORDERED: HYDROcodone/Acetaminophen 5/325 mg Tablet ONE (19:55)
[2022-06-28 19:57] LABS: PTT 26.6 sec (22.9-36.1); Prothrombin Time 13.6 sec (12.0-14.7)
[2022-06-28 20:08] LABS: ALT (SGPT) 16 U/L (8-55); AST (SGOT) 20 U/L (5-34); Albumin 4.1 g/dL (3.4-4.8); Alkaline Phosphatase 76 U/L (40-110); Anion Gap 17 mmol/L (10-20); BUN (Urea Nitrogen) 26 mg/dL (9.8-20.1); Bilirubin, Total 0.5 mg/dL (0.2-1.2); Calc. Creatinine Clearance 0 mL/min (70-130); Calcium 8.7 mg/dL (7.8-10.44); Carbon Dioxide 19 mmol/L (23-31); Chloride 108 mmol/L (98-107); Estimated GFR 27; Globulin 2.7 g/dL (2.4-3.5); Glucose 259 mg/dL (83-110); Lipase 12 U/L (8-78); Protein, Total 6.8 g/dL (5.8-8.1); Sodium 139 mmol/L (136-145)
[2022-06-28 20:30] LABS: CKMB 4.3 ng/mL (0-6.6)
== END 2022-06-28 21:45 | disposition home or self-care (01) ==
LOC: ERS 19:04
DX: S52.022A Displaced fracture of olecranon process without intraarticular extension of left ulna, initial encounter for closed fracture (principal); E78.00 Pure hypercholesterolemia, unspecified; I11.0 Hypertensive heart disease with heart failure; I50.9 Heart failure, unspecified; E03.9 Hypothyroidism, unspecified; W01.10XA Fall on same level from slipping, tripping and stumbling with subsequent striking against unspecified object, initial encounter; Z79.82 Long term (current) use of aspirin; Z79.899 Other long term (current) drug therapy; Z79.4 Long term (current) use of insulin
CPT/HCPCS: 29065; 36415; 70450; 71045; 72125; 80053; 82553; 83605; 83690; 84484; 85025; 85610; 85730; 93005

== ENCOUNTER 2022-09-24 12:26 | Emergency (ER) | payer MEDICARE ==
[2022-09-24 14:18] LABS: #Eosinphils 0.3 thou/uL (0.0-0.7); #Monocytes 0.5 thou/uL (0.11-0.59); #Neutrophils 4.3 thou/uL (1.40-6.50); %Basophils 0.7 % (0.0-1.0); %Eosinophils 4.9 % (0.0-10.0); %Lymphocytes 15.8 % (21.0-51.0); %Monocytes 7.9 % (0.0-10.0); %Neutrophils 70.4 % (42.0-75.0); Hemoglobin 9.4 g/dL (12.0-16.0); Mean Corpuscular HGB CONC 31.1 g/dL (32.0-36.0); Mean Corpuscular Hemoglobin 27.3 pg (27.0-31.0); Mean Corpuscular Volume 87.8 fl (78.0-98.0); Mean Platelet Volume 11.1 fL (7.4-10.4); Platelet Count 172 10x3/uL (130-400); RBC Distribution Width 20.3 % (11.5-14.5); Red Blood Cell (RBC) Count 3.44 mill/uL (4.20-5.40); White Blood Cell (WBC) Count 6.1 10x3/uL (4.8-10.8)
[2022-09-24 14:50] LABS: ALT (SGPT) 53 U/L (8-55); AST (SGOT) 38 U/L (5-34); Albumin 3.6 g/dL (3.4-4.8); Alkaline Phosphatase 152 U/L (40-110); Anion Gap 15 mmol/L (10-20); BUN (Urea Nitrogen) 48 mg/dL (9.8-20.1); Bilirubin, Total 0.5 mg/dL (0.2-1.2); Calc. Creatinine Clearance 0 mL/min (70-130); Calcium 8.6 mg/dL (7.8-10.44); Carbon Dioxide 18 mmol/L (23-31); Chloride 108 mmol/L (98-107); Estimated GFR 24; Globulin 2.7 g/dL (2.4-3.5); Glucose 330 mg/dL (83-110); Potassium 5.1 mmol/L (3.5-5.1); Protein, Total 6.3 g/dL (5.8-8.1); Sodium 136 mmol/L (136-145)
[2022-09-24 15:02] LABS: CKMB 4.3 ng/mL (0-6.6)
== END 2022-09-24 15:30 | disposition home or self-care (01) ==
LOC: ERS 12:26
DX: M25.512 Pain in left shoulder (principal); M54.6 Pain in thoracic spine; I11.0 Hypertensive heart disease with heart failure; I50.9 Heart failure, unspecified; E11.9 Type 2 diabetes mellitus without complications; Z79.4 Long term (current) use of insulin; E03.9 Hypothyroidism, unspecified; E78.00 Pure hypercholesterolemia, unspecified; Z79.82 Long term (current) use of aspirin; Z79.899 Other long term (current) drug therapy
CPT/HCPCS: 36415; 72072; 80053; 82553; 83605; 84484; 85025; 93005

== ENCOUNTER 2022-10-27 07:36 | Emergency (ER) | payer MEDICARE ==
[2022-10-27 08:10] LABS: #Basophils 0.1 thou/uL (0.0-0.2); #Eosinphils 0.2 thou/uL (0.0-0.7); #Monocytes 0.6 thou/uL (0.11-0.59); #Neutrophils 6.9 thou/uL (1.40-6.50); %Basophils 0.7 % (0.0-1.0); %Eosinophils 1.8 % (0.0-10.0); %Monocytes 7.1 % (0.0-10.0); Mean Corpuscular Hemoglobin 27.8 pg (27.0-31.0); Mean Corpuscular Volume 92.8 fl (78.0-98.0); Platelet Count 174 10x3/uL (130-400); RBC Distribution Width 19.9 % (11.5-14.5); Red Blood Cell (RBC) Count 4.31 mill/uL (4.20-5.40); White Blood Cell (WBC) Count 8.6 10x3/uL (4.8-10.8)
[2022-10-27 08:34] LABS: ALT (SGPT) 13 U/L (8-55); AST (SGOT) 17 U/L (5-34); Albumin 4.1 g/dL (3.4-4.8); Alkaline Phosphatase 94 U/L (40-110); Anion Gap 14 mmol/L (10-20); BUN (Urea Nitrogen) 49 mg/dL (9.8-20.1); Bilirubin, Total 0.8 mg/dL (0.2-1.2); Calc. Creatinine Clearance 0 mL/min (70-130); Calcium 9.8 mg/dL (7.8-10.44); Carbon Dioxide 21 mmol/L (23-31); Chloride 106 mmol/L (98-107); Estimated GFR 21; Globulin 3.1 g/dL (2.4-3.5); Glucose 213 mg/dL (83-110); Magnesium 1.7 mg/dL (1.6-2.6); Potassium 4.9 mmol/L (3.5-5.1); Protein, Total 7.2 g/dL (5.8-8.1); Sodium 136 mmol/L (136-145)
[2022-10-27 10:38] LABS: Bacteria/HPF None Seen HPF (None Seen); Bilirubin Negative (Negative); Blood, Urine Negative (Negative); CAUTI Indications for Culture < 2yrs of age; Clarity Clear (Clear); Glucose, Urine (Dipstick) Normal (Negative); Ketone, Urine Negative (Negative); Leukocyte Negative Leu/uL (Negative); Nitrite Negative (Negative); Protein, Urine (Dipstick) 20 mg/dL (Neg-Trace); RBC/HPF 0-3 HPF (0-3); Specific Gravity, Urine 1.014 (1.002-1.036); Squamous Epithelial None Seen HPF (0-3); Urobilinogen Normal mg/dL (Less than 2); WBC/HPF None Seen HPF (0-3); pH, Urine 5.5 (5.0-9.0)
[2022-10-27 10:40] LABS: Urine Culture Reflex Yes Yes
== END 2022-10-27 12:15 | disposition home or self-care (01) ==
LOC: ERS 07:36
DX: S90.512A Abrasion, left ankle, initial encounter (principal); S90.511A Abrasion, right ankle, initial encounter; E11.9 Type 2 diabetes mellitus without complications; E78.00 Pure hypercholesterolemia, unspecified; I25.2 Old myocardial infarction; I11.0 Hypertensive heart disease with heart failure; I50.9 Heart failure, unspecified; Z79.82 Long term (current) use of aspirin; Z79.899 Other long term (current) drug therapy; W19.XXXA Unspecified fall, initial encounter; N18.30 Chronic kidney disease, stage 3 unspecified
CPT/HCPCS: 36415; 51701; 70450; 71045; 72125; 72170; 80053; 81001; 82550; 83735; 83970; 84100; 85025; 87086

== ENCOUNTER 2022-12-28 08:06 | Inpatient (IN) | payer MEDICARE ==
[2022-12-28 09:49] LABS: #Basophils 0.1 thou/uL (0.0-0.2); #Eosinphils 0.3 thou/uL (0.0-0.7); #Monocytes 0.8 thou/uL (0.11-0.59); #Neutrophils 9.7 thou/uL (1.40-6.50); %Basophils 0.4 % (0.0-1.0); %Eosinophils 2.9 % (0.0-10.0); %Lymphocytes 5.8 % (21.0-51.0); %Monocytes 7.1 % (0.0-10.0); %Neutrophils 83.5 % (42.0-75.0); Hematocrit 28.2 % (36.0-47.0); Hemoglobin 8.9 g/dL (12.0-16.0); Mean Corpuscular HGB CONC 31.6 g/dL (32.0-36.0); Mean Corpuscular Hemoglobin 29.9 pg (27.0-31.0); Mean Corpuscular Volume 94.6 fl (78.0-98.0); Mean Platelet Volume 10.2 fL (7.4-10.4); Platelet Count 255 10x3/uL (130-400); RBC Distribution Width 17.2 % (11.5-14.5); Red Blood Cell (RBC) Count 2.98 mill/uL (4.20-5.40); White Blood Cell (WBC) Count 11.7 10x3/uL (4.8-10.8)
[2022-12-28 10:09] LABS: INR-International Normal Ratio 1.1; PTT 29.6 sec (22.9-36.1); Prothrombin Time 14.8 sec (12.0-14.7)
[2022-12-28 10:14] LABS: ALT (SGPT) 16 U/L (8-55); AST (SGOT) 22 U/L (5-34); Albumin 4.2 g/dL (3.4-4.8); Alkaline Phosphatase 79 U/L (40-110); Anion Gap 19 mmol/L (10-20); BUN (Urea Nitrogen) 54 mg/dL (9.8-20.1); Bilirubin, Total 0.8 mg/dL (0.2-1.2); Calc. Creatinine Clearance 0 mL/min (70-130); Calcium 9.4 mg/dL (7.8-10.44); Carbon Dioxide 16 mmol/L (23-31); Chloride 101 mmol/L (98-107); Estimated GFR 17; Globulin 2.8 g/dL (2.4-3.5); Glucose 83 mg/dL (83-110); Magnesium 1.6 mg/dL (1.6-2.6); Potassium 5.3 mmol/L (3.5-5.1); Sodium 131 mmol/L (136-145)
[2022-12-28 10:18] LABS: Troponin I 0.046 ng/mL (< 0.028)
[2022-12-28 10:26] LABS: Bilirubin Negative (Negative); Blood, Urine 1+ (Negative); CAUTI Indications for Culture Alt mental st,lethar; Clarity Extra Turbid (Clear); Glucose, Urine (Dipstick) Normal (Negative); Ketone, Urine Negative (Negative); Leukocyte 500 Leu/uL (Negative); Nitrite Negative (Negative); Protein, Urine (Dipstick) 30 mg/dL (Neg-Trace); Specific Gravity, Urine 1.012 (1.002-1.036); Squamous Epithelial 0-3 HPF (0-3); Urobilinogen Normal mg/dL (Less than 2); WBC/HPF Greater than 50 HPF (0-3); pH, Urine 5.5 (5.0-9.0)
[2022-12-28 10:34] LABS: Bacteria/HPF 3+ HPF (None Seen)
[2022-12-28 10:35] LABS: Urine Culture Reflex Yes Yes
[2022-12-28] MEDS ORDERED: Aspirin Chewable 81 MG TAB ONE (11:07)
[2022-12-28] MEDS ORDERED: cefTRIAXone (ROCEPHIN) 2 GM VIAL ONE (11:08)
[2022-12-28] MEDS ORDERED: Dextrose 5% in Water 1,000 ML IV PRN (14:43)
[2022-12-28] MEDS ORDERED: Ondansetron ODT 4 MG TAB PO PRN (14:43)
[2022-12-28] MEDS ORDERED: Glucagon 1 MG/ML KIT IM PRN (14:43)
[2022-12-28] MEDS ORDERED: hydrALAZINE 20 MG/ML VIAL SLOW IVP PRN (14:43)
[2022-12-28] MEDS ORDERED: Dextrose 50% Abboject 50 ML SYRINGE SLOW IVP PRN (14:43)
[2022-12-28] MEDS ORDERED: Acetaminophen 325 MG TAB PO PRN (14:43)
[2022-12-28] MEDS ORDERED: Furosemide 20 MG TAB PO SCH (17:15)
[2022-12-28] MEDS ORDERED: Magnesium 2 GM/50 ML(in water) 2 GM in Premix 1 BAG IVPB SCH (17:45)
[2022-12-28] MEDS ORDERED: Furosemide 40 MG TAB ONE (18:24)
[2022-12-28] MEDS ORDERED: Magnesium 2 GM/50 ML BAG (IN WATER) ONE (18:24)
[2022-12-28 18:39] LABS: Troponin I 0.047 ng/mL (< 0.028)
[2022-12-28] MEDS ORDERED: Vancomycin (BATCH) 1.75 GM in Premix 1 BAG IVPB SCH (19:30)
[2022-12-28] MEDS ORDERED: Vancomycin Dose by Levels Sliding Scale (Wt 71-99) FS SCH (19:30)
[2022-12-28] MEDS: Atorvastatin Calcium 40 MG TAB PO SCH (23:41)
[2022-12-28] MEDS: cloNIDine 0.1 MG TAB PO SCH (23:41)
[2022-12-28] MEDS: Ranolazine 500 MG ER.TAB PO SCH (23:42)
[2022-12-29 02:36] VITALS: BMI 28.9
[2022-12-29 04:18] LABS: #Basophils 0.1 thou/uL (0.0-0.2); #Eosinphils 0.3 thou/uL (0.0-0.7); #Monocytes 0.8 thou/uL (0.11-0.59); #Neutrophils 9.4 thou/uL (1.40-6.50); %Basophils 0.5 % (0.0-1.0); %Eosinophils 2.8 % (0.0-10.0); %Lymphocytes 5.2 % (21.0-51.0); %Neutrophils 83.8 % (42.0-75.0); Hematocrit 30.2 % (36.0-47.0); Hemoglobin 9.3 g/dL (12.0-16.0); Mean Corpuscular HGB CONC 30.8 g/dL (32.0-36.0); Mean Corpuscular Hemoglobin 29.4 pg (27.0-31.0); Mean Corpuscular Volume 95.6 fl (78.0-98.0); Mean Platelet Volume 9.9 fL (7.4-10.4); Platelet Count 244 10x3/uL (130-400); RBC Distribution Width 17.3 % (11.5-14.5); Red Blood Cell (RBC) Count 3.16 mill/uL (4.20-5.40); White Blood Cell (WBC) Count 11.2 10x3/uL (4.8-10.8)
[2022-12-29 04:45] LABS: ALT (SGPT) 21 U/L (8-55); AST (SGOT) 23 U/L (5-34); Albumin 3.7 g/dL (3.4-4.8); Alkaline Phosphatase 88 U/L (40-110); Anion Gap 20 mmol/L (10-20); BUN (Urea Nitrogen) 57 mg/dL (9.8-20.1); Bilirubin, Total 0.6 mg/dL (0.2-1.2); Calc. Creatinine Clearance 21 mL/min (70-130); Calcium 8.9 mg/dL (7.8-10.44); Carbon Dioxide 14 mmol/L (23-31); Cardiac Risk 3.9 (Less than 4.5); Chloride 105 mmol/L (98-107); Cholesterol 94 mg/dl (< 200 Desired); Estimated GFR 16; Globulin 2.6 g/dL (2.4-3.5); Glucose 167 mg/dL (83-110); HDL Cholesterol 24 mg/dL (>60 Neg Risk); LDL Cholesterol, Calculated 53 mg/dL; Potassium 5.3 mmol/L (3.5-5.1); Protein, Total 6.3 g/dL (5.8-8.1); Sodium 134 mmol/L (136-145); Triglycerides 87 mg/dL (Less than 150)
[2022-12-29] MEDS ORDERED: Levothyroxine Sodium 125 MCG TAB PO SCH (06:00)
[2022-12-29] MEDS ORDERED: Furosemide 20 MG/2 ML VIAL SLOW IVP SCH (06:00)
[2022-12-29] MEDS ORDERED: Carvedilol 6.25 MG TAB PO SCH (08:00)
[2022-12-29] MEDS: Aspirin 81 mg Enteric Coated Tablet PO SCH (09:46)
[2022-12-29] MEDS: Clopidogrel Bisulfate 75 MG TAB PO SCH (09:46)
[2022-12-29] MEDS: cloNIDine 0.1 MG TAB PO SCH ×2 (09:46→20:44)
[2022-12-29] MEDS: Ranolazine 500 MG ER.TAB PO SCH ×2 (09:46→20:44)
[2022-12-29] MEDS ORDERED: Mag-Al 1200 mg/1200 mg/30 ML UDCUP PO PRN (11:13)
[2022-12-29] MEDS: cefTRIAXone\\ROCEPHIN 1 GM in Sodium Chloride 0.9% 100 ML IVPB SCH (11:48)
[2022-12-29] MEDS: Carvedilol 6.25 MG TAB PO SCH (20:44)
[2022-12-29] MEDS: Atorvastatin Calcium 40 MG TAB PO SCH (20:44)
[2022-12-29 21:10] LABS: Vancomycin, Random 13.2 ug/mL (See Comment)
[2022-12-29] MEDS ORDERED: Vancomycin HCl 750 MG in Sodium Chloride 0.9% 250 ML 250 ML IVPB SCH (22:00)
[2022-12-30 03:58] LABS: #Eosinphils 0.5 thou/uL (0.0-0.7); #Monocytes 0.8 thou/uL (0.11-0.59); #Neutrophils 5.8 thou/uL (1.40-6.50); %Basophils 0.4 % (0.0-1.0); %Eosinophils 6.1 % (0.0-10.0); %Lymphocytes 8.9 % (21.0-51.0); %Monocytes 9.8 % (0.0-10.0); %Neutrophils 74.2 % (42.0-75.0); Hematocrit 29.2 % (36.0-47.0); Mean Corpuscular HGB CONC 30.8 g/dL (32.0-36.0); Mean Corpuscular Hemoglobin 29.4 pg (27.0-31.0); Mean Corpuscular Volume 95.4 fl (78.0-98.0); Mean Platelet Volume 9.8 fL (7.4-10.4); Platelet Count 232 10x3/uL (130-400); RBC Distribution Width 17.5 % (11.5-14.5); Red Blood Cell (RBC) Count 3.06 mill/uL (4.20-5.40); White Blood Cell (WBC) Count 7.9 10x3/uL (4.8-10.8)
[2022-12-30 04:20] LABS: Anion Gap 17 mmol/L (10-20); BUN (Urea Nitrogen) 55 mg/dL (9.8-20.1); Calc. Creatinine Clearance 22 mL/min (70-130); Calcium 8.8 mg/dL (7.8-10.44); Carbon Dioxide 15 mmol/L (23-31); Chloride 106 mmol/L (98-107); Estimated GFR 17; Glucose 181 mg/dL (83-110); Potassium 5.3 mmol/L (3.5-5.1); Sodium 133 mmol/L (136-145)
[2022-12-30] MEDS: Levothyroxine Sodium 112 MCG TAB PO SCH (05:54)
[2022-12-30] MEDS: Levothyroxine Sodium 25 MCG TAB PO SCH (05:54)
[2022-12-30] MEDS: Sodium Chloride 0.9% 1,000 ML IV SCH ×2 (08:52→22:48)
[2022-12-30] MEDS: Sodium Bicarbonate Tab 325 MG TAB PO SCH ×3 (10:44→20:51)
[2022-12-30] MEDS: Carvedilol 6.25 MG TAB PO SCH ×2 (10:45→20:50)
[2022-12-30] MEDS: Ascorbic Acid 500 mg Chewable Tablet PO SCH (10:46)
[2022-12-30] MEDS: Isosorbide Mononitrate 60 MG ER.TAB PO SCH (10:47)
[2022-12-30] MEDS: Cholecalciferol 1,000 UNITS (25 MCG) TAB PO SCH (10:47)
[2022-12-30] MEDS: Calcitriol 0.25 MCG CAP PO SCH (10:47)
[2022-12-30] MEDS: Ranolazine 500 MG ER.TAB PO SCH ×2 (10:47→20:50)
[2022-12-30] MEDS: Clopidogrel Bisulfate 75 MG TAB PO SCH (10:48)
[2022-12-30] MEDS: cloNIDine 0.1 MG TAB PO SCH ×2 (10:48→20:51)
[2022-12-30] MEDS: Cyanocobalamin (Vitamin B-12) 1,000 MCG TAB PO SCH (10:49)
[2022-12-30] MEDS: Aspirin 81 mg Enteric Coated Tablet PO SCH (10:49)
[2022-12-30] MEDS: cefTRIAXone\\ROCEPHIN 1 GM in Sodium Chloride 0.9% 100 ML IVPB SCH (11:41)
[2022-12-30] MEDS: Atorvastatin Calcium 40 MG TAB PO SCH (20:50)
[2022-12-30 21:07] LABS: Vancomycin, Random 15.5 ug/mL (See Comment)
[2022-12-30] MEDS ORDERED: Vancomycin HCl 500 MG in Sodium Chloride 0.9% 100 ML IV SCH (22:00)
[2022-12-31 04:18] LABS: #Basophils 0.1 thou/uL (0.0-0.2); #Eosinphils 0.5 thou/uL (0.0-0.7); #Monocytes 0.7 thou/uL (0.11-0.59); #Neutrophils 5.6 thou/uL (1.40-6.50); %Basophils 0.7 % (0.0-1.0); %Eosinophils 6.3 % (0.0-10.0); %Monocytes 9.3 % (0.0-10.0); %Neutrophils 73.2 % (42.0-75.0); Hematocrit 26.8 % (36.0-47.0); Hemoglobin 8.4 g/dL (12.0-16.0); Mean Corpuscular HGB CONC 31.3 g/dL (32.0-36.0); Mean Corpuscular Hemoglobin 29.9 pg (27.0-31.0); Mean Corpuscular Volume 95.4 fl (78.0-98.0); Mean Platelet Volume 10.5 fL (7.4-10.4); Platelet Count 242 10x3/uL (130-400); RBC Distribution Width 17.6 % (11.5-14.5); Red Blood Cell (RBC) Count 2.81 mill/uL (4.20-5.40); White Blood Cell (WBC) Count 7.6 10x3/uL (4.8-10.8)
[2022-12-31 04:49] LABS: Anion Gap 16 mmol/L (10-20); BUN (Urea Nitrogen) 50 mg/dL (9.8-20.1); Calc. Creatinine Clearance 26 mL/min (70-130); Calcium 8.3 mg/dL (7.8-10.44); Carbon Dioxide 16 mmol/L (23-31); Chloride 107 mmol/L (98-107); Estimated GFR 20; Glucose 168 mg/dL (83-110); Potassium 5.4 mmol/L (3.5-5.1); Sodium 134 mmol/L (136-145)
[2022-12-31] MEDS: Levothyroxine Sodium 112 MCG TAB PO SCH (05:28)
[2022-12-31] MEDS: Levothyroxine Sodium 25 MCG TAB PO SCH (05:28)
[2022-12-31] MEDS: Clopidogrel Bisulfate 75 MG TAB PO SCH (09:12)
[2022-12-31] MEDS: Aspirin 81 mg Enteric Coated Tablet PO SCH (09:12)
[2022-12-31] MEDS: Carvedilol 6.25 MG TAB PO SCH ×2 (09:12→20:21)
[2022-12-31] MEDS: Sodium Bicarbonate Tab 325 MG TAB PO SCH ×3 (09:12→20:21)
[2022-12-31] MEDS: Ascorbic Acid 500 mg Chewable Tablet PO SCH (09:13)
[2022-12-31] MEDS: Cyanocobalamin (Vitamin B-12) 1,000 MCG TAB PO SCH (09:13)
[2022-12-31] MEDS: Cholecalciferol 1,000 UNITS (25 MCG) TAB PO SCH (09:13)
[2022-12-31] MEDS: cloNIDine 0.1 MG TAB PO SCH ×2 (09:13→20:21)
[2022-12-31] MEDS: Calcitriol 0.25 MCG CAP PO SCH (09:13)
[2022-12-31] MEDS: Isosorbide Mononitrate 60 MG ER.TAB PO SCH (09:13)
[2022-12-31] MEDS: Ranolazine 500 MG ER.TAB PO SCH ×2 (09:14→20:21)
[2022-12-31] MEDS ORDERED: Epoetin (ESRD) 10,000 UNITS/ML VIAL SC SCH (09:30)
[2022-12-31] MEDS: Sodium Chloride 0.9% 1,000 ML IV SCH ×2 (12:23→23:08)
[2022-12-31] MEDS: cefTRIAXone\\ROCEPHIN 1 GM in Sodium Chloride 0.9% 100 ML IVPB SCH (12:23)
[2022-12-31] MEDS: Insulin Regular 300 UNITS/3 ML VIAL SC PRN ×2 (15:18→20:45)
[2022-12-31] MEDS: Ferrous Sulfate 325 MG TAB PO SCH (18:10)
[2022-12-31] MEDS: Atorvastatin Calcium 40 MG TAB PO SCH (20:20)
[2022-12-31 22:17] LABS: Vancomycin, Random 14.8 ug/mL (See Comment)
[2022-12-31] MEDS: Vancomycin HCl 750 MG in Sodium Chloride 0.9% 250 ML 250 ML IVPB SCH ×2 (23:10→23:13)
[2023-01-01 05:02] LABS: #Eosinphils 0.4 thou/uL (0.0-0.7); #Monocytes 0.7 thou/uL (0.11-0.59); #Neutrophils 6.1 thou/uL (1.40-6.50); %Basophils 0.4 % (0.0-1.0); %Eosinophils 5.6 % (0.0-10.0); %Lymphocytes 7.5 % (21.0-51.0); %Monocytes 8.5 % (0.0-10.0); %Neutrophils 77.5 % (42.0-75.0); Hematocrit 28.7 % (36.0-47.0); Hemoglobin 8.8 g/dL (12.0-16.0); Mean Corpuscular HGB CONC 30.7 g/dL (32.0-36.0); Mean Corpuscular Hemoglobin 28.9 pg (27.0-31.0); Mean Corpuscular Volume 94.1 fl (78.0-98.0); Mean Platelet Volume 9.9 fL (7.4-10.4); Platelet Count 241 10x3/uL (130-400); RBC Distribution Width 17.5 % (11.5-14.5); Red Blood Cell (RBC) Count 3.05 mill/uL (4.20-5.40); White Blood Cell (WBC) Count 7.9 10x3/uL (4.8-10.8)
[2023-01-01 05:24] LABS: Anion Gap 16 mmol/L (10-20); BUN (Urea Nitrogen) 45 mg/dL (9.8-20.1); Calc. Creatinine Clearance 25 mL/min (70-130); Calcium 8.4 mg/dL (7.8-10.44); Carbon Dioxide 17 mmol/L (23-31); Chloride 108 mmol/L (98-107); Estimated GFR 19; Glucose 195 mg/dL (83-110); Potassium 5.4 mmol/L (3.5-5.1); Sodium 136 mmol/L (136-145)
[2023-01-01] MEDS: Insulin Regular 300 UNITS/3 ML VIAL SC PRN ×3 (06:14→20:41)
[2023-01-01] MEDS: Levothyroxine Sodium 112 MCG TAB PO SCH (06:15)
[2023-01-01] MEDS: Levothyroxine Sodium 25 MCG TAB PO SCH (06:15)
[2023-01-01] MEDS: Ferrous Sulfate 325 MG TAB PO SCH ×2 (08:46→17:34)
[2023-01-01] MEDS: Sodium Bicarbonate Tab 325 MG TAB PO SCH ×3 (08:46→20:10)
[2023-01-01] MEDS: Ranolazine 500 MG ER.TAB PO SCH ×2 (08:46→20:09)
[2023-01-01] MEDS: Aspirin 81 mg Enteric Coated Tablet PO SCH (08:46)
[2023-01-01] MEDS: Ascorbic Acid 500 mg Chewable Tablet PO SCH (08:46)
[2023-01-01] MEDS: cloNIDine 0.1 MG TAB PO SCH ×2 (08:47→20:10)
[2023-01-01] MEDS: Clopidogrel Bisulfate 75 MG TAB PO SCH (08:47)
[2023-01-01] MEDS: Carvedilol 6.25 MG TAB PO SCH ×2 (08:47→20:09)
[2023-01-01] MEDS: Isosorbide Mononitrate 60 MG ER.TAB PO SCH (08:47)
[2023-01-01] MEDS: Cholecalciferol 1,000 UNITS (25 MCG) TAB PO SCH (08:47)
[2023-01-01] MEDS: Cyanocobalamin (Vitamin B-12) 1,000 MCG TAB PO SCH (08:47)
[2023-01-01] MEDS: Calcitriol 0.25 MCG CAP PO SCH (08:47)
[2023-01-01] MEDS ORDERED: FLU VACC QS2023(65UP)/MF59C/PF 60 MCG/0.5 ML SYRINGE IM ONE (09:00)
[2023-01-01] MEDS: cefTRIAXone\\ROCEPHIN 1 GM in Sodium Chloride 0.9% 100 ML IVPB SCH (10:26)
[2023-01-01] MEDS: Sodium Chloride 0.9% 1,000 ML IV SCH (17:35)
[2023-01-01] MEDS: Atorvastatin Calcium 40 MG TAB PO SCH (20:09)
[2023-01-02 05:14] LABS: #Eosinphils 0.2 thou/uL (0.0-0.7); #Monocytes 0.7 thou/uL (0.11-0.59); #Neutrophils 8.1 thou/uL (1.40-6.50); %Basophils 0.3 % (0.0-1.0); %Eosinophils 1.9 % (0.0-10.0); %Lymphocytes 7.9 % (21.0-51.0); %Neutrophils 82.5 % (42.0-75.0); Hematocrit 25.9 % (36.0-47.0); Mean Corpuscular HGB CONC 30.9 g/dL (32.0-36.0); Mean Corpuscular Hemoglobin 29.5 pg (27.0-31.0); Mean Corpuscular Volume 95.6 fl (78.0-98.0); Mean Platelet Volume 10.3 fL (7.4-10.4); Platelet Count 222 10x3/uL (130-400); RBC Distribution Width 18.3 % (11.5-14.5); Red Blood Cell (RBC) Count 2.71 mill/uL (4.20-5.40); White Blood Cell (WBC) Count 9.8 10x3/uL (4.8-10.8)
[2023-01-02 05:42] LABS: Anion Gap 16 mmol/L (10-20); BUN (Urea Nitrogen) 42 mg/dL (9.8-20.1); Calc. Creatinine Clearance 28 mL/min (70-130); Calcium 8.2 mg/dL (7.8-10.44); Carbon Dioxide 16 mmol/L (23-31); Chloride 111 mmol/L (98-107); Estimated GFR 22; Glucose 172 mg/dL (83-110); Potassium 4.8 mmol/L (3.5-5.1); Sodium 138 mmol/L (136-145)
[2023-01-02] MEDS: Levothyroxine Sodium 112 MCG TAB PO SCH (06:02)
[2023-01-02] MEDS: Levothyroxine Sodium 25 MCG TAB PO SCH (06:02)
[2023-01-02] MEDS: Insulin Regular 300 UNITS/3 ML VIAL SC PRN (06:02)
[2023-01-02] MEDS: Sodium Chloride 0.9% 1,000 ML IV SCH (06:06)
[2023-01-02] MEDS: Aspirin 81 mg Enteric Coated Tablet PO SCH (08:47)
[2023-01-02] MEDS: Cholecalciferol 1,000 UNITS (25 MCG) TAB PO SCH (08:48)
[2023-01-02] MEDS: Calcitriol 0.25 MCG CAP PO SCH (08:48)
[2023-01-02] MEDS: Clopidogrel Bisulfate 75 MG TAB PO SCH (08:48)
[2023-01-02] MEDS: Ascorbic Acid 500 mg Chewable Tablet PO SCH (08:48)
[2023-01-02] MEDS: Ferrous Sulfate 325 MG TAB PO SCH (08:48)
[2023-01-02] MEDS: Sodium Bicarbonate Tab 325 MG TAB PO SCH (08:48)
[2023-01-02] MEDS: Carvedilol 6.25 MG TAB PO SCH (08:48)
[2023-01-02] MEDS: cloNIDine 0.1 MG TAB PO SCH (08:48)
[2023-01-02] MEDS: Isosorbide Mononitrate 60 MG ER.TAB PO SCH (08:48)
[2023-01-02] MEDS: Ranolazine 500 MG ER.TAB PO SCH (08:48)
[2023-01-02] MEDS: Cyanocobalamin (Vitamin B-12) 1,000 MCG TAB PO SCH (08:48)
[2023-01-02 08:49] VITALS: BP 147/63
[2023-01-02] MEDS: cefTRIAXone\\ROCEPHIN 1 GM in Sodium Chloride 0.9% 100 ML IVPB SCH (11:20)
[2023-01-02 11:53] VITALS: TEMP 97.6
== END 2023-01-02 12:45 | disposition home or self-care (01) | DRG 683 ==
LOC: ERS 08:06 → SUATTDRO 08:06 → ERHOLD 13:49 → 2SE 19:55
PROVIDERS: ADMIT Hospitalist; ATTEND Internal Medicine
DX: N17.9 Acute kidney failure, unspecified (principal); E87.20 Acidosis, unspecified; N39.0 Urinary tract infection, site not specified; I50.22 Chronic systolic (congestive) heart failure; I13.0 Hypertensive heart and chronic kidney disease with heart failure and stage 1 through stage 4 chronic kidney disease, or unspecified chronic kidney disease; N18.4 Chronic kidney disease, stage 4 (severe); E03.9 Hypothyroidism, unspecified; E78.00 Pure hypercholesterolemia, unspecified; E11.22 Type 2 diabetes mellitus with diabetic chronic kidney disease; I25.10 Atherosclerotic heart disease of native coronary artery without angina pectoris; E78.5 Hyperlipidemia, unspecified; R62.7 Adult failure to thrive; E87.5 Hyperkalemia; D63.1 Anemia in chronic kidney disease; F32.A Depression, unspecified; I48.0 Paroxysmal atrial fibrillation; E66.01 Morbid (severe) obesity due to excess calories; Z98.890 Other specified postprocedural states; Z68.29 Body mass index [BMI] 29.0-29.9, adult; Z90.49 Acquired absence of other specified parts of digestive tract; Z95.1 Presence of aortocoronary bypass graft; I25.2 Old myocardial infarction; Z95.5 Presence of coronary angioplasty implant and graft; Z90.710 Acquired absence of both cervix and uterus; Z95.0 Presence of cardiac pacemaker; Z95.2 Presence of prosthetic heart valve; Z79.82 Long term (current) use of aspirin; Z79.899 Other long term (current) drug therapy; Z79.4 Long term (current) use of insulin; Z79.01 Long term (current) use of anticoagulants
CPT/HCPCS: 36415; 36416; 70450; 71046; 80048; 80053; 80061; 80202; 81001; 83735; 83880; 84484; 85025; 85610; 85730; 87086; 93005; 93306; 96365; J0696; J1815; J1940; J3370; J3475; J3490; J7050; Q4081

== ENCOUNTER 2023-01-08 18:47 | Emergency (ER) | payer MEDICARE ==
[2023-01-08 20:37] LABS: #Basophils 0.1 thou/uL (0.0-0.2); #Eosinphils 0.5 thou/uL (0.0-0.7); #Monocytes 0.5 thou/uL (0.11-0.59); #Neutrophils 5.3 thou/uL (1.40-6.50); %Basophils 0.7 % (0.0-1.0); %Eosinophils 7.1 % (0.0-10.0); %Lymphocytes 11.9 % (21.0-51.0); %Monocytes 7.1 % (0.0-10.0); %Neutrophils 72.8 % (42.0-75.0); Hematocrit 29.5 % (36.0-47.0); Hemoglobin 9.1 g/dL (12.0-16.0); Mean Corpuscular HGB CONC 30.8 g/dL (32.0-36.0); Mean Corpuscular Hemoglobin 29.4 pg (27.0-31.0); Mean Corpuscular Volume 95.5 fl (78.0-98.0); Mean Platelet Volume 9.6 fL (7.4-10.4); Platelet Count 247 10x3/uL (130-400); RBC Distribution Width 18.4 % (11.5-14.5); Red Blood Cell (RBC) Count 3.09 mill/uL (4.20-5.40); White Blood Cell (WBC) Count 7.2 10x3/uL (4.8-10.8)
[2023-01-08] MEDS ORDERED: Cephalexin 250 MG CAP ONE (20:50)
[2023-01-08] MEDS ORDERED: oxyCODONE/Acetaminophen 5 mg/325 mg Tablet PO SCH (21:00)
[2023-01-08 21:11] LABS: ALT (SGPT) 17 U/L (8-55); AST (SGOT) 17 U/L (5-34); Albumin 3.7 g/dL (3.4-4.8); Alkaline Phosphatase 117 U/L (40-110); Anion Gap 16 mmol/L (10-20); BUN (Urea Nitrogen) 25 mg/dL (9.8-20.1); Bilirubin, Total 0.7 mg/dL (0.2-1.2); Calc. Creatinine Clearance 0 mL/min (70-130); Calcium 8.8 mg/dL (7.8-10.44); Carbon Dioxide 20 mmol/L (23-31); Chloride 105 mmol/L (98-107); Estimated GFR 29; Globulin 2.6 g/dL (2.4-3.5); Glucose 203 mg/dL (83-110); Potassium 4.8 mmol/L (3.5-5.1); Protein, Total 6.3 g/dL (5.8-8.1); Sodium 136 mmol/L (136-145)
== END 2023-01-08 21:50 | disposition home or self-care (01) ==
LOC: ERS 18:47
DX: L89.151 Pressure ulcer of sacral region, stage 1 (principal); I13.0 Hypertensive heart and chronic kidney disease with heart failure and stage 1 through stage 4 chronic kidney disease, or unspecified chronic kidney disease; I50.9 Heart failure, unspecified; N18.4 Chronic kidney disease, stage 4 (severe); E11.22 Type 2 diabetes mellitus with diabetic chronic kidney disease; E78.00 Pure hypercholesterolemia, unspecified; E03.9 Hypothyroidism, unspecified; Z79.82 Long term (current) use of aspirin; Z79.4 Long term (current) use of insulin; Z79.899 Other long term (current) drug therapy
CPT/HCPCS: 36415; 80053; 83605; 85025; 99283